=== PATIENT | female | born 1965 ===

== ENCOUNTER 2019-08-05 14:05 | Inpatient (IN) | payer OTHER, SELFPAY ==
[2019-08-05] MEDS ORDERED: SODIUM CHLORIDE 0.9% 500 ML 500 ML IV ONE (14:38)
[2019-08-05 15:07] LABS: Basophils % (Auto) 0.5 % (0.0-1.8); Eosinophils # (Auto) 0.1 K/mm3 (0.0-0.4); Eosinophils % (Auto) 1.7 % (0.0-4.3); Hematocrit 42.3 % (30.3-42.9); Hemoglobin 13.8 gm/dl (10.1-14.3); Lymphocytes # (Auto) 0.9 K/mm3 (1.2-5.4); Mean Corpuscular HGB Conc 33 % (30-34); Mean Corpuscular Volume 90 fl (79-97); Monocytes # (Auto) 0.8 K/mm3 (0.0-0.8); Monocytes % (Auto) 10.8 % (0.0-7.3); Platelet Count 149 K/mm3 (140-440); Red Blood Count 4.71 M/mm3 (3.65-5.03); Red Cell Distribution Width 14.1 % (13.2-15.2)
[2019-08-05 15:18] LABS: Partial Thromboplastin Time 26.3 Sec. (24.2-36.6)
--- NOTE | 2019-08-05 15:22 | XRay Report ---
CHEST 1 VIEW 08/05/2019 2:45 PM INDICATION / CLINICAL INFORMATION: hypoxia. COMPARISON: None available. FINDINGS: SUPPORT DEVICES: None. HEART / MEDIASTINUM: The cardiac silhouette is mildly enlarged. LUNGS / PLEURA: There are diffuse bilateral airspace opacities without a significant pleural effusion or pneumothorax. ADDITIONAL FINDINGS: No significant additional findings. IMPRESSION: 1. Diffuse bilateral airspace opacities could represent pulmonary edema, pneumonia or ARDS. Please co rrelate with the clinical findings. 2. Mild cardiomegaly. Signer Name: Rodney Garces MD Signed: 08/05/2019 3:17 PM Workstation Name: [id number]
[2019-08-05 15:31] LABS: Alanine Aminotransferase 24 units/L (7-56); Albumin 2.9 g/dL (3.9-5); BUN/Creatinine Ratio 10; Blood Urea Nitrogen 6 mg/dL (7-17); Calcium 8.5 mg/dL (8.4-10.2); Hemolysis Index 2
[2019-08-05 15:32] LABS: C-Reactive Protein 32.9 mg/dL (0.00-1.30)
--- NOTE | 2019-08-05 15:41 | Emergency Department Report ---
ED Shortness of Breath HPI - General Chief Complaint: Dyspnea/Respdistress Stated Complaint: COUGH Time Seen by Provider: 08/05/19 14:38 Source: patient, first aid attendant Mode of arrival: Ambulatory Limitations: Language Barrier - History of Present Illness Initial Comments: Patient is a 54-year-old female who is presenting with shortness of breath. Patient states she is been having cough with worsening shortness of breath for approximately 2 weeks. She denies nausea vomiting diarrhea. Patient has had chills and subjective fevers. Patient states she has no known contacts with anyone who is been ill or who has tested positive for COVID-19. - Related Data Allergies Allergy/AdvReac Type Severity Reaction Status Date / Time No Known Allergies Allergy Unverified 08/05/19 14:12 ED Review of Systems ROS: Stated complaint: COUGH Other details as noted in HPI Comment: All other systems reviewed and negative ED Past Medical Hx - Past Medical History Hx Diabetes: Yes - Surgical History Additional Surgical History: HYSTO - Social History Smoking Status: Never Smoker Substance Use Type: Alcohol ED Physical Exam - General Limitations: Language Barrier General appearance: alert, in no apparent distress - Head Head exam: Present: atraumatic, normocephalic - Eye Eye exam: Present: normal appearance - ENT ENT exam: Present: mucous membranes moist - Neck Neck exam: Present: normal inspection - Respiratory Respiratory exam: Present: respiratory distress, rhonchi, other (Tachypnea). Absent: normal lung sounds bilaterally - Cardiovascular Cardiovascular Exam: Present: normal rhythm, tachycardia. Absent: systolic murmur, diastolic murmur, rubs, gallop - GI/Abdominal GI/Abdominal exam: Present: soft, normal bowel sounds - Extremities Exam Extremities exam: Present: normal inspection - Back Exam Back exam: Present: normal inspection - Neurological Exam Neurological exam: Present: alert, oriented X3 - Psychiatric Psychiatric exam: Present: normal affect, normal mood - Skin Skin exam: Present: warm, dry, intact, normal color. Absent: rash ED Course Vital Signs 08/05/19 14:16 Temperature 98.6 F Pulse Rate 113 H Respiratory 32 H Rate Blood Pressure 123/67 [Left] O2 Sat by Pulse 53 L Oximetry ED Medical Decision Making - Lab Data Result diagrams: 08/05/19 14:53 08/05/19 14:53 Lab Results 08/05/19 08/05/19 08/05/19 Range/Units 14:53 14:53 14:53 WBC 7.0 (4.5-11.0) K/mm3 RBC 4.71 (3.65-5.03) M/mm3 Hgb 13.8 (10.1-14.3) gm/dl Hct 42.3 (30.3-42.9) % MCV 90 (79-97) fl MCH 29 (28-32) pg MCHC 33 (30-34) % RDW 14.1 (13.2-15.2) % Plt Count 149 (140-440) K/mm3 Lymph % (Auto) 13.0 L (13.4-35.0) % [place] % (Auto) 10.8 H (0.0-7.3) % Eos % (Auto) 1.7 (0.0-4.3) % Baso % (Auto) 0.5 (0.0-1.8) % Lymph # 0.9 L (1.2-5.4) K/mm3 [place] # 0.8 (0.0-0.8) K/mm3 Eos # 0.1 (0.0-0.4) K/mm3 Baso # 0.0 (0.0-0.1) K/mm3 Seg Neutrophils % 74.0 H (40.0-70.0) % Seg Neutrophils # 5.2 (1.8-7.7) K/mm3 APTT 26.3 (24.2-36.6) Sec. Sodium 138 (137-145) mmol/L Potassium 4.0 (3.6-5.0) mmol/L Chloride 103.3 (98-107) mmol/L Carbon Dioxide 20 L (22-30) mmol/L Anion Gap 19 mmol/L BUN 6 L (7-17) mg/dL Creatinine 0.6 L (0.7-1.2) mg/dL Estimated GFR > 60 ml/min BUN/Creatinine Ratio 10 % Glucose 255 H (65-100) mg/dL Lactic Acid (0.7-2.0) mmol/L Calcium 8.5 (8.4-10.2) mg/dL Ferritin (13.0-400.0) ng/mL Total Bilirubin 0.60 (0.1-1.2) mg/dL AST 33 (5-40) units/L ALT 24 (7-56) units/L Alkaline Phosphatase 173 H (35-129) units/L Lactate Dehydrogenase (91-180) units/L C-Reactive Protein (0.00-1.30) mg/dL NT-Pro-B Natriuret Pep (0-900) pg/mL Total Protein 7.3 (6.3-8.2) g/dL Albumin 2.9 L (3.9-5) g/dL Albumin/Globulin Ratio 0.7 % 08/05/19 08/05/19 08/05/19 Range/Units 14:53 14:53 14:53 WBC (4.5-11.0) K/mm3 RBC (3.65-5.03) M/mm3 Hgb (10.1-14.3) gm/dl Hct (30.3-42.9) % MCV (79-97) fl MCH (28-32) pg MCHC (30-34) % RDW (13.2-15.2) % Plt Count (140-440) K/mm3 Lymph % (Auto) (13.4-35.0) % [place] % (Auto) (0.0-7.3) % Eos % (Auto) (0.0-4.3) % Baso % (Auto) (0.0-1.8) % Lymph # (1.2-5.4) K/mm3 [place] # (0.0-0.8) K/mm3 Eos # (0.0-0.4) K/mm3 Baso # (0.0-0.1) K/mm3 Seg Neutrophils % (40.0-70.0) % Seg Neutrophils # (1.8-7.7) K/mm3 APTT (24.2-36.6) Sec. Sodium (137-145) mmol/L Potassium (3.6-5.0) mmol/L Chloride (98-107) mmol/L Carbon Dioxide (22-30) mmol/L Anion Gap mmol/L BUN (7-17) mg/dL Creatinine (0.7-1.2) mg/dL Estimated GFR ml/min BUN/Creatinine Ratio % Glucose 256 H (65-100) mg/dL Lactic Acid 3.40 H* (0.7-2.0) mmol/L Calcium (8.4-10.2) mg/dL Ferritin 438.9 H (13.0-400.0) ng/mL Total Bilirubin (0.1-1.2) mg/dL AST (5-40) units/L ALT (7-56) units/L Alkaline Phosphatase (35-129) units/L Lactate Dehydrogenase 702 H (91-180) units/L C-Reactive Protein 32.90 H (0.00-1.30) mg/dL NT-Pro-B Natriuret Pep (0-900) pg/mL Total Protein (6.3-8.2) g/dL Albumin (3.9-5) g/dL Albumin/Globulin Ratio % 05/22/20 Range/Units 15:07 WBC (4.5-11.0) K/mm3 RBC (3.65-5.03) M/mm3 Hgb (10.1-14.3) gm/dl Hct (30.3-42.9) % MCV (79-97) fl MCH (28-32) pg MCHC (30-34) % RDW (13.2-15.2) % Plt Count (140-440) K/mm3 Lymph % (Auto) (13.4-35.0) % [place] % (Auto) (0.0-7.3) % Eos % (Auto) (0.0-4.3) % Baso % (Auto) (0.0-1.8) % Lymph # (1.2-5.4) K/mm3 [place] # (0.0-0.8) K/mm3 Eos # (0.0-0.4) K/mm3 Baso # (0.0-0.1) K/mm3 Seg Neutrophils % (40.0-70.0) % Seg Neutrophils # (1.8-7.7) K/mm3 APTT (24.2-36.6) Sec. Sodium (137-145) mmol/L Potassium (3.6-5.0) mmol/L Chloride (98-107) mmol/L Carbon Dioxide (22-30) mmol/L Anion Gap mmol/L BUN (7-17) mg/dL Creatinine (0.7-1.2) mg/dL Estimated GFR ml/min BUN/Creatinine Ratio % Glucose (65-100) mg/dL Lactic Acid (0.7-2.0) mmol/L Calcium (8.4-10.2) mg/dL Ferritin (13.0-400.0) ng/mL Total Bilirubin (0.1-1.2) mg/dL AST (5-40) units/L ALT (7-56) units/L Alkaline Phosphatase (35-129) units/L Lactate Dehydrogenase (91-180) units/L C-Reactive Protein (0.00-1.30) mg/dL NT-Pro-B Natriuret Pep 1818 H (0-900) pg/mL Total Protein (6.3-8.2) g/dL Albumin (3.9-5) g/dL Albumin/Globulin Ratio % - Radiology Data [facility] [address] [place] [address] XRay Report Signed Patient: MATEUS LINCOLN MR#: [id number] : 1965 Acct:[id number] Age/Sex: 54 / F ADM Date: 08/05/19 Loc: ED Attending Dr: Ordering Physician: CARMELO ADAM MD Date of Service: 08/05/19 Procedure(s): XR chest 1V ap Accession Number(s): [id number] cc: CARMELO ADAM MD Fluoro Time In Minutes: CHEST 1 VIEW 08/05/2019 2:45 PM INDICATION / CLINICAL INFORMATION: hypoxia. COMPARISON: None available. FINDINGS: SUPPORT DEVICES: None. HEART / MEDIASTINUM: The cardiac silhouette is mildly enlarged. LUNGS / PLEURA: There are diffuse bilateral airspace opacities without a significant pleural effusion or pneumothorax. ADDITIONAL FINDINGS: No significant additional findings. IMPRESSION: 1. Diffuse bilateral airspace opacities could represent pulmonary edema, pneumonia or ARDS. Please correlate with the clinical findings. 2. Mild cardiomegaly. Signer Name: Rodney Garces MD Signed: 08/05/2019 3:17 PM Workstation Name: [id number] - Medical Decision Making Patient is a 54-year-old female who is presenting with cough and shortness of breath. Patient was very hypoxic on arrival but did respond well to high flow oxygen. Patient laboratory studies and chest x-ray are suggestive of COVID-19 infection. She did meet sepsis protocol and was given antibiotics blood pro cultures were done. Patient just given 500 cc of fluid as again likely the patient is COVID positive. Her blood pressure and map are within normal limits and her lactic was less than 4 making the 30 cc/kg bolus unnecessary. Patient be admitted to the hospitalist service. Critical Care Time: Yes (30) Critical care attestation.: If time is entered above; I have spent that time in minutes in the direct care of this critically ill patient, excluding procedure time. ED Disposition Clinical Impression: ARDS (adult respiratory distress syndrome), Suspected COVID-19 virus infection, Hyperglycemia Disposition: DC-09 OP ADMIT IP TO THIS HOSP Is pt being admited?: Yes Does the pt Need Aspirin: No Condition: Stable Time of Disposition: 15:46
[2019-08-05] MEDS: cefTRIAXone/NS 2 GM/100 ML 2 GM/100 ML BAG IV SCH (16:19)
[2019-08-05] MEDS: AZITHROMYCIN 500 MG in SODIUM CHLORIDE 0.9% 250ML 250 ML IV SCH (17:05)
[2019-08-05 20:24] LABS: Bilirubin,Urine NEG (Negative); Blood,Urine NEG (Negative); Color,Urine Amber (Yellow); Mucus,Urine 1+ /HPF; Urobilinogen,Urine < 2.0 mg/dL (<2.0)
--- NOTE | 2019-08-05 21:28 | History and Physical Report ---
History of Present Illness Date of examination: 08/05/19 Date of admission: 08/05/19 15:47 Chief complaint: Fever cough and SOB for 2 weeks History of present illness: 54-year-old female with pmh of T2DM who is presenting with shortness of breath. Patient states she is been having cough with worsening shortness of breath for approximately 2 weeks. She denies nausea vomiting diarrhea. Patient has had chills and subjective fevers. Patient states she has no known contacts with anyone who is been ill or who has tested positive for COVID-19. - - Past Medical History Diabetes - Surgical History Additional Surgical History: HYSTERECTOMY - Social History Smoking Status: Never Smoker Substance Use Type: Alcohol occasionally Family History T2DM Review of Systems ROS: Stated complaint: COUGH,Fever and chills SOB for 2 weeks Other details as noted in HPI Comment: All other systems reviewed and negative Medications and Allergies Allergies Allergy/AdvReac Type Severity Reaction Status Date / Time No Known Allergies Allergy Unverified 08/05/19 14:12 Active Meds: Active Medications Ceftriaxone Sodium (Rocephin/Ns 2 Gm/100 Ml) 2 gm in 100 mls @ 200 mls/hr IV Q24HR RAISA; Protocol Last Admin: 08/05/19 16:19 Dose: 200 mls/hr Documented by: Azithromycin 500 mg/ Sodium (Chloride) 250 mls @ 250 mls/hr IV Q24HR RAISA; Protocol Last Admin: 08/05/19 17:05 Dose: 250 mls/hr Documented by: Exam - Constitutional Vitals: Temp Pulse Resp BP Pulse Ox 98.6 F 77 34 H 124/87 100 08/05/19 14:16 08/05/19 21:00 08/05/19 21:00 08/05/19 21:00 08/05/19 21:00 General appearance: Present: no acute distress, mild distress, well-nourished - EENT Eyes: Present: PERRL ENT: hearing intact, clear oral mucosa - Neck Neck: Present: supple, normal ROM - Respiratory Respiratory effort: normal Respiratory: bilateral: CTA, rales (Scattered) - Cardiovascular Heart rate: 88 Rhythm: regular Heart Sounds: Present: S1 & S2. Absent: rub, click - Extremities Extremities: no ischemia, pulses intact, pulses symmetrical, No edema Peripheral Pulses: within normal limits - Abdominal General gastrointestinal: Present: soft, non-tender, non-distended, normal bowel sounds Female genitourinary: Present: normal - Rectal Rectal Exam: deferred - Integumentary Integumentary: Present: clear, warm, dry - Musculoskeletal Musculoskeletal: gait normal, strength equal bilaterally - Psychiatric Psychiatric: appropriate mood/affect, intact judgment & insight - Neurologic Neurologic: CNII-XII intact, moves all extremities Results - Labs CBC & Chem 7: 08/05/19 14:53 08/05/19 14:53 Labs: Laboratory Last Values WBC 7.0 K/mm3 (4.5-11.0) 08/05/19 14:53 RBC 4.71 M/mm3 (3.65-5.03) 08/05/19 14:53 Hgb 13.8 gm/dl (10.1-14.3) 08/05/19 14:53 Hct 42.3 % (30.3-42.9) 08/05/19 14:53 MCV 90 fl (79-97) 08/05/19 14:53 MCH 29 pg (28-32) 08/05/19 14:53 MCHC 33 % (30-34) 08/05/19 14:53 RDW 14.1 % (13.2-15.2) 08/05/19 14:53 Plt Count 149 K/mm3 (140-440) 08/05/19 14:53 Lymph % (Auto) 13.0 % (13.4-35.0) L 08/05/19 14:53 [place] % (Auto) 10.8 % (0.0-7.3) H 08/05/19 14:53 Eos % (Auto) 1.7 % (0.0-4.3) 08/05/19 14:53 Baso % (Auto) 0.5 % (0.0-1.8) 08/05/19 14:53 Lymph # 0.9 K/mm3 (1.2-5.4) L 08/05/19 14:53 [place] # 0.8 K/mm3 (0.0-0.8) 08/05/19 14:53 Eos # 0.1 K/mm3 (0.0-0.4) 08/05/19 14:53 Baso # 0.0 K/mm3 (0.0-0.1) 08/05/19 14:53 Seg Neutrophils % 74.0 % (40.0-70.0) H 08/05/19 14:53 Seg Neutrophils # 5.2 K/mm3 (1.8-7.7) 08/05/19 14:53 APTT 26.3 Sec. (24.2-36.6) 08/05/19 14:53 D-Dimer > 28118 ng/mlDDU (0-234) H 08/05/19 14:53 Sodium 138 mmol/L (137-145) 08/05/19 14:53 Potassium 4.0 mmol/L (3.6-5.0) 08/05/19 14:53 Chloride 103.3 mmol/L (98-107) 08/05/19 14:53 Carbon Dioxide 20 mmol/L (22-30) L 08/05/19 14:53 Anion Gap 19 mmol/L 08/05/19 14:53 BUN 6 mg/dL (7-17) L 08/05/19 14:53 Creatinine 0.6 mg/dL (0.7-1.2) L 08/05/19 14:53 Estimated GFR > 60 ml/min 08/05/19 14:53 BUN/Creatinine Ratio 10 % 08/05/19 14:53 Glucose 255 mg/dL (65-100) H 08/05/19 14:53 Glucose 256 mg/dL (65-100) H 08/05/19 14:53 Lactic Acid 2.00 mmol/L (0.7-2.0) 08/05/19 17:41 Calcium 8.5 mg/dL (8.4-10.2) 08/05/19 14:53 Ferritin 438.9 ng/mL (13.0-400.0) H 08/05/19 14:53 Total Bilirubin 0.60 mg/dL (0.1-1.2) 08/05/19 14:53 AST 33 units/L (5-40) 08/05/19 14:53 ALT 24 units/L (7-56) 08/05/19 14:53 Alkaline Phosphatase 173 units/L (35-129) H 08/05/19 14:53 Lactate Dehydrogenase 702 units/L (91-180) H 08/05/19 14:53 C-Reactive Protein 32.90 mg/dL (0.00-1.30) H 08/05/19 14:53 NT-Pro-B Natriuret Pep 1818 pg/mL (0-900) H 08/05/19 15:07 Total Protein 7.3 g/dL (6.3-8.2) 08/05/19 14:53 Albumin 2.9 g/dL (3.9-5) L 08/05/19 14:53 Albumin/Globulin Ratio 0.7 % 08/05/19 14:53 Urine Color [place] (Yellow) 08/05/19 19:54 Urine Turbidity Clear (Clear) 08/05/19 19:54 Urine pH 5.0 (5.0-7.0) 08/05/19 19:54 Ur Specific [place] 1.031 (1.003-1.030) H 08/05/19 19:54 Urine Protein 100 mg/dl mg/dL (Negative) 08/05/19 19:54 Urine Glucose (UA) 50 mg/dL (Negative) 08/05/19 19:54 Urine Ketones Neg mg/dL (Negative) 08/05/19 19:54 Urine Blood Neg (Negative) 08/05/19 19:54 Urine Nitrite Neg (Negative) 08/05/19 19:54 Urine Bilirubin Neg (Negative) 08/05/19 19:54 Urine Urobilinogen < 2.0 mg/dL (<2.0) 08/05/19 19:54 Ur Leukocyte Esterase Neg (Negative) 08/05/19 19:54 Urine WBC (Auto) 8.0 /HPF (0.0-6.0) H 08/05/19 19:54 Urine RBC (Auto) 1.0 /HPF (0.0-6.0) 08/05/19 19:54 U Epithel Cells (Auto) 10.0 /HPF (0-13.0) 08/05/19 19:54 Urine Mucus 1+ /HPF 08/05/19 19:54 Short CBC 08/05/19 Range/Units 14:53 WBC 7.0 (4.5-11.0) K/mm3 Hgb 13.8 (10.1-14.3) gm/dl Hct 42.3 (30.3-42.9) % Plt Count 149 (140-440) K/mm3 BMP 08/05/19 08/05/19 14:53 14:53 Sodium 138 Potassium 4.0 Chloride 103.3 Carbon Dioxide 20 L BUN 6 L Creatinine 0.6 L Glucose 255 H 256 H Calcium 8.5 Liver Function 08/05/19 Range/Units 14:53 Total Bilirubin 0.60 (0.1-1.2) mg/dL AST 33 (5-40) units/L ALT 24 (7-56) units/L Alkaline Phosphatase 173 H (35-129) units/L Albumin 2.9 L (3.9-5) g/dL Urine 08/05/19 Range/Units 19:54 Urine Color [place] (Yellow) Urine pH 5.0 (5.0-7.0) Ur Specific [place] 1.031 H (1.003-1.030) Urine Protein 100 mg/dl (Negative) mg/dL Urine Glucose (UA) 50 (Negative) mg/dL Microbiology: Microbiology 08/05/19 14:58 Peripheral/Venous Blood Culture - Preliminary Culture in Progress 08/05/19 14:53 Peripheral/Venous Blood Culture - Preliminary Culture in Progress - Imaging and Cardiology Chest x-ray: report reviewed Imaging and Cardiology: CXR IMPRESSION: 1. Diffuse bilateral airspace opacities could represent pulmonary edema, pneumonia or ARDS. Please correlate with the clinical findings. 2. Mild cardiomegaly. [place]/IV: IV Catheter Type [Left Peripheral IV Antecubital] Assessment and Plan Assessment and plan: CCT 40 min Advance Directives: Yes (Full code) VTE prophylaxis?: Chemical Plan of care discussed with patient/family: Yes - Patient Problems (1) Respiratory failure with hypoxia Current Visit: Yes Status: Acute Qualifiers: Chronicity: acute Qualified Code(s): J96.01 - Acute respiratory failure with hypoxia Plan to address problem: High flow oxygen for now (2) ARDS (adult respiratory distress syndrome) Current Visit: Yes Status: Acute Plan to address problem: High flow o2 for now Resp eval/Tx (3) Bilateral pneumonia Current Visit: Yes Status: Acute Plan to address problem: High possibility of martinez virus infection Treat as CAP IV Ceftriaxonew and IV Zithromax ID consult for further reccomendations (4) Suspected COVID-19 virus infection Current Visit: Yes Status: Acute Plan to address problem: Covid 19 work up (5) T2DM (type 2 diabetes mellitus) Current Visit: Yes Status: Chronic Qualifiers: 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
[2019-08-05] MEDS ORDERED: ACETAMINOPHEN 325 MG TAB PO PRN (21:32)
[2019-08-05] MEDS ORDERED: ONDANSETRON 4 MG/2 ML INJ IV PRN (21:32)
[2019-08-06] MEDS: INSULIN LISPRO 100 UNIT/ML SUB-Q SCH ×5 (01:05→22:24)
[2019-08-06] MEDS: ENOXAPARIN 100 MG/1 ML INJ SUB-Q SCH ×3 (01:15→21:02)
[2019-08-06] MEDS: BENZONATATE 100 MG CAP PO SCH ×3 (01:16→16:08)
[2019-08-06] MEDS: FAMOTIDINE 20 MG TAB PO SCH ×3 (01:16→21:02)
[2019-08-06] MEDS: cefTRIAXone/NS 2 GM/100 ML 2 GM/100 ML BAG IV SCH (09:01)
[2019-08-06] MEDS: AZITHROMYCIN 500 MG in SODIUM CHLORIDE 0.9% 250ML 250 ML IV SCH (10:27)
--- NOTE | 2019-08-06 20:47 | Progress Note ---
Assessment and Plan CCT 40 min - Patient Problems (1) Respiratory failure with hypoxia Current Visit: Yes Status: Acute Qualifiers: Chronicity: acute Qualified Code(s): J96.01 - Acute respiratory failure with hypoxia Plan to address problem: Continue high flow oxygen (2) ARDS (adult respiratory distress syndrome) Current Visit: Yes Status: Acute Plan to address problem: High flow o2 for now Resp eval/Tx (3) Bilateral pneumonia Current Visit: Yes Status: Acute Plan to address problem: High possibility of martinez virus infection Treat as CAP IV Ceftriaxonew and IV Zithromax ID consult for further reccomendations Patient is positive for coronavirus (4) Suspected COVID-19 virus infection Current Visit: Yes Status: Acute Plan to address problem: Covid 19 work up Patient is positive for coronavirus (5) T2DM (type 2 diabetes mellitus) Current Visit: Yes Status: Chronic Qualifiers: Diabetes mellitus intermediate project manager insulin use: unspecified longterm insulin use status Plan to address problem: Tight control of Diabetes Check A1c High dose sliding scale coverage Add Novalog mix 70/30 BID (6) Elevated d-dimer Current Visit: Yes Status: Acute Plan to address problem: Lovenox 92 mg SQ q12h (7) DVT prophylaxis Current Visit: Yes Status: Acute Plan to address problem: OnLovenox and GI prophylaxis Subjective Date of service: 08/06/19 Principal diagnosis: Bilateral pneumonia, ARDS Interval history: 54-year-old female with pmh of T2DM who is presenting with shortness of breath. Patient states she is been having cough with worsening shortness of breath for approximately 2 weeks. She denies nausea vomiting diarrhea. Patient has had chills and subjective fevers. Patient states she has no known contacts with anyone who is been ill or who has tested positive for COVID-19. Continues to be short of breath. Very tachypneic but able to maintain oxygen saturations above 92. Objective - Constitutional Vitals: Vital Signs - 12hr 08/06/19 08/06/19 08/06/19 09:01 12:00 16:00 Temperature Pulse Rate 103 H 90 Pulse Rate [ 103 H 103 H 90 From Monitor] Respiratory 18 43 H 46 H Rate O2 Sat by Pulse 96 92 98 Oximetry 08/06/19 08/06/19 19:42 20:00 Temperature 102.3 F H Pulse Rate 90 Pulse Rate [ 93 H From Monitor] Respiratory 32 H Rate O2 Sat by Pulse 98 Oximetry General appearance: Present: severe distress, well-nourished - EENT Eyes: PERRL, EOM intact ENT: hearing intact, clear oral mucosa Ears: bilateral: normal - Neck Neck: supple, normal ROM - Respiratory Respiratory effort: normal Respiratory: bilateral: CTA, rhonchi, wheezing - Breasts Breasts: normal - Cardiovascular Heart rate: 93 Rhythm: regular Heart Sounds: Present: S1 & S2. Absent: gallop, rub Extremities: no ischemia, pulses intact, No edema, normal color, Full ROM - Gastrointestinal General gastrointestinal: Present: soft, non-tender, non-distended, normal bowel sounds - Genitourinary Female genitourinary: normal - Integumentary Integumentary: clear, warm, dry - Musculoskeletal Musculoskeletal: 1, strength equal bilaterally - Neurologic Neurologic: moves all extremities - Psychiatric Psychiatric: memory intact, appropriate mood/affect, intact judgment & insight - Labs CBC & Chem 7: 08/05/19 14:53 08/05/19 14:53 Labs: Abnormal lab results 08/06/19 08/06/19 08/06/19 Range/Units 00:21 08:29 09:17 POC Glucose 131 H 165 H (70-105) Hemoglobin A1c (4-6) % Coronavirus (PCR) Positive A (Negative) 08/06/19 08/06/19 08/06/19 Range/Units 11:56 16:16 Unknown POC Glucose 190 H 170 H (70-105) Hemoglobin A1c 7.6 H (4-6) % Coronavirus (PCR) (Negative) - Imaging and cardiology Chest x-ray: report reviewed
[2019-08-06] MEDS: oxyCODONE /ACETAMINOPHEN 5-325MG TAB PO PRN (21:07)
[2019-08-06] MEDS: HYDROmorphone 1 MG/1 ML INJ IV PRN (22:28)
[2019-08-07] MEDS: BENZONATATE 100 MG CAP PO SCH ×3 (04:50→17:09)
[2019-08-07] MEDS: INSULIN LISPRO 100 UNIT/ML SUB-Q SCH ×4 (08:31→21:38)
[2019-08-07] MEDS: FAMOTIDINE 20 MG TAB PO SCH ×2 (09:55→21:38)
[2019-08-07] MEDS: ENOXAPARIN 100 MG/1 ML INJ SUB-Q SCH ×2 (09:55→21:37)
[2019-08-07] MEDS: AZITHROMYCIN 500 MG in SODIUM CHLORIDE 0.9% 250ML 250 ML IV SCH (09:56)
[2019-08-07] MEDS: cefTRIAXone/NS 2 GM/100 ML 2 GM/100 ML BAG IV SCH (09:56)
--- NOTE | 2019-08-07 12:07 | Consultation ---
History of Present Illness Consult date: 08/07/19 Requesting physician: SCARLET MOSQUERA Reason for consult: hypoxemia History of present illness: 54 y/o female, with acute respiratory failure, found to be COVID 19 positive now on HFNC at 40 liters 100%. Past History Past Medical History: No medical history Past Surgical History: No surgical history Social history: no significant social history Family history: no significant family history Medications and Allergies Allergies Allergy/AdvReac Type Severity Reaction Status Date / Time No Known Allergies Allergy Unverified 08/05/19 14:12 Active Meds: Active Medications Acetaminophen (Tylenol) 650 mg PO Q4H PRN PRN Reason: Pain MILD(1-3)/Fever >100.5/BUTLER Last Admin: 08/06/19 20:05 Dose: 650 mg Documented by: Azithromycin (Zithromax) 500 mg PO QDAY [facility] Stop: 08/09/19 10:01 Benzonatate (Tessalon Perles) 100 mg PO Q8H [facility] Last Admin: 08/07/19 09:55 Dose: 100 mg Documented by: Enoxaparin Sodium (Enoxaparin) 90 mg SUB-Q Q12HR [facility] Last Admin: 08/07/19 09:55 Dose: 90 mg Documented by: Famotidine (Pepcid) 20 mg PO BID [facility] Last Admin: 08/07/19 09:55 Dose: 20 mg Documented by: Hydromorphone HCl (Dilaudid) 0.5 mg IV Q3H PRN PRN Reason: Pain , Severe (7-10) Last Admin: 08/06/19 22:28 Dose: 0.5 mg Documented by: Ceftriaxone Sodium (Rocephin/Ns 2 Gm/100 Ml) 2 gm in 100 mls @ 200 mls/hr IV Q24HR [facility]; Protocol Last Admin: 08/07/19 09:56 Dose: 200 mls/hr Documented by: Azithromycin 500 mg/ Sodium (Chloride) 250 mls @ 250 mls/hr IV Q24HR [facility]; Protocol Stop: 08/07/19 14:37 Last Admin: 08/07/19 09:56 Dose: 250 mls/hr Documented by: TOCILIZUMAB 400 mg/ Sodium (Chloride) 120 mls @ 120 mls/hr IV ONCE ONE Stop: 08/07/19 13:29 Insulin Human Lispro (Humalog) 0 unit SUB-Q ACHS [facility]; Protocol Last Admin: 08/07/19 08:31 Dose: Not Given Documented by: Methylprednisolone Sodium Succinate (Solu-Medrol) 40 mg IV Q8HR [facility] Metoclopramide HCl (Reglan) 10 mg IV Q6H PRN PRN Reason: Nausea And Vomiting Ondansetron HCl (Zofran) 4 mg IV Q8H PRN PRN Reason: Nausea And Vomiting Oxycodone/Acetaminophen (Percocet 5/325) 1 tab PO Q6H PRN PRN Reason: Pain, Moderate (4-6) Last Admin: 08/06/19 21:07 Dose: 1 tab Documented by: Sodium Chloride (Sodium Chloride Flush Syringe 10 Ml) 10 ml IV BID [facility] Last Admin: 08/07/19 09:57 Dose: 10 ml Documented by: Sodium Chloride (Sodium Chloride Flush Syringe 10 Ml) 10 ml IV PRN PRN PRN Reason: LINE FLUSH Physical Examination Vital signs: Vital Signs Temp Pulse Resp BP Pulse Ox 98.6 F 113 H 32 H 123/67 53 L 08/05/19 14:16 08/05/19 14:16 08/05/19 14:16 08/05/19 14:16 08/05/19 14:16 Results - Laboratory Findings CBC and BMP: 08/05/19 14:53 08/05/19 14:53 PT/INR, D-dimer D-Dimer > 79837 ng/mlDDU (0-234) H 08/05/19 14:53 Abnormal lab findings: Abnormal Labs 08/05/19 08/05/19 08/05/19 14:53 14:53 14:53 Lymph % (Auto) 13.0 L [place] % (Auto) 10.8 H Lymph # 0.9 L Seg Neutrophils % 74.0 H D-Dimer > 79304 H Carbon Dioxide 20 L BUN 6 L Creatinine 0.6 L Glucose 255 H POC Glucose Hemoglobin A1c Lactic Acid Ferritin Alkaline Phosphatase 173 H Lactate Dehydrogenase C-Reactive Protein NT-Pro-B Natriuret Pep Albumin 2.9 L Ur Specific [place] Urine WBC (Auto) Coronavirus (PCR) 08/05/19 08/05/19 08/05/19 14:53 14:53 14:53 Lymph % (Auto) [place] % (Auto) Lymph # Seg Neutrophils % D-Dimer Carbon Dioxide BUN Creatinine Glucose 256 H POC Glucose Hemoglobin A1c Lactic Acid 3.40 H* Ferritin 438.9 H Alkaline Phosphatase Lactate Dehydrogenase 702 H C-Reactive Protein 32.90 H NT-Pro-B Natriuret Pep Albumin Ur Specific [place] Urine WBC (Auto) Coronavirus (PCR) 08/05/19 08/05/19 08/06/19 15:07 19:54 00:21 Lymph % (Auto) [place] % (Auto) Lymph # Seg Neutrophils % D-Dimer Carbon Dioxide BUN Creatinine Glucose POC Glucose 131 H Hemoglobin A1c Lactic Acid Ferritin Alkaline Phosphatase Lactate Dehydrogenase C-Reactive Protein NT-Pro-B Natriuret Pep 1818 H Albumin Ur Specific [place] 1.031 H Urine WBC (Auto) 8.0 H Coronavirus (PCR) 08/06/19 08/06/19 08/06/19 08:29 09:17 11:56 Lymph % (Auto) [place] % (Auto) Lymph # Seg Neutrophils % D-Dimer Carbon Dioxide BUN Creatinine Glucose POC Glucose 165 H 190 H Hemoglobin A1c Lactic Acid Ferritin Alkaline Phosphatase Lactate Dehydrogenase C-Reactive Protein NT-Pro-B Natriuret Pep Albumin Ur Specific [place] Urine WBC (Auto) Coronavirus (PCR) Positive A 08/06/19 08/06/19 08/06/19 16:16 22:16 Unknown Lymph % (Auto) [place] % (Auto) Lymph # Seg Neutrophils % D-Dimer Carbon Dioxide BUN Creatinine Glucose POC Glucose 170 H 128 H Hemoglobin A1c 7.6 H Lactic Acid Ferritin Alkaline Phosphatase Lactate Dehydrogenase C-Reactive Protein NT-Pro-B Natriuret Pep Albumin Ur Specific [place] Urine WBC (Auto) Coronavirus (PCR) - Diagnostic Findings Chest x-ray: image reviewed (bilateral alveolar infiltrates) Assessment and Plan 54 y/o female with acute respiratory failure secondary to COVID 19 1. Proning during the day and prone sleeping at night 2. Will start steroids 40q8 for 7 days 3. Agree with Actemra 4. Agree with Remdisiver 5. Guarded Prognosis, continue HFNC for now. Hopeful she will not require intubation.
[2019-08-07 12:17] LABS: Hematocrit 40.5 % (30.3-42.9); Hemoglobin 13.4 gm/dl (10.1-14.3); Mean Corpuscular HGB Conc 33 % (30-34); Mean Corpuscular Volume 91 fl (79-97); Platelet Count 149 K/mm3 (140-440); Red Blood Count 4.46 M/mm3 (3.65-5.03); Red Cell Distribution Width 14.5 % (13.2-15.2)
[2019-08-07] MEDS ORDERED: TOCILIZUMAB 400 MG in SODIUM CHLORIDE 0.9% 100 ML IV ONE (12:30)
[2019-08-07 12:33] LABS: Alanine Aminotransferase 17 units/L (7-56); Albumin 2.5 g/dL (3.9-5); BUN/Creatinine Ratio 18; Blood Urea Nitrogen 11 mg/dL (7-17); Hemolysis Index 8
--- NOTE | 2019-08-07 12:47 | Consultation ---
History of Present Illness - Reason for Consult Consult date: 08/07/19 COVID Requesting physician: SCARLET MOSQUERA - History of Present Illness 54 years old female with history of obesity, diabetes, admitted on due to 2-week history of dry cough, generalized malaise and progressive shortness of breath. She denies any nausea, vomiting or diarrhea. She did not come to the hospital before because she was afraid she could have COVID. She denies any contact with call with COVID patients. On arrival, temperature 98.1 went up to 102, HR 113, RR 32, O2 sat 53%, BP 123/67. WBC 7. D-dimer more than 10,000, ferritin 438, LDH 702, CRP 32. Procalcitonin 0.8. Urinalysis negative. COVID test positive. Chest x-ray showed diffuse bilateral airspace disease. Patient currently is on high flow oxygen. Review of Systems: positive in bold print General: + fever, +chills, +malaise Cutaneous: rash, pruritus Head: headaches or injury Eyes: changes in vision, eye pain, double vision Ears: ear pain, ear discharge, ringing or hearing loss Nose: nose bleeding, stuffiness Mouth & throat: bleeding gums, horseness, no dental problems, or swollen glands Neck: no pain, node enlargement/lumps, tyroid enlargement or tenderness Respiratory: +SOB, +cough, +MIX, wheezing, sputum, hemoptysis, pleuritic chest pain Cardiovascular: chest pain, leg edema, cyanosis, MIX, orthopnea Musculoskeletal: edema Gastrointestinal: nausea, vomiting, hematemesis, diarrhea, constipation, melena, bright red blood in stools, fecal incontinence, jaundice Genitourinary/Reproductive: frequent urination, dysuria, hematuria, incontinence Neurogical: seizures, headaches, weakness, paresthesias, loss of speech or vision; memory loss, vertigo, tremors, numbness Psychiatric: stable mood; excessive anxiety, sadness or moodiness Past History Past Medical History: No medical history Past Surgical History: No surgical history Social history: no significant social history Family history: no significant family history Medications and Allergies Allergies Allergy/AdvReac Type Severity Reaction Status Date / Time No Known Allergies Allergy Unverified 08/05/19 14:12 Active Meds: Active Medications Acetaminophen (Tylenol) 650 mg PO Q4H PRN PRN Reason: Pain MILD(1-3)/Fever >100.5/[place]LER Last Admin: 08/06/19 20:05 Dose: 650 mg Documented by: Azithromycin (Zithromax) 500 mg PO QDAY [facility] Stop: 08/09/19 10:01 Benzonatate (Tessalon Perles) 100 mg PO Q8H [facility] Last Admin: 08/07/19 09:55 Dose: 100 mg Documented by: Enoxaparin Sodium (Enoxaparin) 90 mg SUB-Q Q12HR [facility] Last Admin: 08/07/19 09:55 Dose: 90 mg Documented by: Famotidine (Pepcid) 20 mg PO BID [facility] Last Admin: 08/07/19 09:55 Dose: 20 mg Documented by: Hydromorphone HCl (Dilaudid) 0.5 mg IV Q3H PRN PRN Reason: Pain , Severe (7-10) Last Admin: 08/06/19 22:28 Dose: 0.5 mg Documented by: Ceftriaxone Sodium (Rocephin/Ns 2 Gm/100 Ml) 2 gm in 100 mls @ 200 mls/hr IV Q24HR [facility]; Protocol Last Admin: 08/07/19 09:56 Dose: 200 mls/hr Documented by: Azithromycin 500 mg/ Sodium (Chloride) 250 mls @ 250 mls/hr IV Q24HR [facility]; Protocol Stop: 08/07/19 14:37 Last Admin: 08/07/19 09:56 Dose: 250 mls/hr Documented by: TOCILIZUMAB 400 mg/ Sodium (Chloride) 120 mls @ 120 mls/hr IV ONCE ONE Stop: 08/07/19 13:29 Insulin Human Lispro (Humalog) 0 unit SUB-Q ACHS [facility]; Protocol Last Admin: 08/07/19 12:32 Dose: 3 unit Documented by: Methylprednisolone Sodium Succinate (Solu-Medrol) 40 mg IV Q8HR [facility] Metoclopramide HCl (Reglan) 10 mg IV Q6H PRN PRN Reason: Nausea And Vomiting Ondansetron HCl (Zofran) 4 mg IV Q8H PRN PRN Reason: Nausea And Vomiting Oxycodone/Acetaminophen (Percocet 5/325) 1 tab PO Q6H PRN PRN Reason: Pain, Moderate (4-6) Last Admin: 08/06/19 21:07 Dose: 1 tab Documented by: Sodium Chloride (Sodium Chloride Flush Syringe 10 Ml) 10 ml IV BID [facility] Last Admin: 08/07/19 09:57 Dose: 10 ml Documented by: Sodium Chloride (Sodium Chloride Flush Syringe 10 Ml) 10 ml IV PRN PRN PRN Reason: LINE FLUSH Physical Examination - Physical Exam Narrative exam: General appearance: Alert in moderate respiratory distress anxious, on high flow O2 Eyes: Pupils equal reactive to light and accommodation HENT: Atraumatic; oropharynx limited Lungs: davis crackles CV: Tachycardic Abdomen: Soft, nontender, obese Extremities: No edema Skin: No rash. Psych: Anxious Neuro: alert and oriented x 3. Moving all extermities - Constitutional Vitals: Vital Signs Temp Pulse Resp BP Pulse Ox 98.9 F 110 H 13 140/77 97 08/07/19 12:00 08/07/19 12:01 08/07/19 12:01 08/07/19 12:01 08/07/19 12:01 Temperature -Last 24 Hours Temperature 98.9 F Temperature 99.1 F Temperature 98.2 F Temperature 98.7 F Temperature 102.3 F Results - Labs CBC & Chem 7: 08/07/19 11:56 08/07/19 11:56 Labs: Abnormal lab results 08/06/19 08/06/19 08/06/19 Range/Units 09:17 11:56 16:16 Creatinine (0.7-1.2) mg/dL Glucose (65-100) mg/dL POC Glucose 190 H 170 H (70-105) Calcium (8.4-10.2) mg/dL Ferritin (13.0-400.0) ng/mL Alkaline Phosphatase (35-129) units/L Lactate Dehydrogenase (91-180) units/L C-Reactive Protein (0.00-1.30) mg/dL Albumin (3.9-5) g/dL Coronavirus (PCR) Positive A (Negative) 08/06/19 08/07/19 08/07/19 Range/Units 22:16 11:56 11:56 Creatinine 0.6 L (0.7-1.2) mg/dL Glucose 194 H (65-100) mg/dL POC Glucose 128 H (70-105) Calcium 8.0 L (8.4-10.2) mg/dL Ferritin (13.0-400.0) ng/mL Alkaline Phosphatase 181 H (35-129) units/L Lactate Dehydrogenase 745 H (91-180) units/L C-Reactive Protein (0.00-1.30) mg/dL Albumin 2.5 L (3.9-5) g/dL Coronavirus (PCR) (Negative) 08/07/19 08/07/19 Range/Units 11:56 11:56 Creatinine (0.7-1.2) mg/dL Glucose (65-100) mg/dL POC Glucose (70-105) Calcium (8.4-10.2) mg/dL Ferritin 415.7 H (13.0-400.0) ng/mL Alkaline Phosphatase (35-129) units/L Lactate Dehydrogenase (91-180) units/L C-Reactive Protein 34.20 H (0.00-1.30) mg/dL Albumin (3.9-5) g/dL Coronavirus (PCR) (Negative) Assessment and Plan Cultures: Blood culture 08/05/2019 no growth Assessment: 54 years old female with history of obesity, diabetes, admitted on 08/05/2019 due to 2-week history of dry cough, generalized malaise and progressiv e shortness of breath: #Severe sepsis: likely due to severe COVID pneumonia #Severe COVID pneumonia: high suspicion for late SARS-2 virus complications - cytokine storm, microvascular thrombosis. Inflamatory markers are elevated- D- dimer > 10,000, ferritin 438, LDH 702, CRP 32. #Acute hypoxemic respiratory failure: on HFO2 Recommendations: Start Actemra 4 mg/kg once now Start Remdesivir - 200 mg loading dose x1 followed by 100 mg IV daily x 9 days Start solumedrol 40 mg IV q 8 hours for COVID induced cytokine storm Consider full dose anticoagulation for elevated d-dimer Continue ceftriaxone and azithromycin Obtain markers to include LDH, CRP, ferritin, d-dimer q day Monitor LFTs Obtain quantiferon and IL-6 Proning per ICU team - patient educated Start vit C and D Continue COVID isolation precautions per PSYCHIATRIC protocol VERY High risk mortality - discussed with patient Will follow Viktoria Shanks MD Infectious Diseases [facility] M [phone] O [phone]
[2019-08-07] MEDS: methylPREDNISolone Sod Succinate 40 MG/1 ML INJ IV SCH ×2 (13:23→21:37)
[2019-08-07] MEDS ORDERED: SODIUM CHLORIDE 0.9% 50 ML IVPB IV SCH ×2 (16:30→19:00)
[2019-08-07] MEDS ORDERED: SODIUM CHLORIDE 0.9% 50 ML VIAL IV SCH (16:30)
[2019-08-07] MEDS ORDERED: REMDESIVIR 200 MG in SODIUM CHLORIDE 0.9% 250ML 250 ML IV ONE (18:00)
[2019-08-07] MEDS ORDERED: SODIUM CHLORIDE 0.9% 50 ML IVPB IV STA (18:54)
[2019-08-08] MEDS: BENZONATATE 100 MG CAP PO SCH ×3 (01:17→17:32)
--- NOTE | 2019-08-08 04:20 | Progress Note ---
Assessment and Plan - Patient Problems (1) Respiratory failure with hypoxia Current Visit: Yes Status: Acute Qualifiers: Chronicity: acute Qualified Code(s): J96.01 - Acute respiratory failure with hypoxia Plan to address problem: Continue high flow oxygen (2) ARDS (adult respiratory distress syndrome) Current Visit: Yes Status: Acute Plan to address problem: High flow o2 for now Resp eval/Tx (3) Bilateral pneumonia Current Visit: Yes Status: Acute Plan to address problem: High possibility of martinez virus infection Treat as CAP IV Ceftriaxonew and IV Zithromax ID consult for further reccomendations Patient is positive for coronavirus (4) Suspected COVID-19 virus infection Current Visit: Yes Status: Acute Plan to address problem: Covid 19 work up Patient is positive for coronavirus On Remdesivir (5) T2DM (type 2 diabetes mellitus) Current Visit: Yes Status: Chronic Qualifiers: Diabetes mellitus [employer] insulin use: unspecified senior care insulin use status Plan to address problem: Tight control of Diabetes Check A1c High dose sliding scale coverage Add Novalog mix 70/30 BID (6) Elevated d-dimer Current Visit: Yes Status: Acute Plan to address problem: Lovenox 92 mg SQ q12h (7) DVT prophylaxis Current Visit: Yes Status: Acute Plan to address problem: OnLovenox and GI prophylaxis Subjective Date of service: 08/07/19 Principal diagnosis: Bilateral pneumonia, ARDS Interval history: 54-year-old female with pmh of T2DM who is presenting with shortness of breath. Patient states she is been having cough with worsening shortness of breath for approximately 2 weeks. She denies nausea vomiting diarrhea. Patient has had chills and subjective fevers. Patient states she has no known contacts with anyone who is been ill or who has tested positive for COVID-19. Continues to be short of breath. Very tachypneic but able to maintain oxygen saturations above 92. Less tachypneic today Objective - Constitutional Vitals: Vital Signs - 12hr 08/07/19 08/07/19 08/07/19 17:01 18:01 18:19 Temperature Pulse Rate 81 77 80 Pulse Rate [ From Monitor] Respiratory 26 H 39 H 13 Rate Blood Pressure 117/29 118/40 115/52 O2 Sat by Pulse 95 96 95 Oximetry 05/24/20 05/24/20 05/24/20 19:01 20:00 20:51 Temperature 98.7 F Pulse Rate 82 82 Pulse Rate [ 97 H From Monitor] Respiratory 37 H 22 Rate Blood Pressure 72/40 102/70 O2 Sat by Pulse 95 96 95 Oximetry 08/07/19 08/07/19 08/07/19 21:00 22:01 23:00 Temperature Pulse Rate 85 84 79 Pulse Rate [ From Monitor] Respiratory 36 H 35 H 38 H Rate Blood Pressure 112/56 123/67 128/76 O2 Sat by Pulse 88 92 95 Oximetry 08/08/19 08/08/19 08/08/19 00:00 01:00 02:00 Temperature 99.1 F Pulse Rate 82 77 77 Pulse Rate [ 82 From Monitor] Respiratory 36 H 24 31 H Rate Blood Pressure 143/84 128/71 138/82 O2 Sat by Pulse 92 94 94 Oximetry 08/08/19 03:00 Temperature Pulse Rate 75 Pulse Rate [ From Monitor] Respiratory 36 H Rate Blood Pressure 147/76 O2 Sat by Pulse 92 Oximetry General appearance: Present: no acute distress, well-nourished - EENT Eyes: PERRL, EOM intact ENT: hearing intact, clear oral mucosa Ears: bilateral: normal - Neck Neck: supple, normal ROM - Respiratory Respiratory effort: normal Respiratory: bilateral: CTA, rales, rhonchi, wheezing - Breasts Breasts: normal - Cardiovascular Heart rate: 89 Rhythm: regular Heart Sounds: Present: S1 & S2. Absent: gallop, rub Extremities: no ischemia, pulses intact, No edema, normal color, Full ROM - Gastrointestinal General gastrointestinal: Present: soft, non-tender, non-distended, normal bowel sounds - Genitourinary Female genitourinary: normal - Integumentary Integumentary: clear, warm, dry - Musculoskeletal Musculoskeletal: 1, strength equal bilaterally - Neurologic Neurologic: moves all extremities - Psychiatric Psychiatric: memory intact, appropriate mood/affect, intact judgment & insight - Labs CBC & Chem 7: 08/07/19 11:56 08/07/19 11:56 Labs: Abnormal lab results 08/07/19 08/07/19 08/07/19 Range/Units 11:56 11:56 11:56 D-Dimer > 96031 H (0-234) ng/mlDDU Creatinine 0.6 L (0.7-1.2) mg/dL Glucose 194 H (65-100) mg/dL POC Glucose (70-105) Calcium 8.0 L (8.4-10.2) mg/dL Ferritin (13.0-400.0) ng/mL Alkaline Phosphatase 181 H (35-129) units/L Lactate Dehydrogenase 745 H (91-180) units/L C-Reactive Protein (0.00-1.30) mg/dL Albumin 2.5 L (3.9-5) g/dL 08/07/19 08/07/19 08/07/19 Range/Units 11:56 11:56 21:36 D-Dimer (0-234) ng/mlDDU Creatinine (0.7-1.2) mg/dL Glucose (65-100) mg/dL POC Glucose 277 H (70-105) Calcium (8.4-10.2) mg/dL Ferritin 415.7 H (13.0-400.0) ng/mL Alkaline Phosphatase (35-129) units/L Lactate Dehydrogenase (91-180) units/L C-Reactive Protein 34.20 H (0.00-1.30) mg/dL Albumin (3.9-5) g/dL
[2019-08-08] MEDS: methylPREDNISolone Sod Succinate 40 MG/1 ML INJ IV SCH ×3 (06:55→21:45)
[2019-08-08] MEDS: INSULIN LISPRO 100 UNIT/ML SUB-Q SCH ×4 (08:02→21:42)
[2019-08-08 09:32] LABS: Alanine Aminotransferase 20 units/L (7-56); Albumin 2.5 g/dL (3.9-5); BUN/Creatinine Ratio 28; Blood Urea Nitrogen 17 mg/dL (7-17); Calcium 8.3 mg/dL (8.4-10.2); Hemolysis Index 32
[2019-08-08] MEDS: ENOXAPARIN 100 MG/1 ML INJ SUB-Q SCH ×2 (09:48→21:42)
[2019-08-08] MEDS: FAMOTIDINE 20 MG TAB PO SCH ×2 (09:48→21:44)
[2019-08-08] MEDS: cefTRIAXone/NS 2 GM/100 ML 2 GM/100 ML BAG IV SCH (09:48)
[2019-08-08] MEDS: AZITHROMYCIN 250 MG TAB PO SCH (09:48)
[2019-08-08] MEDS: ASCORBIC ACID 500 MG TAB PO SCH ×2 (09:52→21:45)
[2019-08-08] MEDS: CHOLECALCIFEROL (VIT D3) 5,000 UNIT TAB PO SCH (09:52)
[2019-08-08] MEDS: SODIUM CHLORIDE 0.9% 50 ML IV SCH (18:04)
[2019-08-08] MEDS: REMDESIVIR 100 MG in SODIUM CHLORIDE 0.9% 250ML 250 ML IV SCH (18:04)
--- NOTE | 2019-08-08 22:19 | Progress Note ---
Assessment and Plan Imp: 1. Viral pneumonia and ARDS due to Covid-19 2. Acute respiratory failure, hypoxia 3. Lactic acidosis Rec: 1. ABX, Remdesivir, Actemra as per ID 2. Avoid IVFs 3. Full dose anticoagulation 4. Cont. Proning as per prior orders 5. Monitor oxygenation closely 6. Prognosis guarded 7. Complex decision making Subjective Date of service: 08/08/19 Principal diagnosis: Bilateral pneumonia, ARDS Interval history: No events. Remains on HFNC with FiO2 of 100% and flow of 40LPM. Awake, alert. SOB stable. Active Medications Acetaminophen (Tylenol) 650 mg PO Q4H PRN PRN Reason: Pain MILD(1-3)/Fever >100.5/BUTLER Last Admin: 08/06/19 20:05 Dose: 650 mg Documented by: Ascorbic Acid (Vitamin C) 500 mg PO BID [facility] Last Admin: 08/08/19 21:45 Dose: 500 mg Documented by: Azithromycin (Zithromax) 500 mg PO QDAY [facility] Stop: 08/09/19 10:01 Last Admin: 08/08/19 09:48 Dose: 500 mg Documented by: Benzonatate (Tessalon Perles) 100 mg PO Q8H [facility] Last Admin: 08/08/19 17:32 Dose: 100 mg Documented by: Cholecalciferol (Vitamin D3) 5,000 unit PO QDAY [facility] Last Admin: 08/08/19 09:52 Dose: 5,000 unit Documented by: Enoxaparin Sodium (Enoxaparin) 90 mg SUB-Q Q12HR [facility] Last Admin: 08/08/19 21:42 Dose: 90 mg Documented by: Famotidine (Pepcid) 20 mg PO BID [facility] Last Admin: 08/08/19 21:44 Dose: 20 mg Documented by: Hydromorphone HCl (Dilaudid) 0.5 mg IV Q3H PRN PRN Reason: Pain , Severe (7-10) Last Admin: 08/06/19 22:28 Dose: 0.5 mg Documented by: Ceftriaxone Sodium (Rocephin/Ns 2 Gm/100 Ml) 2 gm in 100 mls @ 200 mls/hr IV Q24HR [facility]; Protocol Last Admin: 08/08/19 09:48 Dose: 200 mls/hr Documented by: REMDESIVIR 100 mg/ Sodium (Chloride) 250 mls @ 500 mls/hr IV Q24H [facility] Stop: 08/11/19 18:29 Last Admin: 08/08/19 18:04 Dose: 500 mls/hr Documented by: Sodium Chloride (Nacl 0.9%) 50 mls @ 999 mls/hr IV Q24H [facility] Last Admin: 08/08/19 18:04 Dose: 999 mls/hr Documented by: Insulin Human Lispro (Humalog) 0 unit SUB-Q ACHS [facility]; Protocol Last Admin: 08/08/19 21:42 Dose: 8 unit Documented by: Methylprednisolone Sodium Succinate (Solu-Medrol) 40 mg IV Q8HR [facility] Last Admin: 08/08/19 21:45 Dose: 40 mg Documented by: Metoclopramide HCl (Reglan) 10 mg IV Q6H PRN PRN Reason: Nausea And Vomiting Ondansetron HCl (Zofran) 4 mg IV Q8H PRN PRN Reason: Nausea And Vomiting Oxycodone/Acetaminophen (Percocet 5/325) 1 tab PO Q6H PRN PRN Reason: Pain, Moderate (4-6) Last Admin: 08/06/19 21:07 Dose: 1 tab Documented by: Sodium Chloride (Sodium Chloride Flush Syringe 10 Ml) 10 ml IV BID [facility] Last Admin: 08/08/19 21:44 Dose: 10 ml Documented by: Sodium Chloride (Sodium Chloride Flush Syringe 10 Ml) 10 ml IV PRN PRN PRN Reason: LINE FLUSH Objective Vital Signs - 12hr 08/08/19 08/08/19 08/08/19 11:00 12:00 13:00 Temperature 99.2 F Pulse Rate 82 91 H Pulse Rate [ 92 H From Monitor] Respiratory 30 H 43 H 21 Rate Blood Pressure 136/83 136/83 136/83 O2 Sat by Pulse 94 91 92 Oximetry 08/08/19 08/08/19 08/08/19 13:02 14:00 15:00 Temperature Pulse Rate 80 Pulse Rate [ From Monitor] Respiratory 14 14 Rate Blood Pressure 136/83 147/86 O2 Sat by Pulse 94 94 87 Oximetry 08/08/19 08/08/19 16:00 20:00 Temperature 98.7 F Pulse Rate 78 Pulse Rate [ 78 From Monitor] Respiratory 25 H Rate Blood Pressure 155/81 O2 Sat by Pulse 92 Oximetry Constitutional: alert, other (critically ill on HFNC) Eyes: non-icteric Effort: mildly labored Ascultation: Bilateral: rales Cardiovascular: regular rate and rhythm (no mrg) Gastrointestinal: normoactive bowel sounds, soft, non-tender, non-distended Integumentary: normal Extremities: no cyanosis, no edema, pink and warm Neurologic: normal mental status, non-focal exam, pupils equal and round, CN II- XII normal Psychiatric: mood appropriate, affect normal CBC and BMP: 08/07/19 11:56 08/08/19 08:54 ABG, PT/INR, D-dimer: PT/INR, D-dimer D-Dimer > 64195 ng/mlDDU (0-234) H 08/07/19 11:56 Abnormal lab findings: Abnormal Labs 08/05/19 08/05/19 08/05/19 14:53 14:53 14:53 Lymph % (Auto) 13.0 L [place] % (Auto) 10.8 H Lymph # 0.9 L Seg Neutrophils % 74.0 H D-Dimer > 54562 H Carbon Dioxide 20 L BUN 6 L Creatinine 0.6 L Glucose 255 H POC Glucose Hemoglobin A1c Lactic Acid Calcium Ferritin Alkaline Phosphatase 173 H Lactate Dehydrogenase C-Reactive Protein NT-Pro-B Natriuret Pep Albumin 2.9 L Ur Specific [place] Urine WBC (Auto) Coronavirus (PCR) 08/05/19 08/05/19 08/05/19 14:53 14:53 14:53 Lymph % (Auto) [place] % (Auto) Lymph # Seg Neutrophils % D-Dimer Carbon Dioxide BUN Creatinine Glucose 256 H POC Glucose Hemoglobin A1c Lactic Acid 3.40 H* Calcium Ferritin 438.9 H Alkaline Phosphatase Lactate Dehydrogenase 702 H C-Reactive Protein 32.90 H NT-Pro-B Natriuret Pep Albumin Ur Specific [place] Urine WBC (Auto) Coronavirus (PCR) 08/05/19 08/05/19 08/06/19 15:07 19:54 00:21 Lymph % (Auto) [place] % (Auto) Lymph # Seg Neutrophils % D-Dimer Carbon Dioxide BUN Creatinine Glucose POC Glucose 131 H Hemoglobin A1c Lactic Acid Calcium Ferritin Alkaline Phosphatase Lactate Dehydrogenase C-Reactive Protein NT-Pro-B Natriuret Pep 1818 H Albumin Ur Specific [place] 1.031 H Urine WBC (Auto) 8.0 H Coronavirus (PCR) 08/06/19 08/06/19 08/06/19 08:29 09:17 11:56 Lymph % (Auto) [place] % (Auto) Lymph # Seg Neutrophils % D-Dimer Carbon Dioxide BUN Creatinine Glucose POC Glucose 165 H 190 H Hemoglobin A1c Lactic Acid Calcium Ferritin Alkaline Phosphatase Lactate Dehydrogenase C-Reactive Protein NT-Pro-B Natriuret Pep Albumin Ur Specific [place] Urine WBC (Auto) Coronavirus (PCR) Positive A 08/06/19 08/06/19 08/06/19 16:16 22:16 Unknown Lymph % (Auto) [place] % (Auto) Lymph # Seg Neutrophils % D-Dimer Carbon Dioxide BUN Creatinine Glucose POC Glucose 170 H 128 H Hemoglobin A1c 7.6 H Lactic Acid Calcium Ferritin Alkaline Phosphatase Lactate Dehydrogenase C-Reactive Protein NT-Pro-B Natriuret Pep Albumin Ur Specific [place] Urine WBC (Auto) Coronavirus (PCR) 08/07/19 08/07/19 08/07/19 07:59 11:39 11:56 Lymph % (Auto) [place] % (Auto) Lymph # Seg Neutrophils % D-Dimer Carbon Dioxide BUN Creatinine 0.6 L Glucose 194 H POC Glucose 141 H 195 H Hemoglobin A1c Lactic Acid Calcium 8.0 L Ferritin Alkaline Phosphatase 181 H Lactate Dehydrogenase C-Reactive Protein NT-Pro-B Natriuret Pep Albumin 2.5 L Ur Specific [place] Urine WBC (Auto) Coronavirus (PCR) 08/07/19 08/07/19 08/07/19 11:56 11:56 11:56 Lymph % (Auto) [place] % (Auto) Lymph # Seg Neutrophils % D-Dimer > 29644 H Carbon Dioxide BUN Creatinine Glucose POC Glucose Hemoglobin A1c Lactic Acid Calcium Ferritin 415.7 H Alkaline Phosphatase Lactate Dehydrogenase 745 H C-Reactive Protein NT-Pro-B Natriuret Pep Albumin Ur Specific [place] Urine WBC (Auto) Coronavirus (PCR) 08/07/19 08/07/19 08/07/19 11:56 16:35 21:36 Lymph % (Auto) [place] % (Auto) Lymph # Seg Neutrophils % D-Dimer Carbon Dioxide BUN Creatinine Glucose POC Glucose 176 H 277 H Hemoglobin A1c Lactic Acid Calcium Ferritin Alkaline Phosphatase Lactate Dehydrogenase C-Reactive Protein 34.20 H NT-Pro-B Natriuret Pep Albumin Ur Specific [place] Urine WBC (Auto) Coronavirus (PCR) 08/08/19 08/08/19 08/08/19 07:53 08:54 11:40 Lymph % (Auto) [place] % (Auto) Lymph # Seg Neutrophils % D-Dimer Carbon Dioxide BUN Creatinine 0.6 L Glucose 266 H POC Glucose 214 H 340 H Hemoglobin A1c Lactic Acid Calcium 8.3 L Ferritin Alkaline Phosphatase 222 H Lactate Dehydrogenase C-Reactive Protein NT-Pro-B Natriuret Pep Albumin 2.5 L Ur Specific [place] Urine WBC (Auto) Coronavirus (PCR) 08/08/19 17:04 Lymph % (Auto) [place] % (Auto) Lymph # Seg Neutrophils % D-Dimer Carbon Dioxide BUN Creatinine Glucose POC Glucose 278 H Hemoglobin A1c Lactic Acid Calcium Ferritin Alkaline Phosphatase Lactate Dehydrogenase C-Reactive Protein NT-Pro-B Natriuret Pep Albumin Ur Specific [place] Urine WBC (Auto) Coronavirus (PCR) Chest x-ray: report reviewed, image reviewed (bilateral infiltrates)
[2019-08-09] MEDS: BENZONATATE 100 MG CAP PO SCH ×3 (00:22→17:14)
[2019-08-09 06:46] LABS: Alanine Aminotransferase 22 units/L (7-56); Albumin 2.5 g/dL (3.9-5); BUN/Creatinine Ratio 30; Blood Urea Nitrogen 18 mg/dL (7-17); Calcium 8.2 mg/dL (8.4-10.2); Hemolysis Index 8
--- NOTE | 2019-08-09 07:38 | Progress Note ---
Assessment and Plan CCT 40 min - Patient Problems (1) Respiratory failure with hypoxia Current Visit: Yes Status: Acute Qualifiers: Chronicity: acute Qualified Code(s): J96.01 - Acute respiratory failure with hypoxia Plan to address problem: Continue high flow oxygen (2) ARDS (adult respiratory distress syndrome) Current Visit: Yes Status: Acute Plan to address problem: High flow o2 for now Resp eval/Tx (3) Bilateral pneumonia Current Visit: Yes Status: Acute Plan to address problem: martinez virus infection positive IV Ceftriaxonew and IV Zithromax 1. ABX, Remdesivir, Actemra as per ID 2. Avoid IVFs 3. Full dose anticoagulation 4. Cont. Proning as per prior orders 5. Monitor oxygenation closely 6. Prognosis guarded 7. Complex decision making (4) Suspected COVID-19 virus infection Current Visit: Yes Status: Acute Plan to address problem: Covid 19 work up Patient is positive for coronavirus On Remdesivir (5) T2DM (type 2 diabetes mellitus) Current Visit: Yes Status: Chronic Qualifiers: Diabetes mellitus terminologist insulin use: unspecified halfway insulin use status Plan to address problem: Tight control of Diabetes Check A1c High dose sliding scale coverage Add Novalog mix 70/30 BID (6) Elevated d-dimer Current Visit: Yes Status: Acute Plan to address problem: Lovenox 92 mg SQ q12h (7) DVT prophylaxis Current Visit: Yes Status: Acute Plan to address problem: OnLovenox and GI prophylaxis Subjective Date of service: 08/08/19 Principal diagnosis: Bilateral pneumonia, ARDS Interval history: 54-year-old female with pmh of T2DM who is presenting with shortness of breath. Patient states she is been having cough with worsening shortness of breath for approximately 2 weeks. She denies nausea vomiting diarrhea. Patient has had chills and subjective fevers. Patient states she has no known contacts with anyone who is been ill or who has tested positive for COVID-19. Continues to be short of breath. Very tachypneic but able to maintain oxygen saturations above 92. Less tachypneic today Objective - Constitutional Vitals: Vital Signs - 12hr 08/08/19 08/08/19 08/08/19 20:00 20:20 21:00 Temperature 98.7 F Pulse Rate 85 78 Pulse Rate [ 81 From Monitor] Respiratory 23 35 H Rate Blood Pressure 167/88 165/68 O2 Sat by Pulse 90 96 93 Oximetry 08/08/19 08/08/19 08/08/19 22:00 22:46 23:00 Temperature Pulse Rate 87 86 93 H Pulse Rate [ From Monitor] Respiratory 12 28 H 19 Rate Blood Pressure 157/61 162/92 184/77 O2 Sat by Pulse 91 83 L 86 Oximetry 08/09/19 08/09/19 08/09/19 00:00 01:00 02:00 Temperature 99.3 F Pulse Rate 90 78 79 Pulse Rate [ 92 H From Monitor] Respiratory 44 H 38 H 22 Rate Blood Pressure 182/97 158/87 164/100 O2 Sat by Pulse 82 L 81 L 88 Oximetry 08/09/19 08/09/19 08/09/19 02:15 03:00 04:00 Temperature 98.8 F Pulse Rate 76 70 Pulse Rate [ 70 From Monitor] Respiratory 22 34 H Rate Blood Pressure 150/83 O2 Sat by Pulse 93 92 92 Oximetry General appearance: Present: no acute distress, well-nourished - EENT Eyes: PERRL, EOM intact ENT: hearing intact, clear oral mucosa Ears: bilateral: normal - Neck Neck: supple, normal ROM - Respiratory Respiratory effort: normal Respiratory: bilateral: CTA, rhonchi - Breasts Breasts: normal - Cardiovascular Heart rate: 76 Rhythm: regular Heart Sounds: Present: S1 & S2. Absent: gallop, rub Extremities: no ischemia, pulses intact, No edema, normal color, Full ROM - Gastrointestinal General gastrointestinal: Present: soft, non-tender, non-distended, normal bowel sounds - Genitourinary Female genitourinary: normal - Integumentary Integumentary: clear, warm, dry - Musculoskeletal Musculoskeletal: 1, strength equal bilaterally - Neurologic Neurologic: moves all extremities - Psychiatric Psychiatric: memory intact, appropriate mood/affect, intact judgment & insight - Allied health notes Allied health notes reviewed: nursing, case management - Labs CBC & Chem 7: 08/07/19 11:56 08/09/19 05:44 Labs: Abnormal lab results 08/08/19 08/08/19 08/08/19 Range/Units 07:53 08:54 11:40 BUN (7-17) mg/dL Creatinine 0.6 L (0.7-1.2) mg/dL Glucose 266 H (65-100) mg/dL POC Glucose 214 H 340 H (70-105) Calcium 8.3 L (8.4-10.2) mg/dL Alkaline Phosphatase 222 H (35-129) units/L Albumin 2.5 L (3.9-5) g/dL 08/08/19 08/08/19 08/09/19 Range/Units 17:04 21:49 05:44 BUN 18 H (7-17) mg/dL Creatinine 0.6 L (0.7-1.2) mg/dL Glucose 227 H (65-100) mg/dL POC Glucose 278 H 319 H (70-105) Calcium 8.2 L (8.4-10.2) mg/dL Alkaline Phosphatase 230 H (35-129) units/L Albumin 2.5 L (3.9-5) g/dL
[2019-08-09] MEDS ORDERED: FUROSEMIDE 40 MG/4 ML INJ IV NR (08:30)
[2019-08-09] MEDS: POTASSIUM CHLORIDE 10 MEQ 10 MEQ/100 ML BAG IV SCH ×3 (08:34→11:53)
[2019-08-09] MEDS: INSULIN LISPRO 100 UNIT/ML SUB-Q SCH ×4 (08:34→22:11)
[2019-08-09] MEDS: methylPREDNISolone Sod Succinate 40 MG/1 ML INJ IV SCH ×3 (08:36→22:13)
--- NOTE | 2019-08-09 10:03 | Progress Note ---
Assessment and Plan 54 y/o female with acute respiratory failure secondary to COVID 19 1. Proning during the day and prone sleeping at night 2. Will start steroids 40q8 for 7 days, today is day 2 3. Agree with Actemra, given 4. Agree with Remdisiver, given 5. Guarded Prognosis, continue HFNC for now. Hopeful she will not require intubation. 6. Will give a one time dose of lasix today, 40mg IV and see how she responds to this. Subjective Date of service: 08/09/19 Principal diagnosis: Bilateral pneumonia, ARDS Interval history: Still on HFNC, sats in the mid 90's. Still with labored breathing but stable. BP elevated, could be from steroid use. Objective Vital Signs - 12hr 08/08/19 08/08/19 08/09/19 22:46 23:00 00:00 Temperature 99.3 F Pulse Rate 86 93 H 90 Pulse Rate [ 92 H From Monitor] Respiratory 28 H 19 44 H Rate Blood Pressure 162/92 184/77 182/97 O2 Sat by Pulse 83 L 86 82 L Oximetry 08/09/19 08/09/19 08/09/19 01:00 02:00 02:15 Temperature Pulse Rate 78 79 Pulse Rate [ From Monitor] Respiratory 38 H 22 Rate Blood Pressure 158/87 164/100 O2 Sat by Pulse 81 L 88 93 Oximetry 08/09/19 08/09/19 08/09/19 03:00 04:00 08:00 Temperature 98.8 F 98.4 F Pulse Rate 76 70 Pulse Rate [ 70 From Monitor] Respiratory 22 34 H Rate Blood Pressure 150/83 O2 Sat by Pulse 92 92 94 Oximetry Constitutional: alert, other (critically ill on HFNC) Eyes: non-icteric Effort: mildly labored Ascultation: Bilateral: rales Cardiovascular: regular rate and rhythm (no mrg) Gastrointestinal: normoactive bowel sounds, soft, non-tender, non-distended Integumentary: normal Extremities: no cyanosis, no edema, pink and warm Neurologic: normal mental status, non-focal exam, pupils equal and round, CN II- XII normal Psychiatric: mood appropriate, affect normal CBC and BMP: 08/07/19 11:56 08/09/19 05:44 ABG, PT/INR, D-dimer: PT/INR, D-dimer D-Dimer > 49835 ng/mlDDU (0-234) H 08/07/19 11:56 Abnormal lab findings: Abnormal Labs 08/05/19 08/05/19 08/05/19 14:53 14:53 14:53 Lymph % (Auto) 13.0 L [place] % (Auto) 10.8 H Lymph # 0.9 L Seg Neutrophils % 74.0 H D-Dimer > 34822 H Carbon Dioxide 20 L BUN 6 L Creatinine 0.6 L Glucose 255 H POC Glucose Hemoglobin A1c Lactic Acid Calcium Ferritin Alkaline Phosphatase 173 H Lactate Dehydrogenase C-Reactive Protein NT-Pro-B Natriuret Pep Albumin 2.9 L Ur Specific [place] Urine WBC (Auto) Coronavirus (PCR) 08/05/19 08/05/19 08/05/19 14:53 14:53 14:53 Lymph % (Auto) [place] % (Auto) Lymph # Seg Neutrophils % D-Dimer Carbon Dioxide BUN Creatinine Glucose 256 H POC Glucose Hemoglobin A1c Lactic Acid 3.40 H* Calcium Ferritin 438.9 H Alkaline Phosphatase Lactate Dehydrogenase 702 H C-Reactive Protein 32.90 H NT-Pro-B Natriuret Pep Albumin Ur Specific [place] Urine WBC (Auto) Coronavirus (PCR) 08/05/19 08/05/19 08/06/19 15:07 19:54 00:21 Lymph % (Auto) [place] % (Auto) Lymph # Seg Neutrophils % D-Dimer Carbon Dioxide BUN Creatinine Glucose POC Glucose 131 H Hemoglobin A1c Lactic Acid Calcium Ferritin Alkaline Phosphatase Lactate Dehydrogenase C-Reactive Protein NT-Pro-B Natriuret Pep 1818 H Albumin Ur Specific [place] 1.031 H Urine WBC (Auto) 8.0 H Coronavirus (PCR) 08/06/19 08/06/19 08/06/19 08:29 09:17 11:56 Lymph % (Auto) [place] % (Auto) Lymph # Seg Neutrophils % D-Dimer Carbon Dioxide BUN Creatinine Glucose POC Glucose 165 H 190 H Hemoglobin A1c Lactic Acid Calcium Ferritin Alkaline Phosphatase Lactate Dehydrogenase C-Reactive Protein NT-Pro-B Natriuret Pep Albumin Ur Specific [place] Urine WBC (Auto) Coronavirus (PCR) Positive A 08/06/19 08/06/19 08/06/19 16:16 22:16 Unknown Lymph % (Auto) [place] % (Auto) Lymph # Seg Neutrophils % D-Dimer Carbon Dioxide BUN Creatinine Glucose POC Glucose 170 H 128 H Hemoglobin A1c 7.6 H Lactic Acid Calcium Ferritin Alkaline Phosphatase Lactate Dehydrogenase C-Reactive Protein NT-Pro-B Natriuret Pep Albumin Ur Specific [place] Urine WBC (Auto) Coronavirus (PCR) 08/07/19 08/07/19 08/07/19 07:59 11:39 11:56 Lymph % (Auto) [place] % (Auto) Lymph # Seg Neutrophils % D-Dimer Carbon Dioxide BUN Creatinine 0.6 L Glucose 194 H POC Glucose 141 H 195 H Hemoglobin A1c Lactic Acid Calcium 8.0 L Ferritin Alkaline Phosphatase 181 H Lactate Dehydrogenase C-Reactive Protein NT-Pro-B Natriuret Pep Albumin 2.5 L Ur Specific [place] Urine WBC (Auto) Coronavirus (PCR) 08/07/19 08/07/19 08/07/19 11:56 11:56 11:56 Lymph % (Auto) [place] % (Auto) Lymph # Seg Neutrophils % D-Dimer > 15182 H Carbon Dioxide BUN Creatinine Glucose POC Glucose Hemoglobin A1c Lactic Acid Calcium Ferritin 415.7 H Alkaline Phosphatase Lactate Dehydrogenase 745 H C-Reactive Protein NT-Pro-B Natriuret Pep Albumin Ur Specific [place] Urine WBC (Auto) Coronavirus (PCR) 08/07/19 08/07/19 08/07/19 11:56 16:35 21:36 Lymph % (Auto) [place] % (Auto) Lymph # Seg Neutrophils % D-Dimer Carbon Dioxide BUN Creatinine Glucose POC Glucose 176 H 277 H Hemoglobin A1c Lactic Acid Calcium Ferritin Alkaline Phosphatase Lactate Dehydrogenase C-Reactive Protein 34.20 H NT-Pro-B Natriuret Pep Albumin Ur Specific [place] Urine WBC (Auto) Coronavirus (PCR) 08/08/19 08/08/19 08/08/19 07:53 08:54 11:40 Lymph % (Auto) [place] % (Auto) Lymph # Seg Neutrophils % D-Dimer Carbon Dioxide BUN Creatinine 0.6 L Glucose 266 H POC Glucose 214 H 340 H Hemoglobin A1c Lactic Acid Calcium 8.3 L Ferritin Alkaline Phosphatase 222 H Lactate Dehydrogenase C-Reactive Protein NT-Pro-B Natriuret Pep Albumin 2.5 L Ur Specific [place] Urine WBC (Auto) Coronavirus (PCR) 08/08/19 08/08/19 08/09/19 17:04 21:49 05:44 Lymph % (Auto) [place] % (Auto) Lymph # Seg Neutrophils % D-Dimer Carbon Dioxide BUN 18 H Creatinine 0.6 L Glucose 227 H POC Glucose 278 H 319 H Hemoglobin A1c Lactic Acid Calcium 8.2 L Ferritin Alkaline Phosphatase 230 H Lactate Dehydrogenase C-Reactive Protein NT-Pro-B Natriuret Pep Albumin 2.5 L Ur Specific [place] Urine WBC (Auto) Coronavirus (PCR)
[2019-08-09] MEDS: ASCORBIC ACID 500 MG TAB PO SCH ×2 (10:09→22:15)
[2019-08-09] MEDS: FAMOTIDINE 20 MG TAB PO SCH ×2 (10:09→22:15)
[2019-08-09] MEDS: AZITHROMYCIN 250 MG TAB PO SCH (10:10)
[2019-08-09] MEDS: cefTRIAXone/NS 2 GM/100 ML 2 GM/100 ML BAG IV SCH (10:10)
[2019-08-09] MEDS: ENOXAPARIN 100 MG/1 ML INJ SUB-Q SCH ×2 (10:10→22:09)
[2019-08-09] MEDS: CHOLECALCIFEROL (VIT D3) 5,000 UNIT TAB PO SCH (10:44)
--- NOTE | 2019-08-09 10:53 | Progress Note ---
Assessment and Plan Cultures: Blood culture 08/05/2019 no growth Assessment: 54 years old female with history of obesity, diabetes, admitted on 08/05/2019 due to 2-week history of dry cough, generalized malaise and progressive shortness of breath: #Severe sepsis: likely due to severe COVID pneumonia #Severe COVID pneumonia: high suspicion for late SARS-2 virus complications -cytokine storm, microvascular thrombosis. Inflamatory markers are elevated- D- dimer > 10,000-->10,000, ferritin 438-->415, LDH 702-->745, CRP 32-->34. S/p Actemra 4 mg/kg x 1 on 08/06 #Acute hypoxemic respiratory failure: on HFO2 Recommendations: Check markers today Continue Remdesivir - 100 mg IV daily x 9 days Day 3 Continue solumedrol 40 mg IV q 8 hours Day 3 of 7 Continue anticoagulation for elevated d-dimer Continue ceftriaxone and azithromycin total 5 days Obtain quantiferon and IL-6 - pending Proning - patient educated Continue vit C and D Continue COVID isolation precautions per [facility] protocol VERY High risk mortality - discussed with patient Will follow Viktoria Shanks MD Infectious Diseases Estimator [employer] [facility] ([facility]) M [phone] O [phone] Subjective Date of service: 08/09/19 Principal diagnosis: Bilateral pneumonia, ARDS Interval history: Feelss not better but not worse. No chest pain. Still MIX and SOB. No fever. Proning at night. Objective - Exam Narrative Exam: General appearance: Alert in NAD, on high flow O2 Eyes: AVANI no icteric conjunctiave HENT: Atraumatic; oropharynx limited Lungs: limited CV:RRR Abdomen: Soft, nontender, obese Extremities: No edema Skin: No rash. Psych: no agitated Neuro: alert and oriented x 3. Moving all extermities - Constitutional Vitals: Vital Signs Temp Pulse Resp BP Pulse Ox 98.4 F 70 34 H 150/83 94 08/09/19 08:00 08/09/19 04:00 08/09/19 04:00 08/09/19 03:00 08/09/19 08:00 Temperature -Last 24 Hours Temperature 98.4 F Temperature 98.8 F Temperature 99.3 F Temperature 98.7 F Temperature 99.2 F - Labs CBC & Chem 7: 08/07/19 11:56 08/09/19 05:44 Labs: Abnormal lab results 08/08/19 08/08/19 08/08/19 Range/Units 11:40 17:04 21:49 BUN (7-17) mg/dL Creatinine (0.7-1.2) mg/dL Glucose (65-100) mg/dL POC Glucose 340 H 278 H 319 H (70-105) Calcium (8.4-10.2) mg/dL Alkaline Phosphatase (35-129) units/L Albumin (3.9-5) g/dL 08/09/19 Range/Units 05:44 BUN 18 H (7-17) mg/dL Creatinine 0.6 L (0.7-1.2) mg/dL Glucose 227 H (65-100) mg/dL POC Glucose (70-105) Calcium 8.2 L (8.4-10.2) mg/dL Alkaline Phosphatase 230 H (35-129) units/L Albumin 2.5 L (3.9-5) g/dL
[2019-08-09 11:43] LABS: C-Reactive Protein 14.7 mg/dL (0.00-1.30)
[2019-08-09] MEDS: REMDESIVIR 100 MG in SODIUM CHLORIDE 0.9% 250ML 250 ML IV SCH (17:29)
[2019-08-09] MEDS: SODIUM CHLORIDE 0.9% 50 ML IV SCH (18:01)
[2019-08-10] MEDS: BENZONATATE 100 MG CAP PO SCH ×3 (00:44→17:59)
[2019-08-10] MEDS: methylPREDNISolone Sod Succinate 40 MG/1 ML INJ IV SCH ×3 (05:27→22:35)
[2019-08-10 05:54] LABS: Alanine Aminotransferase 27 units/L (7-56); Albumin 2.7 g/dL (3.9-5); BUN/Creatinine Ratio 27; Blood Urea Nitrogen 19 mg/dL (7-17); Calcium 7.9 mg/dL (8.4-10.2); Hemolysis Index 54
--- NOTE | 2019-08-10 08:12 | Progress Note ---
Assessment and Plan CCT 30 minutes Day # 5 Stil short of breath but slightly better - Patient Problems (1) Respiratory failure with hypoxia Current Visit: Yes Status: Acute Qualifiers: Chronicity: acute Qualified Code(s): J96.01 - Acute respiratory failure with hypoxia Plan to address problem: Continue high flow oxygen Cont proning Avoid intubation if possible (2) ARDS (adult respiratory distress syndrome) Current Visit: Yes Status: Acute (3) Bilateral pneumonia Current Visit: Yes Status: Acute Plan to address problem: martinez virus infection positive IV Ceftriaxonew and IV Zithromax 1. ABX, Remdesivir, Actemra as per ID 2. Avoid IVFs 3. Full dose anticoagulation 4. Cont. Proning as per prior orders 5. Monitor oxygenation closely 6. Prognosis guarded 7. Complex decision making (4) Suspected COVID-19 virus infection Current Visit: Yes Status: Acute Plan to address problem: Covid 19 work up Patient is positive for coronavirus On Remdesivirand Actemra (5) T2DM (type 2 diabetes mellitus) Current Visit: Yes Status: Chronic Qualifiers: Diabetes mellitus halfway insulin use: unspecified halfway insulin use status Plan to address problem: Tight control of Diabetes Check A1c High dose sliding scale coverage Add Novalog mix 70/30 BID (6) Elevated d-dimer Current Visit: Yes Status: Acute Plan to address problem: Lovenox 92 mg SQ q12h (7) DVT prophylaxis Current Visit: Yes Status: Acute Plan to address problem: OnLovenox and GI prophylaxis Subjective Date of service: 08/09/19 Principal diagnosis: Bilateral pneumonia, ARDS Interval history: 54-year-old female with pmh of T2DM who is presenting with shortness of breath. Patient states she is been having cough with worsening shortness of breath for approximately 2 weeks. She denies nausea vomiting diarrhea. Patient has had chills and subjective fevers. Patient states she has no known contacts with anyone who is been ill or who has tested positive for COVID-19. Continues to be short of breath. Very tachypneic but able to maintain oxygen saturations above 92. Less tachypneic today Objective - Constitutional Vitals: Vital Signs - 12hr 08/09/19 08/09/19 08/09/19 21:01 22:01 22:50 Temperature Pulse Rate 83 86 Pulse Rate [ From Monitor] Respiratory 38 H 38 H Rate Blood Pressure 183/105 175/94 O2 Sat by Pulse 87 89 94 Oximetry 08/09/19 08/10/19 08/10/19 23:01 00:00 00:01 Temperature 98.4 F Pulse Rate 79 99 H 86 Pulse Rate [ 87 From Monitor] Respiratory 22 28 H 35 H Rate Blood Pressure 152/84 178/114 O2 Sat by Pulse 95 86 81 L Oximetry 08/10/19 08/10/19 08/10/19 01:00 01:35 02:01 Temperature Pulse Rate 75 74 Pulse Rate [ From Monitor] Respiratory 29 H 25 H Rate Blood Pressure 147/84 133/72 O2 Sat by Pulse 96 98 98 Oximetry 08/10/19 08/10/19 08/10/19 03:00 04:00 05:01 Temperature 99.4 F Pulse Rate 80 77 86 Pulse Rate [ 76 From Monitor] Respiratory 36 H 32 H 16 Rate Blood Pressure 146/93 151/85 141/69 O2 Sat by Pulse 94 96 90 Oximetry 08/10/19 08/10/19 08/10/19 06:00 06:01 07:00 Temperature 99.4 F Pulse Rate 78 Pulse Rate [ From Monitor] Respiratory 30 H Rate Blood Pressure 142/76 144/79 O2 Sat by Pulse 97 90 Oximetry 08/10/19 07:50 Temperature Pulse Rate Pulse Rate [ From Monitor] Respiratory Rate Blood Pressure O2 Sat by Pulse 98 Oximetry General appearance: Present: severe distress, well-nourished - EENT Eyes: PERRL, EOM intact ENT: hearing intact, clear oral mucosa Ears: bilateral: normal - Neck Neck: supple, normal ROM - Respiratory Respiratory effort: other (Tachypneic) Respiratory: bilateral: CTA, rhonchi - Breasts Breasts: normal - Cardiovascular Heart rate: 78 Rhythm: regular Heart Sounds: Present: S1 & S2. Absent: gallop, rub Extremities: pulses intact, No edema, normal color, Full ROM - Gastrointestinal General gastrointestinal: Present: soft, non-tender, non-distended, normal bowel sounds - Genitourinary Female genitourinary: normal - Integumentary Integumentary: clear, warm, dry - Musculoskeletal Musculoskeletal: 1, strength equal bilaterally - Neurologic Neurologic: moves all extremities - Psychiatric Psychiatric: memory intact, appropriate mood/affect, intact judgment & insight - Labs CBC & Chem 7: 08/07/19 11:56 08/10/19 05:07 Labs: Abnormal lab results 08/09/19 08/09/19 08/09/19 Range/Units 05:22 08:12 11:52 D-Dimer (0-234) ng/mlDDU BUN (7-17) mg/dL Glucose (65-100) mg/dL POC Glucose 232 H 273 H (70-105) Calcium (8.4-10.2) mg/dL Ferritin (13.0-400.0) ng/mL Alkaline Phosphatase (35-129) units/L Lactate Dehydrogenase 866 H (91-180) units/L C-Reactive Protein 14.70 H (0.00-1.30) mg/dL Albumin (3.9-5) g/dL 08/09/19 08/09/19 08/09/19 Range/Units 12:29 12:29 17:11 D-Dimer 3795.56 H (0-234) ng/mlDDU BUN (7-17) mg/dL Glucose (65-100) mg/dL POC Glucose 200 H (70-105) Calcium (8.4-10.2) mg/dL Ferritin 594.1 H (13.0-400.0) ng/mL Alkaline Phosphatase (35-129) units/L Lactate Dehydrogenase (91-180) units/L C-Reactive Protein (0.00-1.30) mg/dL Albumin (3.9-5) g/dL 08/09/19 08/10/19 08/10/19 Range/Units 21:58 05:07 06:14 D-Dimer (0-234) ng/mlDDU BUN 19 H (7-17) mg/dL Glucose 277 H (65-100) mg/dL POC Glucose 226 H 288 H (70-105) Calcium 7.9 L (8.4-10.2) mg/dL Ferritin (13.0-400.0) ng/mL Alkaline Phosphatase 231 H (35-129) units/L Lactate Dehydrogenase (91-180) units/L C-Reactive Protein (0.00-1.30) mg/dL Albumin 2.7 L (3.9-5) g/dL
[2019-08-10] MEDS: INSULIN LISPRO 100 UNIT/ML SUB-Q SCH ×4 (08:25→22:36)
[2019-08-10] MEDS: ENOXAPARIN 100 MG/1 ML INJ SUB-Q SCH ×2 (09:32→22:34)
[2019-08-10] MEDS: ASCORBIC ACID 500 MG TAB PO SCH ×2 (09:32→22:34)
[2019-08-10] MEDS: CHOLECALCIFEROL (VIT D3) 5,000 UNIT TAB PO SCH (09:32)
[2019-08-10] MEDS: FAMOTIDINE 20 MG TAB PO SCH ×2 (09:32→22:34)
[2019-08-10] MEDS ORDERED: FUROSEMIDE 40 MG/4 ML INJ IV ONE (13:00)
--- NOTE | 2019-08-10 13:22 | Progress Note ---
Assessment and Plan 54 y/o female with acute respiratory failure secondary to COVID 19 1. Proning during the day and prone sleeping at night. Begged her to continue to do this. 2. Will start steroids 40q8 for 7 days, today is day 3 3. Agree with Actemra, given 4. Agree with Remdisiver, given 5. Guarded Prognosis, continue HFNC for now. Hopeful she will not require intubation. 6. Will give a one time dose of lasix today, 40mg IV and see how she responds to this. Subjective Date of service: 08/10/19 Principal diagnosis: Bilateral pneumonia, ARDS Interval history: Oxygenation is worse today. Per daytime RT placed on NRB with HFNC overnight but no documenation of this. Not sure if astronaut mission specialist physician for hospital or our group was notified. Patient awake and alert in bed, lying on side. Per charting negative only 100cc's on yesterday. Objective Vital Signs - 12hr 08/10/19 08/10/19 08/10/19 01:35 02:01 03:00 Temperature Pulse Rate 74 80 Pulse Rate [ From Monitor] Respiratory 25 H 36 H Rate Blood Pressure 133/72 146/93 O2 Sat by Pulse 98 98 94 Oximetry 08/10/19 08/10/19 08/10/19 04:00 05:01 06:00 Temperature 99.4 F 99.4 F Pulse Rate 77 86 Pulse Rate [ 76 From Monitor] Respiratory 32 H 16 Rate Blood Pressure 151/85 141/69 O2 Sat by Pulse 96 90 Oximetry 08/10/19 08/10/19 08/10/19 06:01 07:00 07:50 Temperature Pulse Rate 78 Pulse Rate [ From Monitor] Respiratory 30 H Rate Blood Pressure 142/76 144/79 O2 Sat by Pulse 97 90 98 Oximetry 08/10/19 08/10/19 08/10/19 08:00 08:25 09:00 Temperature 98.8 F Pulse Rate 84 84 Pulse Rate [ 84 From Monitor] Respiratory 13 13 Rate Blood Pressure 136/80 158/94 O2 Sat by Pulse 95 87 87 Oximetry 08/10/19 08/10/19 08/10/19 10:00 11:01 12:00 Temperature 98.0 F Pulse Rate 100 H Pulse Rate [ From Monitor] Respiratory 35 H Rate Blood Pressure 142/81 130/88 O2 Sat by Pulse 84 97 Oximetry Constitutional: alert, other (critically ill on HFNC) Eyes: non-icteric Effort: mildly labored Ascultation: Bilateral: rales Cardiovascular: regular rate and rhythm (no mrg) Gastrointestinal: normoactive bowel sounds, soft, non-tender, non-distended Integumentary: normal Extremities: no cyanosis, no edema, pink and warm Neurologic: normal mental status, non-focal exam, pupils equal and round, CN II- XII normal Psychiatric: mood appropriate, affect normal CBC and BMP: 08/07/19 11:56 08/10/19 05:07 ABG, PT/INR, D-dimer: PT/INR, D-dimer D-Dimer 3795.56 ng/mlDDU (0-234) H 08/09/19 12:29 Abnormal lab findings: Abnormal Labs 08/05/19 08/05/19 08/05/19 14:53 14:53 14:53 Lymph % (Auto) 13.0 L [place] % (Auto) 10.8 H Lymph # 0.9 L Seg Neutrophils % 74.0 H D-Dimer > 68031 H Carbon Dioxide 20 L BUN 6 L Creatinine 0.6 L Glucose 255 H POC Glucose Hemoglobin A1c Lactic Acid Calcium Ferritin Alkaline Phosphatase 173 H Lactate Dehydrogenase C-Reactive Protein NT-Pro-B Natriuret Pep Albumin 2.9 L Ur Specific [place] Urine WBC (Auto) Coronavirus (PCR) 08/05/19 08/05/19 08/05/19 14:53 14:53 14:53 Lymph % (Auto) [place] % (Auto) Lymph # Seg Neutrophils % D-Dimer Carbon Dioxide BUN Creatinine Glucose 256 H POC Glucose Hemoglobin A1c Lactic Acid 3.40 H* Calcium Ferritin 438.9 H Alkaline Phosphatase Lactate Dehydrogenase 702 H C-Reactive Protein 32.90 H NT-Pro-B Natriuret Pep Albumin Ur Specific [place] Urine WBC (Auto) Coronavirus (PCR) 08/05/19 08/05/19 08/06/19 15:07 19:54 00:21 Lymph % (Auto) [place] % (Auto) Lymph # Seg Neutrophils % D-Dimer Carbon Dioxide BUN Creatinine Glucose POC Glucose 131 H Hemoglobin A1c Lactic Acid Calcium Ferritin Alkaline Phosphatase Lactate Dehydrogenase C-Reactive Protein NT-Pro-B Natriuret Pep 1818 H Albumin Ur Specific [place] 1.031 H Urine WBC (Auto) 8.0 H Coronavirus (PCR) 08/06/19 08/06/19 08/06/19 08:29 09:17 11:56 Lymph % (Auto) [place] % (Auto) Lymph # Seg Neutrophils % D-Dimer Carbon Dioxide BUN Creatinine Glucose POC Glucose 165 H 190 H Hemoglobin A1c Lactic Acid Calcium Ferritin Alkaline Phosphatase Lactate Dehydrogenase C-Reactive Protein NT-Pro-B Natriuret Pep Albumin Ur Specific [place] Urine WBC (Auto) Coronavirus (PCR) Positive A 08/06/19 08/06/19 08/06/19 16:16 22:16 Unknown Lymph % (Auto) [place] % (Auto) Lymph # Seg Neutrophils % D-Dimer Carbon Dioxide BUN Creatinine Glucose POC Glucose 170 H 128 H Hemoglobin A1c 7.6 H Lactic Acid Calcium Ferritin Alkaline Phosphatase Lactate Dehydrogenase C-Reactive Protein NT-Pro-B Natriuret Pep Albumin Ur Specific [place] Urine WBC (Auto) Coronavirus (PCR) 08/07/19 08/07/19 08/07/19 07:59 11:39 11:56 Lymph % (Auto) [place] % (Auto) Lymph # Seg Neutrophils % D-Dimer Carbon Dioxide BUN Creatinine 0.6 L Glucose 194 H POC Glucose 141 H 195 H Hemoglobin A1c Lactic Acid Calcium 8.0 L Ferritin Alkaline Phosphatase 181 H Lactate Dehydrogenase C-Reactive Protein NT-Pro-B Natriuret Pep Albumin 2.5 L Ur Specific [place] Urine WBC (Auto) Coronavirus (PCR) 08/07/19 08/07/19 08/07/19 11:56 11:56 11:56 Lymph % (Auto) [place] % (Auto) Lymph # Seg Neutrophils % D-Dimer > 77379 H Carbon Dioxide BUN Creatinine Glucose POC Glucose Hemoglobin A1c Lactic Acid Calcium Ferritin 415.7 H Alkaline Phosphatase Lactate Dehydrogenase 745 H C-Reactive Protein NT-Pro-B Natriuret Pep Albumin Ur Specific [place] Urine WBC (Auto) Coronavirus (PCR) 08/07/19 08/07/19 08/07/19 11:56 16:35 21:36 Lymph % (Auto) [place] % (Auto) Lymph # Seg Neutrophils % D-Dimer Carbon Dioxide BUN Creatinine Glucose POC Glucose 176 H 277 H Hemoglobin A1c Lactic Acid Calcium Ferritin Alkaline Phosphatase Lactate Dehydrogenase C-Reactive Protein 34.20 H NT-Pro-B Natriuret Pep Albumin Ur Specific [place] Urine WBC (Auto) Coronavirus (PCR) 08/08/19 08/08/19 08/08/19 07:53 08:54 11:40 Lymph % (Auto) [place] % (Auto) Lymph # Seg Neutrophils % D-Dimer Carbon Dioxide BUN Creatinine 0.6 L Glucose 266 H POC Glucose 214 H 340 H Hemoglobin A1c Lactic Acid Calcium 8.3 L Ferritin Alkaline Phosphatase 222 H Lactate Dehydrogenase C-Reactive Protein NT-Pro-B Natriuret Pep Albumin 2.5 L Ur Specific [place] Urine WBC (Auto) Coronavirus (PCR) 08/08/19 08/08/19 08/09/19 17:04 21:49 05:22 Lymph % (Auto) [place] % (Auto) Lymph # Seg Neutrophils % D-Dimer Carbon Dioxide BUN Creatinine Glucose POC Glucose 278 H 319 H Hemoglobin A1c Lactic Acid Calcium Ferritin Alkaline Phosphatase Lactate Dehydrogenase 866 H C-Reactive Protein 14.70 H NT-Pro-B Natriuret Pep Albumin Ur Specific [place] Urine WBC (Auto) Coronavirus (PCR) 08/09/19 08/09/19 08/09/19 05:44 08:12 11:52 Lymph % (Auto) [place] % (Auto) Lymph # Seg Neutrophils % D-Dimer Carbon Dioxide BUN 18 H Creatinine 0.6 L Glucose 227 H POC Glucose 232 H 273 H Hemoglobin A1c Lactic Acid Calcium 8.2 L Ferritin Alkaline Phosphatase 230 H Lactate Dehydrogenase C-Reactive Protein NT-Pro-B Natriuret Pep Albumin 2.5 L Ur Specific [place] Urine WBC (Auto) Coronavirus (PCR) 08/09/19 08/09/19 08/09/19 12:29 12:29 17:11 Lymph % (Auto) [place] % (Auto) Lymph # Seg Neutrophils % D-Dimer 3795.56 H Carbon Dioxide BUN Creatinine Glucose POC Glucose 200 H Hemoglobin A1c Lactic Acid Calcium Ferritin 594.1 H Alkaline Phosphatase Lactate Dehydrogenase C-Reactive Protein NT-Pro-B Natriuret Pep Albumin Ur Specific [place] Urine WBC (Auto) Coronavirus (PCR) 08/09/19 08/10/19 08/10/19 21:58 05:07 06:14 Lymph % (Auto) [place] % (Auto) Lymph # Seg Neutrophils % D-Dimer Carbon Dioxide BUN 19 H Creatinine Glucose 277 H POC Glucose 226 H 288 H Hemoglobin A1c Lactic Acid Calcium 7.9 L Ferritin Alkaline Phosphatase 231 H Lactate Dehydrogenase C-Reactive Protein NT-Pro-B Natriuret Pep Albumin 2.7 L Ur Specific [place] Urine WBC (Auto) Coronavirus (PCR) 08/10/19 08/10/19 08:31 12:25 Lymph % (Auto) [place] % (Auto) Lymph # Seg Neutrophils % D-Dimer Carbon Dioxide BUN Creatinine Glucose POC Glucose 284 H 387 H Hemoglobin A1c Lactic Acid Calcium Ferritin Alkaline Phosphatase Lactate Dehydrogenase C-Reactive Protein NT-Pro-B Natriuret Pep Albumin Ur Specific [place] Urine WBC (Auto) Coronavirus (PCR)
--- NOTE | 2019-08-10 14:52 | Progress Note ---
Assessment and Plan Cultures: Blood culture 08/05/2019 no growth Assessment: 54 years old female with history of obesity, diabetes, admitted on 08/05/2019 due to 2-week history of dry cough, generalized malaise and progressive shortness of breath: #Severe sepsis: likely due to severe COVID pneumonia #Severe COVID pneumonia: high suspicion for late SARS-2 virus complications -cytokine storm, microvascular thrombosis. Inflamatory markers are elevated- D- dimer > 10,000-->10,000--.3795, ferritin 438-->415-->594, LDH 702-->745, CRP 32-->34-. S/p Actemra 4 mg/kg x 1 on 08/06 #Acute hypoxemic respiratory failure: was HFO2, now on NR on top of HFO2 #DM: uncontrolled on IV steroids Recommendations: educated about proning Check markers today Continue Remdesivir - 100 mg IV daily x 9 days Day 4 Continue solumedrol 40 mg IV q 8 hours Day 4 of 7 Continue anticoagulation for elevated d-dimer Continue ceftriaxone and azithromycin total 5 days Obtain quantiferon and IL-6 - pending Proning - patient educated Continue vit C and D Continue COVID isolation precautions per [facility] protocol VERY High risk mortality - discussed with patient Will follow. Discussed with Dr Santos Shanks MD Infectious Diseases [employer] [facility] [phone] O [phone] Subjective Date of service: 08/10/19 Principal diagnosis: Bilateral pneumonia, ARDS Interval history: Feels better but oxygenation worsening. No chest pain. Still MIX and SOB. No fever. Proning at night. Objective - Exam Narrative Exam: General appearance: Alert in NAD, on high flow O2 Eyes: AVANI no icteric conjunctiave HENT: Atraumatic; oropharynx limited Lungs: limited CV:RRR Abdomen: Soft, nontender, obese Extremities: No edema Skin: No rash. Psych: no agitated Neuro: alert and oriented x 3. Moving all extermities - Constitutional Vitals: Vital Signs Temp Pulse Resp BP Pulse Ox 98.0 F 75 33 H 132/75 85 08/10/19 12:00 08/10/19 14:00 08/10/19 14:00 08/10/19 14:00 08/10/19 14:00 Temperature -Last 24 Hours Temperature 98.0 F Temperature 98.8 F Temperature 99.4 F Temperature 99.4 F Temperature 98.4 F Temperature 97.7 F Temperature 98.8 F - Labs CBC & Chem 7: 08/07/19 11:56 08/10/19 05:07 Labs: Abnormal lab results 08/09/19 08/09/19 08/10/19 Range/Units 17:11 21:58 05:07 BUN 19 H (7-17) mg/dL Glucose 277 H (65-100) mg/dL POC Glucose 200 H 226 H (70-105) Calcium 7.9 L (8.4-10.2) mg/dL Alkaline Phosphatase 231 H (35-129) units/L Albumin 2.7 L (3.9-5) g/dL 08/10/19 08/10/19 08/10/19 Range/Units 06:14 08:31 12:25 BUN (7-17) mg/dL Glucose (65-100) mg/dL POC Glucose 288 H 284 H 387 H (70-105) Calcium (8.4-10.2) mg/dL Alkaline Phosphatase (35-129) units/L Albumin (3.9-5) g/dL
[2019-08-10] MEDS ORDERED: FUROSEMIDE 40 MG/4 ML INJ ONE (16:20)
--- NOTE | 2019-08-10 17:04 | Progress Note ---
Assessment and Plan CCT 30 minutes Day # 5 Stil short of breath but slightly better - Patient Problems (1) Respiratory failure with hypoxia Current Visit: Yes Status: Acute Qualifiers: Chronicity: acute Qualified Code(s): J96.01 - Acute respiratory failure with hypoxia Plan to address problem: Continue high flow oxygen Cont proning Avoid intubation if possible (2) ARDS (adult respiratory distress syndrome) Current Visit: Yes Status: Acute Plan to address problem: High flow o2 for now Resp eval/Tx (3) Bilateral pneumonia Current Visit: Yes Status: Acute Plan to address problem: martinez virus infection positive IV Ceftriaxonew and IV Zithromax 1. ABX, Remdesivir, Actemra as per ID 2. Avoid IVFs 3. Full dose anticoagulation 4. Cont. Proning as per prior orders 5. Monitor oxygenation closely 6. Prognosis guarded 7. Complex decision making (4) Suspected COVID-19 virus infection Current Visit: Yes Status: Acute Plan to address problem: Covid 19 work up Patient is positive for coronavirus On Remdesivirand Actemra (5) T2DM (type 2 diabetes mellitus) Current Visit: Yes Status: Chronic Qualifiers: Diabetes mellitus custodial insulin use: unspecified custodial insulin use status Plan to address problem: Tight control of Diabetes Check A1c High dose sliding scale coverage Add Novalog mix 70/30 BID (6) Elevated d-dimer Current Visit: Yes Status: Acute Plan to address problem: Lovenox 92 mg SQ q12h (7) DVT prophylaxis Current Visit: Yes Status: Acute Plan to address problem: OnLovenox and GI prophylaxis Subjective Date of service: 08/10/19 Principal diagnosis: Bilateral pneumonia, ARDS Interval history: 54-year-old female with pmh of T2DM who is presenting with shortness of breath. Patient states she is been having cough with worsening shortness of breath for approximately 2 weeks. She denies nausea vomiting diarrhea. Patient has had chills and subjective fevers. Patient states she has no known contacts with anyone who is been ill or who has tested positive for COVID-19. Continues to be short of breath. Very tachypneic but able to maintain oxygen saturations above 92. Less tachypneic today Objective - Constitutional Vitals: Vital Signs - 12hr 08/10/19 08/10/19 08/10/19 06:00 06:01 07:00 Temperature 99.4 F Pulse Rate 78 Pulse Rate [ From Monitor] Respiratory 30 H Rate Blood Pressure 142/76 144/79 O2 Sat by Pulse 97 90 Oximetry 08/10/19 08/10/19 08/10/19 07:50 08:00 08:25 Temperature 98.8 F Pulse Rate 84 Pulse Rate [ 84 From Monitor] Respiratory 13 Rate Blood Pressure 136/80 O2 Sat by Pulse 98 95 87 Oximetry 08/10/19 08/10/19 08/10/19 09:00 10:00 11:01 Temperature Pulse Rate 84 100 H Pulse Rate [ From Monitor] Respiratory 13 35 H Rate Blood Pressure 158/94 142/81 130/88 O2 Sat by Pulse 87 84 97 Oximetry 08/10/19 08/10/19 08/10/19 12:00 13:01 14:00 Temperature 98.0 F Pulse Rate 90 75 Pulse Rate [ 81 From Monitor] Respiratory 31 H 16 33 H Rate Blood Pressure 140/82 136/101 132/75 O2 Sat by Pulse 92 81 L 85 Oximetry 08/10/19 08/10/19 08/10/19 15:00 16:00 16:01 Temperature 98.8 F Pulse Rate 85 78 Pulse Rate [ 78 From Monitor] Respiratory 31 H 31 H Rate Blood Pressure 122/104 121/80 O2 Sat by Pulse 86 Oximetry General appearance: Present: no acute distress, well-nourished - EENT Eyes: PERRL, EOM intact ENT: hearing intact, clear oral mucosa Ears: bilateral: normal - Neck Neck: supple, normal ROM - Respiratory Respiratory effort: normal Respiratory: bilateral: CTA - Breasts Breasts: normal - Cardiovascular Rhythm: regular Heart Sounds: Present: S1 & S2. Absent: gallop, rub Extremities: pulses intact, No edema, normal color, Full ROM - Gastrointestinal General gastrointestinal: Present: soft, non-tender, non-distended, normal bowel sounds - Genitourinary Female genitourinary: normal - Integumentary Integumentary: clear, warm, dry - Musculoskeletal Musculoskeletal: 1, strength equal bilaterally - Neurologic Neurologic: moves all extremities - Psychiatric Psychiatric: memory intact, appropriate mood/affect, intact judgment & insight - Labs CBC & Chem 7: 08/07/19 11:56 08/10/19 05:07 Labs: Abnormal lab results 08/09/19 08/09/19 08/10/19 Range/Units 17:11 21:58 05:07 BUN 19 H (7-17) mg/dL Glucose 277 H (65-100) mg/dL POC Glucose 200 H 226 H (70-105) Calcium 7.9 L (8.4-10.2) mg/dL Alkaline Phosphatase 231 H (35-129) units/L Albumin 2.7 L (3.9-5) g/dL 08/10/19 08/10/19 08/10/19 Range/Units 06:14 08:31 12:25 BUN (7-17) mg/dL Glucose (65-100) mg/dL POC Glucose 288 H 284 H 387 H (70-105) Calcium (8.4-10.2) mg/dL Alkaline Phosphatase (35-129) units/L Albumin (3.9-5) g/dL
[2019-08-10] MEDS: REMDESIVIR 100 MG in SODIUM CHLORIDE 0.9% 250ML 250 ML IV SCH (17:58)
[2019-08-10] MEDS: SODIUM CHLORIDE 0.9% 50 ML IV SCH (18:37)
[2019-08-11] MEDS: BENZONATATE 100 MG CAP PO SCH ×3 (01:10→18:37)
[2019-08-11] MEDS: methylPREDNISolone Sod Succinate 40 MG/1 ML INJ IV SCH ×3 (05:53→22:35)
[2019-08-11 06:33] LABS: Alanine Aminotransferase 28 units/L (7-56); BUN/Creatinine Ratio 30; Blood Urea Nitrogen 21 mg/dL (7-17); Calcium 8.4 mg/dL (8.4-10.2); Hemolysis Index 12
--- NOTE | 2019-08-11 10:38 | Progress Note ---
Assessment and Plan Assessment and plan: Severe sepsis. Etiology secondary to COVID-19 pneumonia. COVID pneumonia. Patient with likely cytokine storm, microthrombi and elevated inflammatory markers. Patient is s/p Actemra on 08/06. Acute hypoxemic respiratory failure. Continue O2 and BiPAP as clinically indicated. Diabetes mellitus type 2. Add Lantus at bedtime. The high probability of a clinically significant, sudden or life threatening deterioration of the [respiratory] system(s) required my full and direct attention, intervention and personal management. The aggregate critical care time was [32] minutes. This time is in addition to time spent performing reported procedures but includes the following: [x] Data Review and interpretation [x] Patient assessment and monitoring of vital signs [x] Documentation [x] Medication orders and management History Interval history: No new issues overnight. Hospitalist Physical - Constitutional Vitals: Temp Pulse Resp BP Pulse Ox 98.6 F 69 17 119/83 95 08/11/19 08:00 08/11/19 07:01 08/11/19 07:01 08/11/19 07:01 08/11/19 07:01 General appearance: Present: no acute distress, well-nourished - EENT Eyes: Present: PERRL, EOM intact ENT: hearing intact, clear oral mucosa, dentition normal - Neck Neck: Present: supple, normal ROM - Respiratory Respiratory effort: normal Respiratory: bilateral: CTA - Cardiovascular Rhythm: regular Heart Sounds: Present: S1 & S2. Absent: gallop, rub - Extremities Extremities: no ischemia, No edema, Full ROM - Abdominal General gastrointestinal: soft, non-tender, non-distended, normal bowel sounds - Integumentary Integumentary: Present: clear, warm, dry - Neurologic Neurologic: CNII-XII intact, moves all extremities Results - Labs CBC & Chem 7: 08/07/19 11:56 08/11/19 05:14 Labs: Laboratory Last Values WBC 6.4 K/mm3 (4.5-11.0) 08/07/19 11:56 RBC 4.46 M/mm3 (3.65-5.03) 08/07/19 11:56 Hgb 13.4 gm/dl (10.1-14.3) 08/07/19 11:56 Hct 40.5 % (30.3-42.9) 08/07/19 11:56 MCV 91 fl (79-97) 08/07/19 11:56 MCH 30 pg (28-32) 08/07/19 11:56 MCHC 33 % (30-34) 08/07/19 11:56 RDW 14.5 % (13.2-15.2) 08/07/19 11:56 Plt Count 149 K/mm3 (140-440) 08/07/19 11:56 Lymph % (Auto) 13.0 % (13.4-35.0) L 08/05/19 14:53 [place] % (Auto) 10.8 % (0.0-7.3) H 08/05/19 14:53 Eos % (Auto) 1.7 % (0.0-4.3) 08/05/19 14:53 Baso % (Auto) 0.5 % (0.0-1.8) 08/05/19 14:53 Lymph # 0.9 K/mm3 (1.2-5.4) L 08/05/19 14:53 [place] # 0.8 K/mm3 (0.0-0.8) 08/05/19 14:53 Eos # 0.1 K/mm3 (0.0-0.4) 08/05/19 14:53 Baso # 0.0 K/mm3 (0.0-0.1) 08/05/19 14:53 Seg Neutrophils % 74.0 % (40.0-70.0) H 08/05/19 14:53 Seg Neutrophils # 5.2 K/mm3 (1.8-7.7) 08/05/19 14:53 APTT 26.3 Sec. (24.2-36.6) 08/05/19 14:53 D-Dimer 3795.56 ng/mlDDU (0-234) H 08/09/19 12:29 Sodium 138 mmol/L (137-145) 08/11/19 05:14 Potassium 4.1 mmol/L (3.6-5.0) 08/11/19 05:14 Chloride 99.0 mmol/L (98-107) 08/11/19 05:14 Carbon Dioxide 28 mmol/L (22-30) 08/11/19 05:14 Anion Gap 15 mmol/L 08/11/19 05:14 BUN 21 mg/dL (7-17) H 08/11/19 05:14 Creatinine 0.7 mg/dL (0.7-1.2) 08/11/19 05:14 Estimated GFR > 60 ml/min 08/11/19 05:14 BUN/Creatinine Ratio 30 % 08/11/19 05:14 Glucose 368 mg/dL (65-100) H 08/11/19 05:14 POC Glucose 259 (70-105) H 08/10/19 21:10 Hemoglobin A1c 7.6 % (4-6) H 08/06/19 Unknown Lactic Acid 1.90 mmol/L (0.7-2.0) 08/05/19 22:51 Calcium 8.4 mg/dL (8.4-10.2) 08/11/19 05:14 Ferritin 594.1 ng/mL (13.0-400.0) H 08/09/19 12:29 Total Bilirubin 0.50 mg/dL (0.1-1.2) 08/11/19 05:14 AST 27 units/L (5-40) 08/11/19 05:14 ALT 28 units/L (7-56) 08/11/19 05:14 Alkaline Phosphatase 223 units/L (35-129) H 08/11/19 05:14 Lactate Dehydrogenase 866 units/L (91-180) H 08/09/19 05:22 C-Reactive Protein 14.70 mg/dL (0.00-1.30) H 08/09/19 05:22 NT-Pro-B Natriuret Pep 1818 pg/mL (0-900) H 08/05/19 15:07 Total Protein 6.5 g/dL (6.3-8.2) 08/11/19 05:14 Albumin 3.0 g/dL (3.9-5) L 08/11/19 05:14 Albumin/Globulin Ratio 0.9 % 08/11/19 05:14 Procalcitonin 1.06 ng/mL (<0.15) 08/09/19 12:29 Urine Color Lyn[place]ay (Yellow) 08/05/19 19:54 Urine Turbidity Clear (Clear) 08/05/19 19:54 Urine pH 5.0 (5.0-7.0) 08/05/19 19:54 Ur Specific [place] 1.031 (1.003-1.030) H 08/05/19 19:54 Urine Protein 100 mg/dl mg/dL (Negative) 08/05/19 19:54 Urine Glucose (UA) 50 mg/dL (Negative) 08/05/19 19:54 Urine Ketones Neg mg/dL (Negative) 08/05/19 19:54 Urine Blood Neg (Negative) 08/05/19 19:54 Urine Nitrite Neg (Negative) 08/05/19 19:54 Urine Bilirubin Neg (Negative) 08/05/19 19:54 Urine Urobilinogen < 2.0 mg/dL (<2.0) 08/05/19 19:54 Ur Leukocyte Esterase Neg (Negative) 08/05/19 19:54 Urine WBC (Auto) 8.0 /HPF (0.0-6.0) H 08/05/19 19:54 Urine RBC (Auto) 1.0 /HPF (0.0-6.0) 08/05/19 19:54 U Epithel Cells (Auto) 10.0 /HPF (0-13.0) 08/05/19 19:54 Urine Mucus 1+ /HPF 08/05/19 19:54 Coronavirus (PCR) Positive (Negative) A 08/06/19 09:17 Microbiology: Microbiology 08/05/19 14:58 Peripheral/Venous Blood Culture - Final NO GROWTH AFTER 5 DAYS 08/05/19 14:53 Peripheral/Venous Blood Culture - Final NO GROWTH AFTER 5 DAYS [place]/IV: Voiding Method Bedpan IV Catheter Type [Left Forearm INT / Saline Lock ] IV Catheter Type [Right Wrist] Peripheral IV IV Catheter Type [Right INT / Saline Lock Forearm] IV Catheter Type [Left Hand] Peripheral IV IV Catheter Type [Left Peripheral IV Antecubital] Active Medications - Current Medications Current Medications: Generic Name Dose Route Start Last Admin Trade Name Freq PRN Reason Stop Dose Admin Acetaminophen 650 mg 08/05/19 21:32 08/06/19 20:05 Tylenol PO 650 mg Q4H PRN Administration Pain MILD(1-3)/Fever >100.5/BUTLER Ascorbic Acid 500 mg 08/08/19 10:00 08/10/19 22:34 Vitamin C PO 500 mg BID RAISA Administration Benzonatate 100 mg 08/06/19 01:00 08/11/19 01:10 Tessalon Perles PO 100 mg Q8H RAISA Administration Cholecalciferol 5,000 unit 08/08/19 10:00 08/10/19 09:32 Vitamin D3 PO 5,000 unit QDAY RAISA Administration Enoxaparin Sodium 90 mg 08/05/19 22:00 08/10/19 22:34 Enoxaparin SUB-Q 90 mg Q12HR RAISA Administration Famotidine 20 mg 08/05/19 22:00 08/10/19 22:34 Pepcid PO 20 mg BID RAISA Administration Hydromorphone HCl 0.5 mg 08/05/19 21:32 08/06/19 22:28 Dilaudid IV 0.5 mg Q3H PRN Administration Pain , Severe (7-10) REMDESIVIR 100 mg/ Sodium 250 mls @ 500 mls/hr 08/08/19 18:00 08/10/19 17:58 Chloride IV 08/11/19 18:29 500 mls/hr Q24H RAISA Administration Sodium Chloride 50 mls @ 999 mls/hr 08/08/19 19:00 08/10/19 18:37 Nacl 0.9% IV 999 mls/hr Q24H RAISA Administration REMDESIVIR 100 mg/ Sodium 250 mls @ 500 mls/hr 08/12/19 18:00 Chloride IV 08/16/19 17:59 Q24H [facility] Insulin Human Lispro 0 unit 08/05/19 22:00 08/10/19 22:36 Humalog SUB-Q 6 unit ACHS RAISA Administration Protocol Methylprednisolone Sodium Succinate 40 mg 08/07/19 14:00 08/11/19 05:53 Solu-Medrol IV 40 mg Q8HR RAISA Administration Metoclopramide HCl 10 mg 08/05/19 21:32 Reglan IV Q6H PRN Nausea And Vomiting Ondansetron HCl 4 mg 08/05/19 21:32 Zofran IV Q8H PRN Nausea And Vomiting Oxycodone/Acetaminophen 1 tab 08/05/19 21:32 08/06/19 21:07 Percocet 5/325 PO 1 tab Q6H PRN Administration Pain, Moderate (4-6) Sodium Chloride 10 ml 08/05/19 22:00 08/10/19 22:35 Sodium Chloride Flush Syringe 10 Ml IV 10 ml BID RAISA Administration Sodium Chloride 10 ml 08/05/19 21:32 Sodium Chloride Flush Syringe 10 Ml IV PRN PRN LINE FLUSH Nutrition/Malnutrition Assess - Dietary Evaluation Nutrition/Malnutrition Findings: Nutrition Notes Start: 08/06/19 08:35 Freq: Status: Active Protocol: Document 08/09/19 15:11 LM (Rec: 08/09/19 15:15 LM [email or web address]) Nutrition Notes Initial or Follow up Reassessment Current Diagnosis Diabetes Other Pertinent Diagnosis ARDS, Suspected COVID-19 Current Diet Cardiac/consistent CHO Labs/Tests BG 227 Pertinent Medications Humalog Lasix KCl at 100ml/hr Height 5 ft 5 in Weight 92.35 kg [place] Body Weight (kg) 56.81 BMI 33.8 Weight Status Obese Subjective/Other Information Pt speaks Italian. Per RN pt is only eating a little bit due to being on oxygen. Will order ONS for pt. Burn Absent Trauma Absent Minimum of two criteria No physical signs of malnutrition #2 Nutrition Diagnosis Inadequate oral intake Etiology difficulty breathing As Evidenced by Signs and Symptoms pt eating less than 50% Is patient on ventilator? No Is Patient Ambulatory and/or Out of Bed Yes REE-([facility]-ambulatory/OOB) [ 1975.194 [id number]] Kcal/Kg value to use for calculation 17 Approximate Energy Requirements Using 1570 kcal/Kg Calculation Used for Recommendations Kcal/kg Additional Notes Protein needs are 74-92g (0.8- 1g/kg) Fluid needs are 1ml/kcal Nutrition Intervention Change Diet Order: Continue Add Supplement/Snack (indicate name/kcal Glucerna BID /protein ) Provides kCal: 440 Provides Protein (gm) 20 Goal #1 Meet at least 80% of kcal and protein needs Anticipated Discharge Needs: Cardiac/consistent CHO diet Follow-Up By: 08/11/19 Additional Comments F/U for PO/ONS intakes
[2019-08-11] MEDS: ENOXAPARIN 100 MG/1 ML INJ SUB-Q SCH ×2 (10:49→22:35)
[2019-08-11] MEDS: ASCORBIC ACID 500 MG TAB PO SCH ×2 (10:49→22:35)
[2019-08-11] MEDS: FAMOTIDINE 20 MG TAB PO SCH ×2 (10:50→22:35)
[2019-08-11] MEDS: INSULIN LISPRO 100 UNIT/ML SUB-Q SCH ×4 (10:51→22:35)
[2019-08-11] MEDS: CHOLECALCIFEROL (VIT D3) 5,000 UNIT TAB PO SCH (12:24)
--- NOTE | 2019-08-11 12:32 | Progress Note ---
Assessment and Plan 54 y/o female with acute respiratory failure secondary to COVID 19 1. Proning during the day and prone sleeping at night. Begged her to continue to do this. 2. Will start steroids 40q8 for 7 days, today is day 4 3. Agree with Actemra, given 4. Agree with Remdisiver, given 5. Guarded Prognosis, continue HFNC for now. Hopeful she will not require intubation. 6. No lasix today. Spoke with ID, will give convalescent plasma Subjective Date of service: 08/11/19 Principal diagnosis: Bilateral pneumonia, ARDS Interval history: No acute events. Proning herself now. Still on HFNC with sats in the high 80's and low 90's. Objective Vital Signs - 12hr 08/11/19 08/11/19 08/11/19 01:00 02:00 03:00 Temperature Pulse Rate 76 77 72 Pulse Rate [ From Monitor] Respiratory 17 Rate Blood Pressure 131/74 131/69 143/59 O2 Sat by Pulse 95 98 97 Oximetry 08/11/19 08/11/19 08/11/19 04:00 05:00 06:01 Temperature 98.5 F Pulse Rate 84 Pulse Rate [ 80 From Monitor] Respiratory 26 H Rate Blood Pressure 128/78 125/75 125/73 O2 Sat by Pulse 98 96 93 Oximetry 08/11/19 08/11/19 07:01 08:00 Temperature 98.6 F Pulse Rate 69 Pulse Rate [ From Monitor] Respiratory 17 Rate Blood Pressure 119/83 O2 Sat by Pulse 95 94 Oximetry Constitutional: alert, other (critically ill on HFNC) Eyes: non-icteric Effort: mildly labored Ascultation: Bilateral: rales Cardiovascular: regular rate and rhythm (no mrg) Gastrointestinal: normoactive bowel sounds, soft, non-tender, non-distended Integumentary: normal Extremities: no cyanosis, no edema, pink and warm Neurologic: normal mental status, non-focal exam, pupils equal and round, CN II- XII normal Psychiatric: mood appropriate, affect normal CBC and BMP: 08/07/19 11:56 08/11/19 05:14 ABG, PT/INR, D-dimer: PT/INR, D-dimer D-Dimer 3795.56 ng/mlDDU (0-234) H 08/09/19 12:29 Abnormal lab findings: Abnormal Labs 08/05/19 08/05/19 08/05/19 14:53 14:53 14:53 Lymph % (Auto) 13.0 L [place] % (Auto) 10.8 H Lymph # 0.9 L Seg Neutrophils % 74.0 H D-Dimer > 36425 H Carbon Dioxide 20 L BUN 6 L Creatinine 0.6 L Glucose 255 H POC Glucose Hemoglobin A1c Lactic Acid Calcium Ferritin Alkaline Phosphatase 173 H Lactate Dehydrogenase C-Reactive Protein NT-Pro-B Natriuret Pep Albumin 2.9 L Ur Specific [place] Urine WBC (Auto) Coronavirus (PCR) 08/05/19 08/05/19 08/05/19 14:53 14:53 14:53 Lymph % (Auto) [place] % (Auto) Lymph # Seg Neutrophils % D-Dimer Carbon Dioxide BUN Creatinine Glucose 256 H POC Glucose Hemoglobin A1c Lactic Acid 3.40 H* Calcium Ferritin 438.9 H Alkaline Phosphatase Lactate Dehydrogenase 702 H C-Reactive Protein 32.90 H NT-Pro-B Natriuret Pep Albumin Ur Specific [place] Urine WBC (Auto) Coronavirus (PCR) 08/05/19 08/05/19 08/06/19 15:07 19:54 00:21 Lymph % (Auto) [place] % (Auto) Lymph # Seg Neutrophils % D-Dimer Carbon Dioxide BUN Creatinine Glucose POC Glucose 131 H Hemoglobin A1c Lactic Acid Calcium Ferritin Alkaline Phosphatase Lactate Dehydrogenase C-Reactive Protein NT-Pro-B Natriuret Pep 1818 H Albumin Ur Specific [place] 1.031 H Urine WBC (Auto) 8.0 H Coronavirus (PCR) 08/06/19 08/06/19 08/06/19 08:29 09:17 11:56 Lymph % (Auto) [place] % (Auto) Lymph # Seg Neutrophils % D-Dimer Carbon Dioxide BUN Creatinine Glucose POC Glucose 165 H 190 H Hemoglobin A1c Lactic Acid Calcium Ferritin Alkaline Phosphatase Lactate Dehydrogenase C-Reactive Protein NT-Pro-B Natriuret Pep Albumin Ur Specific [place] Urine WBC (Auto) Coronavirus (PCR) Positive A 08/06/19 08/06/19 08/06/19 16:16 22:16 Unknown Lymph % (Auto) [place] % (Auto) Lymph # Seg Neutrophils % D-Dimer Carbon Dioxide BUN Creatinine Glucose POC Glucose 170 H 128 H Hemoglobin A1c 7.6 H Lactic Acid Calcium Ferritin Alkaline Phosphatase Lactate Dehydrogenase C-Reactive Protein NT-Pro-B Natriuret Pep Albumin Ur Specific [place] Urine WBC (Auto) Coronavirus (PCR) 08/07/19 08/07/19 08/07/19 07:59 11:39 11:56 Lymph % (Auto) [place] % (Auto) Lymph # Seg Neutrophils % D-Dimer Carbon Dioxide BUN Creatinine 0.6 L Glucose 194 H POC Glucose 141 H 195 H Hemoglobin A1c Lactic Acid Calcium 8.0 L Ferritin Alkaline Phosphatase 181 H Lactate Dehydrogenase C-Reactive Protein NT-Pro-B Natriuret Pep Albumin 2.5 L Ur Specific [place] Urine WBC (Auto) Coronavirus (PCR) 08/07/19 08/07/19 08/07/19 11:56 11:56 11:56 Lymph % (Auto) [place] % (Auto) Lymph # Seg Neutrophils % D-Dimer > 21962 H Carbon Dioxide BUN Creatinine Glucose POC Glucose Hemoglobin A1c Lactic Acid Calcium Ferritin 415.7 H Alkaline Phosphatase Lactate Dehydrogenase 745 H C-Reactive Protein NT-Pro-B Natriuret Pep Albumin Ur Specific [place] Urine WBC (Auto) Coronavirus (PCR) 08/07/19 08/07/19 08/07/19 11:56 16:35 21:36 Lymph % (Auto) [place] % (Auto) Lymph # Seg Neutrophils % D-Dimer Carbon Dioxide BUN Creatinine Glucose POC Glucose 176 H 277 H Hemoglobin A1c Lactic Acid Calcium Ferritin Alkaline Phosphatase Lactate Dehydrogenase C-Reactive Protein 34.20 H NT-Pro-B Natriuret Pep Albumin Ur Specific [place] Urine WBC (Auto) Coronavirus (PCR) 08/08/19 08/08/19 08/08/19 07:53 08:54 11:40 Lymph % (Auto) [place] % (Auto) Lymph # Seg Neutrophils % D-Dimer Carbon Dioxide BUN Creatinine 0.6 L Glucose 266 H POC Glucose 214 H 340 H Hemoglobin A1c Lactic Acid Calcium 8.3 L Ferritin Alkaline Phosphatase 222 H Lactate Dehydrogenase C-Reactive Protein NT-Pro-B Natriuret Pep Albumin 2.5 L Ur Specific [place] Urine WBC (Auto) Coronavirus (PCR) 08/08/19 08/08/19 08/09/19 17:04 21:49 05:22 Lymph % (Auto) [place] % (Auto) Lymph # Seg Neutrophils % D-Dimer Carbon Dioxide BUN Creatinine Glucose POC Glucose 278 H 319 H Hemoglobin A1c Lactic Acid Calcium Ferritin Alkaline Phosphatase Lactate Dehydrogenase 866 H C-Reactive Protein 14.70 H NT-Pro-B Natriuret Pep Albumin Ur Specific [place] Urine WBC (Auto) Coronavirus (PCR) 08/09/19 08/09/19 08/09/19 05:44 08:12 11:52 Lymph % (Auto) [place] % (Auto) Lymph # Seg Neutrophils % D-Dimer Carbon Dioxide BUN 18 H Creatinine 0.6 L Glucose 227 H POC Glucose 232 H 273 H Hemoglobin A1c Lactic Acid Calcium 8.2 L Ferritin Alkaline Phosphatase 230 H Lactate Dehydrogenase C-Reactive Protein NT-Pro-B Natriuret Pep Albumin 2.5 L Ur Specific [place] Urine WBC (Auto) Coronavirus (PCR) 08/09/19 08/09/19 08/09/19 12:29 12:29 17:11 Lymph % (Auto) [place] % (Auto) Lymph # Seg Neutrophils % D-Dimer 3795.56 H Carbon Dioxide BUN Creatinine Glucose POC Glucose 200 H Hemoglobin A1c Lactic Acid Calcium Ferritin 594.1 H Alkaline Phosphatase Lactate Dehydrogenase C-Reactive Protein NT-Pro-B Natriuret Pep Albumin Ur Specific [place] Urine WBC (Auto) Coronavirus (PCR) 08/09/19 08/10/19 08/10/19 21:58 05:07 06:14 Lymph % (Auto) [place] % (Auto) Lymph # Seg Neutrophils % D-Dimer Carbon Dioxide BUN 19 H Creatinine Glucose 277 H POC Glucose 226 H 288 H Hemoglobin A1c Lactic Acid Calcium 7.9 L Ferritin Alkaline Phosphatase 231 H Lactate Dehydrogenase C-Reactive Protein NT-Pro-B Natriuret Pep Albumin 2.7 L Ur Specific [place] Urine WBC (Auto) Coronavirus (PCR) 08/10/19 08/10/19 08/10/19 08:31 12:25 18:03 Lymph % (Auto) [place] % (Auto) Lymph # Seg Neutrophils % D-Dimer Carbon Dioxide BUN Creatinine Glucose POC Glucose 284 H 387 H 297 H Hemoglobin A1c Lactic Acid Calcium Ferritin Alkaline Phosphatase Lactate Dehydrogenase C-Reactive Protein NT-Pro-B Natriuret Pep Albumin Ur Specific [place] Urine WBC (Auto) Coronavirus (PCR) 08/10/19 08/11/19 21:10 05:14 Lymph % (Auto) [place] % (Auto) Lymph # Seg Neutrophils % D-Dimer Carbon Dioxide BUN 21 H Creatinine Glucose 368 H POC Glucose 259 H Hemoglobin A1c Lactic Acid Calcium Ferritin Alkaline Phosphatase 223 H Lactate Dehydrogenase C-Reactive Protein NT-Pro-B Natriuret Pep Albumin 3.0 L Ur Specific [place] Urine WBC (Auto) Coronavirus (PCR)
--- NOTE | 2019-08-11 13:29 | Progress Note ---
Assessment and Plan Cultures: Blood culture 08/05/2019 no growth Assessment: 54 years old female with history of obesity, diabetes, admitted on 08/05/2019 due to 2-week history of dry cough, generalized malaise and progressive shortness of breath: #Severe sepsis: likely due to severe COVID pneumonia #Severe COVID pneumonia: high suspicion for late SARS-2 virus complications -cytokine storm, microvascular thrombosis. Inflamatory markers are elevated- D- dimer > 10,000-->10,000--.3795, ferritin 438-->415-->594, LDH 702-->745, CRP 32-->34-. S/p Actemra 4 mg/kg x 1 on 08/06. S/p ceftriaxone/azithro 5 days. #Acute hypoxemic respiratory failure: now of HFO2 40L, 100% #DM: uncontrolled on IV steroids Recommendations: educated about proning STAT type and screen for CCP Informed consent obtained from patient for Convalescent COVID Plasma (CCP). Patient is to be enrolled in the Expanded Access Program for Convalescent Plasma. Continue Remdesivir - 100 mg IV daily x 9 days Day 5 of 10 Continue solumedrol 40 mg IV q 8 hours Day 5 of 7 Continue anticoagulation for elevated d-dimer F/u quantiferon and IL-6 - pending Continue vit C and D Continue COVID isolation precautions per [facility] protocol VERY High risk mortality - discussed with patient Will follow. Discussed with Dr Santos Shanks MD Infectious Diseases Fire Control Officer [facility] ([facility]) M [phone] O [phone] Subjective Date of service: 08/11/19 Principal diagnosis: Bilateral pneumonia, ARDS Interval history: Feels better but remains on HFO2. No chest pain. Still MIX and SOB. No fever. Proning. Objective - Exam Narrative Exam: General appearance: Alert in NAD, on high flow O2 Eyes: AVANI no icteric conjunctiave HENT: Atraumatic; oropharynx limited Lungs: limited CV:RRR Abdomen: Soft, nontender, obese Extremities: No edema Skin: No rash. Psych: no agitated Neuro: alert and oriented x 3. Moving all extermities - Constitutional Vitals: Vital Signs Temp Pulse Resp BP Pulse Ox 98.5 F 69 17 119/83 94 08/11/19 12:00 08/11/19 07:01 08/11/19 07:01 08/11/19 07:01 08/11/19 08:00 Temperature -Last 24 Hours Temperature 98.5 F Temperature 98.6 F Temperature 98.5 F Temperature 98 F Temperature 98.5 F Temperature 98.8 F - Labs CBC & Chem 7: 08/07/19 11:56 08/11/19 05:14 Labs: Abnormal lab results 08/10/19 08/10/19 08/11/19 Range/Units 18:03 21:10 05:14 BUN 21 H (7-17) mg/dL Glucose 368 H (65-100) mg/dL POC Glucose 297 H 259 H (70-105) Alkaline Phosphatase 223 H (35-129) units/L Albumin 3.0 L (3.9-5) g/dL
[2019-08-11] MEDS: REMDESIVIR 100 MG in SODIUM CHLORIDE 0.9% 250ML 250 ML IV SCH (18:09)
[2019-08-11] MEDS: SODIUM CHLORIDE 0.9% 50 ML IV SCH (18:37)
[2019-08-11] MEDS ORDERED: INSULIN GLARGINE 100 UNITS/ML SUB-Q SCH (22:00)
[2019-08-12] MEDS: BENZONATATE 100 MG CAP PO SCH ×3 (02:42→17:59)
[2019-08-12 06:00] LABS: Alanine Aminotransferase 31 units/L (7-56); Albumin 2.9 g/dL (3.9-5); BUN/Creatinine Ratio 42; Blood Urea Nitrogen 21 mg/dL (7-17); Calcium 8.4 mg/dL (8.4-10.2); Hemolysis Index 22
[2019-08-12] MEDS: methylPREDNISolone Sod Succinate 40 MG/1 ML INJ IV SCH ×3 (06:22→23:09)
[2019-08-12] MEDS: INSULIN LISPRO 100 UNIT/ML SUB-Q SCH ×4 (08:29→23:05)
[2019-08-12] MEDS: ENOXAPARIN 100 MG/1 ML INJ SUB-Q SCH ×2 (09:25→23:06)
[2019-08-12] MEDS: FAMOTIDINE 20 MG TAB PO SCH ×2 (09:26→23:08)
[2019-08-12] MEDS: ASCORBIC ACID 500 MG TAB PO SCH ×2 (09:28→23:10)
[2019-08-12] MEDS: CHOLECALCIFEROL (VIT D3) 5,000 UNIT TAB PO SCH (09:32)
--- NOTE | 2019-08-12 11:56 | Progress Note ---
Assessment and Plan Assessment and plan: Severe sepsis. Etiology secondary to COVID-19 pneumonia. COVID pneumonia. Patient with likely cytokine storm, microthrombi and elevated inflammatory markers. Patient is s/p Actemra on 08/06. ARDS. Etiology secondary to above. Acute hypoxemic respiratory failure. Continue O2 and BiPAP as clinically indicated. Etiology secondary to above. Diabetes mellitus type 2. Continue Lantus at bedtime. Patient with Solu- Medrol. 08/12/2019. Pulmonary following and recommending pronating during the day and at night. Continue Solu-Medrol 40 mg every 8 hours for a total of 7 days. Patient s/p Actemra and Remdisiver. Patient currently on HFNC requiring 40 L O2. Increase Lantus to 15 units at bedtime. The high probability of a clinically significant, sudden or life threatening deterioration of the [respiratory] system(s) required my full and direct attention, intervention and personal management. The aggregate critical care time was [32] minutes. This time is in addition to time spent performing reported procedures but includes the following: [x] Data Review and interpretation [x] Patient assessment and monitoring of vital signs [x] Documentation [x] Medication orders and management History Interval history: No new issues overnight. Patient still requiring HFNC with 40 L of oxygen. Hospitalist Physical - Constitutional Vitals: Temp Pulse Resp BP Pulse Ox 98 F 71 22 148/78 94 08/12/19 08:00 08/12/19 08:00 08/12/19 08:00 08/12/19 08:00 08/12/19 09:05 General appearance: Present: no acute distress, well-nourished - EENT Eyes: Present: PERRL, EOM intact ENT: hearing intact, clear oral mucosa, dentition normal - Neck Neck: Present: supple, normal ROM - Respiratory Respiratory effort: normal Respiratory: bilateral: diminished, rhonchi - Cardiovascular Rhythm: regular Heart Sounds: Present: S1 & S2. Absent: gallop, rub - Extremities Extremities: no ischemia, No edema, Full ROM - Abdominal General gastrointestinal: soft, non-tender, non-distended, normal bowel sounds - Integumentary Integumentary: Present: clear, warm, dry - Neurologic Neurologic: CNII-XII intact, moves all extremities Results - Labs CBC & Chem 7: 08/07/19 11:56 08/12/19 05:04 Labs: Laboratory Last Values WBC 6.4 K/mm3 (4.5-11.0) 08/07/19 11:56 RBC 4.46 M/mm3 (3.65-5.03) 08/07/19 11:56 Hgb 13.4 gm/dl (10.1-14.3) 08/07/19 11:56 Hct 40.5 % (30.3-42.9) 08/07/19 11:56 MCV 91 fl (79-97) 08/07/19 11:56 MCH 30 pg (28-32) 08/07/19 11:56 MCHC 33 % (30-34) 08/07/19 11:56 RDW 14.5 % (13.2-15.2) 08/07/19 11:56 Plt Count 149 K/mm3 (140-440) 08/07/19 11:56 Lymph % (Auto) 13.0 % (13.4-35.0) L 08/05/19 14:53 [place] % (Auto) 10.8 % (0.0-7.3) H 08/05/19 14:53 Eos % (Auto) 1.7 % (0.0-4.3) 08/05/19 14:53 Baso % (Auto) 0.5 % (0.0-1.8) 08/05/19 14:53 Lymph # 0.9 K/mm3 (1.2-5.4) L 08/05/19 14:53 [place] # 0.8 K/mm3 (0.0-0.8) 08/05/19 14:53 Eos # 0.1 K/mm3 (0.0-0.4) 08/05/19 14:53 Baso # 0.0 K/mm3 (0.0-0.1) 08/05/19 14:53 Seg Neutrophils % 74.0 % (40.0-70.0) H 08/05/19 14:53 Seg Neutrophils # 5.2 K/mm3 (1.8-7.7) 08/05/19 14:53 APTT 26.3 Sec. (24.2-36.6) 08/05/19 14:53 D-Dimer 3795.56 ng/mlDDU (0-234) H 08/09/19 12:29 Sodium 141 mmol/L (137-145) 08/12/19 05:04 Potassium 4.0 mmol/L (3.6-5.0) 08/12/19 05:04 Chloride 100.5 mmol/L (98-107) 08/12/19 05:04 Carbon Dioxide 27 mmol/L (22-30) 08/12/19 05:04 Anion Gap 18 mmol/L 08/12/19 05:04 BUN 21 mg/dL (7-17) H 08/12/19 05:04 Creatinine 0.5 mg/dL (0.7-1.2) L 08/12/19 05:04 Estimated GFR > 60 ml/min 08/12/19 05:04 BUN/Creatinine Ratio 42 % 08/12/19 05:04 Glucose 276 mg/dL (65-100) H 08/12/19 05:04 POC Glucose 274 (70-105) H 08/12/19 07:47 Hemoglobin A1c 7.6 % (4-6) H 08/06/19 Unknown Lactic Acid 1.90 mmol/L (0.7-2.0) 08/05/19 22:51 Calcium 8.4 mg/dL (8.4-10.2) 08/12/19 05:04 Ferritin 594.1 ng/mL (13.0-400.0) H 08/09/19 12:29 Total Bilirubin 0.50 mg/dL (0.1-1.2) 08/12/19 05:04 AST 24 units/L (5-40) 08/12/19 05:04 ALT 31 units/L (7-56) 08/12/19 05:04 Alkaline Phosphatase 188 units/L (35-129) H 08/12/19 05:04 Lactate Dehydrogenase 866 units/L (91-180) H 08/09/19 05:22 C-Reactive Protein 14.70 mg/dL (0.00-1.30) H 08/09/19 05:22 NT-Pro-B Natriuret Pep 1818 pg/mL (0-900) H 08/05/19 15:07 Total Protein 6.1 g/dL (6.3-8.2) L 08/12/19 05:04 Albumin 2.9 g/dL (3.9-5) L 08/12/19 05:04 Albumin/Globulin Ratio 0.9 % 08/12/19 05:04 Procalcitonin 1.06 ng/mL (<0.15) 08/09/19 12:29 Urine Color [place] (Yellow) 08/05/19 19:54 Urine Turbidity Clear (Clear) 08/05/19 19:54 Urine pH 5.0 (5.0-7.0) 08/05/19 19:54 Ur Specific [place] 1.031 (1.003-1.030) H 08/05/19 19:54 Urine Protein 100 mg/dl mg/dL (Negative) 08/05/19 19:54 Urine Glucose (UA) 50 mg/dL (Negative) 08/05/19 19:54 Urine Ketones Neg mg/dL (Negative) 08/05/19 19:54 Urine Blood Neg (Negative) 08/05/19 19:54 Urine Nitrite Neg (Negative) 08/05/19 19:54 Urine Bilirubin Neg (Negative) 08/05/19 19:54 Urine Urobilinogen < 2.0 mg/dL (<2.0) 08/05/19 19:54 Ur Leukocyte Esterase Neg (Negative) 08/05/19 19:54 Urine WBC (Auto) 8.0 /HPF (0.0-6.0) H 08/05/19 19:54 Urine RBC (Auto) 1.0 /HPF (0.0-6.0) 08/05/19 19:54 U Epithel Cells (Auto) 10.0 /HPF (0-13.0) 08/05/19 19:54 Urine Mucus 1+ /HPF 08/05/19 19:54 Coronavirus (PCR) Positive (Negative) A 08/06/19 09:17 Blood Type A POSITIVE 08/11/19 15:00 Antibody Screen Negative 08/11/19 15:00 [place]/IV: Voiding Method Bedpan IV Catheter Type [Left Forearm INT / Saline Lock ] IV Catheter Type [Right Wrist] Peripheral IV IV Catheter Type [Right INT / Saline Lock Forearm] IV Catheter Type [Left Hand] Peripheral IV IV Catheter Type [Left Peripheral IV Antecubital] Active Medications - Current Medications Current Medications: Generic Name Dose Route Start Last Admin Trade Name Freq PRN Reason Stop Dose Admin Acetaminophen 650 mg 08/05/19 21:32 08/06/19 20:05 Tylenol PO 650 mg Q4H PRN Administration Pain MILD(1-3)/Fever >100.5/BUTLER Ascorbic Acid 500 mg 08/08/19 10:00 08/12/19 09:28 Vitamin C PO 500 mg BID RAISA Administration Benzonatate 100 mg 08/06/19 01:00 08/12/19 09:25 Tessalon Perles PO 100 mg Q8H RAISA Administration Cholecalciferol 5,000 unit 08/08/19 10:00 08/12/19 09:32 Vitamin D3 PO 5,000 unit QDAY RAISA Administration Enoxaparin Sodium 90 mg 08/05/19 22:00 08/12/19 09:25 Enoxaparin SUB-Q 90 mg Q12HR RAISA Administration Famotidine 20 mg 08/05/19 22:00 08/12/19 09:26 Pepcid PO 20 mg BID RAISA Administration Hydromorphone HCl 0.5 mg 08/05/19 21:32 08/06/19 22:28 Dilaudid IV 0.5 mg Q3H PRN Administration Pain , Severe (7-10) Sodium Chloride 50 mls @ 999 mls/hr 08/08/19 19:00 08/11/19 18:37 Nacl 0.9% IV 999 mls/hr Q24H RAISA Administration REMDESIVIR 100 mg/ Sodium 250 mls @ 500 mls/hr 08/12/19 18:00 Chloride IV 08/16/19 17:59 Q24H [facility] Insulin Glargine 10 units 08/11/19 22:00 08/11/19 22:35 Lantus SUB-Q 10 units QHS RAISA Administration Insulin Human Lispro 0 unit 08/05/19 22:00 08/12/19 08:29 Humalog SUB-Q 6 unit ACHS [facility] Administration Protocol Methylprednisolone Sodium Succinate 40 mg 08/07/19 14:00 08/12/19 06:22 Solu-Medrol IV 40 mg Q8HR RAISA Administration Metoclopramide HCl 10 mg 08/05/19 21:32 Reglan IV Q6H PRN Nausea And Vomiting Ondansetron HCl 4 mg 08/05/19 21:32 Zofran IV Q8H PRN Nausea And Vomiting Oxycodone/Acetaminophen 1 tab 08/05/19 21:32 08/06/19 21:07 Percocet 5/325 PO 1 tab Q6H PRN Administration Pain, Moderate (4-6) Sodium Chloride 10 ml 08/05/19 22:00 08/12/19 09:28 Sodium Chloride Flush Syringe 10 Ml IV 10 ml BID RAISA Administration Sodium Chloride 10 ml 08/05/19 21:32 Sodium Chloride Flush Syringe 10 Ml IV PRN PRN LINE FLUSH Nutrition/Malnutrition Assess - Dietary Evaluation Nutrition/Malnutrition Findings: Nutrition Notes Start: 08/06/19 08:35 Freq: Status: Active Protocol: Document 08/11/19 09:16 LP (Rec: 08/11/19 10:57 LP [id number]) Nutrition Notes Initial or Follow up Reassessment Current Diagnosis Diabetes Other Pertinent Diagnosis ARDS, Suspected COVID-19 Current Diet Cardiac/consistent CHO Labs/Tests BG 368 Pertinent Medications Reviewed Height 5 ft 5 in Weight 92.35 kg [place] Body Weight (kg) 56.81 BMI 33.8 Weight Status Obese Subjective/Other Information Pt eating well. Consuming most of meals. Percent of energy/protein needs met: 100%/91% Burn Absent Trauma Absent Current % PO Good (75-100%) Minimum of two criteria No physical signs of malnutrition #2 Nutrition Diagnosis Inadequate oral intake As Evidenced by Signs and Symptoms Pt is meeting 100% of kcal and 91% of protein needs Diagnosis Progress(for reassessment Improved documentation) #1 Nutrition Diagnosis Predicted suboptimal energy intake Diagnosis Progress(for reassessment Resolved documentation) Is patient on ventilator? No Is Patient Ambulatory and/or Out of Bed Yes REE-([place] or-ambulatory/OOB) [ 1975.194 [id number]] Kcal/Kg value to use for calculation 17 Approximate Energy Requirements Using 1570 kcal/Kg Calculation Used for Recommendations Kcal/kg Additional Notes Protein needs are 74-92g (0.8- 1g/kg) Fluid needs are 1ml/kcal Nutrition Intervention Change Diet Order: Continue Add Supplement/Snack (indicate name/kcal D/C /protein ) Goal #1 Continue to meet at least 80% of kcal and protein needs Anticipated Discharge Needs: Cardiac/consistent CHO diet Follow-Up By: 08/18/19 Additional Comments Follow for stable intakes
--- NOTE | 2019-08-12 14:36 | Progress Note ---
Assessment and Plan 54 y/o female with acute respiratory failure secondary to COVID 19 1. Proning during the day and prone sleeping at night. Begged her to continue to do this. 2. Will start steroids 40q8 for 7 days, today is day 5 3. Agree with Actemra, given 4. Agree with Remdisiver, given 5. Guarded Prognosis, continue HFNC for now. Hopeful she will not require intubation. 6. No lasix today. Spoke with ID, will give convalescent plasma, likely will happen tomorrow. Suggest giving lasix post plasma Subjective Date of service: 08/12/19 Principal diagnosis: Bilateral pneumonia, ARDS Interval history: No acute events. Still on 40 and 100 with sats in the mid 90's. Objective Vital Signs - 12hr 08/12/19 08/12/19 08/12/19 03:01 03:39 04:00 Temperature 98.8 F Pulse Rate 68 68 Respiratory 22 Rate Blood Pressure 138/68 O2 Sat by Pulse 94 97 Oximetry 08/12/19 08/12/19 08/12/19 04:01 05:00 06:00 Temperature Pulse Rate 69 70 71 Respiratory 25 H 28 H 28 H Rate Blood Pressure 136/67 123/65 133/73 O2 Sat by Pulse 92 93 96 Oximetry 08/12/19 08/12/19 08/12/19 07:00 08:00 09:05 Temperature 98 F Pulse Rate 69 71 Respiratory 26 H 22 Rate Blood Pressure 136/74 148/78 O2 Sat by Pulse 93 91 94 Oximetry 08/12/19 14:27 Temperature Pulse Rate Respiratory Rate Blood Pressure O2 Sat by Pulse 94 Oximetry Constitutional: alert, other (critically ill on HFNC) Eyes: non-icteric Effort: mildly labored Ascultation: Bilateral: rales Cardiovascular: regular rate and rhythm (no mrg) Gastrointestinal: normoactive bowel sounds, soft, non-tender, non-distended Integumentary: normal Extremities: no cyanosis, no edema, pink and warm Neurologic: normal mental status, non-focal exam, pupils equal and round, CN II- XII normal Psychiatric: mood appropriate, affect normal CBC and BMP: 08/07/19 11:56 08/12/19 05:04 ABG, PT/INR, D-dimer: PT/INR, D-dimer D-Dimer 3795.56 ng/mlDDU (0-234) H 08/09/19 12:29 Abnormal lab findings: Abnormal Labs 08/05/19 08/05/19 08/05/19 14:53 14:53 14:53 Lymph % (Auto) 13.0 L [place] % (Auto) 10.8 H Lymph # 0.9 L Seg Neutrophils % 74.0 H D-Dimer > 43357 H Carbon Dioxide 20 L BUN 6 L Creatinine 0.6 L Glucose 255 H POC Glucose Hemoglobin A1c Lactic Acid Calcium Ferritin Alkaline Phosphatase 173 H Lactate Dehydrogenase C-Reactive Protein NT-Pro-B Natriuret Pep Total Protein Albumin 2.9 L Ur Specific [place] Urine WBC (Auto) Coronavirus (PCR) 08/05/19 08/05/19 08/05/19 14:53 14:53 14:53 Lymph % (Auto) [place] % (Auto) Lymph # Seg Neutrophils % D-Dimer Carbon Dioxide BUN Creatinine Glucose 256 H POC Glucose Hemoglobin A1c Lactic Acid 3.40 H* Calcium Ferritin 438.9 H Alkaline Phosphatase Lactate Dehydrogenase 702 H C-Reactive Protein 32.90 H NT-Pro-B Natriuret Pep Total Protein Albumin Ur Specific [place] Urine WBC (Auto) Coronavirus (PCR) 08/05/19 08/05/19 08/06/19 15:07 19:54 00:21 Lymph % (Auto) [place] % (Auto) Lymph # Seg Neutrophils % D-Dimer Carbon Dioxide BUN Creatinine Glucose POC Glucose 131 H Hemoglobin A1c Lactic Acid Calcium Ferritin Alkaline Phosphatase Lactate Dehydrogenase C-Reactive Protein NT-Pro-B Natriuret Pep 1818 H Total Protein Albumin Ur Specific [place] 1.031 H Urine WBC (Auto) 8.0 H Coronavirus (PCR) 08/06/19 08/06/19 08/06/19 08:29 09:17 11:56 Lymph % (Auto) [place] % (Auto) Lymph # Seg Neutrophils % D-Dimer Carbon Dioxide BUN Creatinine Glucose POC Glucose 165 H 190 H Hemoglobin A1c Lactic Acid Calcium Ferritin Alkaline Phosphatase Lactate Dehydrogenase C-Reactive Protein NT-Pro-B Natriuret Pep Total Protein Albumin Ur Specific [place] Urine WBC (Auto) Coronavirus (PCR) Positive A 08/06/19 08/06/19 08/06/19 16:16 22:16 Unknown Lymph % (Auto) [place] % (Auto) Lymph # Seg Neutrophils % D-Dimer Carbon Dioxide BUN Creatinine Glucose POC Glucose 170 H 128 H Hemoglobin A1c 7.6 H Lactic Acid Calcium Ferritin Alkaline Phosphatase Lactate Dehydrogenase C-Reactive Protein NT-Pro-B Natriuret Pep Total Protein Albumin Ur Specific [place] Urine WBC (Auto) Coronavirus (PCR) 08/07/19 08/07/19 08/07/19 07:59 11:39 11:56 Lymph % (Auto) [place] % (Auto) Lymph # Seg Neutrophils % D-Dimer Carbon Dioxide BUN Creatinine 0.6 L Glucose 194 H POC Glucose 141 H 195 H Hemoglobin A1c Lactic Acid Calcium 8.0 L Ferritin Alkaline Phosphatase 181 H Lactate Dehydrogenase C-Reactive Protein NT-Pro-B Natriuret Pep Total Protein Albumin 2.5 L Ur Specific [place] Urine WBC (Auto) Coronavirus (PCR) 08/07/19 08/07/19 08/07/19 11:56 11:56 11:56 Lymph % (Auto) [place] % (Auto) Lymph # Seg Neutrophils % D-Dimer > 09326 H Carbon Dioxide BUN Creatinine Glucose POC Glucose Hemoglobin A1c Lactic Acid Calcium Ferritin 415.7 H Alkaline Phosphatase Lactate Dehydrogenase 745 H C-Reactive Protein NT-Pro-B Natriuret Pep Total Protein Albumin Ur Specific [place] Urine WBC (Auto) Coronavirus (PCR) 08/07/19 08/07/19 08/07/19 11:56 16:35 21:36 Lymph % (Auto) [place] % (Auto) Lymph # Seg Neutrophils % D-Dimer Carbon Dioxide BUN Creatinine Glucose POC Glucose 176 H 277 H Hemoglobin A1c Lactic Acid Calcium Ferritin Alkaline Phosphatase Lactate Dehydrogenase C-Reactive Protein 34.20 H NT-Pro-B Natriuret Pep Total Protein Albumin Ur Specific [place] Urine WBC (Auto) Coronavirus (PCR) 08/08/19 08/08/19 08/08/19 07:53 08:54 11:40 Lymph % (Auto) [place] % (Auto) Lymph # Seg Neutrophils % D-Dimer Carbon Dioxide BUN Creatinine 0.6 L Glucose 266 H POC Glucose 214 H 340 H Hemoglobin A1c Lactic Acid Calcium 8.3 L Ferritin Alkaline Phosphatase 222 H Lactate Dehydrogenase C-Reactive Protein NT-Pro-B Natriuret Pep Total Protein Albumin 2.5 L Ur Specific [place] Urine WBC (Auto) Coronavirus (PCR) 08/08/19 08/08/19 08/09/19 17:04 21:49 05:22 Lymph % (Auto) [place] % (Auto) Lymph # Seg Neutrophils % D-Dimer Carbon Dioxide BUN Creatinine Glucose POC Glucose 278 H 319 H Hemoglobin A1c Lactic Acid Calcium Ferritin Alkaline Phosphatase Lactate Dehydrogenase 866 H C-Reactive Protein 14.70 H NT-Pro-B Natriuret Pep Total Protein Albumin Ur Specific [place] Urine WBC (Auto) Coronavirus (PCR) 08/09/19 08/09/19 08/09/19 05:44 08:12 11:52 Lymph % (Auto) [place] % (Auto) Lymph # Seg Neutrophils % D-Dimer Carbon Dioxide BUN 18 H Creatinine 0.6 L Glucose 227 H POC Glucose 232 H 273 H Hemoglobin A1c Lactic Acid Calcium 8.2 L Ferritin Alkaline Phosphatase 230 H Lactate Dehydrogenase C-Reactive Protein NT-Pro-B Natriuret Pep Total Protein Albumin 2.5 L Ur Specific [place] Urine WBC (Auto) Coronavirus (PCR) 08/09/19 08/09/19 08/09/19 12:29 12:29 17:11 Lymph % (Auto) [place] % (Auto) Lymph # Seg Neutrophils % D-Dimer 3795.56 H Carbon Dioxide BUN Creatinine Glucose POC Glucose 200 H Hemoglobin A1c Lactic Acid Calcium Ferritin 594.1 H Alkaline Phosphatase Lactate Dehydrogenase C-Reactive Protein NT-Pro-B Natriuret Pep Total Protein Albumin Ur Specific [place] Urine WBC (Auto) Coronavirus (PCR) 08/09/19 08/10/19 08/10/19 21:58 05:07 06:14 Lymph % (Auto) [place] % (Auto) Lymph # Seg Neutrophils % D-Dimer Carbon Dioxide BUN 19 H Creatinine Glucose 277 H POC Glucose 226 H 288 H Hemoglobin A1c Lactic Acid Calcium 7.9 L Ferritin Alkaline Phosphatase 231 H Lactate Dehydrogenase C-Reactive Protein NT-Pro-B Natriuret Pep Total Protein Albumin 2.7 L Ur Specific [place] Urine WBC (Auto) Coronavirus (PCR) 08/10/19 08/10/19 08/10/19 08:31 12:25 18:03 Lymph % (Auto) [place] % (Auto) Lymph # Seg Neutrophils % D-Dimer Carbon Dioxide BUN Creatinine Glucose POC Glucose 284 H 387 H 297 H Hemoglobin A1c Lactic Acid Calcium Ferritin Alkaline Phosphatase Lactate Dehydrogenase C-Reactive Protein NT-Pro-B Natriuret Pep Total Protein Albumin Ur Specific [place] Urine WBC (Auto) Coronavirus (PCR) 08/10/19 08/11/19 08/11/19 21:10 05:14 08:02 Lymph % (Auto) [place] % (Auto) Lymph # Seg Neutrophils % D-Dimer Carbon Dioxide BUN 21 H Creatinine Glucose 368 H POC Glucose 259 H 300 H Hemoglobin A1c Lactic Acid Calcium Ferritin Alkaline Phosphatase 223 H Lactate Dehydrogenase C-Reactive Protein NT-Pro-B Natriuret Pep Total Protein Albumin 3.0 L Ur Specific [place] Urine WBC (Auto) Coronavirus (PCR) 08/11/19 08/11/19 08/11/19 12:08 16:21 21:42 Lymph % (Auto) [place] % (Auto) Lymph # Seg Neutrophils % D-Dimer Carbon Dioxide BUN Creatinine Glucose POC Glucose 447 H 295 H 447 H Hemoglobin A1c Lactic Acid Calcium Ferritin Alkaline Phosphatase Lactate Dehydrogenase C-Reactive Protein NT-Pro-B Natriuret Pep Total Protein Albumin Ur Specific [place] Urine WBC (Auto) Coronavirus (PCR) 08/12/19 08/12/19 08/12/19 05:04 07:47 11:57 Lymph % (Auto) [place] % (Auto) Lymph # Seg Neutrophils % D-Dimer Carbon Dioxide BUN 21 H Creatinine 0.5 L Glucose 276 H POC Glucose 274 H 367 H Hemoglobin A1c Lactic Acid Calcium Ferritin Alkaline Phosphatase 188 H Lactate Dehydrogenase C-Reactive Protein NT-Pro-B Natriuret Pep Total Protein 6.1 L Albumin 2.9 L Ur Specific [place] Urine WBC (Auto) Coronavirus (PCR)
--- NOTE | 2019-08-12 15:28 | Progress Note ---
Assessment and Plan Cultures: Blood culture 08/05/2019 no growth Assessment: 54 years old female with history of obesity, diabetes, admitted on 08/05/2019 due to 2-week history of dry cough, generalized malaise and progressive shortness of breath: #Severe sepsis: likely due to severe COVID pneumonia #Severe COVID pneumonia: high suspicion for late SARS-2 virus complications -cytokine storm, microvascular thrombosis. Inflamatory markers are elevated- D- dimer > 10,000-->10,000--.3795, ferritin 438-->415-->594, LDH 702-->745, CRP 32-->34-. S/p Actemra 4 mg/kg x 1 on 08/06. S/p ceftriaxone/azithro 5 days. #Acute hypoxemic respiratory failure: NOT better, remains on HFO2 40L, 100% #DM: uncontrolled on IV steroids Recommendations: educated about proning Patient was enrolled in the Expanded Access Program for Convalescent Plasma p atient [id number]. CCP likely will be her tomorrow, premedicate Continue Remdesivir - 100 mg IV daily x 9 days Day 6 of 10 Continue solumedrol 40 mg IV q 8 hours Day 6 of 7 Continue anticoagulation for elevated d-dimer F/u quantiferon and IL-6 - pending Continue vit C and D Continue COVID isolation precautions per [facility] protocol VERY High risk mortality - discussed with patient Will follow. Discussed with Dr Santos Shanks MD Infectious Diseases Personal [employer] [facility] ([facility]) M [phone] O [phone] Subjective Date of service: 08/12/19 Principal diagnosis: Bilateral pneumonia, ARDS Interval history: Feels better proning, but remains on HFO2. No chest pain. Still MIX and SOB. No fever. Objective - Exam Narrative Exam: General appearance: Alert in NAD, on high flow O2 Eyes: [place]ANI no icteric conjunctiave HENT: Atraumatic; oropharynx limited Lungs: limited CV:RRR Abdomen: Soft, nontender, obese Extremities: No edema Skin: No rash. Psych: no agitated Neuro: alert and oriented x 3. Moving all extermities - Constitutional Vitals: Vital Signs Temp Pulse Resp BP Pulse Ox 98 F 71 22 148/78 94 08/12/19 08:00 08/12/19 08:00 08/12/19 08:00 08/12/19 08:00 08/12/19 14:27 Temperature -Last 24 Hours Temperature 98 F Temperature 98.8 F Temperature 98.8 F Temperature 98.8 F - Labs CBC & Chem 7: 08/07/19 11:56 08/12/19 05:04 Labs: Abnormal lab results 08/11/19 08/11/19 08/12/19 Range/Units 16:21 21:42 05:04 BUN 21 H (7-17) mg/dL Creatinine 0.5 L (0.7-1.2) mg/dL Glucose 276 H (65-100) mg/dL POC Glucose 295 H 447 H (70-105) Alkaline Phosphatase 188 H (35-129) units/L Total Protein 6.1 L (6.3-8.2) g/dL Albumin 2.9 L (3.9-5) g/dL 08/12/19 08/12/19 Range/Units 07:47 11:57 BUN (7-17) mg/dL Creatinine (0.7-1.2) mg/dL Glucose (65-100) mg/dL POC Glucose 274 H 367 H (70-105) Alkaline Phosphatase (35-129) units/L Total Protein (6.3-8.2) g/dL Albumin (3.9-5) g/dL
[2019-08-12] MEDS: REMDESIVIR 100 MG in SODIUM CHLORIDE 0.9% 250ML 250 ML IV SCH (17:59)
[2019-08-12] MEDS: SODIUM CHLORIDE 0.9% 50 ML IV SCH (17:59)
[2019-08-12] MEDS: INSULIN GLARGINE 100 UNITS/ML SUB-Q SCH (23:07)
[2019-08-13] MEDS: BENZONATATE 100 MG CAP PO SCH ×3 (00:15→17:35)
[2019-08-13] MEDS: methylPREDNISolone Sod Succinate 40 MG/1 ML INJ IV SCH ×3 (06:14→22:05)
[2019-08-13 06:26] LABS: Hematocrit 44.3 % (30.3-42.9); Hemoglobin 14.3 gm/dl (10.1-14.3); Mean Corpuscular HGB Conc 32 % (30-34); Mean Corpuscular Volume 92 fl (79-97); Platelet Count 210 K/mm3 (140-440); Red Blood Count 4.83 M/mm3 (3.65-5.03); Red Cell Distribution Width 15.4 % (13.2-15.2)
[2019-08-13 06:47] LABS: Alanine Aminotransferase 40 units/L (7-56); BUN/Creatinine Ratio 38; Blood Urea Nitrogen 19 mg/dL (7-17); Hemolysis Index 17
[2019-08-13 06:48] LABS: BUN/Creatinine Ratio 40; Blood Urea Nitrogen 20 mg/dL (7-17); Calcium 8.1 mg/dL (8.4-10.2); Hemolysis Index 16
[2019-08-13 07:22] LABS: Basophils % (Auto) 0.2 % (0.0-1.8); Lymphocytes # (Auto) 0.7 K/mm3 (1.2-5.4); Lymphocytes % (Auto) 7.6 % (13.4-35.0); Monocytes # (Auto) 0.6 K/mm3 (0.0-0.8); Monocytes % (Auto) 6.9 % (0.0-7.3)
[2019-08-13] MEDS: INSULIN LISPRO 100 UNIT/ML SUB-Q SCH ×4 (09:17→22:06)
[2019-08-13] MEDS: FAMOTIDINE 20 MG TAB PO SCH ×2 (09:18→22:05)
[2019-08-13] MEDS: ENOXAPARIN 100 MG/1 ML INJ SUB-Q SCH ×2 (09:18→22:06)
[2019-08-13] MEDS: CHOLECALCIFEROL (VIT D3) 5,000 UNIT TAB PO SCH (09:19)
[2019-08-13] MEDS: ASCORBIC ACID 500 MG TAB PO SCH ×2 (09:19→22:08)
--- NOTE | 2019-08-13 12:10 | Progress Note ---
Assessment and Plan Assessment and plan: Severe sepsis. Etiology secondary to COVID-19 pneumonia. COVID pneumonia. Patient with likely cytokine storm, microthrombi and elevated inflammatory markers. Patient is s/p Actemra on 08/06. ARDS. Etiology secondary to above. Acute hypoxemic respiratory failure. Continue O2 and BiPAP as clinically indicated. Etiology secondary to above. Diabetes mellitus type 2. Continue Lantus at bedtime. Patient with Solu- Medrol. 08/12/2019. Pulmonary following and recommending pronating during the day and at night. Continue Solu-Medrol 40 mg every 8 hours for a total of 7 days. Patient s/p Actemra and Remdisiver. Patient currently on HFNC requiring 40 L O2. Increase Lantus to 15 units at bedtime. 08/13/2019. Continue pronating. ID reports patient enrolled in Expanded Access Program for Convalescent Plasma patient [id number]. Continue Remdesivir - 100 mg IV daily x 9 days. Continue solumedrol 40 mg IV q 8 hours. Continue anticoagulation for elevated d-dimer. Follow-up quant to Kaylene and MATY. Continue vitamin C and E. Continue COVID isolation precautions. Patient with high risk mortality The high probability of a clinically significant, sudden or life threatening deterioration of the [respiratory] system(s) required my full and direct attention, intervention and personal management. The aggregate critical care time was [31] minutes. This time is in addition to time spent performing reported procedures but includes the following: [x] Data Review and interpretation [x] Patient assessment and monitoring of vital signs [x] Documentation [x] Medication orders and management History Interval history: No new issues overnight. Patient still requiring HFNC with 40 L of oxygen. Hospitalist Physical - Constitutional Vitals: Temp Pulse Resp BP Pulse Ox 98.8 F 61 18 141/77 90 08/13/19 08:00 08/13/19 08:00 08/13/19 08:00 08/13/19 08:00 08/13/19 08:00 General appearance: Present: no acute distress, well-nourished - EENT Eyes: Present: PERRL, EOM intact ENT: hearing intact, clear oral mucosa, dentition normal - Neck Neck: Present: supple, normal ROM - Respiratory Respiratory effort: normal Respiratory: bilateral: CTA - Cardiovascular Rhythm: regular Heart Sounds: Present: S1 & S2. Absent: gallop, rub - Extremities Extremities: no ischemia, No edema, Full ROM - Abdominal General gastrointestinal: soft, non-tender, non-distended, normal bowel sounds - Integumentary Integumentary: Present: clear, warm, dry - Neurologic Neurologic: CNII-XII intact, moves all extremities Results - Labs CBC & Chem 7: 08/13/19 04:10 08/13/19 04:10 Labs: Laboratory Last Values WBC 8.5 K/mm3 (4.5-11.0) 08/13/19 04:10 RBC 4.83 M/mm3 (3.65-5.03) 08/13/19 04:10 Hgb 14.3 gm/dl (10.1-14.3) 08/13/19 04:10 Hct 44.3 % (30.3-42.9) H 08/13/19 04:10 MCV 92 fl (79-97) 08/13/19 04:10 MCH 30 pg (28-32) 08/13/19 04:10 MCHC 32 % (30-34) 08/13/19 04:10 RDW 15.4 % (13.2-15.2) H 08/13/19 04:10 Plt Count 210 K/mm3 (140-440) 08/13/19 04:10 Lymph % (Auto) 7.6 % (13.4-35.0) L 08/13/19 04:10 [place] % (Auto) 6.9 % (0.0-7.3) 08/13/19 04:10 Eos % (Auto) 0.0 % (0.0-4.3) 08/13/19 04:10 Baso % (Auto) 0.2 % (0.0-1.8) 08/13/19 04:10 Lymph # 0.7 K/mm3 (1.2-5.4) L 08/13/19 04:10 [place] # 0.6 K/mm3 (0.0-0.8) 08/13/19 04:10 Eos # 0.0 K/mm3 (0.0-0.4) 08/13/19 04:10 Baso # 0.0 K/mm3 (0.0-0.1) 08/13/19 04:10 Add Manual Diff Complete 08/13/19 04:10 Seg Neutrophils % 85.3 % (40.0-70.0) H 08/13/19 04:10 Nucleated RBC % Not Reportable 08/13/19 04:10 Seg Neutrophils # 7.5 K/mm3 (1.8-7.7) 08/13/19 04:10 WBC Morphology Not Reportable 08/13/19 04:10 Hypersegmented Neuts Not Reportable 08/13/19 04:10 Hyposegmented Neuts Not Reportable 08/13/19 04:10 Hypogranular Neuts Not Reportable 08/13/19 04:10 Smudge Cells Not Reportable 08/13/19 04:10 Toxic Granulation Not Reportable 08/13/19 04:10 Toxic Vacuolation Not Reportable 08/13/19 04:10 Dohle Bodies Not Reportable 08/13/19 04:10 Pelger-Huet Anomaly Not Reportable 08/13/19 04:10 Kaylynn Rods Not Reportable 08/13/19 04:10 Platelet Estimate Not Reportable 08/13/19 04:10 Clumped Platelets Not Reportable 08/13/19 04:10 Plt Clumps, EDTA Not Reportable 08/13/19 04:10 Large Platelets Not Reportable 08/13/19 04:10 Giant Platelets Not Reportable 08/13/19 04:10 Platelet Satelliting Not Reportable 08/13/19 04:10 Plt Morphology Comment Not Reportable 08/13/19 04:10 RBC Morphology Not Reportable 08/13/19 04:10 Dimorphic RBCs Not Reportable 08/13/19 04:10 Polychromasia Not Reportable 08/13/19 04:10 Hypochromasia Not Reportable 08/13/19 04:10 Poikilocytosis Not Reportable 08/13/19 04:10 Anisocytosis Not Reportable 08/13/19 04:10 Microcytosis Not Reportable 08/13/19 04:10 Macrocytosis Not Reportable 08/13/19 04:10 Spherocytes Not Reportable 08/13/19 04:10 Pappenheimer Bodies Not Reportable 08/13/19 04:10 Sickle Cells Not Reportable 08/13/19 04:10 Target Cells Not Reportable 08/13/19 04:10 Tear Drop Cells Not Reportable 08/13/19 04:10 Ovalocytes Not Reportable 08/13/19 04:10 Helmet Cells Not Reportable 08/13/19 04:10 Rader-Kinney Bodies Not Reportable 08/13/19 04:10 [place] Rings Not Reportable 08/13/19 04:10 Rajiv Cells Not Reportable 08/13/19 04:10 Bite Cells Not Reportable 08/13/19 04:10 Crenated Cell Not Reportable 08/13/19 04:10 Elliptocytes Not Reportable 08/13/19 04:10 Acanthocytes (Spur) Not Reportable 08/13/19 04:10 Rouleaux Not Reportable 08/13/19 04:10 Hemoglobin C Crystals Not Reportable 08/13/19 04:10 Schistocytes Not Reportable 08/13/19 04:10 Malaria parasites Not Reportable 08/13/19 04:10 Humberto Bodies Not Reportable 08/13/19 04:10 Hem Pathologist Commnt Not Reportable 08/13/19 04:10 APTT 26.3 Sec. (24.2-36.6) 08/05/19 14:53 D-Dimer 3795.56 ng/mlDDU (0-234) H 08/09/19 12:29 Sodium 141 mmol/L (137-145) 08/13/19 04:10 Sodium 141 mmol/L (137-145) 08/13/19 04:10 Potassium 3.9 mmol/L (3.6-5.0) 08/13/19 04:10 Potassium 4.2 mmol/L (3.6-5.0) 08/13/19 04:10 Chloride 100.5 mmol/L (98-107) 08/13/19 04:10 Chloride 100.7 mmol/L (98-107) 08/13/19 04:10 Carbon Dioxide 26 mmol/L (22-30) 08/13/19 04:10 Carbon Dioxide 27 mmol/L (22-30) 08/13/19 04:10 Anion Gap 18 mmol/L 08/13/19 04:10 Anion Gap 18 mmol/L 08/13/19 04:10 BUN 19 mg/dL (7-17) H 08/13/19 04:10 BUN 20 mg/dL (7-17) H 08/13/19 04:10 Creatinine 0.5 mg/dL (0.7-1.2) L 08/13/19 04:10 Creatinine 0.5 mg/dL (0.7-1.2) L 08/13/19 04:10 Estimated GFR > 60 ml/min 08/13/19 04:10 Estimated GFR > 60 ml/min 08/13/19 04:10 BUN/Creatinine Ratio 38 % 08/13/19 04:10 BUN/Creatinine Ratio 40 % 08/13/19 04:10 Glucose 199 mg/dL (65-100) H 08/13/19 04:10 Glucose 201 mg/dL (65-100) H 08/13/19 04:10 POC Glucose 247 (70-105) H 08/13/19 08:35 Hemoglobin A1c 7.6 % (4-6) H 08/06/19 Unknown Lactic Acid 1.90 mmol/L (0.7-2.0) 08/05/19 22:51 Calcium 8.0 mg/dL (8.4-10.2) L 08/13/19 04:10 Calcium 8.1 mg/dL (8.4-10.2) L 08/13/19 04:10 Ferritin 594.1 ng/mL (13.0-400.0) H 08/09/19 12:29 Total Bilirubin 0.70 mg/dL (0.1-1.2) 08/13/19 04:10 AST 33 units/L (5-40) 08/13/19 04:10 ALT 40 units/L (7-56) 08/13/19 04:10 Alkaline Phosphatase 167 units/L (35-129) H 08/13/19 04:10 Lactate Dehydrogenase 866 units/L (91-180) H 08/09/19 05:22 C-Reactive Protein 14.70 mg/dL (0.00-1.30) H 08/09/19 05:22 NT-Pro-B Natriuret Pep 1818 pg/mL (0-900) H 08/05/19 15:07 Total Protein 5.7 g/dL (6.3-8.2) L 08/13/19 04:10 Albumin 3.0 g/dL (3.9-5) L 08/13/19 04:10 Albumin/Globulin Ratio 1.1 % 08/13/19 04:10 Procalcitonin 1.06 ng/mL (<0.15) 08/09/19 12:29 Urine Color Lyndsay (Yellow) 08/05/19 19:54 Urine Turbidity Clear (Clear) 08/05/19 19:54 Urine pH 5.0 (5.0-7.0) 08/05/19 19:54 Ur Specific [place] 1.031 (1.003-1.030) H 08/05/19 19:54 Urine Protein 100 mg/dl mg/dL (Negative) 08/05/19 19:54 Urine Glucose (UA) 50 mg/dL (Negative) 08/05/19 19:54 Urine Ketones Neg mg/dL (Negative) 08/05/19 19:54 Urine Blood Neg (Negative) 08/05/19 19:54 Urine Nitrite Neg (Negative) 08/05/19 19:54 Urine Bilirubin Neg (Negative) 08/05/19 19:54 Urine Urobilinogen < 2.0 mg/dL (<2.0) 08/05/19 19:54 Ur Leukocyte Esterase Neg (Negative) 08/05/19 19:54 Urine WBC (Auto) 8.0 /HPF (0.0-6.0) H 08/05/19 19:54 Urine RBC (Auto) 1.0 /HPF (0.0-6.0) 08/05/19 19:54 U Epithel Cells (Auto) 10.0 /HPF (0-13.0) 08/05/19 19:54 Urine Mucus 1+ /HPF 08/05/19 19:54 Coronavirus (PCR) Positive (Negative) A 08/06/19 09:17 Blood Type A POSITIVE 08/11/19 15:00 Antibody Screen Negative 08/11/19 15:00 [place]/IV: Voiding Method Bedpan IV Catheter Type [Left Forearm INT / Saline Lock ] IV Catheter Type [Right Wrist] Peripheral IV IV Catheter Type [Right INT / Saline Lock Forearm] IV Catheter Type [Left Hand] Peripheral IV IV Catheter Type [Left Peripheral IV Antecubital] Active Medications - Current Medications Current Medications: Generic Name Dose Route Start Last Admin Trade Name Freq PRN Reason Stop Dose Admin Acetaminophen 650 mg 08/05/19 21:32 08/06/19 20:05 Tylenol PO 650 mg Q4H PRN Administration Pain MILD(1-3)/Fever >100.5/BUTLER Ascorbic Acid 500 mg 08/08/19 10:00 08/13/19 09:19 Vitamin C PO 500 mg BID RAISA Administration Benzonatate 100 mg 08/06/19 01:00 08/13/19 09:18 Tessalon Perles PO 100 mg Q8H RAISA Administration Cholecalciferol 5,000 unit 08/08/19 10:00 08/13/19 09:19 Vitamin D3 PO 5,000 unit QDAY RAISA Administration Enoxaparin Sodium 90 mg 08/05/19 22:00 08/13/19 09:18 Enoxaparin SUB-Q 90 mg Q12HR RAISA Administration Famotidine 20 mg 08/05/19 22:00 08/13/19 09:18 Pepcid PO 20 mg BID RAISA Administration Hydromorphone HCl 0.5 mg 08/05/19 21:32 08/06/19 22:28 Dilaudid IV 0.5 mg Q3H PRN Administration Pain , Severe (7-10) Sodium Chloride 50 mls @ 999 mls/hr 08/08/19 19:00 08/12/19 17:59 Nacl 0.9% IV 08/16/19 18:59 999 mls/hr Q24H RAISA Administration REMDESIVIR 100 mg/ Sodium 250 mls @ 500 mls/hr 08/12/19 18:00 08/12/19 17:59 Chloride IV 08/16/19 17:59 500 mls/hr Q24H RAISA Administration Insulin Glargine 15 units 08/12/19 22:00 08/12/19 23:07 Lantus SUB-Q 15 units QHS RAISA Administration Insulin Human Lispro 0 unit 08/05/19 22:00 08/13/19 09:17 Humalog SUB-Q 4 unit ACHS RAISA Administration Protocol Methylprednisolone Sodium Succinate 40 mg 08/07/19 14:00 08/13/19 06:14 Solu-Medrol IV 40 mg Q8HR RAISA Administration Metoclopramide HCl 10 mg 08/05/19 21:32 Reglan IV Q6H PRN Nausea And Vomiting Ondansetron HCl 4 mg 08/05/19 21:32 Zofran IV Q8H PRN Nausea And Vomiting Oxycodone/Acetaminophen 1 tab 08/05/19 21:32 08/06/19 21:07 Percocet 5/325 PO 1 tab Q6H PRN Administration Pain, Moderate (4-6) Sodium Chloride 10 ml 08/05/19 22:00 08/13/19 09:18 Sodium Chloride Flush Syringe 10 Ml IV 10 ml BID RAISA Administration Sodium Chloride 10 ml 08/05/19 21:32 Sodium Chloride Flush Syringe 10 Ml IV PRN PRN LINE FLUSH Nutrition/Malnutrition Assess - Dietary Evaluation Nutrition/Malnutrition Findings: Nutrition Notes Start: 08/06/19 08:35 Freq: Status: Active Protocol: Document 08/11/19 09:16 LP (Rec: 08/11/19 10:57 LP [id number]) Nutrition Notes Initial or Follow up Reassessment Current Diagnosis Diabetes Other Pertinent Diagnosis ARDS, Suspected COVID-19 Current Diet Cardiac/consistent CHO Labs/Tests BG 368 Pertinent Medications Reviewed Height 5 ft 5 in Weight 92.35 kg [place] Body Weight (kg) 56.81 BMI 33.8 Weight Status Obese Subjective/Other Information Pt eating well. Consuming most of meals. Percent of energy/protein needs met: 100%/91% Burn Absent Trauma Absent Current % PO Good (75-100%) Minimum of two criteria No physical signs of malnutrition #2 Nutrition Diagnosis Inadequate oral intake As Evidenced by Signs and Symptoms Pt is meeting 100% of kcal and 91% of protein needs Diagnosis Progress(for reassessment Improved documentation) #1 Nutrition Diagnosis Predicted suboptimal energy intake Diagnosis Progress(for reassessment Resolved documentation) Is patient on ventilator? No Is Patient Ambulatory and/or Out of Bed Yes REE-([facility]-ambulatory/OOB) [ 1975.194 [id number]] Kcal/Kg value to use for calculation 17 Approximate Energy Requirements Using 1570 kcal/Kg Calculation Used for Recommendations Kcal/kg Additional Notes Protein needs are 74-92g (0.8- 1g/kg) Fluid needs are 1ml/kcal Nutrition Intervention Change Diet Order: Continue Add Supplement/Snack (indicate name/kcal D/C /protein ) Goal #1 Continue to meet at least 80% of kcal and protein needs Anticipated Discharge Needs: Cardiac/consistent CHO diet Follow-Up By: 08/18/19 Additional Comments Follow for stable intakes
[2019-08-13] MEDS: REMDESIVIR 100 MG in SODIUM CHLORIDE 0.9% 250ML 250 ML IV SCH (18:21)
[2019-08-13] MEDS: SODIUM CHLORIDE 0.9% 50 ML IV SCH (18:21)
[2019-08-13] MEDS ORDERED: LIP THERAPY VASELINE TP PRN (18:22)
--- NOTE | 2019-08-13 20:28 | Progress Note ---
Assessment and Plan Imp: 1. Viral pneumonia and ARDS due to Covid-19 2. Acute respiratory failure, hypoxia 3. Lactic acidosis Rec: 1. Finished ABX; Remdesivir, Actemra, convalescent plasma as per ID 2. Avoid IVFs; keep as dry as possible 3. Full dose anticoagulation 4. Cont. Proning as per prior orders 5. Monitor oxygenation closely 6. Prognosis guarded Subjective Date of service: 08/13/19 Principal diagnosis: Bilateral pneumonia, ARDS Interval history: No events. Remains on HFNC with FiO2 of 100% and flow of 40LPM. Awake, alert. SOB stable. Currently proning when I came by. Limited exam done due to Covid-19. Active Medications Acetaminophen (Tylenol) 650 mg PO Q4H PRN PRN Reason: Pain MILD(1-3)/Fever >100.5/BUTLER Last Admin: 08/06/19 20:05 Dose: 650 mg Documented by: Ascorbic Acid (Vitamin C) 500 mg PO BID [facility] Last Admin: 08/13/19 09:19 Dose: 500 mg Documented by: Benzonatate (Tessalon Perles) 100 mg PO Q8H [facility] Last Admin: 08/13/19 17:35 Dose: 100 mg Documented by: Cholecalciferol (Vitamin D3) 5,000 unit PO QDAY [facility] Last Admin: 08/13/19 09:19 Dose: 5,000 unit Documented by: Enoxaparin Sodium (Enoxaparin) 90 mg SUB-Q Q12HR [facility] Last Admin: 08/13/19 09:18 Dose: 90 mg Documented by: Famotidine (Pepcid) 20 mg PO BID [facility] Last Admin: 08/13/19 09:18 Dose: 20 mg Documented by: Hydromorphone HCl (Dilaudid) 0.5 mg IV Q3H PRN PRN Reason: Pain , Severe (7-10) Last Admin: 08/06/19 22:28 Dose: 0.5 mg Documented by: Hydrophilic Ointment (Vaseline Lip Therapy) 1 applic TP DIRECT PRN PRN Reason: Dry Lips Last Admin: 08/13/19 18:29 Dose: 1 applic Documented by: Sodium Chloride (Nacl 0.9%) 50 mls @ 999 mls/hr IV Q24H [facility] Stop: 08/16/19 18:59 Last Admin: 08/13/19 18:21 Dose: 999 mls/hr Documented by: REMDESIVIR 100 mg/ Sodium (Chloride) 250 mls @ 500 mls/hr IV Q24H [facility] Stop: 08/16/19 17:59 Last Admin: 08/13/19 18:21 Dose: 500 mls/hr Documented by: Insulin Glargine (Lantus) 15 units SUB-Q QHS [facility] Last Admin: 08/12/19 23:07 Dose: 15 units Documented by: Insulin Human Lispro (Humalog) 0 unit SUB-Q ACHS [facility]; Protocol Last Admin: 08/13/19 17:33 Dose: 6 unit Documented by: Methylprednisolone Sodium Succinate (Solu-Medrol) 40 mg IV Q8HR [facility] Last Admin: 08/13/19 14:16 Dose: 40 mg Documented by: Metoclopramide HCl (Reglan) 10 mg IV Q6H PRN PRN Reason: Nausea And Vomiting Ondansetron HCl (Zofran) 4 mg IV Q8H PRN PRN Reason: Nausea And Vomiting Oxycodone/Acetaminophen (Percocet 5/325) 1 tab PO Q6H PRN PRN Reason: Pain, Moderate (4-6) Last Admin: 08/06/19 21:07 Dose: 1 tab Documented by: Sodium Chloride (Sodium Chloride Flush Syringe 10 Ml) 10 ml IV BID [facility] Last Admin: 08/13/19 09:18 Dose: 10 ml Documented by: Sodium Chloride (Sodium Chloride Flush Syringe 10 Ml) 10 ml IV PRN PRN PRN Reason: LINE FLUSH Objective Vital Signs - 12hr 08/13/19 08/13/19 08/13/19 09:00 10:00 11:00 Temperature Pulse Rate 61 64 77 Respiratory 19 20 22 Rate Blood Pressure 159/91 153/82 171/97 O2 Sat by Pulse 89 97 94 Oximetry 08/13/19 08/13/19 08/13/19 12:00 13:00 14:00 Temperature 98.6 F Pulse Rate 81 72 74 Respiratory 18 20 24 Rate Blood Pressure 136/72 136/74 126/71 O2 Sat by Pulse 95 100 100 Oximetry 08/13/19 08/13/19 08/13/19 15:00 16:00 17:00 Temperature 98.2 F Pulse Rate 76 82 71 Respiratory 23 22 21 Rate Blood Pressure 133/71 155/93 125/76 O2 Sat by Pulse 96 97 99 Oximetry 08/13/19 08/13/19 18:00 19:00 Temperature Pulse Rate 75 80 Respiratory 18 23 Rate Blood Pressure 125/76 132/79 O2 Sat by Pulse 99 95 Oximetry Constitutional: alert, other (critically ill on HFNC) Eyes: non-icteric Effort: mildly labored Ascultation: Bilateral: rales Cardiovascular: regular rate and rhythm (no mrg) Gastrointestinal: normoactive bowel sounds, soft, non-tender, non-distended Integumentary: normal Extremities: no cyanosis, no edema, pink and warm Neurologic: normal mental status, non-focal exam, pupils equal and round, CN II- XII normal Psychiatric: mood appropriate, affect normal CBC and BMP: 08/13/19 04:10 08/13/19 04:10 ABG, PT/INR, D-dimer: PT/INR, D-dimer D-Dimer 3795.56 ng/mlDDU (0-234) H 08/09/19 12:29 Abnormal lab findings: Abnormal Labs 08/05/19 08/05/19 08/05/19 14:53 14:53 14:53 Hct RDW Lymph % (Auto) 13.0 L [place] % (Auto) 10.8 H Lymph # 0.9 L Seg Neutrophils % 74.0 H D-Dimer > 75267 H Carbon Dioxide 20 L BUN 6 L Creatinine 0.6 L Glucose 255 H POC Glucose Hemoglobin A1c Lactic Acid Calcium Ferritin Alkaline Phosphatase 173 H Lactate Dehydrogenase C-Reactive Protein NT-Pro-B Natriuret Pep Total Protein Albumin 2.9 L Ur Specific [place] Urine WBC (Auto) Coronavirus (PCR) 08/05/19 08/05/19 08/05/19 14:53 14:53 14:53 Hct RDW Lymph % (Auto) [place] % (Auto) Lymph # Seg Neutrophils % D-Dimer Carbon Dioxide BUN Creatinine Glucose 256 H POC Glucose Hemoglobin A1c Lactic Acid 3.40 H* Calcium Ferritin 438.9 H Alkaline Phosphatase Lactate Dehydrogenase 702 H C-Reactive Protein 32.90 H NT-Pro-B Natriuret Pep Total Protein Albumin Ur Specific [place] Urine WBC (Auto) Coronavirus (PCR) 08/05/19 08/05/19 08/06/19 15:07 19:54 00:21 Hct RDW Lymph % (Auto) [place] % (Auto) Lymph # Seg Neutrophils % D-Dimer Carbon Dioxide BUN Creatinine Glucose POC Glucose 131 H Hemoglobin A1c Lactic Acid Calcium Ferritin Alkaline Phosphatase Lactate Dehydrogenase C-Reactive Protein NT-Pro-B Natriuret Pep 1818 H Total Protein Albumin Ur Specific [place] 1.031 H Urine WBC (Auto) 8.0 H Coronavirus (PCR) 08/06/19 08/06/19 08/06/19 08:29 09:17 11:56 Hct RDW Lymph % (Auto) [place] % (Auto) Lymph # Seg Neutrophils % D-Dimer Carbon Dioxide BUN Creatinine Glucose POC Glucose 165 H 190 H Hemoglobin A1c Lactic Acid Calcium Ferritin Alkaline Phosphatase Lactate Dehydrogenase C-Reactive Protein NT-Pro-B Natriuret Pep Total Protein Albumin Ur Specific [place] Urine WBC (Auto) Coronavirus (PCR) Positive A 08/06/19 08/06/19 08/06/19 16:16 22:16 Unknown Hct RDW Lymph % (Auto) [place] % (Auto) Lymph # Seg Neutrophils % D-Dimer Carbon Dioxide BUN Creatinine Glucose POC Glucose 170 H 128 H Hemoglobin A1c 7.6 H Lactic Acid Calcium Ferritin Alkaline Phosphatase Lactate Dehydrogenase C-Reactive Protein NT-Pro-B Natriuret Pep Total Protein Albumin Ur Specific [place] Urine WBC (Auto) Coronavirus (PCR) 08/07/19 08/07/19 08/07/19 07:59 11:39 11:56 Hct RDW Lymph % (Auto) [place] % (Auto) Lymph # Seg Neutrophils % D-Dimer Carbon Dioxide BUN Creatinine 0.6 L Glucose 194 H POC Glucose 141 H 195 H Hemoglobin A1c Lactic Acid Calcium 8.0 L Ferritin Alkaline Phosphatase 181 H Lactate Dehydrogenase C-Reactive Protein NT-Pro-B Natriuret Pep Total Protein Albumin 2.5 L Ur Specific [place] Urine WBC (Auto) Coronavirus (PCR) 08/07/19 08/07/19 08/07/19 11:56 11:56 11:56 Hct RDW Lymph % (Auto) [place] % (Auto) Lymph # Seg Neutrophils % D-Dimer > 64938 H Carbon Dioxide BUN Creatinine Glucose POC Glucose Hemoglobin A1c Lactic Acid Calcium Ferritin 415.7 H Alkaline Phosphatase Lactate Dehydrogenase 745 H C-Reactive Protein NT-Pro-B Natriuret Pep Total Protein Albumin Ur Specific [place] Urine WBC (Auto) Coronavirus (PCR) 08/07/19 08/07/19 08/07/19 11:56 16:35 21:36 Hct RDW Lymph % (Auto) [place] % (Auto) Lymph # Seg Neutrophils % D-Dimer Carbon Dioxide BUN Creatinine Glucose POC Glucose 176 H 277 H Hemoglobin A1c Lactic Acid Calcium Ferritin Alkaline Phosphatase Lactate Dehydrogenase C-Reactive Protein 34.20 H NT-Pro-B Natriuret Pep Total Protein Albumin Ur Specific [place] Urine WBC (Auto) Coronavirus (PCR) 08/08/19 08/08/19 08/08/19 07:53 08:54 11:40 Hct RDW Lymph % (Auto) [place] % (Auto) Lymph # Seg Neutrophils % D-Dimer Carbon Dioxide BUN Creatinine 0.6 L Glucose 266 H POC Glucose 214 H 340 H Hemoglobin A1c Lactic Acid Calcium 8.3 L Ferritin Alkaline Phosphatase 222 H Lactate Dehydrogenase C-Reactive Protein NT-Pro-B Natriuret Pep Total Protein Albumin 2.5 L Ur Specific [place] Urine WBC (Auto) Coronavirus (PCR) 08/08/19 08/08/19 08/09/19 17:04 21:49 05:22 Hct RDW Lymph % (Auto) [place] % (Auto) Lymph # Seg Neutrophils % D-Dimer Carbon Dioxide BUN Creatinine Glucose POC Glucose 278 H 319 H Hemoglobin A1c Lactic Acid Calcium Ferritin Alkaline Phosphatase Lactate Dehydrogenase 866 H C-Reactive Protein 14.70 H NT-Pro-B Natriuret Pep Total Protein Albumin Ur Specific [place] Urine WBC (Auto) Coronavirus (PCR) 08/09/19 08/09/19 08/09/19 05:44 08:12 11:52 Hct RDW Lymph % (Auto) [place] % (Auto) Lymph # Seg Neutrophils % D-Dimer Carbon Dioxide BUN 18 H Creatinine 0.6 L Glucose 227 H POC Glucose 232 H 273 H Hemoglobin A1c Lactic Acid Calcium 8.2 L Ferritin Alkaline Phosphatase 230 H Lactate Dehydrogenase C-Reactive Protein NT-Pro-B Natriuret Pep Total Protein Albumin 2.5 L Ur Specific [place] Urine WBC (Auto) Coronavirus (PCR) 08/09/19 08/09/19 08/09/19 12:29 12:29 17:11 Hct RDW Lymph % (Auto) [place] % (Auto) Lymph # Seg Neutrophils % D-Dimer 3795.56 H Carbon Dioxide BUN Creatinine Glucose POC Glucose 200 H Hemoglobin A1c Lactic Acid Calcium Ferritin 594.1 H Alkaline Phosphatase Lactate Dehydrogenase C-Reactive Protein NT-Pro-B Natriuret Pep Total Protein Albumin Ur Specific [place] Urine WBC (Auto) Coronavirus (PCR) 08/09/19 08/10/19 08/10/19 21:58 05:07 06:14 Hct RDW Lymph % (Auto) [place] % (Auto) Lymph # Seg Neutrophils % D-Dimer Carbon Dioxide BUN 19 H Creatinine Glucose 277 H POC Glucose 226 H 288 H Hemoglobin A1c Lactic Acid Calcium 7.9 L Ferritin Alkaline Phosphatase 231 H Lactate Dehydrogenase C-Reactive Protein NT-Pro-B Natriuret Pep Total Protein Albumin 2.7 L Ur Specific [place] Urine WBC (Auto) Coronavirus (PCR) 08/10/19 08/10/19 08/10/19 08:31 12:25 18:03 Hct RDW Lymph % (Auto) [place] % (Auto) Lymph # Seg Neutrophils % D-Dimer Carbon Dioxide BUN Creatinine Glucose POC Glucose 284 H 387 H 297 H Hemoglobin A1c Lactic Acid Calcium Ferritin Alkaline Phosphatase Lactate Dehydrogenase C-Reactive Protein NT-Pro-B Natriuret Pep Total Protein Albumin Ur Specific [place] Urine WBC (Auto) Coronavirus (PCR) 08/10/19 08/11/19 08/11/19 21:10 05:14 08:02 Hct RDW Lymph % (Auto) [place] % (Auto) Lymph # Seg Neutrophils % D-Dimer Carbon Dioxide BUN 21 H Creatinine Glucose 368 H POC Glucose 259 H 300 H Hemoglobin A1c Lactic Acid Calcium Ferritin Alkaline Phosphatase 223 H Lactate Dehydrogenase C-Reactive Protein NT-Pro-B Natriuret Pep Total Protein Albumin 3.0 L Ur Specific [place] Urine WBC (Auto) Coronavirus (PCR) 08/11/19 08/11/19 08/11/19 12:08 16:21 21:42 Hct RDW Lymph % (Auto) [place] % (Auto) Lymph # Seg Neutrophils % D-Dimer Carbon Dioxide BUN Creatinine Glucose POC Glucose 447 H 295 H 447 H Hemoglobin A1c Lactic Acid Calcium Ferritin Alkaline Phosphatase Lactate Dehydrogenase C-Reactive Protein NT-Pro-B Natriuret Pep Total Protein Albumin Ur Specific [place] Urine WBC (Auto) Coronavirus (PCR) 08/12/19 08/12/19 08/12/19 05:04 07:47 11:57 Hct RDW Lymph % (Auto) [place] % (Auto) Lymph # Seg Neutrophils % D-Dimer Carbon Dioxide BUN 21 H Creatinine 0.5 L Glucose 276 H POC Glucose 274 H 367 H Hemoglobin A1c Lactic Acid Calcium Ferritin Alkaline Phosphatase 188 H Lactate Dehydrogenase C-Reactive Protein NT-Pro-B Natriuret Pep Total Protein 6.1 L Albumin 2.9 L Ur Specific [place] Urine WBC (Auto) Coronavirus (PCR) 08/12/19 08/12/19 08/13/19 18:10 22:00 04:10 Hct RDW Lymph % (Auto) [place] % (Auto) Lymph # Seg Neutrophils % D-Dimer Carbon Dioxide BUN 19 H Creatinine 0.5 L Glucose 201 H POC Glucose 285 H 239 H Hemoglobin A1c Lactic Acid Calcium 8.0 L Ferritin Alkaline Phosphatase 167 H Lactate Dehydrogenase C-Reactive Protein NT-Pro-B Natriuret Pep Total Protein 5.7 L Albumin 3.0 L Ur Specific [place] Urine WBC (Auto) Coronavirus (PCR) 08/13/19 08/13/19 08/13/19 04:10 04:10 08:35 Hct 44.3 H RDW 15.4 H Lymph % (Auto) 7.6 L [place] % (Auto) Lymph # 0.7 L Seg Neutrophils % 85.3 H D-Dimer Carbon Dioxide BUN 20 H Creatinine 0.5 L Glucose 199 H POC Glucose 247 H Hemoglobin A1c Lactic Acid Calcium 8.1 L Ferritin Alkaline Phosphatase Lactate Dehydrogenase C-Reactive Protein NT-Pro-B Natriuret Pep Total Protein Albumin Ur Specific [place] Urine WBC (Auto) Coronavirus (PCR) 08/13/19 08/13/19 12:11 16:09 Hct RDW Lymph % (Auto) [place] % (Auto) Lymph # Seg Neutrophils % D-Dimer Carbon Dioxide BUN Creatinine Glucose POC Glucose 351 H 253 H Hemoglobin A1c Lactic Acid Calcium Ferritin Alkaline Phosphatase Lactate Dehydrogenase C-Reactive Protein NT-Pro-B Natriuret Pep Total Protein Albumin Ur Specific [place] Urine WBC (Auto) Coronavirus (PCR) Chest x-ray: report reviewed, image reviewed
[2019-08-13] MEDS: INSULIN GLARGINE 100 UNITS/ML SUB-Q SCH (22:05)
[2019-08-14] MEDS: BENZONATATE 100 MG CAP PO SCH ×3 (05:50→17:15)
[2019-08-14] MEDS: methylPREDNISolone Sod Succinate 40 MG/1 ML INJ IV SCH ×3 (05:51→21:12)
[2019-08-14 05:56] LABS: Basophils % (Auto) 0.5 % (0.0-1.8); Eosinophils % (Auto) 0.2 % (0.0-4.3); Hematocrit 44.2 % (30.3-42.9); Hemoglobin 14.5 gm/dl (10.1-14.3); Lymphocytes # (Auto) 0.6 K/mm3 (1.2-5.4); Mean Corpuscular HGB Conc 33 % (30-34); Mean Corpuscular Volume 92 fl (79-97); Monocytes # (Auto) 0.6 K/mm3 (0.0-0.8); Platelet Count 232 K/mm3 (140-440); Red Blood Count 4.81 M/mm3 (3.65-5.03); Red Cell Distribution Width 15.3 % (13.2-15.2)
[2019-08-14 06:57] LABS: BUN/Creatinine Ratio TNR; Blood Urea Nitrogen TNR mg/dL (7-17)
[2019-08-14 06:58] LABS: Albumin TNR g/dL (3.9-5); Calcium TNR mg/dL (8.4-10.2); Hemolysis Index TNR
[2019-08-14 06:59] LABS: Alanine Aminotransferase TNR units/L (7-56)
[2019-08-14] MEDS: INSULIN LISPRO 100 UNIT/ML SUB-Q SCH ×4 (08:00→21:12)
[2019-08-14 08:26] LABS: Alanine Aminotransferase 43 units/L (7-56); Albumin 3.1 g/dL (3.9-5); BUN/Creatinine Ratio 30; Blood Urea Nitrogen 15 mg/dL (7-17); Calcium 7.9 mg/dL (8.4-10.2); Hemolysis Index 23
--- NOTE | 2019-08-14 09:41 | Progress Note ---
Assessment and Plan Assessment and plan: Severe sepsis. Etiology secondary to COVID-19 pneumonia. COVID pneumonia. Patient with likely cytokine storm, microthrombi and elevated inflammatory markers. Patient is s/p Actemra on 08/06. ARDS. Etiology secondary to above. Acute hypoxemic respiratory failure. Continue O2 and BiPAP as clinically indicated. Etiology secondary to above. Diabetes mellitus type 2. Continue Lantus at bedtime. Patient with Solu- Medrol. 08/12/2019. Pulmonary following and recommending pronating during the day and at night. Continue Solu-Medrol 40 mg every 8 hours for a total of 7 days. Patient s/p Actemra and Remdisiver. Patient currently on HFNC requiring 40 L O2. Increase Lantus to 15 units at bedtime. 08/13/2019. Continue pronating. ID reports patient enrolled in Expanded Access Program for Convalescent Plasma patient [id number]. Continue Remdesivir - 100 mg IV daily x 9 days. Continue solumedrol 40 mg IV q 8 hours. Continue anticoagulation for elevated d-dimer. Follow-up quantiferon and IL6. Continue vitamin C and E. Continue COVID isolation precautions. Patient with high risk mortality 08/14/2019. Patient currently with high flow nasal cannula 40 L/min FiO2 90%. Convalescent plasma per ID. Continue Remdesivir, s/p Actemra, IV Solu-Medrol 40 mg every 8 hour and Lovenox 90 mg subcu every 12 hours. Continue proning patient. Prognosis remains guarded. The high probability of a clinically significant, sudden or life threatening deterioration of the [respiratory] system(s) required my full and direct attention, intervention and personal management. The aggregate critical care time was [32] minutes. This time is in addition to time spent performing reported procedures but includes the following: [x] Data Review and interpretation [x] Patient assessment and monitoring of vital signs [x] Documentation [x] Medication orders and management History Interval history: No new issues overnight. Patient still requiring HFNC with 40 L of oxygen. Hospitalist Physical - Constitutional Vitals: Temp Pulse Resp BP Pulse Ox 98.0 F 62 15 136/84 93 08/14/19 09:00 08/14/19 08:00 08/14/19 08:00 08/14/19 08:00 08/14/19 08:00 General appearance: Present: no acute distress, well-nourished - EENT Eyes: Present: PERRL, EOM intact ENT: hearing intact, clear oral mucosa, dentition normal - Neck Neck: Present: supple, normal ROM - Respiratory Respiratory effort: normal Respiratory: bilateral: diminished, rales, rhonchi - Cardiovascular Rhythm: regular Heart Sounds: Present: S1 & S2. Absent: gallop, rub - Extremities Extremities: no ischemia, No edema, Full ROM - Abdominal General gastrointestinal: soft, non-tender, non-distended, normal bowel sounds - Integumentary Integumentary: Present: clear, warm, dry - Neurologic Neurologic: CNII-XII intact, moves all extremities Results - Labs CBC & Chem 7: 08/14/19 04:56 08/14/19 07:28 Labs: Laboratory Last Values WBC 8.6 K/mm3 (4.5-11.0) 08/14/19 04:56 RBC 4.81 M/mm3 (3.65-5.03) 08/14/19 04:56 Hgb 14.5 gm/dl (10.1-14.3) H 08/14/19 04:56 Hct 44.2 % (30.3-42.9) H 08/14/19 04:56 MCV 92 fl (79-97) 08/14/19 04:56 MCH 30 pg (28-32) 08/14/19 04:56 MCHC 33 % (30-34) 08/14/19 04:56 RDW 15.3 % (13.2-15.2) H 08/14/19 04:56 Plt Count 232 K/mm3 (140-440) 08/14/19 04:56 Lymph % (Auto) 7.0 % (13.4-35.0) L 08/14/19 04:56 Love % (Auto) 7.0 % (0.0-7.3) 08/14/19 04:56 Eos % (Auto) 0.2 % (0.0-4.3) 08/14/19 04:56 Baso % (Auto) 0.5 % (0.0-1.8) 08/14/19 04:56 Lymph # 0.6 K/mm3 (1.2-5.4) L 08/14/19 04:56 Love # 0.6 K/mm3 (0.0-0.8) 08/14/19 04:56 Eos # 0.0 K/mm3 (0.0-0.4) 08/14/19 04:56 Baso # 0.0 K/mm3 (0.0-0.1) 08/14/19 04:56 Add Manual Diff Complete 08/13/19 04:10 Seg Neutrophils % 85.3 % (40.0-70.0) H 08/14/19 04:56 Nucleated RBC % Not Reportable 08/13/19 04:10 Seg Neutrophils # 7.3 K/mm3 (1.8-7.7) 08/14/19 04:56 WBC Morphology Not Reportable 08/13/19 04:10 Hypersegmented Neuts Not Reportable 08/13/19 04:10 Hyposegmented Neuts Not Reportable 08/13/19 04:10 Hypogranular Neuts Not Reportable 08/13/19 04:10 Smudge Cells Not Reportable 08/13/19 04:10 Toxic Granulation Not Reportable 08/13/19 04:10 Toxic Vacuolation Not Reportable 08/13/19 04:10 Dohle Bodies Not Reportable 08/13/19 04:10 Pelger-Huet Anomaly Not Reportable 08/13/19 04:10 Kaylynn Rods Not Reportable 08/13/19 04:10 Platelet Estimate Not Reportable 08/13/19 04:10 Clumped Platelets Not Reportable 08/13/19 04:10 Plt Clumps, EDTA Not Reportable 08/13/19 04:10 Large Platelets Not Reportable 08/13/19 04:10 Giant Platelets Not Reportable 08/13/19 04:10 Platelet Satelliting Not Reportable 08/13/19 04:10 Plt Morphology Comment Not Reportable 08/13/19 04:10 RBC Morphology Not Reportable 08/13/19 04:10 Dimorphic RBCs Not Reportable 08/13/19 04:10 Polychromasia Not Reportable 08/13/19 04:10 Hypochromasia Not Reportable 08/13/19 04:10 Poikilocytosis Not Reportable 08/13/19 04:10 Anisocytosis Not Reportable 08/13/19 04:10 Microcytosis Not Reportable 08/13/19 04:10 Macrocytosis Not Reportable 08/13/19 04:10 Spherocytes Not Reportable 08/13/19 04:10 Pappenheimer Bodies Not Reportable 08/13/19 04:10 Sickle Cells Not Reportable 08/13/19 04:10 Target Cells Not Reportable 08/13/19 04:10 Tear Drop Cells Not Reportable 08/13/19 04:10 Ovalocytes Not Reportable 08/13/19 04:10 Helmet Cells Not Reportable 08/13/19 04:10 [place] Bodies Not Reportable 08/13/19 04:10 [place] Rings Not Reportable 08/13/19 04:10 [place] Cells Not Reportable 08/13/19 04:10 Bite Cells Not Reportable 08/13/19 04:10 Crenated Cell Not Reportable 08/13/19 04:10 Elliptocytes Not Reportable 08/13/19 04:10 Acanthocytes (Spur) Not Reportable 08/13/19 04:10 Rouleaux Not Reportable 08/13/19 04:10 Hemoglobin C Crystals Not Reportable 08/13/19 04:10 Schistocytes Not Reportable 08/13/19 04:10 Malaria parasites Not Reportable 08/13/19 04:10 Humberto Bodies Not Reportable 08/13/19 04:10 Hem Pathologist Commnt Not Reportable 08/13/19 04:10 APTT 26.3 Sec. (24.2-36.6) 08/05/19 14:53 D-Dimer 3795.56 ng/mlDDU (0-234) H 08/09/19 12:29 Sodium 138 mmol/L (137-145) 08/14/19 07:28 Potassium 4.3 mmol/L (3.6-5.0) 08/14/19 07:28 Chloride 99.6 mmol/L (98-107) 08/14/19 07:28 Carbon Dioxide 27 mmol/L (22-30) 08/14/19 07:28 Anion Gap 16 mmol/L 08/14/19 07:28 BUN 15 mg/dL (7-17) 08/14/19 07:28 Creatinine 0.5 mg/dL (0.7-1.2) L 08/14/19 07:28 Estimated GFR > 60 ml/min 08/14/19 07:28 BUN/Creatinine Ratio 30 % 08/14/19 07:28 Glucose 228 mg/dL (65-100) H 08/14/19 07:28 POC Glucose 210 (70-105) H 08/14/19 08:10 Hemoglobin A1c 7.6 % (4-6) H 08/06/19 Unknown Lactic Acid 1.90 mmol/L (0.7-2.0) 08/05/19 22:51 Calcium 7.9 mg/dL (8.4-10.2) L 08/14/19 07:28 Ferritin 594.1 ng/mL (13.0-400.0) H 08/09/19 12:29 Total Bilirubin 1.00 mg/dL (0.1-1.2) 08/14/19 07:28 AST 27 units/L (5-40) 08/14/19 07:28 ALT 43 units/L (7-56) 08/14/19 07:28 Alkaline Phosphatase 150 units/L (35-129) H 08/14/19 07:28 Lactate Dehydrogenase 866 units/L (91-180) H 08/09/19 05:22 C-Reactive Protein 14.70 mg/dL (0.00-1.30) H 08/09/19 05:22 NT-Pro-B Natriuret Pep 1818 pg/mL (0-900) H 08/05/19 15:07 Total Protein 5.6 g/dL (6.3-8.2) L 08/14/19 07:28 Albumin 3.1 g/dL (3.9-5) L 08/14/19 07:28 Albumin/Globulin Ratio 1.2 % 08/14/19 07:28 Procalcitonin 1.06 ng/mL (<0.15) 08/09/19 12:29 Urine Color [place] (Yellow) 08/05/19 19:54 Urine Turbidity Clear (Clear) 08/05/19 19:54 Urine pH 5.0 (5.0-7.0) 08/05/19 19:54 Ur Specific [place] 1.031 (1.003-1.030) H 08/05/19 19:54 Urine Protein 100 mg/dl mg/dL (Negative) 08/05/19 19:54 Urine Glucose (UA) 50 mg/dL (Negative) 08/05/19 19:54 Urine Ketones Neg mg/dL (Negative) 08/05/19 19:54 Urine Blood Neg (Negative) 08/05/19 19:54 Urine Nitrite Neg (Negative) 08/05/19 19:54 Urine Bilirubin Neg (Negative) 08/05/19 19:54 Urine Urobilinogen < 2.0 mg/dL (<2.0) 08/05/19 19:54 Ur Leukocyte Esterase Neg (Negative) 08/05/19 19:54 Urine WBC (Auto) 8.0 /HPF (0.0-6.0) H 08/05/19 19:54 Urine RBC (Auto) 1.0 /HPF (0.0-6.0) 08/05/19 19:54 U Epithel Cells (Auto) 10.0 /HPF (0-13.0) 08/05/19 19:54 Urine Mucus 1+ /HPF 08/05/19 19:54 Coronavirus (PCR) Positive (Negative) A 08/06/19 09:17 Miscellaneous Test Flexitest 1 H 08/10/19 08:16 Blood Type A POSITIVE 08/11/19 15:00 Antibody Screen Negative 08/11/19 15:00 [place]/IV: Voiding Method Bedpan IV Catheter Type [Left Forearm INT / Saline Lock ] IV Catheter Type [Right Wrist] Peripheral IV IV Catheter Type [Right INT / Saline Lock Forearm] IV Catheter Type [Left Hand] Peripheral IV IV Catheter Type [Left Peripheral IV Antecubital] Active Medications - Current Medications Current Medications: Generic Name Dose Route Start Last Admin Trade Name Freq PRN Reason Stop Dose Admin Acetaminophen 650 mg 08/05/19 21:32 08/06/19 20:05 Tylenol PO 650 mg Q4H PRN Administration Pain MILD(1-3)/Fever >100.5/BUTLER Ascorbic Acid 500 mg 08/08/19 10:00 08/13/19 22:08 Vitamin C PO 500 mg BID [facility] Administration Benzonatate 100 mg 08/06/19 01:00 08/14/19 05:50 Tessalon Perles PO Not Given Q8H [facility] Cholecalciferol 5,000 unit 08/08/19 10:00 08/13/19 09:19 Vitamin D3 PO 5,000 unit QDAY RAISA Administration Enoxaparin Sodium 90 mg 08/05/19 22:00 08/13/19 22:06 Enoxaparin SUB-Q 90 mg Q12HR RAISA Administration Famotidine 20 mg 08/05/19 22:00 08/13/19 22:05 Pepcid PO 20 mg BID RAISA Administration Hydromorphone HCl 0.5 mg 08/05/19 21:32 08/06/19 22:28 Dilaudid IV 0.5 mg Q3H PRN Administration Pain , Severe (7-10) Hydrophilic Ointment 1 applic 08/13/19 18:22 08/13/19 18:29 Vaseline Lip Therapy TP 1 applic DIRECT PRN Administration Dry Lips Sodium Chloride 50 mls @ 999 mls/hr 08/08/19 19:00 08/13/19 18:21 Nacl 0.9% IV 08/16/19 18:59 999 mls/hr Q24H RAISA Administration REMDESIVIR 100 mg/ Sodium 250 mls @ 500 mls/hr 08/12/19 18:00 08/13/19 18:21 Chloride IV 08/16/19 17:59 500 mls/hr Q24H RAISA Administration Insulin Glargine 15 units 08/12/19 22:00 08/13/19 22:05 Lantus SUB-Q 15 units QHS RAISA Administration Insulin Human Lispro 0 unit 08/05/19 22:00 08/14/19 08:00 Humalog SUB-Q 4 unit ACHS RAISA Administration Protocol Methylprednisolone Sodium Succinate 40 mg 08/07/19 14:00 08/14/19 05:51 Solu-Medrol IV 40 mg Q8HR RAISA Administration Metoclopramide HCl 10 mg 08/05/19 21:32 Reglan IV Q6H PRN Nausea And Vomiting Ondansetron HCl 4 mg 08/05/19 21:32 Zofran IV Q8H PRN Nausea And Vomiting Oxycodone/Acetaminophen 1 tab 08/05/19 21:32 08/06/19 21:07 Percocet 5/325 PO 1 tab Q6H PRN Administration Pain, Moderate (4-6) Sodium Chloride 10 ml 08/05/19 22:00 08/13/19 22:06 Sodium Chloride Flush Syringe 10 Ml IV 10 ml BID RAISA Administration Sodium Chloride 10 ml 08/05/19 21:32 Sodium Chloride Flush Syringe 10 Ml IV PRN PRN LINE FLUSH Nutrition/Malnutrition Assess - Dietary Evaluation Nutrition/Malnutrition Findings: Nutrition Notes Start: 08/06/19 08:35 Freq: Status: Active Protocol: Document 08/11/19 09:16 LP (Rec: 08/11/19 10:57 LP [id number]) Nutrition Notes Initial or Follow up Reassessment Current Diagnosis Diabetes Other Pertinent Diagnosis ARDS, Suspected COVID-19 Current Diet Cardiac/consistent CHO Labs/Tests BG 368 Pertinent Medications Reviewed Height 5 ft 5 in Weight 92.35 kg [place] Body Weight (kg) 56.81 BMI 33.8 Weight Status Obese Subjective/Other Information Pt eating well. Consuming most of meals. Percent of energy/protein needs met: 100%/91% Burn Absent Trauma Absent Current % PO Good (75-100%) Minimum of two criteria No physical signs of malnutrition #2 Nutrition Diagnosis Inadequate oral intake As Evidenced by Signs and Symptoms Pt is meeting 100% of kcal and 91% of protein needs Diagnosis Progress(for reassessment Improved documentation) #1 Nutrition Diagnosis Predicted suboptimal energy intake Diagnosis Progress(for reassessment Resolved documentation) Is patient on ventilator? No Is Patient Ambulatory and/or Out of Bed Yes REE-([place]-St. Jeor-ambulatory/OOB) [ 1975.194 [id number]] Kcal/Kg value to use for calculation 17 Approximate Energy Requirements Using 1570 kcal/Kg Calculation Used for Recommendations Kcal/kg Additional Notes Protein needs are 74-92g (0.8- 1g/kg) Fluid needs are 1ml/kcal Nutrition Intervention Change Diet Order: Continue Add Supplement/Snack (indicate name/kcal D/C /protein ) Goal #1 Continue to meet at least 80% of kcal and protein needs Anticipated Discharge Needs: Cardiac/consistent CHO diet Follow-Up By: 08/18/19 Additional Comments Follow for stable intakes
[2019-08-14] MEDS: ENOXAPARIN 100 MG/1 ML INJ SUB-Q SCH ×2 (10:10→21:12)
[2019-08-14] MEDS: ASCORBIC ACID 500 MG TAB PO SCH ×2 (10:10→21:12)
[2019-08-14] MEDS: FAMOTIDINE 20 MG TAB PO SCH ×2 (10:10→21:12)
--- NOTE | 2019-08-14 11:27 | Progress Note ---
Assessment and Plan Cultures: Blood culture 08/05/2019 no growth Assessment: 54 years old female with history of obesity, diabetes, admitted on 08/05/2019 due to 2-week history of dry cough, generalized malaise and progressive shortness of breath: #Severe sepsis: likely due to severe COVID pneumonia #Severe COVID pneumonia: high suspicion for late SARS-2 virus complications - cytokine storm, microvascular thrombosis. Inflamatory markers are elevated- D- dimer > 10,000-->10,000--.3795, ferritin 438-->415-->594, LDH 702-->745, CRP 32-->34-. S/p Actemra 4 mg/kg x 1 on 08/06. S/p ceftriaxone/azithro 5 days. #Acute hypoxemic respiratory failure: NOT better, remains on HFO2 40L, 100% #DM: uncontrolled on IV steroids Recommendations: Patient has been enrolled in the Expanded Access Program for Convalescent Plasma patient [id number]. But plasma is still awaited Continue Remdesivir - 100 mg IV daily x 9 days Day 8 of 10 Continue IV solumedrol 40 mg IV q 8 hours Day 8 today, can start to wean Continue anticoagulation for elevated d-dimer F/u quantiferon and IL-6 - pending Anna Rivera MD, FACP [facility] ([facility] C: [phone] O: [phone] F: [phone] Subjective Date of service: 08/14/19 Principal diagnosis: Bilateral pneumonia, ARDS Interval history: Afebrile, remains on high flow oxygen. Still awaiting CCP per discussion with RN. Objective - Exam Narrative Exam: Physical Exam (reviewed in chart due to PPE conservation) Constitutional: limited due to PPE conservation strategy Head, Ears, Nose: limited due to PPE conservation strategy Eyes: limited due to PPE conservation strategy Neck: limited due to PPE conservation strategy Oral: limited due to PPE conservation strategy Cardiovascular: limited due to PPE conservation strategy Respiratory: limited due to PPE conservation strategy GI: limited due to PPE conservation strategy Musculoskeletal: limited due to PPE conservation strategy Skin: limited due to PPE conservation strategy Hem/Lymphatic: limited due to PPE conservation strategy Psych: limited due to PPE conservation strategy Neurological: limited due to PPE conservation strategy - Constitutional Vitals: Vital Signs Temp Pulse Resp BP Pulse Ox 98.0 F 80 20 153/100 96 08/14/19 09:00 08/14/19 10:00 08/14/19 10:00 08/14/19 10:00 08/14/19 10:00 Temperature -Last 24 Hours Temperature 98.0 F Temperature 98 F Temperature 98.5 F Temperature 98 F Temperature 97.6 F Temperature 98.2 F Temperature 98.6 F - Labs CBC & Chem 7: 08/14/19 04:56 08/14/19 07:28 Labs: Abnormal lab results 08/10/19 08/13/19 08/13/19 Range/Units 08:16 12:11 16:09 Hgb (10.1-14.3) gm/dl Hct (30.3-42.9) % RDW (13.2-15.2) % Lymph % (Auto) (13.4-35.0) % Lymph # (1.2-5.4) K/mm3 Seg Neutrophils % (40.0-70.0) % Creatinine (0.7-1.2) mg/dL Glucose (65-100) mg/dL POC Glucose 351 H 253 H (70-105) Calcium (8.4-10.2) mg/dL Alkaline Phosphatase (35-129) units/L Total Protein (6.3-8.2) g/dL Albumin (3.9-5) g/dL Miscellaneous Test Flexitest 1 H 08/13/19 08/14/19 08/14/19 Range/Units 21:45 04:56 07:28 Hgb 14.5 H (10.1-14.3) gm/dl Hct 44.2 H (30.3-42.9) % RDW 15.3 H (13.2-15.2) % Lymph % (Auto) 7.0 L (13.4-35.0) % Lymph # 0.6 L (1.2-5.4) K/mm3 Seg Neutrophils % 85.3 H (40.0-70.0) % Creatinine 0.5 L (0.7-1.2) mg/dL Glucose 228 H (65-100) mg/dL POC Glucose 242 H (70-105) Calcium 7.9 L (8.4-10.2) mg/dL Alkaline Phosphatase 150 H (35-129) units/L Total Protein 5.6 L (6.3-8.2) g/dL Albumin 3.1 L (3.9-5) g/dL Miscellaneous Test 08/14/19 Range/Units 08:10 Hgb (10.1-14.3) gm/dl Hct (30.3-42.9) % RDW (13.2-15.2) % Lymph % (Auto) (13.4-35.0) % Lymph # (1.2-5.4) K/mm3 Seg Neutrophils % (40.0-70.0) % Creatinine (0.7-1.2) mg/dL Glucose (65-100) mg/dL POC Glucose 210 H (70-105) Calcium (8.4-10.2) mg/dL Alkaline Phosphatase (35-129) units/L Total Protein (6.3-8.2) g/dL Albumin (3.9-5) g/dL Miscellaneous Test
[2019-08-14] MEDS: CHOLECALCIFEROL (VIT D3) 5,000 UNIT TAB PO SCH (11:41)
[2019-08-14] MEDS: REMDESIVIR 100 MG in SODIUM CHLORIDE 0.9% 250ML 250 ML IV SCH (18:20)
[2019-08-14] MEDS ORDERED: SODIUM CHLORIDE 0.9% 500 ML 500 ML IV SCH (18:46)
[2019-08-14] MEDS: SODIUM CHLORIDE 0.9% 50 ML IV SCH (19:01)
--- NOTE | 2019-08-14 20:07 | Progress Note ---
Assessment and Plan Imp: 1. Viral pneumonia and ARDS due to Covid-19 2. Acute respiratory failure, hypoxia 3. Lactic acidosis Rec: 1. Finished ABX; Remdesivir, Actemra, convalescent plasma as per ID 2. Avoid IVFs; keep as dry as possible 3. Full dose anticoagulation 4. Cont. Proning as per prior orders 5. Monitor oxygenation closely 6. Prognosis guarded Subjective Date of service: 08/14/19 Principal diagnosis: Bilateral pneumonia, ARDS Interval history: No events. Remains on HFNC with FiO2 of 90% and flow of 40LPM. Awake, alert. SOB stable. Currently proning when I came by. Limited exam done due to Covid-19. Active Medications Acetaminophen (Tylenol) 650 mg PO Q4H PRN PRN Reason: Pain MILD(1-3)/Fever >100.5/BUTLER Last Admin: 08/06/19 20:05 Dose: 650 mg Documented by: Ascorbic Acid (Vitamin C) 500 mg PO BID [facility] Last Admin: 08/14/19 10:10 Dose: 500 mg Documented by: Benzonatate (Tessalon Perles) 100 mg PO Q8H [facility] Last Admin: 08/14/19 17:15 Dose: 100 mg Documented by: Cholecalciferol (Vitamin D3) 5,000 unit PO QDAY [facility] Last Admin: 08/14/19 11:41 Dose: 5,000 unit Documented by: Enoxaparin Sodium (Enoxaparin) 90 mg SUB-Q Q12HR [facility] Last Admin: 08/14/19 10:10 Dose: 90 mg Documented by: Famotidine (Pepcid) 20 mg PO BID [facility] Last Admin: 08/14/19 10:10 Dose: 20 mg Documented by: Hydromorphone HCl (Dilaudid) 0.5 mg IV Q3H PRN PRN Reason: Pain , Severe (7-10) Last Admin: 08/06/19 22:28 Dose: 0.5 mg Documented by: Hydrophilic Ointment (Vaseline Lip Therapy) 1 applic TP DIRECT PRN PRN Reason: Dry Lips Last Admin: 08/13/19 18:29 Dose: 1 applic Documented by: Sodium Chloride (Nacl 0.9%) 50 mls @ 999 mls/hr IV Q24H [facility] Stop: 08/16/19 18:59 Last Admin: 08/14/19 19:01 Dose: 999 mls/hr Documented by: REMDESIVIR 100 mg/ Sodium (Chloride) 250 mls @ 500 mls/hr IV Q24H [facility] Stop: 08/16/19 17:59 Last Admin: 08/14/19 18:20 Dose: 500 mls/hr Documented by: Sodium Chloride (Nacl 0.9% 500 Ml) 500 mls @ 1,225 mls/hr IV ONCE [facility] Stop: 08/15/19 18:45 Last Admin: 08/14/19 19:32 Dose: 1,225 mls/hr Documented by: Insulin Glargine (Lantus) 15 units SUB-Q QHS [facility] Last Admin: 08/13/19 22:05 Dose: 15 units Documented by: Insulin Human Lispro (Humalog) 0 unit SUB-Q ACHS [facility]; Protocol Last Admin: 08/14/19 17:12 Dose: 4 unit Documented by: Methylprednisolone Sodium Succinate (Solu-Medrol) 40 mg IV Q8HR [facility] Last Admin: 08/14/19 14:10 Dose: 40 mg Documented by: Metoclopramide HCl (Reglan) 10 mg IV Q6H PRN PRN Reason: Nausea And Vomiting Ondansetron HCl (Zofran) 4 mg IV Q8H PRN PRN Reason: Nausea And Vomiting Oxycodone/Acetaminophen (Percocet 5/325) 1 tab PO Q6H PRN PRN Reason: Pain, Moderate (4-6) Last Admin: 08/06/19 21:07 Dose: 1 tab Documented by: Sodium Chloride (Sodium Chloride Flush Syringe 10 Ml) 10 ml IV BID [facility] Last Admin: 08/14/19 10:13 Dose: 10 ml Documented by: Sodium Chloride (Sodium Chloride Flush Syringe 10 Ml) 10 ml IV PRN PRN PRN Reason: LINE FLUSH Objective Vital Signs - 12hr 08/14/19 08/14/19 08/14/19 09:00 10:00 11:00 Temperature 98.0 F Pulse Rate 78 80 107 H Pulse Rate [ From Monitor] Respiratory 14 19 30 H Rate Respiratory 20 Rate [Chest] Blood Pressure 153/100 153/100 167/86 O2 Sat by Pulse 96 96 96 Oximetry 08/14/19 08/14/19 08/14/19 12:00 13:00 14:00 Temperature 96.8 F L Pulse Rate 76 69 80 Pulse Rate [ 72 From Monitor] Respiratory 22 19 23 Rate Respiratory Rate [Chest] Blood Pressure 162/101 142/83 150/96 O2 Sat by Pulse 89 93 93 Oximetry 08/14/19 08/14/19 08/14/19 15:01 16:00 16:01 Temperature 98.0 F Pulse Rate 77 72 68 Pulse Rate [ 77 From Monitor] Respiratory 26 H 18 18 Rate Respiratory Rate [Chest] Blood Pressure 161/90 177/100 O2 Sat by Pulse 92 99 96 Oximetry 08/14/19 08/14/19 08/14/19 17:01 18:01 19:01 Temperature Pulse Rate 72 82 73 Pulse Rate [ From Monitor] Respiratory 24 14 20 Rate Respiratory Rate [Chest] Blood Pressure 115/58 114/86 163/93 O2 Sat by Pulse 97 96 98 Oximetry 08/14/19 19:33 Temperature Pulse Rate Pulse Rate [ 83 From Monitor] Respiratory 30 H Rate Respiratory Rate [Chest] Blood Pressure O2 Sat by Pulse 98 Oximetry Constitutional: alert, other (critically ill on HFNC) Eyes: non-icteric Effort: mildly labored Ascultation: Bilateral: rales Cardiovascular: regular rate and rhythm (no mrg) Gastrointestinal: normoactive bowel sounds, soft, non-tender, non-distended Integumentary: normal Extremities: no cyanosis, no edema, pink and warm Neurologic: normal mental status, non-focal exam, pupils equal and round, CN II- XII normal Psychiatric: mood appropriate, affect normal CBC and BMP: 08/14/19 04:56 08/14/19 07:28 ABG, PT/INR, D-dimer: PT/INR, D-dimer D-Dimer 3795.56 ng/mlDDU (0-234) H 08/09/19 12:29 Abnormal lab findings: Abnormal Labs 08/05/19 08/05/19 08/05/19 14:53 14:53 14:53 Hgb Hct RDW Lymph % (Auto) 13.0 L [place] % (Auto) 10.8 H Lymph # 0.9 L Seg Neutrophils % 74.0 H D-Dimer > 05688 H Carbon Dioxide 20 L BUN 6 L Creatinine 0.6 L Glucose 255 H POC Glucose Hemoglobin A1c Lactic Acid Calcium Ferritin Alkaline Phosphatase 173 H Lactate Dehydrogenase C-Reactive Protein NT-Pro-B Natriuret Pep Total Protein Albumin 2.9 L Ur Specific [place] Urine WBC (Auto) Coronavirus (PCR) Miscellaneous Test 08/05/19 08/05/19 08/05/19 14:53 14:53 14:53 Hgb Hct RDW Lymph % (Auto) [place] % (Auto) Lymph # Seg Neutrophils % D-Dimer Carbon Dioxide BUN Creatinine Glucose 256 H POC Glucose Hemoglobin A1c Lactic Acid 3.40 H* Calcium Ferritin 438.9 H Alkaline Phosphatase Lactate Dehydrogenase 702 H C-Reactive Protein 32.90 H NT-Pro-B Natriuret Pep Total Protein Albumin Ur Specific [place] Urine WBC (Auto) Coronavirus (PCR) Miscellaneous Test 08/05/19 08/05/19 08/06/19 15:07 19:54 00:21 Hgb Hct RDW Lymph % (Auto) [place] % (Auto) Lymph # Seg Neutrophils % D-Dimer Carbon Dioxide BUN Creatinine Glucose POC Glucose 131 H Hemoglobin A1c Lactic Acid Calcium Ferritin Alkaline Phosphatase Lactate Dehydrogenase C-Reactive Protein NT-Pro-B Natriuret Pep 1818 H Total Protein Albumin Ur Specific [place] 1.031 H Urine WBC (Auto) 8.0 H Coronavirus (PCR) Miscellaneous Test 08/06/19 08/06/19 08/06/19 08:29 09:17 11:56 Hgb Hct RDW Lymph % (Auto) [place] % (Auto) Lymph # Seg Neutrophils % D-Dimer Carbon Dioxide BUN Creatinine Glucose POC Glucose 165 H 190 H Hemoglobin A1c Lactic Acid Calcium Ferritin Alkaline Phosphatase Lactate Dehydrogenase C-Reactive Protein NT-Pro-B Natriuret Pep Total Protein Albumin Ur Specific [place] Urine WBC (Auto) Coronavirus (PCR) Positive A Miscellaneous Test 08/06/19 08/06/19 08/06/19 16:16 22:16 Unknown Hgb Hct RDW Lymph % (Auto) [place] % (Auto) Lymph # Seg Neutrophils % D-Dimer Carbon Dioxide BUN Creatinine Glucose POC Glucose 170 H 128 H Hemoglobin A1c 7.6 H Lactic Acid Calcium Ferritin Alkaline Phosphatase Lactate Dehydrogenase C-Reactive Protein NT-Pro-B Natriuret Pep Total Protein Albumin Ur Specific [place] Urine WBC (Auto) Coronavirus (PCR) Miscellaneous Test 08/07/19 08/07/19 08/07/19 07:59 11:39 11:56 Hgb Hct RDW Lymph % (Auto) [place] % (Auto) Lymph # Seg Neutrophils % D-Dimer Carbon Dioxide BUN Creatinine 0.6 L Glucose 194 H POC Glucose 141 H 195 H Hemoglobin A1c Lactic Acid Calcium 8.0 L Ferritin Alkaline Phosphatase 181 H Lactate Dehydrogenase C-Reactive Protein NT-Pro-B Natriuret Pep Total Protein Albumin 2.5 L Ur Specific [place] Urine WBC (Auto) Coronavirus (PCR) Miscellaneous Test 08/07/19 08/07/19 08/07/19 11:56 11:56 11:56 Hgb Hct RDW Lymph % (Auto) [place] % (Auto) Lymph # Seg Neutrophils % D-Dimer > 88614 H Carbon Dioxide BUN Creatinine Glucose POC Glucose Hemoglobin A1c Lactic Acid Calcium Ferritin 415.7 H Alkaline Phosphatase Lactate Dehydrogenase 745 H C-Reactive Protein NT-Pro-B Natriuret Pep Total Protein Albumin Ur Specific [place] Urine WBC (Auto) Coronavirus (PCR) Miscellaneous Test 08/07/19 08/07/19 08/07/19 11:56 16:35 21:36 Hgb Hct RDW Lymph % (Auto) [place] % (Auto) Lymph # Seg Neutrophils % D-Dimer Carbon Dioxide BUN Creatinine Glucose POC Glucose 176 H 277 H Hemoglobin A1c Lactic Acid Calcium Ferritin Alkaline Phosphatase Lactate Dehydrogenase C-Reactive Protein 34.20 H NT-Pro-B Natriuret Pep Total Protein Albumin Ur Specific [place] Urine WBC (Auto) Coronavirus (PCR) Miscellaneous Test 08/08/19 08/08/19 08/08/19 07:53 08:54 11:40 Hgb Hct RDW Lymph % (Auto) [place] % (Auto) Lymph # Seg Neutrophils % D-Dimer Carbon Dioxide BUN Creatinine 0.6 L Glucose 266 H POC Glucose 214 H 340 H Hemoglobin A1c Lactic Acid Calcium 8.3 L Ferritin Alkaline Phosphatase 222 H Lactate Dehydrogenase C-Reactive Protein NT-Pro-B Natriuret Pep Total Protein Albumin 2.5 L Ur Specific [place] Urine WBC (Auto) Coronavirus (PCR) Miscellaneous Test 08/08/19 08/08/19 08/09/19 17:04 21:49 05:22 Hgb Hct RDW Lymph % (Auto) [place] % (Auto) Lymph # Seg Neutrophils % D-Dimer Carbon Dioxide BUN Creatinine Glucose POC Glucose 278 H 319 H Hemoglobin A1c Lactic Acid Calcium Ferritin Alkaline Phosphatase Lactate Dehydrogenase 866 H C-Reactive Protein 14.70 H NT-Pro-B Natriuret Pep Total Protein Albumin Ur Specific [place] Urine WBC (Auto) Coronavirus (PCR) Miscellaneous Test 08/09/19 08/09/19 08/09/19 05:44 08:12 11:52 Hgb Hct RDW Lymph % (Auto) [place] % (Auto) Lymph # Seg Neutrophils % D-Dimer Carbon Dioxide BUN 18 H Creatinine 0.6 L Glucose 227 H POC Glucose 232 H 273 H Hemoglobin A1c Lactic Acid Calcium 8.2 L Ferritin Alkaline Phosphatase 230 H Lactate Dehydrogenase C-Reactive Protein NT-Pro-B Natriuret Pep Total Protein Albumin 2.5 L Ur Specific [place] Urine WBC (Auto) Coronavirus (PCR) Miscellaneous Test 08/09/19 08/09/19 08/09/19 12:29 12:29 17:11 Hgb Hct RDW Lymph % (Auto) [place] % (Auto) Lymph # Seg Neutrophils % D-Dimer 3795.56 H Carbon Dioxide BUN Creatinine Glucose POC Glucose 200 H Hemoglobin A1c Lactic Acid Calcium Ferritin 594.1 H Alkaline Phosphatase Lactate Dehydrogenase C-Reactive Protein NT-Pro-B Natriuret Pep Total Protein Albumin Ur Specific [place] Urine WBC (Auto) Coronavirus (PCR) Miscellaneous Test 08/09/19 08/10/19 08/10/19 21:58 05:07 06:14 Hgb Hct RDW Lymph % (Auto) [place] % (Auto) Lymph # Seg Neutrophils % D-Dimer Carbon Dioxide BUN 19 H Creatinine Glucose 277 H POC Glucose 226 H 288 H Hemoglobin A1c Lactic Acid Calcium 7.9 L Ferritin Alkaline Phosphatase 231 H Lactate Dehydrogenase C-Reactive Protein NT-Pro-B Natriuret Pep Total Protein Albumin 2.7 L Ur Specific [place] Urine WBC (Auto) Coronavirus (PCR) Miscellaneous Test 08/10/19 08/10/19 08/10/19 08:16 08:31 12:25 Hgb Hct RDW Lymph % (Auto) [place] % (Auto) Lymph # Seg Neutrophils % D-Dimer Carbon Dioxide BUN Creatinine Glucose POC Glucose 284 H 387 H Hemoglobin A1c Lactic Acid Calcium Ferritin Alkaline Phosphatase Lactate Dehydrogenase C-Reactive Protein NT-Pro-B Natriuret Pep Total Protein Albumin Ur Specific [place] Urine WBC (Auto) Coronavirus (PCR) Miscellaneous Test Flexitest 1 H 08/10/19 08/10/19 08/11/19 18:03 21:10 05:14 Hgb Hct RDW Lymph % (Auto) [place] % (Auto) Lymph # Seg Neutrophils % D-Dimer Carbon Dioxide BUN 21 H Creatinine Glucose 368 H POC Glucose 297 H 259 H Hemoglobin A1c Lactic Acid Calcium Ferritin Alkaline Phosphatase 223 H Lactate Dehydrogenase C-Reactive Protein NT-Pro-B Natriuret Pep Total Protein Albumin 3.0 L Ur Specific [place] Urine WBC (Auto) Coronavirus (PCR) Miscellaneous Test 08/11/19 08/11/19 08/11/19 08:02 12:08 16:21 Hgb Hct RDW Lymph % (Auto) [place] % (Auto) Lymph # Seg Neutrophils % D-Dimer Carbon Dioxide BUN Creatinine Glucose POC Glucose 300 H 447 H 295 H Hemoglobin A1c Lactic Acid Calcium Ferritin Alkaline Phosphatase Lactate Dehydrogenase C-Reactive Protein NT-Pro-B Natriuret Pep Total Protein Albumin Ur Specific [place] Urine WBC (Auto) Coronavirus (PCR) Miscellaneous Test 08/11/19 08/12/19 08/12/19 21:42 05:04 07:47 Hgb Hct RDW Lymph % (Auto) [place] % (Auto) Lymph # Seg Neutrophils % D-Dimer Carbon Dioxide BUN 21 H Creatinine 0.5 L Glucose 276 H POC Glucose 447 H 274 H Hemoglobin A1c Lactic Acid Calcium Ferritin Alkaline Phosphatase 188 H Lactate Dehydrogenase C-Reactive Protein NT-Pro-B Natriuret Pep Total Protein 6.1 L Albumin 2.9 L Ur Specific [place] Urine WBC (Auto) Coronavirus (PCR) Miscellaneous Test 08/12/19 08/12/19 08/12/19 11:57 18:10 22:00 Hgb Hct RDW Lymph % (Auto) [place] % (Auto) Lymph # Seg Neutrophils % D-Dimer Carbon Dioxide BUN Creatinine Glucose POC Glucose 367 H 285 H 239 H Hemoglobin A1c Lactic Acid Calcium Ferritin Alkaline Phosphatase Lactate Dehydrogenase C-Reactive Protein NT-Pro-B Natriuret Pep Total Protein Albumin Ur Specific [place] Urine WBC (Auto) Coronavirus (PCR) Miscellaneous Test 08/13/19 08/13/19 08/13/19 04:10 04:10 04:10 Hgb Hct 44.3 H RDW 15.4 H Lymph % (Auto) 7.6 L [place] % (Auto) Lymph # 0.7 L Seg Neutrophils % 85.3 H D-Dimer Carbon Dioxide BUN 19 H 20 H Creatinine 0.5 L 0.5 L Glucose 201 H 199 H POC Glucose Hemoglobin A1c Lactic Acid Calcium 8.0 L 8.1 L Ferritin Alkaline Phosphatase 167 H Lactate Dehydrogenase C-Reactive Protein NT-Pro-B Natriuret Pep Total Protein 5.7 L Albumin 3.0 L Ur Specific [place] Urine WBC (Auto) Coronavirus (PCR) Miscellaneous Test 08/13/19 08/13/19 08/13/19 08:35 12:11 16:09 Hgb Hct RDW Lymph % (Auto) [place] % (Auto) Lymph # Seg Neutrophils % D-Dimer Carbon Dioxide BUN Creatinine Glucose POC Glucose 247 H 351 H 253 H Hemoglobin A1c Lactic Acid Calcium Ferritin Alkaline Phosphatase Lactate Dehydrogenase C-Reactive Protein NT-Pro-B Natriuret Pep Total Protein Albumin Ur Specific [place] Urine WBC (Auto) Coronavirus (PCR) Miscellaneous Test 08/13/19 08/14/19 08/14/19 21:45 04:56 07:28 Hgb 14.5 H Hct 44.2 H RDW 15.3 H Lymph % (Auto) 7.0 L [place] % (Auto) Lymph # 0.6 L Seg Neutrophils % 85.3 H D-Dimer Carbon Dioxide BUN Creatinine 0.5 L Glucose 228 H POC Glucose 242 H Hemoglobin A1c Lactic Acid Calcium 7.9 L Ferritin Alkaline Phosphatase 150 H Lactate Dehydrogenase C-Reactive Protein NT-Pro-B Natriuret Pep Total Protein 5.6 L Albumin 3.1 L Ur Specific [place] Urine WBC (Auto) Coronavirus (PCR) Miscellaneous Test 08/14/19 08/14/19 08/14/19 08:10 11:53 17:20 Hgb Hct RDW Lymph % (Auto) [place] % (Auto) Lymph # Seg Neutrophils % D-Dimer Carbon Dioxide BUN Creatinine Glucose POC Glucose 210 H 335 H 211 H Hemoglobin A1c Lactic Acid Calcium Ferritin Alkaline Phosphatase Lactate Dehydrogenase C-Reactive Protein NT-Pro-B Natriuret Pep Total Protein Albumin Ur Specific [place] Urine WBC (Auto) Coronavirus (PCR) Miscellaneous Test 08/14/19 18:08 Hgb Hct RDW Lymph % (Auto) [place] % (Auto) Lymph # Seg Neutrophils % D-Dimer Carbon Dioxide BUN Creatinine Glucose POC Glucose 255 H Hemoglobin A1c Lactic Acid Calcium Ferritin Alkaline Phosphatase Lactate Dehydrogenase C-Reactive Protein NT-Pro-B Natriuret Pep Total Protein Albumin Ur Specific [place] Urine WBC (Auto) Coronavirus (PCR) Miscellaneous Test Chest x-ray: report reviewed, image reviewed
[2019-08-14] MEDS: oxyCODONE /ACETAMINOPHEN 5-325MG TAB PO PRN (21:11)
[2019-08-14] MEDS: INSULIN GLARGINE 100 UNITS/ML SUB-Q SCH (21:13)
[2019-08-15] MEDS: BENZONATATE 100 MG CAP PO SCH ×3 (03:52→17:12)
[2019-08-15] MEDS: methylPREDNISolone Sod Succinate 40 MG/1 ML INJ IV SCH ×3 (06:21→22:03)
[2019-08-15 06:25] LABS: Basophils % (Auto) 0.3 % (0.0-1.8); Eosinophils % (Auto) 0.1 % (0.0-4.3); Hematocrit 42.3 % (30.3-42.9); Hemoglobin 13.9 gm/dl (10.1-14.3); Lymphocytes # (Auto) 0.7 K/mm3 (1.2-5.4); Lymphocytes % (Auto) 8.1 % (13.4-35.0); Mean Corpuscular HGB Conc 33 % (30-34); Mean Corpuscular Volume 92 fl (79-97); Monocytes # (Auto) 0.7 K/mm3 (0.0-0.8); Monocytes % (Auto) 7.6 % (0.0-7.3); Platelet Count 161 K/mm3 (140-440); Red Blood Count 4.58 M/mm3 (3.65-5.03); Red Cell Distribution Width 15.2 % (13.2-15.2)
[2019-08-15 06:45] LABS: Alanine Aminotransferase 45 units/L (7-56); BUN/Creatinine Ratio 35; Blood Urea Nitrogen 14 mg/dL (7-17)
[2019-08-15] MEDS: INSULIN LISPRO 100 UNIT/ML SUB-Q SCH ×4 (08:24→22:00)
--- NOTE | 2019-08-15 09:05 | Progress Note ---
Assessment and Plan 54 y/o female with acute respiratory failure secondary to COVID 19 1. Proning during the day and prone sleeping at night. Begged her to continue to do this. 2. Will start steroids 40q8 for 7 days, today is day 7, however given improvem ent, would like to keep at this dose and wean later. Will discuss with ID. 3. Agree with Actemra, given 4. Agree with Remdisiver, given 5. Guarded Prognosis, continue HFNC for now. Hopeful she will not require intubation. 6. Hopeful plasma can happen soon, and hopefully she will continue to improve. Hold on lasix today, may consider a dose tomorrow. Subjective Date of service: 08/15/19 Principal diagnosis: Bilateral pneumonia, ARDS Interval history: No acute events. Down to 80% now on the HFNC. Still has not had plasma yet. Objective Vital Signs - 12hr 08/14/19 08/14/19 08/14/19 22:01 23:01 23:43 Temperature Pulse Rate 68 62 58 L Pulse Rate [ From Monitor] Respiratory 23 19 17 Rate Blood Pressure 167/88 149/77 149/77 O2 Sat by Pulse 98 99 100 Oximetry 08/15/19 08/15/19 08/15/19 00:00 00:01 01:01 Temperature 98.8 F Pulse Rate 61 61 61 Pulse Rate [ 61 From Monitor] Respiratory 17 16 16 Rate Blood Pressure 139/73 139/73 O2 Sat by Pulse 100 96 100 Oximetry 08/15/19 08/15/19 08/15/19 01:34 02:01 02:46 Temperature Pulse Rate 58 L Pulse Rate [ From Monitor] Respiratory 20 Rate Blood Pressure 139/73 O2 Sat by Pulse 98 97 Oximetry 08/15/19 08/15/19 08/15/19 03:00 03:48 04:00 Temperature 98.9 F Pulse Rate 63 59 L Pulse Rate [ 60 From Monitor] Respiratory 22 17 19 Rate Blood Pressure 139/73 151/86 O2 Sat by Pulse 98 99 99 Oximetry 08/15/19 08/15/19 08/15/19 05:01 06:01 07:01 Temperature Pulse Rate 56 L 61 68 Pulse Rate [ From Monitor] Respiratory 16 22 26 H Rate Blood Pressure 151/86 151/86 151/86 O2 Sat by Pulse 99 98 98 Oximetry 08/15/19 08/15/1908/14/20 07:28 08:00 08:01 Temperature 98.2 F Pulse Rate 75 57 L Pulse Rate [ From Monitor] Respiratory 18 Rate Blood Pressure 124/61 O2 Sat by Pulse 96 95 Oximetry 08/15/19 08:24 Temperature Pulse Rate Pulse Rate [ 75 From Monitor] Respiratory 23 Rate Blood Pressure O2 Sat by Pulse 92 Oximetry Constitutional: alert, other (critically ill on HFNC) Eyes: non-icteric Effort: mildly labored Ascultation: Bilateral: rales Cardiovascular: regular rate and rhythm (no mrg) Gastrointestinal: normoactive bowel sounds, soft, non-tender, non-distended Integumentary: normal Extremities: no cyanosis, no edema, pink and warm Neurologic: normal mental status, non-focal exam, pupils equal and round, CN II- XII normal Psychiatric: mood appropriate, affect normal CBC and BMP: 08/15/19 05:09 08/15/19 05:09 ABG, PT/INR, D-dimer: PT/INR, D-dimer D-Dimer 3795.56 ng/mlDDU (0-234) H 08/09/19 12:29 Abnormal lab findings: Abnormal Labs 08/05/19 08/05/19 08/05/19 14:53 14:53 14:53 Hgb Hct RDW Lymph % (Auto) 13.0 L [place] % (Auto) 10.8 H Lymph # 0.9 L Seg Neutrophils % 74.0 H D-Dimer > 46179 H Carbon Dioxide 20 L BUN 6 L Creatinine 0.6 L Glucose 255 H POC Glucose Hemoglobin A1c Lactic Acid Calcium Ferritin Alkaline Phosphatase 173 H Lactate Dehydrogenase C-Reactive Protein NT-Pro-B Natriuret Pep Total Protein Albumin 2.9 L Ur Specific [place] Urine WBC (Auto) Coronavirus (PCR) Miscellaneous Test 08/05/19 08/05/19 08/05/19 14:53 14:53 14:53 Hgb Hct RDW Lymph % (Auto) [place] % (Auto) Lymph # Seg Neutrophils % D-Dimer Carbon Dioxide BUN Creatinine Glucose 256 H POC Glucose Hemoglobin A1c Lactic Acid 3.40 H* Calcium Ferritin 438.9 H Alkaline Phosphatase Lactate Dehydrogenase 702 H C-Reactive Protein 32.90 H NT-Pro-B Natriuret Pep Total Protein Albumin Ur Specific [place] Urine WBC (Auto) Coronavirus (PCR) Miscellaneous Test 08/05/19 08/05/19 08/06/19 15:07 19:54 00:21 Hgb Hct RDW Lymph % (Auto) [place] % (Auto) Lymph # Seg Neutrophils % D-Dimer Carbon Dioxide BUN Creatinine Glucose POC Glucose 131 H Hemoglobin A1c Lactic Acid Calcium Ferritin Alkaline Phosphatase Lactate Dehydrogenase C-Reactive Protein NT-Pro-B Natriuret Pep 1818 H Total Protein Albumin Ur Specific [place] 1.031 H Urine WBC (Auto) 8.0 H Coronavirus (PCR) Miscellaneous Test 08/06/19 08/06/19 08/06/19 08:29 09:17 11:56 Hgb Hct RDW Lymph % (Auto) [place] % (Auto) Lymph # Seg Neutrophils % D-Dimer Carbon Dioxide BUN Creatinine Glucose POC Glucose 165 H 190 H Hemoglobin A1c Lactic Acid Calcium Ferritin Alkaline Phosphatase Lactate Dehydrogenase C-Reactive Protein NT-Pro-B Natriuret Pep Total Protein Albumin Ur Specific [place] Urine WBC (Auto) Coronavirus (PCR) Positive A Miscellaneous Test 08/06/19 08/06/19 08/06/19 16:16 22:16 Unknown Hgb Hct RDW Lymph % (Auto) [place] % (Auto) Lymph # Seg Neutrophils % D-Dimer Carbon Dioxide BUN Creatinine Glucose POC Glucose 170 H 128 H Hemoglobin A1c 7.6 H Lactic Acid Calcium Ferritin Alkaline Phosphatase Lactate Dehydrogenase C-Reactive Protein NT-Pro-B Natriuret Pep Total Protein Albumin Ur Specific [place] Urine WBC (Auto) Coronavirus (PCR) Miscellaneous Test 08/07/19 08/07/19 08/07/19 07:59 11:39 11:56 Hgb Hct RDW Lymph % (Auto) [place] % (Auto) Lymph # Seg Neutrophils % D-Dimer Carbon Dioxide BUN Creatinine 0.6 L Glucose 194 H POC Glucose 141 H 195 H Hemoglobin A1c Lactic Acid Calcium 8.0 L Ferritin Alkaline Phosphatase 181 H Lactate Dehydrogenase C-Reactive Protein NT-Pro-B Natriuret Pep Total Protein Albumin 2.5 L Ur Specific [place] Urine WBC (Auto) Coronavirus (PCR) Miscellaneous Test 08/07/19 08/07/19 08/07/19 11:56 11:56 11:56 Hgb Hct RDW Lymph % (Auto) [place] % (Auto) Lymph # Seg Neutrophils % D-Dimer > 20153 H Carbon Dioxide BUN Creatinine Glucose POC Glucose Hemoglobin A1c Lactic Acid Calcium Ferritin 415.7 H Alkaline Phosphatase Lactate Dehydrogenase 745 H C-Reactive Protein NT-Pro-B Natriuret Pep Total Protein Albumin Ur Specific [place] Urine WBC (Auto) Coronavirus (PCR) Miscellaneous Test 08/07/19 08/07/19 08/07/19 11:56 16:35 21:36 Hgb Hct RDW Lymph % (Auto) [place] % (Auto) Lymph # Seg Neutrophils % D-Dimer Carbon Dioxide BUN Creatinine Glucose POC Glucose 176 H 277 H Hemoglobin A1c Lactic Acid Calcium Ferritin Alkaline Phosphatase Lactate Dehydrogenase C-Reactive Protein 34.20 H NT-Pro-B Natriuret Pep Total Protein Albumin Ur Specific [place] Urine WBC (Auto) Coronavirus (PCR) Miscellaneous Test 08/08/19 08/08/19 08/08/19 07:53 08:54 11:40 Hgb Hct RDW Lymph % (Auto) [place] % (Auto) Lymph # Seg Neutrophils % D-Dimer Carbon Dioxide BUN Creatinine 0.6 L Glucose 266 H POC Glucose 214 H 340 H Hemoglobin A1c Lactic Acid Calcium 8.3 L Ferritin Alkaline Phosphatase 222 H Lactate Dehydrogenase C-Reactive Protein NT-Pro-B Natriuret Pep Total Protein Albumin 2.5 L Ur Specific [place] Urine WBC (Auto) Coronavirus (PCR) Miscellaneous Test 08/08/19 08/08/19 08/09/19 17:04 21:49 05:22 Hgb Hct RDW Lymph % (Auto) [place] % (Auto) Lymph # Seg Neutrophils % D-Dimer Carbon Dioxide BUN Creatinine Glucose POC Glucose 278 H 319 H Hemoglobin A1c Lactic Acid Calcium Ferritin Alkaline Phosphatase Lactate Dehydrogenase 866 H C-Reactive Protein 14.70 H NT-Pro-B Natriuret Pep Total Protein Albumin Ur Specific [place] Urine WBC (Auto) Coronavirus (PCR) Miscellaneous Test 08/09/19 08/09/19 08/09/19 05:44 08:12 11:52 Hgb Hct RDW Lymph % (Auto) [place] % (Auto) Lymph # Seg Neutrophils % D-Dimer Carbon Dioxide BUN 18 H Creatinine 0.6 L Glucose 227 H POC Glucose 232 H 273 H Hemoglobin A1c Lactic Acid Calcium 8.2 L Ferritin Alkaline Phosphatase 230 H Lactate Dehydrogenase C-Reactive Protein NT-Pro-B Natriuret Pep Total Protein Albumin 2.5 L Ur Specific [place] Urine WBC (Auto) Coronavirus (PCR) Miscellaneous Test 08/09/19 08/09/1908/08/20 12:29 12:29 17:11 Hgb Hct RDW Lymph % (Auto) [place] % (Auto) Lymph # Seg Neutrophils % D-Dimer 3795.56 H Carbon Dioxide BUN Creatinine Glucose POC Glucose 200 H Hemoglobin A1c Lactic Acid Calcium Ferritin 594.1 H Alkaline Phosphatase Lactate Dehydrogenase C-Reactive Protein NT-Pro-B Natriuret Pep Total Protein Albumin Ur Specific [place] Urine WBC (Auto) Coronavirus (PCR) Miscellaneous Test 08/09/19 08/10/19 08/10/19 21:58 05:07 06:14 Hgb Hct RDW Lymph % (Auto) [place] % (Auto) Lymph # Seg Neutrophils % D-Dimer Carbon Dioxide BUN 19 H Creatinine Glucose 277 H POC Glucose 226 H 288 H Hemoglobin A1c Lactic Acid Calcium 7.9 L Ferritin Alkaline Phosphatase 231 H Lactate Dehydrogenase C-Reactive Protein NT-Pro-B Natriuret Pep Total Protein Albumin 2.7 L Ur Specific [place] Urine WBC (Auto) Coronavirus (PCR) Miscellaneous Test 08/10/19 08/10/19 08/10/19 08:16 08:31 12:25 Hgb Hct RDW Lymph % (Auto) [place] % (Auto) Lymph # Seg Neutrophils % D-Dimer Carbon Dioxide BUN Creatinine Glucose POC Glucose 284 H 387 H Hemoglobin A1c Lactic Acid Calcium Ferritin Alkaline Phosphatase Lactate Dehydrogenase C-Reactive Protein NT-Pro-B Natriuret Pep Total Protein Albumin Ur Specific [place] Urine WBC (Auto) Coronavirus (PCR) Miscellaneous Test Flexitest 1 H 08/10/19 08/10/19 08/11/19 18:03 21:10 05:14 Hgb Hct RDW Lymph % (Auto) [place] % (Auto) Lymph # Seg Neutrophils % D-Dimer Carbon Dioxide BUN 21 H Creatinine Glucose 368 H POC Glucose 297 H 259 H Hemoglobin A1c Lactic Acid Calcium Ferritin Alkaline Phosphatase 223 H Lactate Dehydrogenase C-Reactive Protein NT-Pro-B Natriuret Pep Total Protein Albumin 3.0 L Ur Specific [place] Urine WBC (Auto) Coronavirus (PCR) Miscellaneous Test 08/11/19 08/11/19 08/11/19 08:02 12:08 16:21 Hgb Hct RDW Lymph % (Auto) [place] % (Auto) Lymph # Seg Neutrophils % D-Dimer Carbon Dioxide BUN Creatinine Glucose POC Glucose 300 H 447 H 295 H Hemoglobin A1c Lactic Acid Calcium Ferritin Alkaline Phosphatase Lactate Dehydrogenase C-Reactive Protein NT-Pro-B Natriuret Pep Total Protein Albumin Ur Specific [place] Urine WBC (Auto) Coronavirus (PCR) Miscellaneous Test 08/11/19 08/12/19 08/12/19 21:42 05:04 07:47 Hgb Hct RDW Lymph % (Auto) [place] % (Auto) Lymph # Seg Neutrophils % D-Dimer Carbon Dioxide BUN 21 H Creatinine 0.5 L Glucose 276 H POC Glucose 447 H 274 H Hemoglobin A1c Lactic Acid Calcium Ferritin Alkaline Phosphatase 188 H Lactate Dehydrogenase C-Reactive Protein NT-Pro-B Natriuret Pep Total Protein 6.1 L Albumin 2.9 L Ur Specific [place] Urine WBC (Auto) Coronavirus (PCR) Miscellaneous Test 08/12/19 08/12/19 08/12/19 11:57 18:10 22:00 Hgb Hct RDW Lymph % (Auto) [place] % (Auto) Lymph # Seg Neutrophils % D-Dimer Carbon Dioxide BUN Creatinine Glucose POC Glucose 367 H 285 H 239 H Hemoglobin A1c Lactic Acid Calcium Ferritin Alkaline Phosphatase Lactate Dehydrogenase C-Reactive Protein NT-Pro-B Natriuret Pep Total Protein Albumin Ur Specific [place] Urine WBC (Auto) Coronavirus (PCR) Miscellaneous Test 08/13/19 08/13/19 08/13/19 04:10 04:10 04:10 Hgb Hct 44.3 H RDW 15.4 H Lymph % (Auto) 7.6 L [place] % (Auto) Lymph # 0.7 L Seg Neutrophils % 85.3 H D-Dimer Carbon Dioxide BUN 19 H 20 H Creatinine 0.5 L 0.5 L Glucose 201 H 199 H POC Glucose Hemoglobin A1c Lactic Acid Calcium 8.0 L 8.1 L Ferritin Alkaline Phosphatase 167 H Lactate Dehydrogenase C-Reactive Protein NT-Pro-B Natriuret Pep Total Protein 5.7 L Albumin 3.0 L Ur Specific [place] Urine WBC (Auto) Coronavirus (PCR) Miscellaneous Test 08/13/19 08/13/19 08/13/19 08:35 12:11 16:09 Hgb Hct RDW Lymph % (Auto) [place] % (Auto) Lymph # Seg Neutrophils % D-Dimer Carbon Dioxide BUN Creatinine Glucose POC Glucose 247 H 351 H 253 H Hemoglobin A1c Lactic Acid Calcium Ferritin Alkaline Phosphatase Lactate Dehydrogenase C-Reactive Protein NT-Pro-B Natriuret Pep Total Protein Albumin Ur Specific [place] Urine WBC (Auto) Coronavirus (PCR) Miscellaneous Test 08/13/19 08/14/19 08/14/19 21:45 04:56 07:28 Hgb 14.5 H Hct 44.2 H RDW 15.3 H Lymph % (Auto) 7.0 L [place] % (Auto) Lymph # 0.6 L Seg Neutrophils % 85.3 H D-Dimer Carbon Dioxide BUN Creatinine 0.5 L Glucose 228 H POC Glucose 242 H Hemoglobin A1c Lactic Acid Calcium 7.9 L Ferritin Alkaline Phosphatase 150 H Lactate Dehydrogenase C-Reactive Protein NT-Pro-B Natriuret Pep Total Protein 5.6 L Albumin 3.1 L Ur Specific [place] Urine WBC (Auto) Coronavirus (PCR) Miscellaneous Test 08/14/19 08/14/19 08/14/19 08:10 11:53 17:20 Hgb Hct RDW Lymph % (Auto) [place] % (Auto) Lymph # Seg Neutrophils % D-Dimer Carbon Dioxide BUN Creatinine Glucose POC Glucose 210 H 335 H 211 H Hemoglobin A1c Lactic Acid Calcium Ferritin Alkaline Phosphatase Lactate Dehydrogenase C-Reactive Protein NT-Pro-B Natriuret Pep Total Protein Albumin Ur Specific [place] Urine WBC (Auto) Coronavirus (PCR) Miscellaneous Test 08/14/19 08/14/19 08/15/19 18:08 23:25 05:09 Hgb Hct RDW Lymph % (Auto) [place] % (Auto) Lymph # Seg Neutrophils % D-Dimer Carbon Dioxide BUN Creatinine 0.4 L Glucose 222 H POC Glucose 255 H 272 H Hemoglobin A1c Lactic Acid Calcium 8.0 L Ferritin Alkaline Phosphatase 139 H Lactate Dehydrogenase C-Reactive Protein NT-Pro-B Natriuret Pep Total Protein 6.0 L Albumin 3.0 L Ur Specific [place] Urine WBC (Auto) Coronavirus (PCR) Miscellaneous Test 08/15/19 05:09 Hgb Hct RDW Lymph % (Auto) 8.1 L [place] % (Auto) 7.6 H Lymph # 0.7 L Seg Neutrophils % 83.9 H D-Dimer Carbon Dioxide BUN Creatinine Glucose POC Glucose Hemoglobin A1c Lactic Acid Calcium Ferritin Alkaline Phosphatase Lactate Dehydrogenase C-Reactive Protein NT-Pro-B Natriuret Pep Total Protein Albumin Ur Specific [place] Urine WBC (Auto) Coronavirus (PCR) Miscellaneous Test
--- NOTE | 2019-08-15 10:19 | Progress Note ---
Assessment and Plan Assessment and plan: Severe sepsis. Etiology secondary to COVID-19 pneumonia. COVID pneumonia. Patient with likely cytokine storm, microthrombi and elevated inflammatory markers. Patient is s/p Actemra on 08/06. ARDS. Etiology secondary to above. Acute hypoxemic respiratory failure. Continue O2 and BiPAP as clinically indicated. Etiology secondary to above. Diabetes mellitus type 2. Continue Lantus at bedtime. Patient with Solu- Medrol. 08/12/2019. Pulmonary following and recommending pronating during the day and at night. Continue Solu-Medrol 40 mg every 8 hours for a total of 7 days. Patient s/p Actemra and Remdisiver. Patient currently on HFNC requiring 40 L O2. Increase Lantus to 15 units at bedtime. 08/13/2019. Continue pronating. ID reports patient enrolled in Expanded Access Program for Convalescent Plasma patient gama=[id number]. Continue Remdesivir - 100 mg IV daily x 9 days. Continue solumedrol 40 mg IV q 8 hours. Continue anticoagulation for elevated d-dimer. Follow-up quantiferon and IL6. Continue vitamin C and E. Continue COVID isolation precautions. Patient with high risk mortality 08/14/2019. Patient currently with high flow nasal cannula 40 L/min FiO2 90%. Convalescent plasma per ID. Continue Remdesivir, s/p Actemra, IV Solu-Medrol 40 mg every 8 hour and Lovenox 90 mg subcu every 12 hours. Continue proning paulette ent. Prognosis remains guarded. 08/15/2019. Patient currently with high flow nasal cannula 40 L/min FiO2 80%. Convalescent plasma per ID. Continue Remdesivir, s/p Actemra, IV Solu-Medrol 40 mg every 8 hour and Lovenox 90 mg subcu every 12 hours. Continue proning patient. Prognosis remains guarded. The high probability of a clinically significant, sudden or life threatening deterioration of the [respiratory] system(s) required my full and direct attention, intervention and personal management. The aggregate critical care time was [31] minutes. This time is in addition to time spent performing reported procedures but includes the following: [x] Data Review and interpretation [x] Patient assessment and monitoring of vital signs [x] Documentation [x] Medication orders and management History Interval history: No new issues overnight. Patient still requiring HFNC with 40 L of oxygen. Hospitalist Physical - Constitutional Vitals: Temp Pulse Resp BP Pulse Ox 98.2 F 75 23 124/61 92 08/15/19 08:00 08/15/19 08:24 08/15/19 08:24 08/15/19 08:01 08/15/19 08:24 General appearance: Present: no acute distress, well-nourished - EENT Eyes: Present: PERRL, EOM intact ENT: hearing intact, clear oral mucosa, dentition normal - Neck Neck: Present: supple, normal ROM - Respiratory Respiratory effort: normal Respiratory: bilateral: CTA - Cardiovascular Rhythm: regular Heart Sounds: Present: S1 & S2. Absent: gallop, rub - Extremities Extremities: no ischemia, No edema, Full ROM - Abdominal General gastrointestinal: soft, non-tender, non-distended, normal bowel sounds - Integumentary Integumentary: Present: clear, warm, dry - Neurologic Neurologic: CNII-XII intact, moves all extremities Results - Labs CBC & Chem 7: 08/15/19 05:09 08/15/19 05:09 Labs: Laboratory Last Values WBC 9.2 K/mm3 (4.5-11.0) 08/15/19 05:09 RBC 4.58 M/mm3 (3.65-5.03) 08/15/19 05:09 Hgb 13.9 gm/dl (10.1-14.3) 08/15/19 05:09 Hct 42.3 % (30.3-42.9) 08/15/19 05:09 MCV 92 fl (79-97) 08/15/19 05:09 MCH 30 pg (28-32) 08/15/19 05:09 MCHC 33 % (30-34) 08/15/19 05:09 RDW 15.2 % (13.2-15.2) 08/15/19 05:09 Plt Count 161 K/mm3 (140-440) 08/15/19 05:09 Lymph % (Auto) 8.1 % (13.4-35.0) L 08/15/19 05:09 [place] % (Auto) 7.6 % (0.0-7.3) H 08/15/19 05:09 Eos % (Auto) 0.1 % (0.0-4.3) 08/15/19 05:09 Baso % (Auto) 0.3 % (0.0-1.8) 08/15/19 05:09 Lymph # 0.7 K/mm3 (1.2-5.4) L 08/15/19 05:09 [place] # 0.7 K/mm3 (0.0-0.8) 08/15/19 05:09 Eos # 0.0 K/mm3 (0.0-0.4) 08/15/19 05:09 Baso # 0.0 K/mm3 (0.0-0.1) 08/15/19 05:09 Add Manual Diff Complete 08/13/19 04:10 Seg Neutrophils % 83.9 % (40.0-70.0) H 08/15/19 05:09 Nucleated RBC % Not Reportable 08/13/19 04:10 Seg Neutrophils # 7.7 K/mm3 (1.8-7.7) 08/15/19 05:09 WBC Morphology Not Reportable 08/13/19 04:10 Hypersegmented Neuts Not Reportable 08/13/19 04:10 Hyposegmented Neuts Not Reportable 08/13/19 04:10 Hypogranular Neuts Not Reportable 08/13/19 04:10 Smudge Cells Not Reportable 08/13/19 04:10 Toxic Granulation Not Reportable 08/13/19 04:10 Toxic Vacuolation Not Reportable 08/13/19 04:10 Dohle Bodies Not Reportable 08/13/19 04:10 Pelger-Huet Anomaly Not Reportable 08/13/19 04:10 Kaylynn Rods Not Reportable 08/13/19 04:10 Platelet Estimate Not Reportable 08/13/19 04:10 Clumped Platelets Not Reportable 08/13/19 04:10 Plt Clumps, EDTA Not Reportable 08/13/19 04:10 Large Platelets Not Reportable 08/13/19 04:10 Giant Platelets Not Reportable 08/13/19 04:10 Platelet Satelliting Not Reportable 08/13/19 04:10 Plt Morphology Comment Not Reportable 08/13/19 04:10 RBC Morphology Not Reportable 08/13/19 04:10 Dimorphic RBCs Not Reportable 08/13/19 04:10 Polychromasia Not Reportable 08/13/19 04:10 Hypochromasia Not Reportable 08/13/19 04:10 Poikilocytosis Not Reportable 08/13/19 04:10 Anisocytosis Not Reportable 08/13/19 04:10 Microcytosis Not Reportable 08/13/19 04:10 Macrocytosis Not Reportable 08/13/19 04:10 Spherocytes Not Reportable 08/13/19 04:10 Pappenheimer Bodies Not Reportable 08/13/19 04:10 Sickle Cells Not Reportable 08/13/19 04:10 Target Cells Not Reportable 08/13/19 04:10 Tear Drop Cells Not Reportable 08/13/19 04:10 Ovalocytes Not Reportable 08/13/19 04:10 Helmet Cells Not Reportable 08/13/19 04:10 Rader-Jessie Bodies Not Reportable 08/13/19 04:10 [place] Rings Not Reportable 08/13/19 04:10 [place] Cells Not Reportable 08/13/19 04:10 Bite Cells Not Reportable 08/13/19 04:10 Crenated Cell Not Reportable 08/13/19 04:10 Elliptocytes Not Reportable 08/13/19 04:10 Acanthocytes (Spur) Not Reportable 08/13/19 04:10 Rouleaux Not Reportable 08/13/19 04:10 Hemoglobin C Crystals Not Reportable 08/13/19 04:10 Schistocytes Not Reportable 08/13/19 04:10 Malaria parasites Not Reportable 08/13/19 04:10 Humberto Bodies Not Reportable 08/13/19 04:10 Hem Pathologist Commnt Not Reportable 08/13/19 04:10 APTT 26.3 Sec. (24.2-36.6) 08/05/19 14:53 D-Dimer 3795.56 ng/mlDDU (0-234) H 08/09/19 12:29 Sodium 139 mmol/L (137-145) 08/15/19 05:09 Potassium 4.2 mmol/L (3.6-5.0) 08/15/19 05:09 Chloride 99.0 mmol/L (98-107) 08/15/19 05:09 Carbon Dioxide 27 mmol/L (22-30) 08/15/19 05:09 Anion Gap 17 mmol/L 08/15/19 05:09 BUN 14 mg/dL (7-17) 08/15/19 05:09 Creatinine 0.4 mg/dL (0.7-1.2) L 08/15/19 05:09 Estimated GFR > 60 ml/min 08/15/19 05:09 BUN/Creatinine Ratio 35 % 08/15/19 05:09 Glucose 222 mg/dL (65-100) H 08/15/19 05:09 POC Glucose 272 (70-105) H 08/14/19 23:25 Hemoglobin A1c 7.6 % (4-6) H 08/06/19 Unknown Lactic Acid 1.90 mmol/L (0.7-2.0) 08/05/19 22:51 Calcium 8.0 mg/dL (8.4-10.2) L 08/15/19 05:09 Ferritin 594.1 ng/mL (13.0-400.0) H 08/09/19 12:29 Total Bilirubin 1.00 mg/dL (0.1-1.2) 08/15/19 05:09 AST 23 units/L (5-40) 08/15/19 05:09 ALT 45 units/L (7-56) 08/15/19 05:09 Alkaline Phosphatase 139 units/L (35-129) H 08/15/19 05:09 Lactate Dehydrogenase 866 units/L (91-180) H 08/09/19 05:22 C-Reactive Protein 14.70 mg/dL (0.00-1.30) H 08/09/19 05:22 NT-Pro-B Natriuret Pep 1818 pg/mL (0-900) H 08/05/19 15:07 Total Protein 6.0 g/dL (6.3-8.2) L 08/15/19 05:09 Albumin 3.0 g/dL (3.9-5) L 08/15/19 05:09 Albumin/Globulin Ratio 1.0 % 08/15/19 05:09 Procalcitonin 1.06 ng/mL (<0.15) 08/09/19 12:29 Urine Color [place] (Yellow) 08/05/19 19:54 Urine Turbidity Clear (Clear) 08/05/19 19:54 Urine pH 5.0 (5.0-7.0) 08/05/19 19:54 Ur Specific [place] 1.031 (1.003-1.030) H 08/05/19 19:54 Urine Protein 100 mg/dl mg/dL (Negative) 08/05/19 19:54 Urine Glucose (UA) 50 mg/dL (Negative) 08/05/19 19:54 Urine Ketones Neg mg/dL (Negative) 08/05/19 19:54 Urine Blood Neg (Negative) 08/05/19 19:54 Urine Nitrite Neg (Negative) 08/05/19 19:54 Urine Bilirubin Neg (Negative) 08/05/19 19:54 Urine Urobilinogen < 2.0 mg/dL (<2.0) 08/05/19 19:54 Ur Leukocyte Esterase Neg (Negative) 08/05/19 19:54 Urine WBC (Auto) 8.0 /HPF (0.0-6.0) H 08/05/19 19:54 Urine RBC (Auto) 1.0 /HPF (0.0-6.0) 08/05/19 19:54 U Epithel Cells (Auto) 10.0 /HPF (0-13.0) 08/05/19 19:54 Urine Mucus 1+ /HPF 08/05/19 19:54 Coronavirus (PCR) Positive (Negative) A 08/06/19 09:17 Miscellaneous Test Flexitest 1 H 08/10/19 08:16 Blood Type A POSITIVE 08/11/19 15:00 Antibody Screen Negative 08/11/19 15:00 [place]/IV: Voiding Method Bedside Commode IV Catheter Type [Left Forearm INT / Saline Lock ] IV Catheter Type [Right Wrist] Peripheral IV IV Catheter Type [Right INT / Saline Lock Forearm] IV Catheter Type [Left Hand] Peripheral IV IV Catheter Type [Left Peripheral IV Antecubital] Active Medications - Current Medications Current Medications: Generic Name Dose Route Start Last Admin Trade Name Freq PRN Reason Stop Dose Admin Acetaminophen 650 mg 08/05/19 21:32 08/06/19 20:05 Tylenol PO 650 mg Q4H PRN Administration Pain MILD(1-3)/Fever >100.5/BUTLER Ascorbic Acid 500 mg 08/08/19 10:00 08/14/19 21:12 Vitamin C PO 500 mg BID RAISA Administration Benzonatate 100 mg 08/06/19 01:00 08/15/19 08:24 Tessalon Perles PO 100 mg Q8H RAISA Administration Cholecalciferol 5,000 unit 08/08/19 10:00 08/14/19 11:41 Vitamin D3 PO 5,000 unit QDAY RAISA Administration Enoxaparin Sodium 90 mg 08/05/19 22:00 08/14/19 21:12 Enoxaparin SUB-Q 90 mg Q12HR RAISA Administration Famotidine 20 mg 08/05/19 22:00 08/14/19 21:12 Pepcid PO 20 mg BID RAISA Administration Hydromorphone HCl 0.5 mg 08/05/19 21:32 08/06/19 22:28 Dilaudid IV 0.5 mg Q3H PRN Administration Pain , Severe (7-10) Hydrophilic Ointment 1 applic 08/13/19 18:22 08/13/19 18:29 Vaseline Lip Therapy TP 1 applic DIRECT PRN Administration Dry Lips Sodium Chloride 50 mls @ 999 mls/hr 08/08/19 19:00 08/14/19 19:01 Nacl 0.9% IV 08/16/19 18:59 999 mls/hr Q24H RAISA Administration REMDESIVIR 100 mg/ Sodium 250 mls @ 500 mls/hr 08/12/19 18:00 08/14/19 18:20 Chloride IV 08/16/19 17:59 500 mls/hr Q24H RAISA Administration Sodium Chloride 500 mls @ 1,225 mls/hr 08/14/19 18:46 08/14/19 19:32 Nacl 0.9% 500 Ml IV 08/15/19 18:45 1,225 mls/hr ONCE RAISA Administration Insulin Glargine 15 units 08/12/19 22:00 08/14/19 21:13 Lantus SUB-Q 15 units QHS RAISA Administration Insulin Human Lispro 0 unit 08/05/19 22:00 08/15/19 08:24 Humalog SUB-Q 4 unit ACHS RAISA Administration Protocol Methylprednisolone Sodium Succinate 40 mg 08/07/19 14:00 08/15/19 06:21 Solu-Medrol IV 40 mg Q8HR RAISA Administration Metoclopramide HCl 10 mg 08/05/19 21:32 Reglan IV Q6H PRN Nausea And Vomiting Ondansetron HCl 4 mg 08/05/19 21:32 Zofran IV Q8H PRN Nausea And Vomiting Oxycodone/Acetaminophen 1 tab 08/05/19 21:32 08/14/19 21:11 Percocet 5/325 PO 1 tab Q6H PRN Administration Pain, Moderate (4-6) Sodium Chloride 10 ml 08/05/19 22:00 08/14/19 21:13 Sodium Chloride Flush Syringe 10 Ml IV 10 ml BID RAISA Administration Sodium Chloride 10 ml 08/05/19 21:32 Sodium Chloride Flush Syringe 10 Ml IV PRN PRN LINE FLUSH Nutrition/Malnutrition Assess - Dietary Evaluation Nutrition/Malnutrition Findings: Nutrition Notes Start: 08/06/19 0 8:35 Freq: Status: Active Protocol: Document 08/11/19 09:16 LP (Rec: 08/11/19 10:57 LP [id number]) Nutrition Notes Initial or Follow up Reassessment Current Diagnosis Diabetes Other Pertinent Diagnosis ARDS, Suspected COVID-19 Current Diet Cardiac/consistent CHO Labs/Tests BG 368 Pertinent Medications Reviewed Height 5 ft 5 in Weight 92.35 kg [place] Body Weight (kg) 56.81 BMI 33.8 Weight Status Obese Subjective/Other Information Pt eating well. Consuming most of meals. Percent of energy/protein needs met: 100%/91% Burn Absent Trauma Absent Current % PO Good (75-100%) Minimum of two criteria No physical signs of malnutrition #2 Nutrition Diagnosis Inadequate oral intake As Evidenced by Signs and Symptoms Pt is meeting 100% of kcal and 91% of protein needs Diagnosis Progress(for reassessment Improved documentation) #1 Nutrition Diagnosis Predicted suboptimal energy intake Diagnosis Progress(for reassessment Resolved documentation) Is patient on ventilator? No Is Patient Ambulatory and/or Out of Bed Yes REE-([place], [place]-ambulatory/OOB) [ 1975.194 [id number]] Kcal/Kg value to use for calculation 17 Approximate Energy Requirements Using 1570 kcal/Kg Calculation Used for Recommendations Kcal/kg Additional Notes Protein needs are 74-92g (0.8- 1g/kg) Fluid needs are 1ml/kcal Nutrition Intervention Change Diet Order: Continue Add Supplement/Snack (indicate name/kcal D/C /protein ) Goal #1 Continue to meet at least 80% of kcal and protein needs Anticipated Discharge Needs: Cardiac/consistent CHO diet Follow-Up By: 08/18/19 Additional Comments Follow for stable intakes
[2019-08-15] MEDS: CHOLECALCIFEROL (VIT D3) 5,000 UNIT TAB PO SCH (10:28)
[2019-08-15] MEDS: FAMOTIDINE 20 MG TAB PO SCH ×2 (10:28→22:02)
[2019-08-15] MEDS: ASCORBIC ACID 500 MG TAB PO SCH ×2 (10:28→22:04)
[2019-08-15] MEDS: ENOXAPARIN 100 MG/1 ML INJ SUB-Q SCH ×2 (10:29→21:59)
--- NOTE | 2019-08-15 12:20 | Progress Note ---
Assessment and Plan Cultures: Blood culture 08/05/2019 no growth Assessment: 54 years old female with history of obesity, diabetes, admitted on 08/05/2019 due to 2-week history of dry cough, generalized malaise and progressive shortness of breath: #Severe sepsis: likely due to severe COVID pneumonia. #Severe COVID pneumonia: Inflamatory markers are elevated- D-dimer > 10,000-->10,000--.3795, ferritin 438-->415-->594, LDH 702-->745, CRP 32-->34-. S/p Actemra 4 mg/kg x 1 on 08/06. S/p ceftriaxone/azithro 5 days. S/P Plasma infusion on 08/14/2019 #Acute hypoxemic respiratory failure: remains on high flow oxygen. #DM: uncontrolled. Monitor sugars alma on steroids. Recommendations: S/P Plasma infusion on 08/14/2019 Continue Remdesivir - 100 mg IV daily x 9 days Day 9 of 10 OK to wean steroids, per pulmonary Continue anticoagulation for elevated d-dimer F/u quantiferon Anna Rivera MD, FACP [facility] C: [phone] O: [phone] F: [phone] Subjective Date of service: 08/15/19 Principal diagnosis: Bilateral pneumonia, ARDS Interval history: Finally received the plasma infusion last night, 229 ml, discussed with RN. Remains afebrile and on high flow oxygen. Objective - Exam Narrative Exam: Physical Exam (reviewed in chart due to PPE conservation) Constitutional: limited due to PPE conservation strategy Head, Ears, Nose: limited due to PPE conservation strategy Eyes: limited due to PPE conservation strategy Neck: limited due to PPE conservation strategy Oral: limited due to PPE conservation strategy Cardiovascular: limited due to PPE conservation strategy Respiratory: limited due to PPE conservation strategy GI: limited due to PPE conservation strategy Musculoskeletal: limited due to PPE conservation strategy Skin: limited due to PPE conservation strategy Hem/Lymphatic: limited due to PPE conservation strategy Psych: limited due to PPE conservation strategy Neurological: limited due to PPE conservation strategy - Constitutional Vitals: Vital Signs Temp Pulse Resp BP Pulse Ox 98.2 F 80 29 H 124/61 99 08/15/19 08:00 08/15/19 11:08/15/19 11:01 08/15/19 11:01 08/15/19 11:01 Temperature -Last 24 Hours Temperature 98.2 F Temperature 98.9 F Temperature 98.8 F Temperature 98.6 F Temperature 98.0 F - Labs CBC & Chem 7: 08/15/19 05:09 08/15/19 05:09 Labs: Abnormal lab results 08/14/19 08/14/19 08/14/19 Range/Units 17:20 18:08 23:25 Lymph % (Auto) (13.4-35.0) % [place] % (Auto) (0.0-7.3) % Lymph # (1.2-5.4) K/mm3 Seg Neutrophils % (40.0-70.0) % Creatinine (0.7-1.2) mg/dL Glucose (65-100) mg/dL POC Glucose 211 H 255 H 272 H (70-105) Calcium (8.4-10.2) mg/dL Alkaline Phosphatase (35-129) units/L Total Protein (6.3-8.2) g/dL Albumin (3.9-5) g/dL 08/15/19 08/15/19 Range/Units 05:09 05:09 Lymph % (Auto) 8.1 L (13.4-35.0) % [place] % (Auto) 7.6 H (0.0-7.3) % Lymph # 0.7 L (1.2-5.4) K/mm3 Seg Neutrophils % 83.9 H (40.0-70.0) % Creatinine 0.4 L (0.7-1.2) mg/dL Glucose 222 H (65-100) mg/dL POC Glucose (70-105) Calcium 8.0 L (8.4-10.2) mg/dL Alkaline Phosphatase 139 H (35-129) units/L Total Protein 6.0 L (6.3-8.2) g/dL Albumin 3.0 L (3.9-5) g/dL
[2019-08-15] MEDS: REMDESIVIR 100 MG in SODIUM CHLORIDE 0.9% 250ML 250 ML IV SCH (17:13)
[2019-08-15] MEDS: SODIUM CHLORIDE 0.9% 50 ML IV SCH (18:24)
[2019-08-15] MEDS: INSULIN GLARGINE 100 UNITS/ML SUB-Q SCH (22:01)
[2019-08-16] MEDS: BENZONATATE 100 MG CAP PO SCH ×3 (00:01→17:11)
[2019-08-16 05:45] LABS: Basophils % (Auto) 0.4 % (0.0-1.8); Hematocrit 43.7 % (30.3-42.9); Hemoglobin 14.3 gm/dl (10.1-14.3); Lymphocytes # (Auto) 0.6 K/mm3 (1.2-5.4); Lymphocytes % (Auto) 5.4 % (13.4-35.0); Mean Corpuscular HGB Conc 33 % (30-34); Mean Corpuscular Volume 91 fl (79-97); Monocytes # (Auto) 0.6 K/mm3 (0.0-0.8); Monocytes % (Auto) 5.2 % (0.0-7.3); Platelet Count 163 K/mm3 (140-440); Red Blood Count 4.83 M/mm3 (3.65-5.03); Red Cell Distribution Width 15.7 % (13.2-15.2)
[2019-08-16 05:54] LABS: BUN/Creatinine Ratio 40; Blood Urea Nitrogen 16 mg/dL (7-17); Calcium 8.1 mg/dL (8.4-10.2); Hemolysis Index 92
[2019-08-16] MEDS: methylPREDNISolone Sod Succinate 40 MG/1 ML INJ IV SCH ×3 (06:31→21:37)
--- NOTE | 2019-08-16 08:51 | Progress Note ---
Assessment and Plan 54 y/o female with acute respiratory failure secondary to COVID 19 1. Proning during the day and prone sleeping at night. Begged her to continue to do this. 2. Will start steroids 40q8 for 7 days, today is day 8. She is improving so w ill drop down to 20q8 starting today. 3. Agree with Actemra, given 4. Agree with Remdisiver, given 5. Convaslescent plasma given on 08/14/2019 6. Continue to wean HFNC as tolerated. Hold on lasix therapy for today again. Subjective Date of service: 08/16/19 Principal diagnosis: Bilateral pneumonia, ARDS Interval history: No acute events. Down to 55% now on HFNC and 30liters flow. Proning at night. Remainder is negative. Patient did get Convaslescent plasma on 08/13. Hard copies are in the chart but no documentation in [facility]. Objective Vital Signs - 12hr 08/15/19 08/15/19 08/15/19 21:01 22:01 23:00 Temperature Pulse Rate 77 75 71 Pulse Rate [ From Monitor] Respiratory 16 16 20 Rate Blood Pressure 137/38 135/73 153/89 O2 Sat by Pulse 96 90 92 Oximetry 08/16/19 08/16/19 08/16/19 00:00 01:00 02:00 Temperature 98.3 F Pulse Rate 64 65 60 Pulse Rate [ 64 From Monitor] Respiratory 20 19 12 Rate Blood Pressure 143/71 107/50 100/46 O2 Sat by Pulse 94 96 94 Oximetry 08/16/19 08/16/19 08/16/19 02:12 02:17 02:20 Temperature Pulse Rate 64 72 Pulse Rate [ From Monitor] Respiratory Rate Blood Pressure O2 Sat by Pulse 98 Oximetry 08/16/19 08/16/19 08/16/19 03:01 04:00 05:00 Temperature 98.4 F Pulse Rate 63 67 59 L Pulse Rate [ 65 From Monitor] Respiratory 29 H 16 18 Rate Blood Pressure 123/69 116/73 136/72 O2 Sat by Pulse 90 92 Oximetry 08/16/19 08/16/19 08/16/19 06:00 07:00 07:54 Temperature 98.4 F Pulse Rate 62 63 Pulse Rate [ From Monitor] Respiratory 19 22 Rate Blood Pressure 140/79 134/71 O2 Sat by Pulse 96 91 Oximetry Constitutional: alert, other (critically ill on HFNC) Eyes: non-icteric Effort: mildly labored Ascultation: Bilateral: rales Cardiovascular: regular rate and rhythm (no mrg) Gastrointestinal: normoactive bowel sounds, soft, non-tender, non-distended Integumentary: normal Extremities: no cyanosis, no edema, pink and warm Neurologic: normal mental status, non-focal exam, pupils equal and round, CN II- XII normal Psychiatric: mood appropriate, affect normal CBC and BMP: 08/16/19 04:12 08/16/19 04:12 ABG, PT/INR, D-dimer: PT/INR, D-dimer D-Dimer 3795.56 ng/mlDDU (0-234) H 08/09/19 12:29 Abnormal lab findings: Abnormal Labs 08/05/19 08/05/19 08/05/19 14:53 14:53 14:53 Hgb Hct RDW Lymph % (Auto) 13.0 L [place] % (Auto) 10.8 H Lymph # 0.9 L Seg Neutrophils % 74.0 H Seg Neutrophils # D-Dimer > 37142 H Carbon Dioxide 20 L BUN 6 L Creatinine 0.6 L Glucose 255 H POC Glucose Hemoglobin A1c Lactic Acid Calcium Ferritin Alkaline Phosphatase 173 H Lactate Dehydrogenase C-Reactive Protein NT-Pro-B Natriuret Pep Total Protein Albumin 2.9 L Ur Specific [place] Urine WBC (Auto) Coronavirus (PCR) Miscellaneous Test 08/05/19 08/05/19 08/05/19 14:53 14:53 14:53 Hgb Hct RDW Lymph % (Auto) [place] % (Auto) Lymph # Seg Neutrophils % Seg Neutrophils # D-Dimer Carbon Dioxide BUN Creatinine Glucose 256 H POC Glucose Hemoglobin A1c Lactic Acid 3.40 H* Calcium Ferritin 438.9 H Alkaline Phosphatase Lactate Dehydrogenase 702 H C-Reactive Protein 32.90 H NT-Pro-B Natriuret Pep Total Protein Albumin Ur Specific [place] Urine WBC (Auto) Coronavirus (PCR) Miscellaneous Test 08/05/19 08/05/19 08/06/19 15:07 19:54 00:21 Hgb Hct RDW Lymph % (Auto) [place] % (Auto) Lymph # Seg Neutrophils % Seg Neutrophils # D-Dimer Carbon Dioxide BUN Creatinine Glucose POC Glucose 131 H Hemoglobin A1c Lactic Acid Calcium Ferritin Alkaline Phosphatase Lactate Dehydrogenase C-Reactive Protein NT-Pro-B Natriuret Pep 1818 H Total Protein Albumin Ur Specific [place] 1.031 H Urine WBC (Auto) 8.0 H Coronavirus (PCR) Miscellaneous Test 08/06/19 08/06/19 08/06/19 08:29 09:17 11:56 Hgb Hct RDW Lymph % (Auto) [place] % (Auto) Lymph # Seg Neutrophils % Seg Neutrophils # D-Dimer Carbon Dioxide BUN Creatinine Glucose POC Glucose 165 H 190 H Hemoglobin A1c Lactic Acid Calcium Ferritin Alkaline Phosphatase Lactate Dehydrogenase C-Reactive Protein NT-Pro-B Natriuret Pep Total Protein Albumin Ur Specific [place] Urine WBC (Auto) Coronavirus (PCR) Positive A Miscellaneous Test 08/06/19 08/06/19 08/06/19 16:16 22:16 Unknown Hgb Hct RDW Lymph % (Auto) [place] % (Auto) Lymph # Seg Neutrophils % Seg Neutrophils # D-Dimer Carbon Dioxide BUN Creatinine Glucose POC Glucose 170 H 128 H Hemoglobin A1c 7.6 H Lactic Acid Calcium Ferritin Alkaline Phosphatase Lactate Dehydrogenase C-Reactive Protein NT-Pro-B Natriuret Pep Total Protein Albumin Ur Specific [place] Urine WBC (Auto) Coronavirus (PCR) Miscellaneous Test 08/07/19 08/07/19 08/07/19 07:59 11:39 11:56 Hgb Hct RDW Lymph % (Auto) [place] % (Auto) Lymph # Seg Neutrophils % Seg Neutrophils # D-Dimer Carbon Dioxide BUN Creatinine 0.6 L Glucose 194 H POC Glucose 141 H 195 H Hemoglobin A1c Lactic Acid Calcium 8.0 L Ferritin Alkaline Phosphatase 181 H Lactate Dehydrogenase C-Reactive Protein NT-Pro-B Natriuret Pep Total Protein Albumin 2.5 L Ur Specific [place] Urine WBC (Auto) Coronavirus (PCR) Miscellaneous Test 08/07/19 08/07/19 08/07/19 11:56 11:56 11:56 Hgb Hct RDW Lymph % (Auto) [place] % (Auto) Lymph # Seg Neutrophils % Seg Neutrophils # D-Dimer > 03738 H Carbon Dioxide BUN Creatinine Glucose POC Glucose Hemoglobin A1c Lactic Acid Calcium Ferritin 415.7 H Alkaline Phosphatase Lactate Dehydrogenase 745 H C-Reactive Protein NT-Pro-B Natriuret Pep Total Protein Albumin Ur Specific [place] Urine WBC (Auto) Coronavirus (PCR) Miscellaneous Test 08/07/19 08/07/19 08/07/19 11:56 16:35 21:36 Hgb Hct RDW Lymph % (Auto) [place] % (Auto) Lymph # Seg Neutrophils % Seg Neutrophils # D-Dimer Carbon Dioxide BUN Creatinine Glucose POC Glucose 176 H 277 H Hemoglobin A1c Lactic Acid Calcium Ferritin Alkaline Phosphatase Lactate Dehydrogenase C-Reactive Protein 34.20 H NT-Pro-B Natriuret Pep Total Protein Albumin Ur Specific [place] Urine WBC (Auto) Coronavirus (PCR) Miscellaneous Test 08/08/19 08/08/19 08/08/19 07:53 08:54 11:40 Hgb Hct RDW Lymph % (Auto) [place] % (Auto) Lymph # Seg Neutrophils % Seg Neutrophils # D-Dimer Carbon Dioxide BUN Creatinine 0.6 L Glucose 266 H POC Glucose 214 H 340 H Hemoglobin A1c Lactic Acid Calcium 8.3 L Ferritin Alkaline Phosphatase 222 H Lactate Dehydrogenase C-Reactive Protein NT-Pro-B Natriuret Pep Total Protein Albumin 2.5 L Ur Specific [place] Urine WBC (Auto) Coronavirus (PCR) Miscellaneous Test 08/08/19 08/08/19 08/09/19 17:04 21:49 05:22 Hgb Hct RDW Lymph % (Auto) [place] % (Auto) Lymph # Seg Neutrophils % Seg Neutrophils # D-Dimer Carbon Dioxide BUN Creatinine Glucose POC Glucose 278 H 319 H Hemoglobin A1c Lactic Acid Calcium Ferritin Alkaline Phosphatase Lactate Dehydrogenase 866 H C-Reactive Protein 14.70 H NT-Pro-B Natriuret Pep Total Protein Albumin Ur Specific [place] Urine WBC (Auto) Coronavirus (PCR) Miscellaneous Test 08/09/19 08/09/19 08/09/19 05:44 08:12 11:52 Hgb Hct RDW Lymph % (Auto) [place] % (Auto) Lymph # Seg Neutrophils % Seg Neutrophils # D-Dimer Carbon Dioxide BUN 18 H Creatinine 0.6 L Glucose 227 H POC Glucose 232 H 273 H Hemoglobin A1c Lactic Acid Calcium 8.2 L Ferritin Alkaline Phosphatase 230 H Lactate Dehydrogenase C-Reactive Protein NT-Pro-B Natriuret Pep Total Protein Albumin 2.5 L Ur Specific [place] Urine WBC (Auto) Coronavirus (PCR) Miscellaneous Test 08/09/19 08/09/19 08/09/19 12:29 12:29 17:11 Hgb Hct RDW Lymph % (Auto) [place] % (Auto) Lymph # Seg Neutrophils % Seg Neutrophils # D-Dimer 3795.56 H Carbon Dioxide BUN Creatinine Glucose POC Glucose 200 H Hemoglobin A1c Lactic Acid Calcium Ferritin 594.1 H Alkaline Phosphatase Lactate Dehydrogenase C-Reactive Protein NT-Pro-B Natriuret Pep Total Protein Albumin Ur Specific [place] Urine WBC (Auto) Coronavirus (PCR) Miscellaneous Test 08/09/19 08/10/19 08/10/19 21:58 05:07 06:14 Hgb Hct RDW Lymph % (Auto) [place] % (Auto) Lymph # Seg Neutrophils % Seg Neutrophils # D-Dimer Carbon Dioxide BUN 19 H Creatinine Glucose 277 H POC Glucose 226 H 288 H Hemoglobin A1c Lactic Acid Calcium 7.9 L Ferritin Alkaline Phosphatase 231 H Lactate Dehydrogenase C-Reactive Protein NT-Pro-B Natriuret Pep Total Protein Albumin 2.7 L Ur Specific [place] Urine WBC (Auto) Coronavirus (PCR) Miscellaneous Test 08/10/19 08/10/19 08/10/19 08:16 08:31 12:25 Hgb Hct RDW Lymph % (Auto) [place] % (Auto) Lymph # Seg Neutrophils % Seg Neutrophils # D-Dimer Carbon Dioxide BUN Creatinine Glucose POC Glucose 284 H 387 H Hemoglobin A1c Lactic Acid Calcium Ferritin Alkaline Phosphatase Lactate Dehydrogenase C-Reactive Protein NT-Pro-B Natriuret Pep Total Protein Albumin Ur Specific [place] Urine WBC (Auto) Coronavirus (PCR) Miscellaneous Test Flexitest 1 H 08/10/19 08/10/19 08/11/19 18:03 21:10 05:14 Hgb Hct RDW Lymph % (Auto) [place] % (Auto) Lymph # Seg Neutrophils % Seg Neutrophils # D-Dimer Carbon Dioxide BUN 21 H Creatinine Glucose 368 H POC Glucose 297 H 259 H Hemoglobin A1c Lactic Acid Calcium Ferritin Alkaline Phosphatase 223 H Lactate Dehydrogenase C-Reactive Protein NT-Pro-B Natriuret Pep Total Protein Albumin 3.0 L Ur Specific [place] Urine WBC (Auto) Coronavirus (PCR) Miscellaneous Test 08/11/19 08/11/19 08/11/19 08:02 12:08 16:21 Hgb Hct RDW Lymph % (Auto) [place] % (Auto) Lymph # Seg Neutrophils % Seg Neutrophils # D-Dimer Carbon Dioxide BUN Creatinine Glucose POC Glucose 300 H 447 H 295 H Hemoglobin A1c Lactic Acid Calcium Ferritin Alkaline Phosphatase Lactate Dehydrogenase C-Reactive Protein NT-Pro-B Natriuret Pep Total Protein Albumin Ur Specific [place] Urine WBC (Auto) Coronavirus (PCR) Miscellaneous Test 08/11/19 08/12/19 08/12/19 21:42 05:04 07:47 Hgb Hct RDW Lymph % (Auto) [place] % (Auto) Lymph # Seg Neutrophils % Seg Neutrophils # D-Dimer Carbon Dioxide BUN 21 H Creatinine 0.5 L Glucose 276 H POC Glucose 447 H 274 H Hemoglobin A1c Lactic Acid Calcium Ferritin Alkaline Phosphatase 188 H Lactate Dehydrogenase C-Reactive Protein NT-Pro-B Natriuret Pep Total Protein 6.1 L Albumin 2.9 L Ur Specific [place] Urine WBC (Auto) Coronavirus (PCR) Miscellaneous Test 08/12/19 08/12/19 08/12/19 11:57 18:10 22:00 Hgb Hct RDW Lymph % (Auto) [place] % (Auto) Lymph # Seg Neutrophils % Seg Neutrophils # D-Dimer Carbon Dioxide BUN Creatinine Glucose POC Glucose 367 H 285 H 239 H Hemoglobin A1c Lactic Acid Calcium Ferritin Alkaline Phosphatase Lactate Dehydrogenase C-Reactive Protein NT-Pro-B Natriuret Pep Total Protein Albumin Ur Specific [place] Urine WBC (Auto) Coronavirus (PCR) Miscellaneous Test 08/13/19 08/13/19 08/13/19 04:10 04:10 04:10 Hgb Hct 44.3 H RDW 15.4 H Lymph % (Auto) 7.6 L [place] % (Auto) Lymph # 0.7 L Seg Neutrophils % 85.3 H Seg Neutrophils # D-Dimer Carbon Dioxide BUN 19 H 20 H Creatinine 0.5 L 0.5 L Glucose 201 H 199 H POC Glucose Hemoglobin A1c Lactic Acid Calcium 8.0 L 8.1 L Ferritin Alkaline Phosphatase 167 H Lactate Dehydrogenase C-Reactive Protein NT-Pro-B Natriuret Pep Total Protein 5.7 L Albumin 3.0 L Ur Specific [place] Urine WBC (Auto) Coronavirus (PCR) Miscellaneous Test 08/13/19 08/13/19 08/13/19 08:35 12:11 16:09 Hgb Hct RDW Lymph % (Auto) [place] % (Auto) Lymph # Seg Neutrophils % Seg Neutrophils # D-Dimer Carbon Dioxide BUN Creatinine Glucose POC Glucose 247 H 351 H 253 H Hemoglobin A1c Lactic Acid Calcium Ferritin Alkaline Phosphatase Lactate Dehydrogenase C-Reactive Protein NT-Pro-B Natriuret Pep Total Protein Albumin Ur Specific [place] Urine WBC (Auto) Coronavirus (PCR) Miscellaneous Test 08/13/19 08/14/19 08/14/19 21:45 04:56 07:28 Hgb 14.5 H Hct 44.2 H RDW 15.3 H Lymph % (Auto) 7.0 L [place] % (Auto) Lymph # 0.6 L Seg Neutrophils % 85.3 H Seg Neutrophils # D-Dimer Carbon Dioxide BUN Creatinine 0.5 L Glucose 228 H POC Glucose 242 H Hemoglobin A1c Lactic Acid Calcium 7.9 L Ferritin Alkaline Phosphatase 150 H Lactate Dehydrogenase C-Reactive Protein NT-Pro-B Natriuret Pep Total Protein 5.6 L Albumin 3.1 L Ur Specific [place] Urine WBC (Auto) Coronavirus (PCR) Miscellaneous Test 08/14/19 08/14/19 08/14/19 08:10 11:53 17:20 Hgb Hct RDW Lymph % (Auto) [place] % (Auto) Lymph # Seg Neutrophils % Seg Neutrophils # D-Dimer Carbon Dioxide BUN Creatinine Glucose POC Glucose 210 H 335 H 211 H Hemoglobin A1c Lactic Acid Calcium Ferritin Alkaline Phosphatase Lactate Dehydrogenase C-Reactive Protein NT-Pro-B Natriuret Pep Total Protein Albumin Ur Specific [place] Urine WBC (Auto) Coronavirus (PCR) Miscellaneous Test 08/14/19 08/14/19 08/15/19 18:08 23:25 05:09 Hgb Hct RDW Lymph % (Auto) [place] % (Auto) Lymph # Seg Neutrophils % Seg Neutrophils # D-Dimer Carbon Dioxide BUN Creatinine 0.4 L Glucose 222 H POC Glucose 255 H 272 H Hemoglobin A1c Lactic Acid Calcium 8.0 L Ferritin Alkaline Phosphatase 139 H Lactate Dehydrogenase C-Reactive Protein NT-Pro-B Natriuret Pep Total Protein 6.0 L Albumin 3.0 L Ur Specific [place] Urine WBC (Auto) Coronavirus (PCR) Miscellaneous Test 08/15/19 08/15/19 08/15/19 05:09 08:11 12:03 Hgb Hct RDW Lymph % (Auto) 8.1 L [place] % (Auto) 7.6 H Lymph # 0.7 L Seg Neutrophils % 83.9 H Seg Neutrophils # D-Dimer Carbon Dioxide BUN Creatinine Glucose POC Glucose 223 H 358 H Hemoglobin A1c Lactic Acid Calcium Ferritin Alkaline Phosphatase Lactate Dehydrogenase C-Reactive Protein NT-Pro-B Natriuret Pep Total Protein Albumin Ur Specific [place] Urine WBC (Auto) Coronavirus (PCR) Miscellaneous Test 08/15/19 08/15/19 08/16/19 16:43 21:47 04:12 Hgb Hct RDW Lymph % (Auto) [place] % (Auto) Lymph # Seg Neutrophils % Seg Neutrophils # D-Dimer Carbon Dioxide BUN Creatinine 0.4 L Glucose 205 H POC Glucose 285 H 274 H Hemoglobin A1c Lactic Acid Calcium 8.1 L Ferritin Alkaline Phosphatase Lactate Dehydrogenase C-Reactive Protein NT-Pro-B Natriuret Pep Total Protein Albumin Ur Specific [place] Urine WBC (Auto) Coronavirus (PCR) Miscellaneous Test 08/16/19 04:12 Hgb Hct 43.7 H RDW 15.7 H Lymph % (Auto) 5.4 L [place] % (Auto) Lymph # 0.6 L Seg Neutrophils % 89.0 H Seg Neutrophils # 9.5 H D-Dimer Carbon Dioxide BUN Creatinine Glucose POC Glucose Hemoglobin A1c Lactic Acid Calcium Ferritin Alkaline Phosphatase Lactate Dehydrogenase C-Reactive Protein NT-Pro-B Natriuret Pep Total Protein Albumin Ur Specific [place] Urine WBC (Auto) Coronavirus (PCR) Miscellaneous Test
[2019-08-16] MEDS: INSULIN LISPRO 100 UNIT/ML SUB-Q SCH ×4 (08:56→21:36)
[2019-08-16] MEDS: FAMOTIDINE 20 MG TAB PO SCH ×2 (09:02→21:41)
[2019-08-16] MEDS: ASCORBIC ACID 500 MG TAB PO SCH ×2 (09:02→21:38)
[2019-08-16] MEDS: ENOXAPARIN 100 MG/1 ML INJ SUB-Q SCH ×2 (09:02→21:35)
--- NOTE | 2019-08-16 09:31 | Progress Note ---
Assessment and Plan Assessment and plan: Severe sepsis. Etiology secondary to COVID-19 pneumonia. COVID pneumonia. Patient with likely cytokine storm, microthrombi and elevated inflammatory markers. Patient is s/p Actemra on 08/06. ARDS. Etiology secondary to above. Acute hypoxemic respiratory failure. Continue O2 and BiPAP as clinically indicated. Etiology secondary to above. Diabetes mellitus type 2. Continue Lantus at bedtime. Patient with Solu- Medrol. 08/12/2019. Pulmonary following and recommending pronating during the day and at night. Continue Solu-Medrol 40 mg every 8 hours for a total of 7 days. Patient s/p Actemra and Remdisiver. Patient currently on HFNC requiring 40 L O2. Increase Lantus to 15 units at bedtime. 08/13/2019. Continue pronating. ID reports patient enrolled in Expanded Access Program for Convalescent Plasma patient [id number]. Continue Remdesivir - 100 mg IV daily x 9 days. Continue solumedrol 40 mg IV q 8 hours. Continue anticoagulation for elevated d-dimer. Follow-up quantiferon and IL6. Continue vitamin C and E. Continue COVID isolation precautions. Patient with high risk mortality 08/14/2019. Patient currently with high flow nasal cannula 40 L/min FiO2 90%. Convalescent plasma per ID. Continue Remdesivir, s/p Actemra, IV Solu-Medrol 40 mg every 8 hour and Lovenox 90 mg subcu every 12 hours. Continue proning paulette ent. Prognosis remains guarded. 08/15/2019. Patient currently with high flow nasal cannula 40 L/min FiO2 80%. Convalescent plasma per ID. Continue Remdesivir, s/p Actemra, IV Solu-Medrol 40 mg every 8 hour and Lovenox 90 mg subcu every 12 hours. Continue proning patient. Prognosis remains guarded. 08/16/2019 patient with Covid-19 pneumonia wit acute resp failure. Less SOB. now on 30 l/min HFNC. Also s/p Remdesivir, s/p Actemra. History Interval history: Less shortness of breath Hospitalist Physical - Physical exam Narrative exam: GEN: Not in acute distress, lying in bed HEENT: Normocephalic, atraumatic, Neck: supple, No JVD Lungs: Clear to auscultation bilaterally, heart;S1 and S2 reg, no murmurs, rubs or gallop Abd:soft, non tender, non distended, normal bowel sounds, Ext: No edema, no clubbing, no cyanosis, Neuro: Awake,alert,oriented X3 , no focal signs, - Constitutional Vitals: Temp Pulse Resp BP Pulse Ox 98.4 F 63 22 134/71 91 08/16/19 07:54 08/16/19 07:00 08/16/19 07:00 08/16/19 07:00 08/16/19 07:00 General appearance: Present: no acute distress, obese Results - Labs CBC & Chem 7: 08/16/19 04:12 08/16/19 04:12 Labs: Laboratory Last Values WBC 10.6 K/mm3 (4.5-11.0) 08/16/19 04:12 RBC 4.83 M/mm3 (3.65-5.03) 08/16/19 04:12 Hgb 14.3 gm/dl (10.1-14.3) 08/16/19 04:12 Hct 43.7 % (30.3-42.9) H 08/16/19 04:12 MCV 91 fl (79-97) 08/16/19 04:12 MCH 30 pg (28-32) 08/16/19 04:12 MCHC 33 % (30-34) 08/16/19 04:12 RDW 15.7 % (13.2-15.2) H 08/16/19 04:12 Plt Count 163 K/mm3 (140-440) 08/16/19 04:12 Lymph % (Auto) 5.4 % (13.4-35.0) L 08/16/19 04:12 [place] % (Auto) 5.2 % (0.0-7.3) 08/16/19 04:12 Eos % (Auto) 0.0 % (0.0-4.3) 08/16/19 04:12 Baso % (Auto) 0.4 % (0.0-1.8) 08/16/19 04:12 Lymph # 0.6 K/mm3 (1.2-5.4) L 08/16/19 04:12 [place] # 0.6 K/mm3 (0.0-0.8) 08/16/19 04:12 Eos # 0.0 K/mm3 (0.0-0.4) 08/16/19 04:12 Baso # 0.0 K/mm3 (0.0-0.1) 08/16/19 04:12 Add Manual Diff Complete 08/13/19 04:10 Seg Neutrophils % 89.0 % (40.0-70.0) H 08/16/19 04:12 Nucleated RBC % Not Reportable 08/13/19 04:10 Seg Neutrophils # 9.5 K/mm3 (1.8-7.7) H 08/16/19 04:12 WBC Morphology Not Reportable 08/13/19 04:10 Hypersegmented Neuts Not Reportable 08/13/19 04:10 Hyposegmented Neuts Not Reportable 08/13/19 04:10 Hypogranular Neuts Not Reportable 08/13/19 04:10 Smudge Cells Not Reportable 08/13/19 04:10 Toxic Granulation Not Reportable 08/13/19 04:10 Toxic Vacuolation Not Reportable 08/13/19 04:10 Dohle Bodies Not Reportable 08/13/19 04:10 Pelger-Huet Anomaly Not Reportable 08/13/19 04:10 Kaylynn Rods Not Reportable 08/13/19 04:10 Platelet Estimate Not Reportable 08/13/19 04:10 Clumped Platelets Not Reportable 08/13/19 04:10 Plt Clumps, EDTA Not Reportable 08/13/19 04:10 Large Platelets Not Reportable 08/13/19 04:10 Giant Platelets Not Reportable 08/13/19 04:10 Platelet Satelliting Not Reportable 08/13/19 04:10 Plt Morphology Comment Not Reportable 08/13/19 04:10 RBC Morphology Not Reportable 08/13/19 04:10 Dimorphic RBCs Not Reportable 08/13/19 04:10 Polychromasia Not Reportable 08/13/19 04:10 Hypochromasia Not Reportable 08/13/19 04:10 Poikilocytosis Not Reportable 08/13/19 04:10 Anisocytosis Not Reportable 08/13/19 04:10 Microcytosis Not Reportable 08/13/19 04:10 Macrocytosis Not Reportable 08/13/19 04:10 Spherocytes Not Reportable 08/13/19 04:10 Pappenheimer Bodies Not Reportable 08/13/19 04:10 Sickle Cells Not Reportable 08/13/19 04:10 Target Cells Not Reportable 08/13/19 04:10 Tear Drop Cells Not Reportable 08/13/19 04:10 Ovalocytes Not Reportable 08/13/19 04:10 Helmet Cells Not Reportable 08/13/19 04:10 [place] Bodies Not Reportable 08/13/19 04:10 [place] Rings Not Reportable 08/13/19 04:10 [place] Cells Not Reportable 08/13/19 04:10 Bite Cells Not Reportable 08/13/19 04:10 Crenated Cell Not Reportable 08/13/19 04:10 Elliptocytes Not Reportable 08/13/19 04:10 Acanthocytes (Spur) Not Reportable 08/13/19 04:10 Rouleaux Not Reportable 08/13/19 04:10 Hemoglobin C Crystals Not Reportable 08/13/19 04:10 Schistocytes Not Reportable 08/13/19 04:10 Malaria parasites Not Reportable 08/13/19 04:10 Humberto Bodies Not Reportable 08/13/19 04:10 Hem Pathologist Commnt Not Reportable 08/13/19 04:10 APTT 26.3 Sec. (24.2-36.6) 08/05/19 14:53 D-Dimer 3795.56 ng/mlDDU (0-234) H 08/09/19 12:29 Sodium 140 mmol/L (137-145) 08/16/19 04:12 Potassium 4.5 mmol/L (3.6-5.0) 08/16/19 04:12 Chloride 101.0 mmol/L (98-107) 08/16/19 04:12 Carbon Dioxide 25 mmol/L (22-30) 08/16/19 04:12 Anion Gap 19 mmol/L 08/16/19 04:12 BUN 16 mg/dL (7-17) 08/16/19 04:12 Creatinine 0.4 mg/dL (0.7-1.2) L 08/16/19 04:12 Estimated GFR > 60 ml/min 08/16/19 04:12 BUN/Creatinine Ratio 40 % 08/16/19 04:12 Glucose 205 mg/dL (65-100) H 08/16/19 04:12 POC Glucose 216 (70-105) H 08/16/19 08:42 Hemoglobin A1c 7.6 % (4-6) H 08/06/19 Unknown Lactic Acid 1.90 mmol/L (0.7-2.0) 08/05/19 22:51 Calcium 8.1 mg/dL (8.4-10.2) L 08/16/19 04:12 Ferritin 594.1 ng/mL (13.0-400.0) H 08/09/19 12:29 Total Bilirubin 1.00 mg/dL (0.1-1.2) 08/15/19 05:09 AST 23 units/L (5-40) 08/15/19 05:09 ALT 45 units/L (7-56) 08/15/19 05:09 Alkaline Phosphatase 139 units/L (35-129) H 08/15/19 05:09 Lactate Dehydrogenase 866 units/L (91-180) H 08/09/19 05:22 C-Reactive Protein 14.70 mg/dL (0.00-1.30) H 08/09/19 05:22 NT-Pro-B Natriuret Pep 1818 pg/mL (0-900) H 08/05/19 15:07 Total Protein 6.0 g/dL (6.3-8.2) L 08/15/19 05:09 Albumin 3.0 g/dL (3.9-5) L 08/15/19 05:09 Albumin/Globulin Ratio 1.0 % 08/15/19 05:09 Procalcitonin 1.06 ng/mL (<0.15) 08/09/19 12:29 Urine Color [place] (Yellow) 08/05/19 19:54 Urine Turbidity Clear (Clear) 08/05/19 19:54 Urine pH 5.0 (5.0-7.0) 08/05/19 19:54 Ur Specific [place] 1.031 (1.003-1.030) H 08/05/19 19:54 Urine Protein 100 mg/dl mg/dL (Negative) 08/05/19 19:54 Urine Glucose (UA) 50 mg/dL (Negative) 08/05/19 19:54 Urine Ketones Neg mg/dL (Negative) 08/05/19 19:54 Urine Blood Neg (Negative) 08/05/19 19:54 Urine Nitrite Neg (Negative) 08/05/19 19:54 Urine Bilirubin Neg (Negative) 08/05/19 19:54 Urine Urobilinogen < 2.0 mg/dL (<2.0) 08/05/19 19:54 Ur Leukocyte Esterase Neg (Negative) 08/05/19 19:54 Urine WBC (Auto) 8.0 /HPF (0.0-6.0) H 08/05/19 19:54 Urine RBC (Auto) 1.0 /HPF (0.0-6.0) 08/05/19 19:54 U Epithel Cells (Auto) 10.0 /HPF (0-13.0) 08/05/19 19:54 Urine Mucus 1+ /HPF 08/05/19 19:54 Coronavirus (PCR) Positive (Negative) A 08/06/19 09:17 Miscellaneous Test Flexitest 1 H 08/10/19 08:16 Blood Type A POSITIVE 08/11/19 15:00 Antibody Screen Negative 08/11/19 15:00 [place]/IV: Voiding Method Bedside Commode IV Catheter Type [Left Forearm INT / Saline Lock ] IV Catheter Type [Right Wrist] Peripheral IV IV Catheter Type [Right INT / Saline Lock Forearm] IV Catheter Type [Left Hand] Peripheral IV IV Catheter Type [Left Peripheral IV Antecubital] Active Medications - Current Medications Current Medications: Generic Name Dose Route Start Last Admin Trade Name Freq PRN Reason Stop Dose Admin Acetaminophen 650 mg 08/05/19 21:32 08/06/19 20:05 Tylenol PO 650 mg Q4H PRN Administration Pain MILD(1-3)/Fever >100.5/BUTLER Ascorbic Acid 500 mg 08/08/19 10:00 08/16/19 09:02 Vitamin C PO 500 mg BID RAISA Administration Benzonatate 100 mg 08/06/19 01:00 08/16/19 08:56 Tessalon Perles PO 100 mg Q8H RAISA Administration Cholecalciferol 5,000 unit 08/08/19 10:00 08/15/19 10:28 Vitamin D3 PO 5,000 unit QDAY RAISA Administration Enoxaparin Sodium 90 mg 08/05/19 22:00 08/16/19 09:02 Enoxaparin SUB-Q 90 mg Q12HR RAISA Administration Famotidine 20 mg 08/05/19 22:00 08/16/19 09:02 Pepcid PO 20 mg BID RAISA Administration Hydromorphone HCl 0.5 mg 08/05/19 21:32 08/06/19 22:28 Dilaudid IV 0.5 mg Q3H PRN Administration Pain , Severe (7-10) Hydrophilic Ointment 1 applic 08/13/19 18:22 08/13/19 18:29 Vaseline Lip Therapy TP 1 applic DIRECT PRN Administration Dry Lips Sodium Chloride 50 mls @ 999 mls/hr 08/08/19 19:00 08/15/19 18:24 Nacl 0.9% IV 08/16/19 18:59 999 mls/hr Q24H RAISA Administration REMDESIVIR 100 mg/ Sodium 250 mls @ 500 mls/hr 08/12/19 18:00 08/15/19 17:13 Chloride IV 08/16/19 17:59 500 mls/hr Q24H RAISA Administration Insulin Glargine 15 units 08/12/19 22:00 08/15/19 22:01 Lantus SUB-Q 15 units QHS RAISA Administration Insulin Human Lispro 0 unit 08/05/19 22:00 08/16/19 08:56 Humalog SUB-Q 4 unit ACHS RAISA Administration Protocol Methylprednisolone Sodium Succinate 20 mg 08/16/19 14:00 Solu-Medrol IV Q8HR [facility] Metoclopramide HCl 10 mg 08/05/19 21:32 Reglan IV Q6H PRN Nausea And Vomiting Ondansetron HCl 4 mg 08/05/19 21:32 Zofran IV Q8H PRN Nausea And Vomiting Oxycodone/Acetaminophen 1 tab 08/05/19 21:32 08/14/19 21:11 Percocet 5/325 PO 1 tab Q6H PRN Administration Pain, Moderate (4-6) Sodium Chloride 10 ml 08/05/19 22:00 08/16/19 09:04 Sodium Chloride Flush Syringe 10 Ml IV 10 ml BID RAISA Administration Sodium Chloride 10 ml 08/05/19 21:32 Sodium Chloride Flush Syringe 10 Ml IV PRN PRN LINE FLUSH Nutrition/Malnutrition Assess - Dietary Evaluation Nutrition/Malnutrition Findings: Nutrition Notes Start: 08/06/19 08:35 Freq: Status: Active Protocol: Document 08/11/19 09:16 LP (Rec: 08/11/19 10:57 LP [id number]) Nutrition Notes Initial or Follow up Reassessment Current Diagnosis Diabetes Other Pertinent Diagnosis ARDS, Suspected COVID-19 Current Diet Cardiac/consistent CHO Labs/Tests BG 368 Pertinent Medications Reviewed Height 5 ft 5 in Weight 92.35 kg Candor Body Weight (kg) 56.81 BMI 33.8 Weight Status Obese Subjective/Other Information Pt eating well. Consuming most of meals. Percent of energy/protein needs met: 100%/91% Burn Absent Trauma Absent Current % PO Good (75-100%) Minimum of two criteria No physical signs of malnutrition #2 Nutrition Diagnosis Inadequate oral intake As Evidenced by Signs and Symptoms Pt is meeting 100% of kcal and 91% of protein needs Diagnosis Progress(for reassessment Improved documentation) #1 Nutrition Diagnosis Predicted suboptimal energy intake Diagnosis Progress(for reassessment Resolved documentation) Is patient on ventilator? No Is Patient Ambulatory and/or Out of Bed Yes REE-([facility]-ambulatory/OOB) [ 1975.194 [id number]] Kcal/Kg value to use for calculation 17 Approximate Energy Requirements Using 1570 kcal/Kg Calculation Used for Recommendations Kcal/kg Additional Notes Protein needs are 74-92g (0.8- 1g/kg) Fluid needs are 1ml/kcal Nutrition Intervention Change Diet Order: Continue Add Supplement/Snack (indicate name/kcal D/C /protein ) Goal #1 Continue to meet at least 80% of kcal and protein needs Anticipated Discharge Needs: Cardiac/consistent CHO diet Follow-Up By: 08/18/19 Additional Comments Follow for stable intakes
[2019-08-16] MEDS: CHOLECALCIFEROL (VIT D3) 5,000 UNIT TAB PO SCH (09:59)
--- NOTE | 2019-08-16 12:54 | Progress Note ---
Assessment and Plan Cultures: Blood culture 08/05/2019 no growth Assessment: 54 years old female with history of obesity, diabetes, admitted on 08/05/2019 due to 2-week history of dry cough, generalized malaise and progressive shortness of breath: #Severe sepsis: likely due to severe COVID pneumonia. #Severe COVID pneumonia: Inflamatory markers are elevated- D-dimer > 10,000-->10,000--.3795, ferritin 438-->415-->594, LDH 702-->745, CRP 32-->34-. S/p Actemra 4 mg/kg x 1 on 08/06. S/p ceftriaxone/azithro 5 days. S/P Plasma infusion on 08/14/2019. IL-6 level was also high. #Acute hypoxemic respiratory failure: remains on high flow oxygen. #DM: uncontrolled. Monitor sugars alma on steroids. Recommendations: S/P Plasma infusion on 08/14/2019 Completes 10 days of Remdesivir today Continue steroid weaning per pulmonary CRP and d-dimer recheck in AM Continue anticoagulation for elevated d-dimer F/u Quantiferon (to eval future risk of TB reactivation due to Actemra, if positive) Anna Rivera MD, FACP [facility] ([facility] C: [phone] O: [phone] F: [phone] Subjective Date of service: 08/16/19 Principal diagnosis: Bilateral pneumonia, ARDS Interval history: Doing better, remains afebrile and on high flow oxygen but FiO2 requirements are down to 55% per RN. Objective - Exam Narrative Exam: Physical Exam (reviewed in chart due to PPE conservation) Constitutional: limited due to PPE conservation strategy Head, Ears, Nose: limited due to PPE conservation strategy Eyes: limited due to PPE conservation strategy Neck: limited due to PPE conservation strategy Oral: limited due to PPE conservation strategy Cardiovascular: limited due to PPE conservation strategy Respiratory: limited due to PPE conservation strategy GI: limited due to PPE conservation strategy Musculoskeletal: limited due to PPE conservation strategy Skin: limited due to PPE conservation strategy Hem/Lymphatic: limited due to PPE conservation strategy Psych: limited due to PPE conservation strategy Neurological: limited due to PPE conservation strategy - Constitutional Vitals: Vital Signs Temp Pulse Resp BP Pulse Ox 98.5 F 65 21 138/86 95 06/02/20 12:00 08/16/19 12:00 08/16/19 12:00 08/16/19 12:00 08/16/19 12:00 Temperature -Last 24 Hours Temperature 98.5 F Temperature 98.4 F Temperature 98.4 F Temperature 98.3 F Temperature 97.6 F Temperature 97.9 F - Labs CBC & Chem 7: 08/16/19 04:12 08/16/19 04:12 Labs: Abnormal lab results 08/15/19 08/15/19 08/15/19 Range/Units 08:11 12:03 16:43 Hct (30.3-42.9) % RDW (13.2-15.2) % Lymph % (Auto) (13.4-35.0) % Lymph # (1.2-5.4) K/mm3 Seg Neutrophils % (40.0-70.0) % Seg Neutrophils # (1.8-7.7) K/mm3 Creatinine (0.7-1.2) mg/dL Glucose (65-100) mg/dL POC Glucose 223 H 358 H 285 H (70-105) Calcium (8.4-10.2) mg/dL 08/15/19 08/16/19 08/16/19 Range/Units 21:47 04:12 04:12 Hct 43.7 H (30.3-42.9) % RDW 15.7 H (13.2-15.2) % Lymph % (Auto) 5.4 L (13.4-35.0) % Lymph # 0.6 L (1.2-5.4) K/mm3 Seg Neutrophils % 89.0 H (40.0-70.0) % Seg Neutrophils # 9.5 H (1.8-7.7) K/mm3 Creatinine 0.4 L (0.7-1.2) mg/dL Glucose 205 H (65-100) mg/dL POC Glucose 274 H (70-105) Calcium 8.1 L (8.4-10.2) mg/dL 08/16/19 08/16/19 Range/Units 08:42 11:56 Hct (30.3-42.9) % RDW (13.2-15.2) % Lymph % (Auto) (13.4-35.0) % Lymph # (1.2-5.4) K/mm3 Seg Neutrophils % (40.0-70.0) % Seg Neutrophils # (1.8-7.7) K/mm3 Creatinine (0.7-1.2) mg/dL Glucose (65-100) mg/dL POC Glucose 216 H 251 H (70-105) Calcium (8.4-10.2) mg/dL
[2019-08-16] MEDS ORDERED: SODIUM CHLORIDE 0.9% 50 ML IV SCH (18:00)
[2019-08-16] MEDS ORDERED: REMDESIVIR 100 MG in SODIUM CHLORIDE 0.9% 250ML 250 ML IV SCH (18:00)
[2019-08-16] MEDS: INSULIN GLARGINE 100 UNITS/ML SUB-Q SCH (21:40)
[2019-08-17] MEDS: BENZONATATE 100 MG CAP PO SCH ×3 (01:04→18:26)
[2019-08-17] MEDS: methylPREDNISolone Sod Succinate 40 MG/1 ML INJ IV SCH ×3 (05:22→22:36)
[2019-08-17 06:08] LABS: C-Reactive Protein 0.3 mg/dL (0.00-1.30)
[2019-08-17] MEDS: FAMOTIDINE 20 MG TAB PO SCH ×2 (09:35→22:36)
[2019-08-17] MEDS: ASCORBIC ACID 500 MG TAB PO SCH ×2 (09:35→22:36)
[2019-08-17] MEDS: ENOXAPARIN 100 MG/1 ML INJ SUB-Q SCH ×2 (09:36→22:35)
[2019-08-17] MEDS: INSULIN LISPRO 100 UNIT/ML SUB-Q SCH ×4 (09:39→22:37)
[2019-08-17] MEDS: oxyCODONE /ACETAMINOPHEN 5-325MG TAB PO PRN ×2 (09:44→18:26)
--- NOTE | 2019-08-17 10:41 | Progress Note ---
Assessment and Plan Cultures: Blood culture 08/05/2019 no growth Assessment: 54 years old female with history of obesity, diabetes, admitted on 08/05/2019 due to 2-week history of dry cough, generalized malaise and progressive shortness of breath: #Severe sepsis: likely due to severe COVID pneumonia. #Severe COVID pneumonia: Inflamatory markers are elevated- D-dimer > 10,000-->10,000--.3795, ferritin 438-->415-->594, LDH 702-->745, CRP 32-->34-. S/p Actemra 4 mg/kg x 1 on 08/06. S/p ceftriaxone/azithro 5 days. S/P Plasma infusion on 08/14/2019. IL-6 level was also high. S/P 10 days of Remdesivir ending 08/16/2019. #Acute hypoxemic respiratory failure: remains on high flow oxygen. #DM: uncontrolled. Monitor sugars alma on steroids. Recommendations: Continue steroid weaning per pulmonary CRP and d-dimer also trending down Continue anticoagulation for elevated d-dimer F/u Quantiferon (to eval future risk of TB reactivation due to Actemra, if positive) Anna Rivera MD, FACP [facility] ([facility] C: [phone] O: [phone] F: [phone] Subjective Date of service: 08/17/19 Principal diagnosis: Bilateral pneumonia, ARDS Interval history: Doing better, afebrile. Remains on high flow oxygen but FiO2 requirements contin ue to downtrend. Objective - Exam Narrative Exam: Physical Exam (reviewed in chart due to PPE conservation) Constitutional: limited due to PPE conservation strategy Head, Ears, Nose: limited due to PPE conservation strategy Eyes: limited due to PPE conservation strategy Neck: limited due to PPE conservation strategy Oral: limited due to PPE conservation strategy Cardiovascular: limited due to PPE conservation strategy Respiratory: limited due to PPE conservation strategy GI: limited due to PPE conservation strategy Musculoskeletal: limited due to PPE conservation strategy Skin: limited due to PPE conservation strategy Hem/Lymphatic: limited due to PPE conservation strategy Psych: limited due to PPE conservation strategy Neurological: limited due to PPE conservation strategy - Constitutional Vitals: Vital Signs Temp Pulse Resp BP Pulse Ox 97.8 F 64 23 130/82 95 08/17/19 04:00 08/17/19 06:00 08/17/19 09:44 08/17/19 06:00 08/17/19 08:00 Temperature -Last 24 Hours Temperature 97.8 F Temperature 98.6 F Temperature 98.4 F Temperature 98.6 F Temperature 98.5 F - Labs CBC & Chem 7: 08/16/19 04:12 08/16/19 04:12 Labs: Abnormal lab results 08/16/19 08/16/19 08/16/19 Range/Units 11:56 16:29 21:28 D-Dimer (0-234) ng/mlDDU POC Glucose 251 H 245 H 293 H (70-105) Ferritin (13.0-400.0) ng/mL Lactate Dehydrogenase (91-180) units/L 08/17/19 08/17/19 08/17/19 Range/Units 04:46 04:46 04:46 D-Dimer 831.46 H (0-234) ng/mlDDU POC Glucose (70-105) Ferritin 775.8 H (13.0-400.0) ng/mL Lactate Dehydrogenase 409 H (91-180) units/L 08/17/19 Range/Units 08:13 D-Dimer (0-234) ng/mlDDU POC Glucose 201 H (70-105) Ferritin (13.0-400.0) ng/mL Lactate Dehydrogenase (91-180) units/L
--- NOTE | 2019-08-17 11:56 | Progress Note ---
Assessment and Plan Assessment and plan: Severe sepsis. Etiology secondary to COVID-19 pneumonia. COVID pneumonia. Patient with likely cytokine storm, microthrombi and elevated inflammatory markers. Patient is s/p Actemra on 08/06. ARDS. Etiology secondary to above. Acute hypoxemic respiratory failure. Continue O2 and BiPAP as clinically indicated. Etiology secondary to above. Diabetes mellitus type 2. Continue Lantus at bedtime. Patient with Solu- Medrol. 08/12/2019. Pulmonary following and recommending pronating during the day and at night. Continue Solu-Medrol 40 mg every 8 hours for a total of 7 days. Patient s/p Actemra and Remdisiver. Patient currently on HFNC requiring 40 L O2. Increase Lantus to 15 units at bedtime. 08/13/2019. Continue pronating. ID reports patient enrolled in Expanded Access Program for Convalescent Plasma patient [id number]. Continue Remdesivir - 100 mg IV daily x 9 days. Continue solumedrol 40 mg IV q 8 hours. Continue anticoagulation for elevated d-dimer. Follow-up quantiferon and IL6. Continue vitamin C and E. Continue COVID isolation precautions. Patient with high risk mortality 08/14/2019. Patient currently with high flow nasal cannula 40 L/min FiO2 90%. Convalescent plasma per ID. Continue Remdesivir, s/p Actemra, IV Solu-Medrol 40 mg every 8 hour and Lovenox 90 mg subcu every 12 hours. Continue proning paulette ent. Prognosis remains guarded. 08/15/2019. Patient currently with high flow nasal cannula 40 L/min FiO2 80%. Convalescent plasma per ID. Continue Remdesivir, s/p Actemra, IV Solu-Medrol 40 mg every 8 hour and Lovenox 90 mg subcu every 12 hours. Continue proning patient. Prognosis remains guarded. 08/16/2019 patient with Covid-19 pneumonia wit acute resp failure. Less SOB. now on 30 l/min HFNC. Also s/p Remdesivir, s/p Actemra. 08/17/2019 Patient with Covid-19 pneumonia wth acute respiratory failure. Patient lass shortness of breath. still on high flow Oxygen at 30 l/min History Interval history: Less shortness of breath Hospitalist Physical - Physical exam Narrative exam: GEN: Not in acute distress, lying in bed HEENT: Normocephalic, atraumatic, Neck: supple, No JVD Lungs: Clear to auscultation bilaterally, heart;S1 and S2 reg, no murmurs, rubs or gallop Abd:soft, non tender, non distended, normal bowel sounds, Ext: No edema, no clubbing, no cyanosis, Neuro: Awake,alert,oriented X3 , no focal signs, - Constitutional Vitals: Temp Pulse Resp BP Pulse Ox 98.1 F 86 24 125/79 92 08/17/19 08:00 08/17/19 11:00 08/17/19 11:00 08/17/19 11:00 08/17/19 11:00 General appearance: Present: no acute distress, obese Results - Labs CBC & Chem 7: 08/16/19 04:12 08/16/19 04:12 Labs: Laboratory Last Values WBC 10.6 K/mm3 (4.5-11.0) 08/16/19 04:12 RBC 4.83 M/mm3 (3.65-5.03) 08/16/19 04:12 Hgb 14.3 gm/dl (10.1-14.3) 08/16/19 04:12 Hct 43.7 % (30.3-42.9) H 08/16/19 04:12 MCV 91 fl (79-97) 08/16/19 04:12 MCH 30 pg (28-32) 08/16/19 04:12 MCHC 33 % (30-34) 08/16/19 04:12 RDW 15.7 % (13.2-15.2) H 08/16/19 04:12 Plt Count 163 K/mm3 (140-440) 08/16/19 04:12 Lymph % (Auto) 5.4 % (13.4-35.0) L 08/16/19 04:12 [place] % (Auto) 5.2 % (0.0-7.3) 08/16/19 04:12 Eos % (Auto) 0.0 % (0.0-4.3) 08/16/19 04:12 Baso % (Auto) 0.4 % (0.0-1.8) 08/16/19 04:12 Lymph # 0.6 K/mm3 (1.2-5.4) L 08/16/19 04:12 [place] # 0.6 K/mm3 (0.0-0.8) 08/16/19 04:12 Eos # 0.0 K/mm3 (0.0-0.4) 08/16/19 04:12 Baso # 0.0 K/mm3 (0.0-0.1) 08/16/19 04:12 Add Manual Diff Complete 08/13/19 04:10 Seg Neutrophils % 89.0 % (40.0-70.0) H 08/16/19 04:12 Nucleated RBC % Not Reportable 08/13/19 04:10 Seg Neutrophils # 9.5 K/mm3 (1.8-7.7) H 08/16/19 04:12 WBC Morphology Not Reportable 08/13/19 04:10 Hypersegmented Neuts Not Reportable 08/13/19 04:10 Hyposegmented Neuts Not Reportable 08/13/19 04:10 Hypogranular Neuts Not Reportable 08/13/19 04:10 Smudge Cells Not Reportable 08/13/19 04:10 Toxic Granulation Not Reportable 08/13/19 04:10 Toxic Vacuolation Not Reportable 08/13/19 04:10 Dohle Bodies Not Reportable 08/13/19 04:10 Pelger-Huet Anomaly Not Reportable 08/13/19 04:10 Kaylynn Rods Not Reportable 08/13/19 04:10 Platelet Estimate Not Reportable 08/13/19 04:10 Clumped Platelets Not Reportable 08/13/19 04:10 Plt Clumps, EDTA Not Reportable 08/13/19 04:10 Large Platelets Not Reportable 08/13/19 04:10 Giant Platelets Not Reportable 08/13/19 04:10 Platelet Satelliting Not Reportable 08/13/19 04:10 Plt Morphology Comment Not Reportable 08/13/19 04:10 RBC Morphology Not Reportable 08/13/19 04:10 Dimorphic RBCs Not Reportable 08/13/19 04:10 Polychromasia Not Reportable 08/13/19 04:10 Hypochromasia Not Reportable 08/13/19 04:10 Poikilocytosis Not Reportable 08/13/19 04:10 Anisocytosis Not Reportable 08/13/19 04:10 Microcytosis Not Reportable 08/13/19 04:10 Macrocytosis Not Reportable 08/13/19 04:10 Spherocytes Not Reportable 08/13/19 04:10 Pappenheimer Bodies Not Reportable 08/13/19 04:10 Sickle Cells Not Reportable 08/13/19 04:10 Target Cells Not Reportable 08/13/19 04:10 Tear Drop Cells Not Reportable 08/13/19 04:10 Ovalocytes Not Reportable 08/13/19 04:10 Helmet Cells Not Reportable 08/13/19 04:10 [place] Bodies Not Reportable 08/13/19 04:10 [place] Rings Not Reportable 08/13/19 04:10 Rajiv Cells Not Reportable 08/13/19 04:10 Bite Cells Not Reportable 08/13/19 04:10 Crenated Cell Not Reportable 08/13/19 04:10 Elliptocytes Not Reportable 08/13/19 04:10 Acanthocytes (Spur) Not Reportable 08/13/19 04:10 Rouleaux Not Reportable 08/13/19 04:10 Hemoglobin C Crystals Not Reportable 08/13/19 04:10 Schistocytes Not Reportable 08/13/19 04:10 Malaria parasites Not Reportable 08/13/19 04:10 Humberto Bodies Not Reportable 08/13/19 04:10 Hem Pathologist Commnt Not Reportable 08/13/19 04:10 APTT 26.3 Sec. (24.2-36.6) 08/05/19 14:53 D-Dimer 831.46 ng/mlDDU (0-234) H 08/17/19 04:46 Sodium 140 mmol/L (137-145) 08/16/19 04:12 Potassium 4.5 mmol/L (3.6-5.0) 08/16/19 04:12 Chloride 101.0 mmol/L (98-107) 08/16/19 04:12 Carbon Dioxide 25 mmol/L (22-30) 08/16/19 04:12 Anion Gap 19 mmol/L 08/16/19 04:12 BUN 16 mg/dL (7-17) 08/16/19 04:12 Creatinine 0.4 mg/dL (0.7-1.2) L 08/16/19 04:12 Estimated GFR > 60 ml/min 08/16/19 04:12 BUN/Creatinine Ratio 40 % 08/16/19 04:12 Glucose 205 mg/dL (65-100) H 08/16/19 04:12 POC Glucose 201 (70-105) H 08/17/19 08:13 Hemoglobin A1c 7.6 % (4-6) H 08/06/19 Unknown Lactic Acid 1.90 mmol/L (0.7-2.0) 08/05/19 22:51 Calcium 8.1 mg/dL (8.4-10.2) L 08/16/19 04:12 Ferritin 775.8 ng/mL (13.0-400.0) H 08/17/19 04:46 Total Bilirubin 1.00 mg/dL (0.1-1.2) 08/15/19 05:09 AST 23 units/L (5-40) 08/15/19 05:09 ALT 45 units/L (7-56) 08/15/19 05:09 Alkaline Phosphatase 139 units/L (35-129) H 08/15/19 05:09 Lactate Dehydrogenase 409 units/L (91-180) H 08/17/19 04:46 C-Reactive Protein 0.30 mg/dL (0.00-1.30) 08/17/19 04:46 NT-Pro-B Natriuret Pep 1818 pg/mL (0-900) H 08/05/19 15:07 Total Protein 6.0 g/dL (6.3-8.2) L 08/15/19 05:09 Albumin 3.0 g/dL (3.9-5) L 08/15/19 05:09 Albumin/Globulin Ratio 1.0 % 08/15/19 05:09 Procalcitonin 1.06 ng/mL (<0.15) 08/09/19 12:29 Urine Color [place] (Yellow) 08/05/19 19:54 Urine Turbidity Clear (Clear) 08/05/19 19:54 Urine pH 5.0 (5.0-7.0) 08/05/19 19:54 Ur Specific [place] 1.031 (1.003-1.030) H 08/05/19 19:54 Urine Protein 100 mg/dl mg/dL (Negative) 08/05/19 19:54 Urine Glucose (UA) 50 mg/dL (Negative) 08/05/19 19:54 Urine Ketones Neg mg/dL (Negative) 08/05/19 19:54 Urine Blood Neg (Negative) 08/05/19 19:54 Urine Nitrite Neg (Negative) 08/05/19 19:54 Urine Bilirubin Neg (Negative) 08/05/19 19:54 Urine Urobilinogen < 2.0 mg/dL (<2.0) 08/05/19 19:54 Ur Leukocyte Esterase Neg (Negative) 08/05/19 19:54 Urine WBC (Auto) 8.0 /HPF (0.0-6.0) H 08/05/19 19:54 Urine RBC (Auto) 1.0 /HPF (0.0-6.0) 08/05/19 19:54 U Epithel Cells (Auto) 10.0 /HPF (0-13.0) 08/05/19 19:54 Urine Mucus 1+ /HPF 08/05/19 19:54 Coronavirus (PCR) Positive (Negative) A 08/06/19 09:17 Miscellaneous Test Flexitest 1 H 08/10/19 08:16 Blood Type A POSITIVE 08/11/19 15:00 Antibody Screen Negative 08/11/19 15:00 [place]/IV: Voiding Method Bedside Commode IV Catheter Type [Left Forearm INT / Saline Lock ] IV Catheter Type [Right Wrist] Peripheral IV IV Catheter Type [Right INT / Saline Lock Forearm] IV Catheter Type [Left Hand] Peripheral IV IV Catheter Type [Left Peripheral IV Antecubital] Active Medications - Current Medications Current Medications: Generic Name Dose Route Start Last Admin Trade Name Freq PRN Reason Stop Dose Admin Acetaminophen 650 mg 08/05/19 21:32 08/06/19 20:05 Tylenol PO 650 mg Q4H PRN Administration Pain MILD(1-3)/Fever >100.5/BUTLER Ascorbic Acid 500 mg 08/08/19 10:00 08/17/19 09:35 Vitamin C PO 500 mg BID RAISA Administration Benzonatate 100 mg 08/06/19 01:00 08/17/19 01:04 Tessalon Perles PO 100 mg Q8H RAISA Administration Cholecalciferol 5,000 unit 08/08/19 10:00 08/16/19 09:59 Vitamin D3 PO 5,000 unit QDAY RAISA Administration Enoxaparin Sodium 90 mg 08/05/19 22:00 08/17/19 09:36 Enoxaparin SUB-Q 90 mg Q12HR RAISA Administration Famotidine 20 mg 08/05/19 22:00 08/17/19 09:35 Pepcid PO 20 mg BID RAISA Administration Hydromorphone HCl 0.5 mg 08/05/19 21:32 08/06/19 22:28 Dilaudid IV 0.5 mg Q3H PRN Administration Pain , Severe (7-10) Hydrophilic Ointment 1 applic 08/13/19 18:22 08/13/19 18:29 Vaseline Lip Therapy TP 1 applic DIRECT PRN Administration Dry Lips Insulin Glargine 25 units 08/16/19 22:00 08/16/19 21:40 Lantus SUB-Q 25 units QHS RAISA Administration Insulin Human Lispro 0 unit 08/05/19 22:00 08/17/19 09:39 Humalog SUB-Q 4 unit ACHS RAISA Administration Protocol Methylprednisolone Sodium Succinate 20 mg 08/16/19 14:00 08/17/19 05:22 Solu-Medrol IV 20 mg Q8HR RAISA Administration Metoclopramide HCl 10 mg 08/05/19 21:32 Reglan IV Q6H PRN Nausea And Vomiting Ondansetron HCl 4 mg 08/05/19 21:32 Zofran IV Q8H PRN Nausea And Vomiting Oxycodone/Acetaminophen 1 tab 08/05/19 21:32 08/17/19 09:44 Percocet 5/325 PO 1 tab Q6H PRN Administration Pain, Moderate (4-6) Sodium Chloride 10 ml 08/05/19 22:00 08/17/19 09:40 Sodium Chloride Flush Syringe 10 Ml IV 10 ml BID RAISA Administration Sodium Chloride 10 ml 08/05/19 21:32 Sodium Chloride Flush Syringe 10 Ml IV PRN PRN LINE FLUSH Nutrition/Malnutrition Assess - Dietary Evaluation Nutrition/Malnutrition Findings: Nutrition Notes Start: 08/06/19 08:35 Freq: Status: Active Protocol: Document 08/11/19 09:16 LP (Rec: 08/11/19 10:57 LP [id number]) Nutrition Notes Initial or Follow up Reassessment Current Diagnosis Diabetes Other Pertinent Diagnosis ARDS, Suspected COVID-19 Current Diet Cardiac/consistent CHO Labs/Tests BG 368 Pertinent Medications Reviewed Height 5 ft 5 in Weight 92.35 kg [place] Body Weight (kg) 56.81 BMI 33.8 Weight Status Obese Subjective/Other Information Pt eating well. Consuming most of meals. Percent of energy/protein needs met: 100%/91% Burn Absent Trauma Absent Current % PO Good (75-100%) Minimum of two criteria No physical signs of malnutrition #2 Nutrition Diagnosis Inadequate oral intake As Evidenced by Signs and Symptoms Pt is meeting 100% of kcal and 91% of protein needs Diagnosis Progress(for reassessment Improved documentation) #1 Nutrition Diagnosis Predicted suboptimal energy intake Diagnosis Progress(for reassessment Resolved documentation) Is patient on ventilator? No Is Patient Ambulatory and/or Out of Bed Yes REE-([place]-ambulatory/OOB) [ 1975.194 [id number]] Kcal/Kg value to use for calculation 17 Approximate Energy Requirements Using 1570 kcal/Kg Calculation Used for Recommendations Kcal/kg Additional Notes Protein needs are 74-92g (0.8- 1g/kg) Fluid needs are 1ml/kcal Nutrition Intervention Change Diet Order: Continue Add Supplement/Snack (indicate name/kcal D/C /protein ) Goal #1 Continue to meet at least 80% of kcal and protein needs Anticipated Discharge Needs: Cardiac/consistent CHO diet Follow-Up By: 08/18/19 Additional Comments Follow for stable intakes
--- NOTE | 2019-08-17 12:02 | Progress Note ---
Assessment and Plan 54 y/o female with acute respiratory failure secondary to COVID 19 1. Proning during the day and prone sleeping at night. Begged her to continue to do this. 2. Steroid at 20q8 for a total of 7 days. Today is day 2. 3. Agree with Actemra, given 4. Agree with Remdisiver, given 5. Convaslescent plasma given on 08/14/2019 6. Continue to wean HFNC as tolerated. Hold on lasix therapy for today again. Subjective Date of service: 08/17/19 Principal diagnosis: Bilateral pneumonia, ARDS Interval history: Down to 45% FiO2. Stable and improving. Objective Vital Signs - 12hr 08/17/19 08/17/19 08/17/19 01:00 02:00 02:25 Temperature Pulse Rate 65 66 Pulse Rate [ From Monitor] Respiratory 19 25 H Rate Blood Pressure 133/73 134/74 O2 Sat by Pulse 92 88 96 Oximetry 08/17/19 08/17/19 08/17/19 03:00 04:00 05:00 Temperature 97.8 F Pulse Rate 58 L 59 L 57 L Pulse Rate [ 60 From Monitor] Respiratory 18 22 12 Rate Blood Pressure 125/73 120/56 129/76 O2 Sat by Pulse 93 92 91 Oximetry 08/17/19 08/17/19 08/17/19 06:00 07:00 08:00 Temperature 98.1 F Pulse Rate 64 55 L 69 Pulse Rate [ 60 From Monitor] Respiratory 11 L 19 12 Rate Blood Pressure 130/82 142/71 126/86 O2 Sat by Pulse 92 94 86 Oximetry 08/17/19 08/17/19 08/17/19 09:00 09:44 10:00 Temperature Pulse Rate 70 79 Pulse Rate [ From Monitor] Respiratory 22 23 18 Rate Blood Pressure 148/92 133/76 O2 Sat by Pulse 85 97 Oximetry 08/17/19 11:00 Temperature Pulse Rate 86 Pulse Rate [ From Monitor] Respiratory 24 Rate Blood Pressure 125/79 O2 Sat by Pulse 92 Oximetry Constitutional: alert, other (critically ill on HFNC) Eyes: non-icteric Effort: mildly labored Ascultation: Bilateral: rales Cardiovascular: regular rate and rhythm (no mrg) Gastrointestinal: normoactive bowel sounds, soft, non-tender, non-distended Integumentary: normal Extremities: no cyanosis, no edema, pink and warm Neurologic: normal mental status, non-focal exam, pupils equal and round, CN II- XII normal Psychiatric: mood appropriate, affect normal CBC and BMP: 08/16/19 04:12 08/16/19 04:12 ABG, PT/INR, D-dimer: PT/INR, D-dimer D-Dimer 831.46 ng/mlDDU (0-234) H 08/17/19 04:46 Abnormal lab findings: Abnormal Labs 08/05/19 08/05/19 08/05/19 14:53 14:53 14:53 Hgb Hct RDW Lymph % (Auto) 13.0 L [place] % (Auto) 10.8 H Lymph # 0.9 L Seg Neutrophils % 74.0 H Seg Neutrophils # D-Dimer > 66848 H Carbon Dioxide 20 L BUN 6 L Creatinine 0.6 L Glucose 255 H POC Glucose Hemoglobin A1c Lactic Acid Calcium Ferritin Alkaline Phosphatase 173 H Lactate Dehydrogenase C-Reactive Protein NT-Pro-B Natriuret Pep Total Protein Albumin 2.9 L Ur Specific [place] Urine WBC (Auto) Coronavirus (PCR) Miscellaneous Test 08/05/19 08/05/19 08/05/19 14:53 14:53 14:53 Hgb Hct RDW Lymph % (Auto) [place] % (Auto) Lymph # Seg Neutrophils % Seg Neutrophils # D-Dimer Carbon Dioxide BUN Creatinine Glucose 256 H POC Glucose Hemoglobin A1c Lactic Acid 3.40 H* Calcium Ferritin 438.9 H Alkaline Phosphatase Lactate Dehydrogenase 702 H C-Reactive Protein 32.90 H NT-Pro-B Natriuret Pep Total Protein Albumin Ur Specific [place] Urine WBC (Auto) Coronavirus (PCR) Miscellaneous Test 08/05/19 08/05/19 08/06/19 15:07 19:54 00:21 Hgb Hct RDW Lymph % (Auto) [place] % (Auto) Lymph # Seg Neutrophils % Seg Neutrophils # D-Dimer Carbon Dioxide BUN Creatinine Glucose POC Glucose 131 H Hemoglobin A1c Lactic Acid Calcium Ferritin Alkaline Phosphatase Lactate Dehydrogenase C-Reactive Protein NT-Pro-B Natriuret Pep 1818 H Total Protein Albumin Ur Specific [place] 1.031 H Urine WBC (Auto) 8.0 H Coronavirus (PCR) Miscellaneous Test 08/06/19 08/06/19 08/06/19 08:29 09:17 11:56 Hgb Hct RDW Lymph % (Auto) [place] % (Auto) Lymph # Seg Neutrophils % Seg Neutrophils # D-Dimer Carbon Dioxide BUN Creatinine Glucose POC Glucose 165 H 190 H Hemoglobin A1c Lactic Acid Calcium Ferritin Alkaline Phosphatase Lactate Dehydrogenase C-Reactive Protein NT-Pro-B Natriuret Pep Total Protein Albumin Ur Specific [place] Urine WBC (Auto) Coronavirus (PCR) Positive A Miscellaneous Test 08/06/19 08/06/19 08/06/19 16:16 22:16 Unknown Hgb Hct RDW Lymph % (Auto) [place] % (Auto) Lymph # Seg Neutrophils % Seg Neutrophils # D-Dimer Carbon Dioxide BUN Creatinine Glucose POC Glucose 170 H 128 H Hemoglobin A1c 7.6 H Lactic Acid Calcium Ferritin Alkaline Phosphatase Lactate Dehydrogenase C-Reactive Protein NT-Pro-B Natriuret Pep Total Protein Albumin Ur Specific [place] Urine WBC (Auto) Coronavirus (PCR) Miscellaneous Test 08/07/19 08/07/19 08/07/19 07:59 11:39 11:56 Hgb Hct RDW Lymph % (Auto) [place] % (Auto) Lymph # Seg Neutrophils % Seg Neutrophils # D-Dimer Carbon Dioxide BUN Creatinine 0.6 L Glucose 194 H POC Glucose 141 H 195 H Hemoglobin A1c Lactic Acid Calcium 8.0 L Ferritin Alkaline Phosphatase 181 H Lactate Dehydrogenase C-Reactive Protein NT-Pro-B Natriuret Pep Total Protein Albumin 2.5 L Ur Specific [place] Urine WBC (Auto) Coronavirus (PCR) Miscellaneous Test 08/07/19 08/07/19 08/07/19 11:56 11:56 11:56 Hgb Hct RDW Lymph % (Auto) [place] % (Auto) Lymph # Seg Neutrophils % Seg Neutrophils # D-Dimer > 14089 H Carbon Dioxide BUN Creatinine Glucose POC Glucose Hemoglobin A1c Lactic Acid Calcium Ferritin 415.7 H Alkaline Phosphatase Lactate Dehydrogenase 745 H C-Reactive Protein NT-Pro-B Natriuret Pep Total Protein Albumin Ur Specific [place] Urine WBC (Auto) Coronavirus (PCR) Miscellaneous Test 08/07/19 08/07/19 08/07/19 11:56 16:35 21:36 Hgb Hct RDW Lymph % (Auto) [place] % (Auto) Lymph # Seg Neutrophils % Seg Neutrophils # D-Dimer Carbon Dioxide BUN Creatinine Glucose POC Glucose 176 H 277 H Hemoglobin A1c Lactic Acid Calcium Ferritin Alkaline Phosphatase Lactate Dehydrogenase C-Reactive Protein 34.20 H NT-Pro-B Natriuret Pep Total Protein Albumin Ur Specific [place] Urine WBC (Auto) Coronavirus (PCR) Miscellaneous Test 08/08/19 08/08/19 08/08/19 07:53 08:54 11:40 Hgb Hct RDW Lymph % (Auto) [place] % (Auto) Lymph # Seg Neutrophils % Seg Neutrophils # D-Dimer Carbon Dioxide BUN Creatinine 0.6 L Glucose 266 H POC Glucose 214 H 340 H Hemoglobin A1c Lactic Acid Calcium 8.3 L Ferritin Alkaline Phosphatase 222 H Lactate Dehydrogenase C-Reactive Protein NT-Pro-B Natriuret Pep Total Protein Albumin 2.5 L Ur Specific [place] Urine WBC (Auto) Coronavirus (PCR) Miscellaneous Test 08/08/19 08/08/19 08/09/19 17:04 21:49 05:22 Hgb Hct RDW Lymph % (Auto) [place] % (Auto) Lymph # Seg Neutrophils % Seg Neutrophils # D-Dimer Carbon Dioxide BUN Creatinine Glucose POC Glucose 278 H 319 H Hemoglobin A1c Lactic Acid Calcium Ferritin Alkaline Phosphatase Lactate Dehydrogenase 866 H C-Reactive Protein 14.70 H NT-Pro-B Natriuret Pep Total Protein Albumin Ur Specific [place] Urine WBC (Auto) Coronavirus (PCR) Miscellaneous Test 08/09/19 08/09/19 08/09/19 05:44 08:12 11:52 Hgb Hct RDW Lymph % (Auto) [place] % (Auto) Lymph # Seg Neutrophils % Seg Neutrophils # D-Dimer Carbon Dioxide BUN 18 H Creatinine 0.6 L Glucose 227 H POC Glucose 232 H 273 H Hemoglobin A1c Lactic Acid Calcium 8.2 L Ferritin Alkaline Phosphatase 230 H Lactate Dehydrogenase C-Reactive Protein NT-Pro-B Natriuret Pep Total Protein Albumin 2.5 L Ur Specific [place] Urine WBC (Auto) Coronavirus (PCR) Miscellaneous Test 08/09/19 08/09/19 08/09/19 12:29 12:29 17:11 Hgb Hct RDW Lymph % (Auto) [place] % (Auto) Lymph # Seg Neutrophils % Seg Neutrophils # D-Dimer 3795.56 H Carbon Dioxide BUN Creatinine Glucose POC Glucose 200 H Hemoglobin A1c Lactic Acid Calcium Ferritin 594.1 H Alkaline Phosphatase Lactate Dehydrogenase C-Reactive Protein NT-Pro-B Natriuret Pep Total Protein Albumin Ur Specific [place] Urine WBC (Auto) Coronavirus (PCR) Miscellaneous Test 05/26/20 05/27/20 05/27/20 21:58 05:07 06:14 Hgb Hct RDW Lymph % (Auto) [place] % (Auto) Lymph # Seg Neutrophils % Seg Neutrophils # D-Dimer Carbon Dioxide BUN 19 H Creatinine Glucose 277 H POC Glucose 226 H 288 H Hemoglobin A1c Lactic Acid Calcium 7.9 L Ferritin Alkaline Phosphatase 231 H Lactate Dehydrogenase C-Reactive Protein NT-Pro-B Natriuret Pep Total Protein Albumin 2.7 L Ur Specific [place] Urine WBC (Auto) Coronavirus (PCR) Miscellaneous Test 08/10/19 08/10/19 08/10/19 08:16 08:31 12:25 Hgb Hct RDW Lymph % (Auto) [place] % (Auto) Lymph # Seg Neutrophils % Seg Neutrophils # D-Dimer Carbon Dioxide BUN Creatinine Glucose POC Glucose 284 H 387 H Hemoglobin A1c Lactic Acid Calcium Ferritin Alkaline Phosphatase Lactate Dehydrogenase C-Reactive Protein NT-Pro-B Natriuret Pep Total Protein Albumin Ur Specific [place] Urine WBC (Auto) Coronavirus (PCR) Miscellaneous Test Flexitest 1 H 08/10/19 08/10/19 08/11/19 18:03 21:10 05:14 Hgb Hct RDW Lymph % (Auto) [place] % (Auto) Lymph # Seg Neutrophils % Seg Neutrophils # D-Dimer Carbon Dioxide BUN 21 H Creatinine Glucose 368 H POC Glucose 297 H 259 H Hemoglobin A1c Lactic Acid Calcium Ferritin Alkaline Phosphatase 223 H Lactate Dehydrogenase C-Reactive Protein NT-Pro-B Natriuret Pep Total Protein Albumin 3.0 L Ur Specific [place] Urine WBC (Auto) Coronavirus (PCR) Miscellaneous Test 08/11/19 08/11/19 08/11/19 08:02 12:08 16:21 Hgb Hct RDW Lymph % (Auto) [place] % (Auto) Lymph # Seg Neutrophils % Seg Neutrophils # D-Dimer Carbon Dioxide BUN Creatinine Glucose POC Glucose 300 H 447 H 295 H Hemoglobin A1c Lactic Acid Calcium Ferritin Alkaline Phosphatase Lactate Dehydrogenase C-Reactive Protein NT-Pro-B Natriuret Pep Total Protein Albumin Ur Specific [place] Urine WBC (Auto) Coronavirus (PCR) Miscellaneous Test 08/11/19 08/12/19 08/12/19 21:42 05:04 07:47 Hgb Hct RDW Lymph % (Auto) [place] % (Auto) Lymph # Seg Neutrophils % Seg Neutrophils # D-Dimer Carbon Dioxide BUN 21 H Creatinine 0.5 L Glucose 276 H POC Glucose 447 H 274 H Hemoglobin A1c Lactic Acid Calcium Ferritin Alkaline Phosphatase 188 H Lactate Dehydrogenase C-Reactive Protein NT-Pro-B Natriuret Pep Total Protein 6.1 L Albumin 2.9 L Ur Specific [place] Urine WBC (Auto) Coronavirus (PCR) Miscellaneous Test 08/12/19 08/12/19 08/12/19 11:57 18:10 22:00 Hgb Hct RDW Lymph % (Auto) [place] % (Auto) Lymph # Seg Neutrophils % Seg Neutrophils # D-Dimer Carbon Dioxide BUN Creatinine Glucose POC Glucose 367 H 285 H 239 H Hemoglobin A1c Lactic Acid Calcium Ferritin Alkaline Phosphatase Lactate Dehydrogenase C-Reactive Protein NT-Pro-B Natriuret Pep Total Protein Albumin Ur Specific [place] Urine WBC (Auto) Coronavirus (PCR) Miscellaneous Test 08/13/19 08/13/19 08/13/19 04:10 04:10 04:10 Hgb Hct 44.3 H RDW 15.4 H Lymph % (Auto) 7.6 L [place] % (Auto) Lymph # 0.7 L Seg Neutrophils % 85.3 H Seg Neutrophils # D-Dimer Carbon Dioxide BUN 19 H 20 H Creatinine 0.5 L 0.5 L Glucose 201 H 199 H POC Glucose Hemoglobin A1c Lactic Acid Calcium 8.0 L 8.1 L Ferritin Alkaline Phosphatase 167 H Lactate Dehydrogenase C-Reactive Protein NT-Pro-B Natriuret Pep Total Protein 5.7 L Albumin 3.0 L Ur Specific [place] Urine WBC (Auto) Coronavirus (PCR) Miscellaneous Test 08/13/19 08/13/19 08/13/19 08:35 12:11 16:09 Hgb Hct RDW Lymph % (Auto) [place] % (Auto) Lymph # Seg Neutrophils % Seg Neutrophils # D-Dimer Carbon Dioxide BUN Creatinine Glucose POC Glucose 247 H 351 H 253 H Hemoglobin A1c Lactic Acid Calcium Ferritin Alkaline Phosphatase Lactate Dehydrogenase C-Reactive Protein NT-Pro-B Natriuret Pep Total Protein Albumin Ur Specific [place] Urine WBC (Auto) Coronavirus (PCR) Miscellaneous Test 08/13/19 08/14/19 08/14/19 21:45 04:56 07:28 Hgb 14.5 H Hct 44.2 H RDW 15.3 H Lymph % (Auto) 7.0 L [place] % (Auto) Lymph # 0.6 L Seg Neutrophils % 85.3 H Seg Neutrophils # D-Dimer Carbon Dioxide BUN Creatinine 0.5 L Glucose 228 H POC Glucose 242 H Hemoglobin A1c Lactic Acid Calcium 7.9 L Ferritin Alkaline Phosphatase 150 H Lactate Dehydrogenase C-Reactive Protein NT-Pro-B Natriuret Pep Total Protein 5.6 L Albumin 3.1 L Ur Specific [place] Urine WBC (Auto) Coronavirus (PCR) Miscellaneous Test 08/14/19 08/14/19 08/14/19 08:10 11:53 17:20 Hgb Hct RDW Lymph % (Auto) [place] % (Auto) Lymph # Seg Neutrophils % Seg Neutrophils # D-Dimer Carbon Dioxide BUN Creatinine Glucose POC Glucose 210 H 335 H 211 H Hemoglobin A1c Lactic Acid Calcium Ferritin Alkaline Phosphatase Lactate Dehydrogenase C-Reactive Protein NT-Pro-B Natriuret Pep Total Protein Albumin Ur Specific [place] Urine WBC (Auto) Coronavirus (PCR) Miscellaneous Test 08/14/19 08/14/19 08/15/19 18:08 23:25 05:09 Hgb Hct RDW Lymph % (Auto) [place] % (Auto) Lymph # Seg Neutrophils % Seg Neutrophils # D-Dimer Carbon Dioxide BUN Creatinine 0.4 L Glucose 222 H POC Glucose 255 H 272 H Hemoglobin A1c Lactic Acid Calcium 8.0 L Ferritin Alkaline Phosphatase 139 H Lactate Dehydrogenase C-Reactive Protein NT-Pro-B Natriuret Pep Total Protein 6.0 L Albumin 3.0 L Ur Specific [place] Urine WBC (Auto) Coronavirus (PCR) Miscellaneous Test 08/15/19 08/15/19 08/15/19 05:09 08:11 12:03 Hgb Hct RDW Lymph % (Auto) 8.1 L [place] % (Auto) 7.6 H Lymph # 0.7 L Seg Neutrophils % 83.9 H Seg Neutrophils # D-Dimer Carbon Dioxide BUN Creatinine Glucose POC Glucose 223 H 358 H Hemoglobin A1c Lactic Acid Calcium Ferritin Alkaline Phosphatase Lactate Dehydrogenase C-Reactive Protein NT-Pro-B Natriuret Pep Total Protein Albumin Ur Specific [place] Urine WBC (Auto) Coronavirus (PCR) Miscellaneous Test 08/15/19 08/15/19 08/16/19 16:43 21:47 04:12 Hgb Hct RDW Lymph % (Auto) [place] % (Auto) Lymph # Seg Neutrophils % Seg Neutrophils # D-Dimer Carbon Dioxide BUN Creatinine 0.4 L Glucose 205 H POC Glucose 285 H 274 H Hemoglobin A1c Lactic Acid Calcium 8.1 L Ferritin Alkaline Phosphatase Lactate Dehydrogenase C-Reactive Protein NT-Pro-B Natriuret Pep Total Protein Albumin Ur Specific [place] Urine WBC (Auto) Coronavirus (PCR) Miscellaneous Test 08/16/19 08/16/19 08/16/19 04:12 08:42 11:56 Hgb Hct 43.7 H RDW 15.7 H Lymph % (Auto) 5.4 L [place] % (Auto) Lymph # 0.6 L Seg Neutrophils % 89.0 H Seg Neutrophils # 9.5 H D-Dimer Carbon Dioxide BUN Creatinine Glucose POC Glucose 216 H 251 H Hemoglobin A1c Lactic Acid Calcium Ferritin Alkaline Phosphatase Lactate Dehydrogenase C-Reactive Protein NT-Pro-B Natriuret Pep Total Protein Albumin Ur Specific [place] Urine WBC (Auto) Coronavirus (PCR) Miscellaneous Test 08/16/19 08/16/19 08/17/19 16:29 21:28 04:46 Hgb Hct RDW Lymph % (Auto) [place] % (Auto) Lymph # Seg Neutrophils % Seg Neutrophils # D-Dimer 831.46 H Carbon Dioxide BUN Creatinine Glucose POC Glucose 245 H 293 H Hemoglobin A1c Lactic Acid Calcium Ferritin Alkaline Phosphatase Lactate Dehydrogenase C-Reactive Protein NT-Pro-B Natriuret Pep Total Protein Albumin Ur Specific [place] Urine WBC (Auto) Coronavirus (PCR) Miscellaneous Test 08/17/19 08/17/19 08/17/19 04:46 04:46 08:13 Hgb Hct RDW Lymph % (Auto) [place] % (Auto) Lymph # Seg Neutrophils % Seg Neutrophils # D-Dimer Carbon Dioxide BUN Creatinine Glucose POC Glucose 201 H Hemoglobin A1c Lactic Acid Calcium Ferritin 775.8 H Alkaline Phosphatase Lactate Dehydrogenase 409 H C-Reactive Protein NT-Pro-B Natriuret Pep Total Protein Albumin Ur Specific [place] Urine WBC (Auto) Coronavirus (PCR) Miscellaneous Test
[2019-08-17] MEDS: INSULIN GLARGINE 100 UNITS/ML SUB-Q SCH (22:36)
[2019-08-18] MEDS: BENZONATATE 100 MG CAP PO SCH ×3 (01:24→16:17)
[2019-08-18] MEDS: methylPREDNISolone Sod Succinate 40 MG/1 ML INJ IV SCH ×3 (05:19→23:08)
--- NOTE | 2019-08-18 09:04 | Progress Note ---
Assessment and Plan Assessment and plan: Severe sepsis. Etiology secondary to COVID-19 pneumonia. COVID pneumonia. Patient with likely cytokine storm, microthrombi and elevated inflammatory markers. Patient is s/p Actemra on 08/06. ARDS. Etiology secondary to above. Acute hypoxemic respiratory failure. Continue O2 and BiPAP as clinically indicated. Etiology secondary to above. Diabetes mellitus type 2. Continue Lantus at bedtime. Patient with Solu- Medrol. 08/12/2019. Pulmonary following and recommending pronating during the day and at night. Continue Solu-Medrol 40 mg every 8 hours for a total of 7 days. Patient s/p Actemra and Remdisiver. Patient currently on HFNC requiring 40 L O2. Increase Lantus to 15 units at bedtime. 08/13/2019. Continue pronating. ID reports patient enrolled in Expanded Access Program for Convalescent Plasma patient [id number]. Continue Remdesivir - 100 mg IV daily x 9 days. Continue solumedrol 40 mg IV q 8 hours. Continue anticoagulation for elevated d-dimer. Follow-up quantiferon and IL6. Continue vitamin C and E. Continue COVID isolation precautions. Patient with high risk mortality 08/14/2019. Patient currently with high flow nasal cannula 40 L/min FiO2 90%. Convalescent plasma per ID. Continue Remdesivir, s/p Actemra, IV Solu-Medrol 40 mg every 8 hour and Lovenox 90 mg subcu every 12 hours. Continue proning paulette ent. Prognosis remains guarded. 08/15/2019. Patient currently with high flow nasal cannula 40 L/min FiO2 80%. Convalescent plasma per ID. Continue Remdesivir, s/p Actemra, IV Solu-Medrol 40 mg every 8 hour and Lovenox 90 mg subcu every 12 hours. Continue proning patient. Prognosis remains guarded. 08/16/2019 patient with Covid-19 pneumonia wit acute resp failure. Less SOB. now on 30 l/min HFNC. Also s/p Remdesivir, s/p Actemra. 08/17/2019 Patient with Covid-19 pneumonia with acute respiratory failure. Patient less shortness of breath. still on high flow Oxygen at 30 l/min 08/18/2019 patient with Covid-19 pneumonia with acute resp failure. She is still on Oxygen by HFNC at 30 l/min. Will discuss with resp Therapist to wean down Fi02 History Interval history: Shortness of breath No more fever Hospitalist Physical - Physical exam Narrative exam: GEN: Not in acute distress, lying in bed HEENT: Normocephalic, atraumatic, Neck: supple, No JVD Lungs: Clear to auscultation bilaterally, heart;S1 and S2 reg, no murmurs, rubs or gallop Abd:soft, non tender, non distended, normal bowel sounds, Ext: No edema, no clubbing, no cyanosis, Neuro: Awake,alert,oriented X3 , no focal signs, - Constitutional Vitals: Temp Pulse Resp BP Pulse Ox 98.3 F 56 L 15 112/63 90 08/18/19 04:00 08/18/19 06:00 08/18/19 06:00 08/18/19 06:00 08/18/19 06:00 General appearance: Present: no acute distress, obese Results - Labs CBC & Chem 7: 08/16/19 04:12 08/16/19 04:12 Labs: Laboratory Last Values WBC 10.6 K/mm3 (4.5-11.0) 08/16/19 04:12 RBC 4.83 M/mm3 (3.65-5.03) 08/16/19 04:12 Hgb 14.3 gm/dl (10.1-14.3) 08/16/19 04:12 Hct 43.7 % (30.3-42.9) H 08/16/19 04:12 MCV 91 fl (79-97) 08/16/19 04:12 MCH 30 pg (28-32) 08/16/19 04:12 MCHC 33 % (30-34) 08/16/19 04:12 RDW 15.7 % (13.2-15.2) H 08/16/19 04:12 Plt Count 163 K/mm3 (140-440) 08/16/19 04:12 Lymph % (Auto) 5.4 % (13.4-35.0) L 08/16/19 04:12 [place] % (Auto) 5.2 % (0.0-7.3) 08/16/19 04:12 Eos % (Auto) 0.0 % (0.0-4.3) 08/16/19 04:12 Baso % (Auto) 0.4 % (0.0-1.8) 08/16/19 04:12 Lymph # 0.6 K/mm3 (1.2-5.4) L 08/16/19 04:12 [place] # 0.6 K/mm3 (0.0-0.8) 08/16/19 04:12 Eos # 0.0 K/mm3 (0.0-0.4) 08/16/19 04:12 Baso # 0.0 K/mm3 (0.0-0.1) 08/16/19 04:12 Add Manual Diff Complete 08/13/19 04:10 Seg Neutrophils % 89.0 % (40.0-70.0) H 08/16/19 04:12 Nucleated RBC % Not Reportable 08/13/19 04:10 Seg Neutrophils # 9.5 K/mm3 (1.8-7.7) H 08/16/19 04:12 WBC Morphology Not Reportable 08/13/19 04:10 Hypersegmented Neuts Not Reportable 08/13/19 04:10 Hyposegmented Neuts Not Reportable 08/13/19 04:10 Hypogranular Neuts Not Reportable 08/13/19 04:10 Smudge Cells Not Reportable 08/13/19 04:10 Toxic Granulation Not Reportable 08/13/19 04:10 Toxic Vacuolation Not Reportable 08/13/19 04:10 Dohle Bodies Not Reportable 08/13/19 04:10 Pelger-Huet Anomaly Not Reportable 08/13/19 04:10 Kaylynn Rods Not Reportable 08/13/19 04:10 Platelet Estimate Not Reportable 08/13/19 04:10 Clumped Platelets Not Reportable 08/13/19 04:10 Plt Clumps, EDTA Not Reportable 08/13/19 04:10 Large Platelets Not Reportable 08/13/19 04:10 Giant Platelets Not Reportable 08/13/19 04:10 Platelet Satelliting Not Reportable 08/13/19 04:10 Plt Morphology Comment Not Reportable 08/13/19 04:10 RBC Morphology Not Reportable 08/13/19 04:10 Dimorphic RBCs Not Reportable 08/13/19 04:10 Polychromasia Not Reportable 08/13/19 04:10 Hypochromasia Not Reportable 08/13/19 04:10 Poikilocytosis Not Reportable 08/13/19 04:10 Anisocytosis Not Reportable 08/13/19 04:10 Microcytosis Not Reportable 08/13/19 04:10 Macrocytosis Not Reportable 08/13/19 04:10 Spherocytes Not Reportable 08/13/19 04:10 Pappenheimer Bodies Not Reportable 08/13/19 04:10 Sickle Cells Not Reportable 08/13/19 04:10 Target Cells Not Reportable 08/13/19 04:10 Tear Drop Cells Not Reportable 08/13/19 04:10 Ovalocytes Not Reportable 08/13/19 04:10 Helmet Cells Not Reportable 08/13/19 04:10 [place] Bodies Not Reportable 08/13/19 04:10 [place] Rings Not Reportable 08/13/19 04:10 Rajiv Cells Not Reportable 08/13/19 04:10 Bite Cells Not Reportable 08/13/19 04:10 Crenated Cell Not Reportable 08/13/19 04:10 Elliptocytes Not Reportable 08/13/19 04:10 Acanthocytes (Spur) Not Reportable 08/13/19 04:10 Rouleaux Not Reportable 08/13/19 04:10 Hemoglobin C Crystals Not Reportable 08/13/19 04:10 Schistocytes Not Reportable 08/13/19 04:10 Malaria parasites Not Reportable 08/13/19 04:10 Humberto Bodies Not Reportable 08/13/19 04:10 Hem Pathologist Commnt Not Reportable 08/13/19 04:10 APTT 26.3 Sec. (24.2-36.6) 08/05/19 14:53 D-Dimer 831.46 ng/mlDDU (0-234) H 08/17/19 04:46 Sodium 140 mmol/L (137-145) 08/16/19 04:12 Potassium 4.5 mmol/L (3.6-5.0) 08/16/19 04:12 Chloride 101.0 mmol/L (98-107) 08/16/19 04:12 Carbon Dioxide 25 mmol/L (22-30) 08/16/19 04:12 Anion Gap 19 mmol/L 08/16/19 04:12 BUN 16 mg/dL (7-17) 08/16/19 04:12 Creatinine 0.4 mg/dL (0.7-1.2) L 08/16/19 04:12 Estimated GFR > 60 ml/min 08/16/19 04:12 BUN/Creatinine Ratio 40 % 08/16/19 04:12 Glucose 205 mg/dL (65-100) H 08/16/19 04:12 POC Glucose 159 (70-105) H 08/18/19 08:07 Hemoglobin A1c 7.6 % (4-6) H 08/06/19 Unknown Lactic Acid 1.90 mmol/L (0.7-2.0) 08/05/19 22:51 Calcium 8.1 mg/dL (8.4-10.2) L 08/16/19 04:12 Ferritin 775.8 ng/mL (13.0-400.0) H 08/17/19 04:46 Total Bilirubin 1.00 mg/dL (0.1-1.2) 08/15/19 05:09 AST 23 units/L (5-40) 08/15/19 05:09 ALT 45 units/L (7-56) 08/15/19 05:09 Alkaline Phosphatase 139 units/L (35-129) H 08/15/19 05:09 Lactate Dehydrogenase 409 units/L (91-180) H 08/17/19 04:46 C-Reactive Protein 0.30 mg/dL (0.00-1.30) 08/17/19 04:46 NT-Pro-B Natriuret Pep 1818 pg/mL (0-900) H 08/05/19 15:07 Total Protein 6.0 g/dL (6.3-8.2) L 08/15/19 05:09 Albumin 3.0 g/dL (3.9-5) L 08/15/19 05:09 Albumin/Globulin Ratio 1.0 % 08/15/19 05:09 Procalcitonin 1.06 ng/mL (<0.15) 08/09/19 12:29 Urine Color [place] (Yellow) 08/05/19 19:54 Urine Turbidity Clear (Clear) 08/05/19 19:54 Urine pH 5.0 (5.0-7.0) 08/05/19 19:54 Ur Specific [place] 1.031 (1.003-1.030) H 08/05/19 19:54 Urine Protein 100 mg/dl mg/dL (Negative) 08/05/19 19:54 Urine Glucose (UA) 50 mg/dL (Negative) 08/05/19 19:54 Urine Ketones Neg mg/dL (Negative) 08/05/19 19:54 Urine Blood Neg (Negative) 08/05/19 19:54 Urine Nitrite Neg (Negative) 08/05/19 19:54 Urine Bilirubin Neg (Negative) 08/05/19 19:54 Urine Urobilinogen < 2.0 mg/dL (<2.0) 08/05/19 19:54 Ur Leukocyte Esterase Neg (Negative) 08/05/19 19:54 Urine WBC (Auto) 8.0 /HPF (0.0-6.0) H 08/05/19 19:54 Urine RBC (Auto) 1.0 /HPF (0.0-6.0) 08/05/19 19:54 U Epithel Cells (Auto) 10.0 /HPF (0-13.0) 08/05/19 19:54 Urine Mucus 1+ /HPF 08/05/19 19:54 Coronavirus (PCR) Positive (Negative) A 08/06/19 09:17 Miscellaneous Test Flexitest 1 H 08/10/19 08:16 Blood Type A POSITIVE 08/11/19 15:00 Antibody Screen Negative 08/11/19 15:00 [place]/IV: Voiding Method Bedside Commode IV Catheter Type [Left Forearm INT / Saline Lock ] IV Catheter Type [Right Wrist] Peripheral IV IV Catheter Type [Right INT / Saline Lock Forearm] IV Catheter Type [Left Hand] Peripheral IV IV Catheter Type [Left Peripheral IV Antecubital] Active Medications - Current Medications Current Medications: Generic Name Dose Route Start Last Admin Trade Name Freq PRN Reason Stop Dose Admin Acetaminophen 650 mg 08/05/19 21:32 08/06/19 20:05 Tylenol PO 650 mg Q4H PRN Administration Pain MILD(1-3)/Fever >100.5/BUTLER Ascorbic Acid 500 mg 08/08/19 10:00 08/17/19 22:36 Vitamin C PO 500 mg BID RAISA Administration Benzonatate 100 mg 08/06/19 01:00 08/18/19 01:24 Tessalon Perles PO Not Given Q8H [facility] Cholecalciferol 5,000 unit 08/08/19 10:00 08/16/19 09:59 Vitamin D3 PO 5,000 unit QDAY [facility] Administration Enoxaparin Sodium 90 mg 08/05/19 22:00 08/17/19 22:35 Enoxaparin SUB-Q 90 mg Q12HR RAISA Administration Famotidine 20 mg 08/05/19 22:00 08/17/19 22:36 Pepcid PO 20 mg BID RAISA Administration Hydromorphone HCl 0.5 mg 08/05/19 21:32 08/06/19 22:28 Dilaudid IV 0.5 mg Q3H PRN Administration Pain , Severe (7-10) Hydrophilic Ointment 1 applic 08/13/19 18:22 08/13/19 18:29 Vaseline Lip Therapy TP 1 applic DIRECT PRN Administration Dry Lips Insulin Glargine 25 units 08/16/19 22:00 08/17/19 22:36 Lantus SUB-Q 25 units QHS RAISA Administration Insulin Human Lispro 0 unit 08/05/19 22:00 08/17/19 22:37 Humalog SUB-Q 4 unit ACHS [facility] Administration Protocol Methylprednisolone Sodium Succinate 20 mg 08/16/19 14:00 08/18/19 05:19 Solu-Medrol IV 20 mg Q8HR RAISA Administration Metoclopramide HCl 10 mg 08/05/19 21:32 Reglan IV Q6H PRN Nausea And Vomiting Ondansetron HCl 4 mg 08/05/19 21:32 Zofran IV Q8H PRN Nausea And Vomiting Oxycodone/Acetaminophen 1 tab 08/05/19 21:32 08/17/19 18:26 Percocet 5/325 PO 1 tab Q6H PRN Administration Pain, Moderate (4-6) Sodium Chloride 10 ml 08/05/19 22:00 08/17/19 22:36 Sodium Chloride Flush Syringe 10 Ml IV 10 ml BID RAISA Administration Sodium Chloride 10 ml 08/05/19 21:32 Sodium Chloride Flush Syringe 10 Ml IV PRN PRN LINE FLUSH Nutrition/Malnutrition Assess - Dietary Evaluation Nutrition/Malnutrition Findings: Nutrition Notes Start: 08/06/19 08:35 Freq: Status: Active Protocol: Document 08/18/19 08:25 LP (Rec: 08/18/19 08:27 LP [id number]) Nutrition Notes Initial or Follow up Reassessment Current Diagnosis Diabetes Other Pertinent Diagnosis ARDS, Suspected COVID-19 Current Diet Cardiac/consistent CHO Labs/Tests BG 159 Pertinent Medications Reviewed Height 5 ft 5 in Weight 92.3 kg [place] Body Weight (kg) 56.81 BMI 33.8 Weight Status Obese Subjective/Other Information Pt continues eating well and consuming most of meals. Percent of energy/protein needs met: 100%/91% Burn Absent Trauma Absent Current % PO Good (75-100%) Minimum of two criteria No physical signs of malnutrition #2 Nutrition Diagnosis Inadequate oral intake As Evidenced by Signs and Symptoms Pt continued to meet 100% of kcal and 91% of protein needs Diagnosis Progress(for reassessment Resolved documentation) Is patient on ventilator? No Is Patient Ambulatory and/or Out of Bed Yes REE-([facility]-ambulatory/OOB) [ 1974.544 [id number]] Kcal/Kg value to use for calculation 17 Approximate Energy Requirements Using 1569 kcal/Kg Calculation Used for Recommendations Kcal/kg Additional Notes Protein needs are 74-92g (0.8- 1g/kg) Fluid needs are 1ml/kcal Nutrition Intervention Change Diet Order: Continue Goal #1 Continue to meet at least 80% of kcal and protein needs Anticipated Discharge Needs: Cardiac/consistent CHO diet Revisit per MD consult or patient Sign Off request:
[2019-08-18] MEDS: FAMOTIDINE 20 MG TAB PO SCH ×2 (09:57→23:07)
[2019-08-18] MEDS: ENOXAPARIN 100 MG/1 ML INJ SUB-Q SCH ×2 (09:57→23:08)
[2019-08-18] MEDS: ASCORBIC ACID 500 MG TAB PO SCH ×2 (09:57→23:08)
[2019-08-18] MEDS: INSULIN LISPRO 100 UNIT/ML SUB-Q SCH ×4 (09:58→23:09)
--- NOTE | 2019-08-18 11:28 | Progress Note ---
Assessment and Plan 54 y/o female with acute respiratory failure secondary to COVID 19 1. Proning during the day and prone sleeping at night. Begged her to continue to do this. 2. Steroid at 20q8 for a total of 7 days. Today is day 3. If oxygen requirement does not improve in the next 12-18 hours, will increase back to 40q8 3. Agree with Actemra, given 4. Agree with Remdisiver, given 5. Convaslescent plasma given on 08/14/2019 6. Continue to wean HFNC as tolerated. Hold on lasix therapy for today again. Subjective Date of service: 08/18/19 Principal diagnosis: Bilateral pneumonia, ARDS Interval history: Oxygen requirement increased to 60 overnight. No explanation as to why. No documentation in the chart. No fever Objective Vital Signs - 12hr 08/18/19 08/18/19 08/18/19 00:00 01:00 02:00 Temperature 98.7 F Pulse Rate 58 L 56 L 59 L Pulse Rate [ 58 L From Monitor] Respiratory 20 16 13 Rate Blood Pressure 123/71 119/76 122/78 O2 Sat by Pulse 96 93 84 Oximetry 08/18/19 08/18/19 08/18/19 03:00 04:00 05:00 Temperature 98.3 F Pulse Rate 57 L 61 58 L Pulse Rate [ 61 From Monitor] Respiratory 21 15 21 Rate Blood Pressure 121/66 115/60 109/56 O2 Sat by Pulse 93 91 91 Oximetry 08/18/19 08/18/19 08/18/19 06:00 08:00 10:03 Temperature 98.4 F Pulse Rate 56 L Pulse Rate [ From Monitor] Respiratory 15 Rate Blood Pressure 112/63 O2 Sat by Pulse 90 93 Oximetry Constitutional: alert, other (critically ill on HFNC) Eyes: non-icteric Effort: mildly labored Ascultation: Bilateral: rales Cardiovascular: regular rate and rhythm (no mrg) Gastrointestinal: normoactive bowel sounds, soft, non-tender, non-distended Integumentary: normal Extremities: no cyanosis, no edema, pink and warm Neurologic: normal mental status, non-focal exam, pupils equal and round, CN II- XII normal Psychiatric: mood appropriate, affect normal CBC and BMP: 08/16/19 04:12 08/16/19 04:12 ABG, PT/INR, D-dimer: PT/INR, D-dimer D-Dimer 831.46 ng/mlDDU (0-234) H 08/17/19 04:46 Abnormal lab findings: Abnormal Labs 08/05/19 08/05/19 08/05/19 14:53 14:53 14:53 Hgb Hct RDW Lymph % (Auto) 13.0 L [place] % (Auto) 10.8 H Lymph # 0.9 L Seg Neutrophils % 74.0 H Seg Neutrophils # D-Dimer > 41845 H Carbon Dioxide 20 L BUN 6 L Creatinine 0.6 L Glucose 255 H POC Glucose Hemoglobin A1c Lactic Acid Calcium Ferritin Alkaline Phosphatase 173 H Lactate Dehydrogenase C-Reactive Protein NT-Pro-B Natriuret Pep Total Protein Albumin 2.9 L Ur Specific [place] Urine WBC (Auto) Coronavirus (PCR) Miscellaneous Test 08/05/19 08/05/19 08/05/19 14:53 14:53 14:53 Hgb Hct RDW Lymph % (Auto) [place] % (Auto) Lymph # Seg Neutrophils % Seg Neutrophils # D-Dimer Carbon Dioxide BUN Creatinine Glucose 256 H POC Glucose Hemoglobin A1c Lactic Acid 3.40 H* Calcium Ferritin 438.9 H Alkaline Phosphatase Lactate Dehydrogenase 702 H C-Reactive Protein 32.90 H NT-Pro-B Natriuret Pep Total Protein Albumin Ur Specific [place] Urine WBC (Auto) Coronavirus (PCR) Miscellaneous Test 08/05/19 08/05/19 08/06/19 15:07 19:54 00:21 Hgb Hct RDW Lymph % (Auto) [place] % (Auto) Lymph # Seg Neutrophils % Seg Neutrophils # D-Dimer Carbon Dioxide BUN Creatinine Glucose POC Glucose 131 H Hemoglobin A1c Lactic Acid Calcium Ferritin Alkaline Phosphatase Lactate Dehydrogenase C-Reactive Protein NT-Pro-B Natriuret Pep 1818 H Total Protein Albumin Ur Specific [place] 1.031 H Urine WBC (Auto) 8.0 H Coronavirus (PCR) Miscellaneous Test 08/06/19 08/06/19 08/06/19 08:29 09:17 11:56 Hgb Hct RDW Lymph % (Auto) [place] % (Auto) Lymph # Seg Neutrophils % Seg Neutrophils # D-Dimer Carbon Dioxide BUN Creatinine Glucose POC Glucose 165 H 190 H Hemoglobin A1c Lactic Acid Calcium Ferritin Alkaline Phosphatase Lactate Dehydrogenase C-Reactive Protein NT-Pro-B Natriuret Pep Total Protein Albumin Ur Specific [place] Urine WBC (Auto) Coronavirus (PCR) Positive A Miscellaneous Test 08/06/19 08/06/19 08/06/19 16:16 22:16 Unknown Hgb Hct RDW Lymph % (Auto) [place] % (Auto) Lymph # Seg Neutrophils % Seg Neutrophils # D-Dimer Carbon Dioxide BUN Creatinine Glucose POC Glucose 170 H 128 H Hemoglobin A1c 7.6 H Lactic Acid Calcium Ferritin Alkaline Phosphatase Lactate Dehydrogenase C-Reactive Protein NT-Pro-B Natriuret Pep Total Protein Albumin Ur Specific [place] Urine WBC (Auto) Coronavirus (PCR) Miscellaneous Test 08/07/19 08/07/19 08/07/19 07:59 11:39 11:56 Hgb Hct RDW Lymph % (Auto) [place] % (Auto) Lymph # Seg Neutrophils % Seg Neutrophils # D-Dimer Carbon Dioxide BUN Creatinine 0.6 L Glucose 194 H POC Glucose 141 H 195 H Hemoglobin A1c Lactic Acid Calcium 8.0 L Ferritin Alkaline Phosphatase 181 H Lactate Dehydrogenase C-Reactive Protein NT-Pro-B Natriuret Pep Total Protein Albumin 2.5 L Ur Specific [place] Urine WBC (Auto) Coronavirus (PCR) Miscellaneous Test 08/07/19 08/07/19 08/07/19 11:56 11:56 11:56 Hgb Hct RDW Lymph % (Auto) [place] % (Auto) Lymph # Seg Neutrophils % Seg Neutrophils # D-Dimer > 54074 H Carbon Dioxide BUN Creatinine Glucose POC Glucose Hemoglobin A1c Lactic Acid Calcium Ferritin 415.7 H Alkaline Phosphatase Lactate Dehydrogenase 745 H C-Reactive Protein NT-Pro-B Natriuret Pep Total Protein Albumin Ur Specific [place] Urine WBC (Auto) Coronavirus (PCR) Miscellaneous Test 08/07/19 08/07/19 08/07/19 11:56 16:35 21:36 Hgb Hct RDW Lymph % (Auto) [place] % (Auto) Lymph # Seg Neutrophils % Seg Neutrophils # D-Dimer Carbon Dioxide BUN Creatinine Glucose POC Glucose 176 H 277 H Hemoglobin A1c Lactic Acid Calcium Ferritin Alkaline Phosphatase Lactate Dehydrogenase C-Reactive Protein 34.20 H NT-Pro-B Natriuret Pep Total Protein Albumin Ur Specific [place] Urine WBC (Auto) Coronavirus (PCR) Miscellaneous Test 08/08/19 08/08/19 08/08/19 07:53 08:54 11:40 Hgb Hct RDW Lymph % (Auto) [place] % (Auto) Lymph # Seg Neutrophils % Seg Neutrophils # D-Dimer Carbon Dioxide BUN Creatinine 0.6 L Glucose 266 H POC Glucose 214 H 340 H Hemoglobin A1c Lactic Acid Calcium 8.3 L Ferritin Alkaline Phosphatase 222 H Lactate Dehydrogenase C-Reactive Protein NT-Pro-B Natriuret Pep Total Protein Albumin 2.5 L Ur Specific [place] Urine WBC (Auto) Coronavirus (PCR) Miscellaneous Test 08/08/19 08/08/19 08/09/19 17:04 21:49 05:22 Hgb Hct RDW Lymph % (Auto) [place] % (Auto) Lymph # Seg Neutrophils % Seg Neutrophils # D-Dimer Carbon Dioxide BUN Creatinine Glucose POC Glucose 278 H 319 H Hemoglobin A1c Lactic Acid Calcium Ferritin Alkaline Phosphatase Lactate Dehydrogenase 866 H C-Reactive Protein 14.70 H NT-Pro-B Natriuret Pep Total Protein Albumin Ur Specific [place] Urine WBC (Auto) Coronavirus (PCR) Miscellaneous Test 08/09/19 08/09/19 08/09/19 05:44 08:12 11:52 Hgb Hct RDW Lymph % (Auto) [place] % (Auto) Lymph # Seg Neutrophils % Seg Neutrophils # D-Dimer Carbon Dioxide BUN 18 H Creatinine 0.6 L Glucose 227 H POC Glucose 232 H 273 H Hemoglobin A1c Lactic Acid Calcium 8.2 L Ferritin Alkaline Phosphatase 230 H Lactate Dehydrogenase C-Reactive Protein NT-Pro-B Natriuret Pep Total Protein Albumin 2.5 L Ur Specific [place] Urine WBC (Auto) Coronavirus (PCR) Miscellaneous Test 08/09/19 08/09/19 08/09/19 12:29 12:29 17:11 Hgb Hct RDW Lymph % (Auto) [place] % (Auto) Lymph # Seg Neutrophils % Seg Neutrophils # D-Dimer 3795.56 H Carbon Dioxide BUN Creatinine Glucose POC Glucose 200 H Hemoglobin A1c Lactic Acid Calcium Ferritin 594.1 H Alkaline Phosphatase Lactate Dehydrogenase C-Reactive Protein NT-Pro-B Natriuret Pep Total Protein Albumin Ur Specific [place] Urine WBC (Auto) Coronavirus (PCR) Miscellaneous Test 08/09/19 08/10/19 08/10/19 21:58 05:07 06:14 Hgb Hct RDW Lymph % (Auto) [place] % (Auto) Lymph # Seg Neutrophils % Seg Neutrophils # D-Dimer Carbon Dioxide BUN 19 H Creatinine Glucose 277 H POC Glucose 226 H 288 H Hemoglobin A1c Lactic Acid Calcium 7.9 L Ferritin Alkaline Phosphatase 231 H Lactate Dehydrogenase C-Reactive Protein NT-Pro-B Natriuret Pep Total Protein Albumin 2.7 L Ur Specific [place] Urine WBC (Auto) Coronavirus (PCR) Miscellaneous Test 08/10/19 08/10/19 08/10/19 08:16 08:31 12:25 Hgb Hct RDW Lymph % (Auto) [place] % (Auto) Lymph # Seg Neutrophils % Seg Neutrophils # D-Dimer Carbon Dioxide BUN Creatinine Glucose POC Glucose 284 H 387 H Hemoglobin A1c Lactic Acid Calcium Ferritin Alkaline Phosphatase Lactate Dehydrogenase C-Reactive Protein NT-Pro-B Natriuret Pep Total Protein Albumin Ur Specific [place] Urine WBC (Auto) Coronavirus (PCR) Miscellaneous Test Flexitest 1 H 08/10/19 08/10/19 08/11/19 18:03 21:10 05:14 Hgb Hct RDW Lymph % (Auto) [place] % (Auto) Lymph # Seg Neutrophils % Seg Neutrophils # D-Dimer Carbon Dioxide BUN 21 H Creatinine Glucose 368 H POC Glucose 297 H 259 H Hemoglobin A1c Lactic Acid Calcium Ferritin Alkaline Phosphatase 223 H Lactate Dehydrogenase C-Reactive Protein NT-Pro-B Natriuret Pep Total Protein Albumin 3.0 L Ur Specific [place] Urine WBC (Auto) Coronavirus (PCR) Miscellaneous Test 08/11/19 08/11/19 08/11/19 08:02 12:08 16:21 Hgb Hct RDW Lymph % (Auto) [place] % (Auto) Lymph # Seg Neutrophils % Seg Neutrophils # D-Dimer Carbon Dioxide BUN Creatinine Glucose POC Glucose 300 H 447 H 295 H Hemoglobin A1c Lactic Acid Calcium Ferritin Alkaline Phosphatase Lactate Dehydrogenase C-Reactive Protein NT-Pro-B Natriuret Pep Total Protein Albumin Ur Specific [place] Urine WBC (Auto) Coronavirus (PCR) Miscellaneous Test 08/11/19 08/12/19 08/12/19 21:42 05:04 07:47 Hgb Hct RDW Lymph % (Auto) [place] % (Auto) Lymph # Seg Neutrophils % Seg Neutrophils # D-Dimer Carbon Dioxide BUN 21 H Creatinine 0.5 L Glucose 276 H POC Glucose 447 H 274 H Hemoglobin A1c Lactic Acid Calcium Ferritin Alkaline Phosphatase 188 H Lactate Dehydrogenase C-Reactive Protein NT-Pro-B Natriuret Pep Total Protein 6.1 L Albumin 2.9 L Ur Specific [place] Urine WBC (Auto) Coronavirus (PCR) Miscellaneous Test 08/12/19 08/12/1908/11/20 11:57 18:10 22:00 Hgb Hct RDW Lymph % (Auto) [place] % (Auto) Lymph # Seg Neutrophils % Seg Neutrophils # D-Dimer Carbon Dioxide BUN Creatinine Glucose POC Glucose 367 H 285 H 239 H Hemoglobin A1c Lactic Acid Calcium Ferritin Alkaline Phosphatase Lactate Dehydrogenase C-Reactive Protein NT-Pro-B Natriuret Pep Total Protein Albumin Ur Specific [place] Urine WBC (Auto) Coronavirus (PCR) Miscellaneous Test 08/13/19 08/13/19 08/13/19 04:10 04:10 04:10 Hgb Hct 44.3 H RDW 15.4 H Lymph % (Auto) 7.6 L [place] % (Auto) Lymph # 0.7 L Seg Neutrophils % 85.3 H Seg Neutrophils # D-Dimer Carbon Dioxide BUN 19 H 20 H Creatinine 0.5 L 0.5 L Glucose 201 H 199 H POC Glucose Hemoglobin A1c Lactic Acid Calcium 8.0 L 8.1 L Ferritin Alkaline Phosphatase 167 H Lactate Dehydrogenase C-Reactive Protein NT-Pro-B Natriuret Pep Total Protein 5.7 L Albumin 3.0 L Ur Specific [place] Urine WBC (Auto) Coronavirus (PCR) Miscellaneous Test 08/13/19 08/13/19 08/13/19 08:35 12:11 16:09 Hgb Hct RDW Lymph % (Auto) [place] % (Auto) Lymph # Seg Neutrophils % Seg Neutrophils # D-Dimer Carbon Dioxide BUN Creatinine Glucose POC Glucose 247 H 351 H 253 H Hemoglobin A1c Lactic Acid Calcium Ferritin Alkaline Phosphatase Lactate Dehydrogenase C-Reactive Protein NT-Pro-B Natriuret Pep Total Protein Albumin Ur Specific [place] Urine WBC (Auto) Coronavirus (PCR) Miscellaneous Test 08/13/19 08/14/19 08/14/19 21:45 04:56 07:28 Hgb 14.5 H Hct 44.2 H RDW 15.3 H Lymph % (Auto) 7.0 L [place] % (Auto) Lymph # 0.6 L Seg Neutrophils % 85.3 H Seg Neutrophils # D-Dimer Carbon Dioxide BUN Creatinine 0.5 L Glucose 228 H POC Glucose 242 H Hemoglobin A1c Lactic Acid Calcium 7.9 L Ferritin Alkaline Phosphatase 150 H Lactate Dehydrogenase C-Reactive Protein NT-Pro-B Natriuret Pep Total Protein 5.6 L Albumin 3.1 L Ur Specific [place] Urine WBC (Auto) Coronavirus (PCR) Miscellaneous Test 08/14/19 08/14/19 08/14/19 08:10 11:53 17:20 Hgb Hct RDW Lymph % (Auto) [place] % (Auto) Lymph # Seg Neutrophils % Seg Neutrophils # D-Dimer Carbon Dioxide BUN Creatinine Glucose POC Glucose 210 H 335 H 211 H Hemoglobin A1c Lactic Acid Calcium Ferritin Alkaline Phosphatase Lactate Dehydrogenase C-Reactive Protein NT-Pro-B Natriuret Pep Total Protein Albumin Ur Specific [place] Urine WBC (Auto) Coronavirus (PCR) Miscellaneous Test 08/14/19 08/14/19 08/15/19 18:08 23:25 05:09 Hgb Hct RDW Lymph % (Auto) [place] % (Auto) Lymph # Seg Neutrophils % Seg Neutrophils # D-Dimer Carbon Dioxide BUN Creatinine 0.4 L Glucose 222 H POC Glucose 255 H 272 H Hemoglobin A1c Lactic Acid Calcium 8.0 L Ferritin Alkaline Phosphatase 139 H Lactate Dehydrogenase C-Reactive Protein NT-Pro-B Natriuret Pep Total Protein 6.0 L Albumin 3.0 L Ur Specific [place] Urine WBC (Auto) Coronavirus (PCR) Miscellaneous Test 08/15/19 08/15/19 08/15/19 05:09 08:11 12:03 Hgb Hct RDW Lymph % (Auto) 8.1 L [place] % (Auto) 7.6 H Lymph # 0.7 L Seg Neutrophils % 83.9 H Seg Neutrophils # D-Dimer Carbon Dioxide BUN Creatinine Glucose POC Glucose 223 H 358 H Hemoglobin A1c Lactic Acid Calcium Ferritin Alkaline Phosphatase Lactate Dehydrogenase C-Reactive Protein NT-Pro-B Natriuret Pep Total Protein Albumin Ur Specific [place] Urine WBC (Auto) Coronavirus (PCR) Miscellaneous Test 08/15/19 08/15/19 08/16/19 16:43 21:47 04:12 Hgb Hct RDW Lymph % (Auto) [place] % (Auto) Lymph # Seg Neutrophils % Seg Neutrophils # D-Dimer Carbon Dioxide BUN Creatinine 0.4 L Glucose 205 H POC Glucose 285 H 274 H Hemoglobin A1c Lactic Acid Calcium 8.1 L Ferritin Alkaline Phosphatase Lactate Dehydrogenase C-Reactive Protein NT-Pro-B Natriuret Pep Total Protein Albumin Ur Specific [place] Urine WBC (Auto) Coronavirus (PCR) Miscellaneous Test 08/16/19 08/16/19 08/16/19 04:12 08:42 11:56 Hgb Hct 43.7 H RDW 15.7 H Lymph % (Auto) 5.4 L [place] % (Auto) Lymph # 0.6 L Seg Neutrophils % 89.0 H Seg Neutrophils # 9.5 H D-Dimer Carbon Dioxide BUN Creatinine Glucose POC Glucose 216 H 251 H Hemoglobin A1c Lactic Acid Calcium Ferritin Alkaline Phosphatase Lactate Dehydrogenase C-Reactive Protein NT-Pro-B Natriuret Pep Total Protein Albumin Ur Specific [place] Urine WBC (Auto) Coronavirus (PCR) Miscellaneous Test 08/16/19 08/16/19 08/17/19 16:29 21:28 04:46 Hgb Hct RDW Lymph % (Auto) [place] % (Auto) Lymph # Seg Neutrophils % Seg Neutrophils # D-Dimer 831.46 H Carbon Dioxide BUN Creatinine Glucose POC Glucose 245 H 293 H Hemoglobin A1c Lactic Acid Calcium Ferritin Alkaline Phosphatase Lactate Dehydrogenase C-Reactive Protein NT-Pro-B Natriuret Pep Total Protein Albumin Ur Specific [place] Urine WBC (Auto) Coronavirus (PCR) Miscellaneous Test 08/17/19 08/17/19 08/17/19 04:46 04:46 08:13 Hgb Hct RDW Lymph % (Auto) [place] % (Auto) Lymph # Seg Neutrophils % Seg Neutrophils # D-Dimer Carbon Dioxide BUN Creatinine Glucose POC Glucose 201 H Hemoglobin A1c Lactic Acid Calcium Ferritin 775.8 H Alkaline Phosphatase Lactate Dehydrogenase 409 H C-Reactive Protein NT-Pro-B Natriuret Pep Total Protein Albumin Ur Specific [place] Urine WBC (Auto) Coronavirus (PCR) Miscellaneous Test 08/17/19 08/17/19 08/17/19 11:54 18:22 20:42 Hgb Hct RDW Lymph % (Auto) [place] % (Auto) Lymph # Seg Neutrophils % Seg Neutrophils # D-Dimer Carbon Dioxide BUN Creatinine Glucose POC Glucose 378 H 309 H 214 H Hemoglobin A1c Lactic Acid Calcium Ferritin Alkaline Phosphatase Lactate Dehydrogenase C-Reactive Protein NT-Pro-B Natriuret Pep Total Protein Albumin Ur Specific [place] Urine WBC (Auto) Coronavirus (PCR) Miscellaneous Test 08/18/19 08:07 Hgb Hct RDW Lymph % (Auto) [place] % (Auto) Lymph # Seg Neutrophils % Seg Neutrophils # D-Dimer Carbon Dioxide BUN Creatinine Glucose POC Glucose 159 H Hemoglobin A1c Lactic Acid Calcium Ferritin Alkaline Phosphatase Lactate Dehydrogenase C-Reactive Protein NT-Pro-B Natriuret Pep Total Protein Albumin Ur Specific [place] Urine WBC (Auto) Coronavirus (PCR) Miscellaneous Test
[2019-08-18] MEDS: CHOLECALCIFEROL (VIT D3) 5,000 UNIT TAB PO SCH ×2 (11:41→11:42)
--- NOTE | 2019-08-18 11:48 | Progress Note ---
Assessment and Plan Cultures: Blood culture 08/05/2019 no growth Assessment: 54 years old female with history of obesity, diabetes, admitted on 08/05/2019 due to 2-week history of dry cough, generalized malaise and progressive shortness of breath: #Severe sepsis: likely due to severe COVID pneumonia. #Severe COVID pneumonia: Inflamatory markers are elevated- D-dimer > 10,000-->10,000--.3795, ferritin 438-->415-->594, LDH 702-->745, CRP 32-->34-. S/p Actemra 4 mg/kg x 1 on 08/06. S/p ceftriaxone/azithro 5 days. S/P Plasma infusion on 08/14/2019. IL-6 level was also high. S/P 10 days of Remdesivir ended 08/16/2019. #Acute hypoxemic respiratory failure: remains on high flow oxygen. #DM: uncontrolled. Monitor sugars alma on steroids. Recommendations: Continue steroid weaning per pulmonary Continue anticoagulation for elevated d-dimer F/u Quantiferon (to eval future risk of TB reactivation due to Actemra, if positive) Anna Rivera MD, FACP [facility] ([facility] C: [phone] O: [phone] F: [phone] Subjective Date of service: 08/18/19 Principal diagnosis: Bilateral pneumonia, ARDS Interval history: No fever. Remains on high flow oxygen. Objective - Exam Narrative Exam: Physical Exam (reviewed in chart due to PPE conservation) Constitutional: limited due to PPE conservation strategy Head, Ears, Nose: limited due to PPE conservation strategy Eyes: limited due to PPE conservation strategy Neck: limited due to PPE conservation strategy Oral: limited due to PPE conservation strategy Cardiovascular: limited due to PPE conservation strategy Respiratory: limited due to PPE conservation strategy GI: limited due to PPE conservation strategy Musculoskeletal: limited due to PPE conservation strategy Skin: limited due to PPE conservation strategy Hem/Lymphatic: limited due to PPE conservation strategy Psych: limited due to PPE conservation strategy Neurological: limited due to PPE conservation strategy - Constitutional Vitals: Vital Signs Temp Pulse Resp BP Pulse Ox 98.4 F 56 L 15 112/63 93 08/18/19 08:00 08/18/19 06:00 08/18/19 06:00 08/18/19 06:00 08/18/19 10:03 Temperature -Last 24 Hours Temperature 98.4 F Temperature 98.3 F Temperature 98.7 F Temperature 97.3 F Temperature 98.5 F Temperature 98.1 F - Labs CBC & Chem 7: 08/16/19 04:12 08/16/19 04:12 Labs: Abnormal lab results 08/17/19 08/17/19 08/17/19 Range/Units 11:54 18:22 20:42 POC Glucose 378 H 309 H 214 H (70-105) 08/18/19 Range/Units 08:07 POC Glucose 159 H (70-105)
[2019-08-18] MEDS: INSULIN GLARGINE 100 UNITS/ML SUB-Q SCH (23:08)
[2019-08-19] MEDS: BENZONATATE 100 MG CAP PO SCH (02:53)
[2019-08-19 05:40] LABS: Hematocrit 44.2 % (30.3-42.9); Hemoglobin 14.4 gm/dl (10.1-14.3); Mean Corpuscular HGB Conc 33 % (30-34); Mean Corpuscular Volume 91 fl (79-97); Platelet Count 158 K/mm3 (140-440); Red Blood Count 4.83 M/mm3 (3.65-5.03); Red Cell Distribution Width 15.9 % (13.2-15.2)
[2019-08-19 06:18] LABS: BUN/Creatinine Ratio 40; Blood Urea Nitrogen 16 mg/dL (7-17); Calcium 8.3 mg/dL (8.4-10.2); Hemolysis Index 43
[2019-08-19] MEDS: methylPREDNISolone Sod Succinate 40 MG/1 ML INJ IV SCH ×3 (06:59→21:20)
--- NOTE | 2019-08-19 08:46 | Progress Note ---
Assessment and Plan Assessment and plan: Severe sepsis. Etiology secondary to COVID-19 pneumonia. COVID pneumonia. Patient with likely cytokine storm, microthrombi and elevated inflammatory markers. Patient is s/p Actemra on 08/06. ARDS. Etiology secondary to above. Acute hypoxemic respiratory failure. Continue O2 and BiPAP as clinically indicated. Etiology secondary to above. Diabetes mellitus type 2. Continue Lantus at bedtime. Patient with Solu- Medrol. 08/12/2019. Pulmonary following and recommending pronating during the day and at night. Continue Solu-Medrol 40 mg every 8 hours for a total of 7 days. Patient s/p Actemra and Remdisiver. Patient currently on HFNC requiring 40 L O2. Increase Lantus to 15 units at bedtime. 08/13/2019. Continue pronating. ID reports patient enrolled in Expanded Access Program for Convalescent Plasma patient [id number]. Continue Remdesivir - 100 mg IV daily x 9 days. Continue solumedrol 40 mg IV q 8 hours. Continue anticoagulation for elevated d-dimer. Follow-up quantiferon and IL6. Continue vitamin C and E. Continue COVID isolation precautions. Patient with high risk mortality 08/14/2019. Patient currently with high flow nasal cannula 40 L/min FiO2 90%. Convalescent plasma per ID. Continue Remdesivir, s/p Actemra, IV Solu-Medrol 40 mg every 8 hour and Lovenox 90 mg subcu every 12 hours. Continue proning paulette ent. Prognosis remains guarded. 08/15/2019. Patient currently with high flow nasal cannula 40 L/min FiO2 80%. Convalescent plasma per ID. Continue Remdesivir, s/p Actemra, IV Solu-Medrol 40 mg every 8 hour and Lovenox 90 mg subcu every 12 hours. Continue proning patient. Prognosis remains guarded. 08/16/2019 patient with Covid-19 pneumonia wit acute resp failure. Less SOB. now on 30 l/min HFNC. Also s/p Remdesivir, s/p Actemra. 08/17/2019 Patient with Covid-19 pneumonia with acute respiratory failure. Patient less shortness of breath. still on high flow Oxygen at 30 l/min 08/18/2019 patient with Covid-19 pneumonia with acute resp failure. She is still on Oxygen by HFNC at 30 l/min. Will discuss with resp Therapist to wean down Fi02 08/19/2019 Patient with Covid-19 pneumonia with acute respiratory failure. She is still on Oxygen by HFNC at 30 l/min. I discussed with Nurse about weaning down Oxygen, but she states patient gets d esaturated on exertion, so will leave the same from now. History Interval history: Shortness of breath No more fever Hospitalist Physical - Physical exam Narrative exam: GEN: Not in acute distress, lying in bed HEENT: Normocephalic, atraumatic, Neck: supple, No JVD Lungs: Clear to auscultation bilaterally, heart;S1 and S2 reg, no murmurs, rubs or gallop Abd:soft, non tender, non distended, normal bowel sounds, Ext: No edema, no clubbing, no cyanosis, Neuro: Awake,alert,oriented X3 , no focal signs, - Constitutional Vitals: Temp Pulse Resp BP Pulse Ox 98.4 F 60 19 117/68 98 08/19/19 03:56 08/19/19 06:00 08/19/19 06:00 08/19/19 06:00 08/19/19 07:21 General appearance: Present: no acute distress, obese Results - Labs CBC & Chem 7: 08/19/19 04:53 08/19/19 04:53 Labs: Laboratory Last Values WBC 9.8 K/mm3 (4.5-11.0) 08/19/19 04:53 RBC 4.83 M/mm3 (3.65-5.03) 08/19/19 04:53 Hgb 14.4 gm/dl (10.1-14.3) H 08/19/19 04:53 Hct 44.2 % (30.3-42.9) H 08/19/19 04:53 MCV 91 fl (79-97) 08/19/19 04:53 MCH 30 pg (28-32) 08/19/19 04:53 MCHC 33 % (30-34) 08/19/19 04:53 RDW 15.9 % (13.2-15.2) H 08/19/19 04:53 Plt Count 158 K/mm3 (140-440) 08/19/19 04:53 Lymph % (Auto) 5.4 % (13.4-35.0) L 08/16/19 04:12 [place] % (Auto) 5.2 % (0.0-7.3) 08/16/19 04:12 Eos % (Auto) 0.0 % (0.0-4.3) 08/16/19 04:12 Baso % (Auto) 0.4 % (0.0-1.8) 08/16/19 04:12 Lymph # 0.6 K/mm3 (1.2-5.4) L 08/16/19 04:12 Ramsey # 0.6 K/mm3 (0.0-0.8) 08/16/19 04:12 Eos # 0.0 K/mm3 (0.0-0.4) 08/16/19 04:12 Baso # 0.0 K/mm3 (0.0-0.1) 08/16/19 04:12 Add Manual Diff Complete 08/13/19 04:10 Seg Neutrophils % 89.0 % (40.0-70.0) H 08/16/19 04:12 Nucleated RBC % Not Reportable 08/13/19 04:10 Seg Neutrophils # 9.5 K/mm3 (1.8-7.7) H 08/16/19 04:12 WBC Morphology Not Reportable 08/13/19 04:10 Hypersegmented Neuts Not Reportable 08/13/19 04:10 Hyposegmented Neuts Not Reportable 08/13/19 04:10 Hypogranular Neuts Not Reportable 08/13/19 04:10 Smudge Cells Not Reportable 08/13/19 04:10 Toxic Granulation Not Reportable 08/13/19 04:10 Toxic Vacuolation Not Reportable 08/13/19 04:10 Dohle Bodies Not Reportable 08/13/19 04:10 Pelger-Huet Anomaly Not Reportable 08/13/19 04:10 Kaylynn Rods Not Reportable 08/13/19 04:10 Platelet Estimate Not Reportable 08/13/19 04:10 Clumped Platelets Not Reportable 08/13/19 04:10 Plt Clumps, EDTA Not Reportable 08/13/19 04:10 Large Platelets Not Reportable 08/13/19 04:10 Giant Platelets Not Reportable 08/13/19 04:10 Platelet Satelliting Not Reportable 08/13/19 04:10 Plt Morphology Comment Not Reportable 08/13/19 04:10 RBC Morphology Not Reportable 08/13/19 04:10 Dimorphic RBCs Not Reportable 08/13/19 04:10 Polychromasia Not Reportable 08/13/19 04:10 Hypochromasia Not Reportable 08/13/19 04:10 Poikilocytosis Not Reportable 08/13/19 04:10 Anisocytosis Not Reportable 08/13/19 04:10 Microcytosis Not Reportable 08/13/19 04:10 Macrocytosis Not Reportable 08/13/19 04:10 Spherocytes Not Reportable 08/13/19 04:10 Pappenheimer Bodies Not Reportable 08/13/19 04:10 Sickle Cells Not Reportable 08/13/19 04:10 Target Cells Not Reportable 08/13/19 04:10 Tear Drop Cells Not Reportable 08/13/19 04:10 Ovalocytes Not Reportable 08/13/19 04:10 Helmet Cells Not Reportable 08/13/19 04:10 [place] Bodies Not Reportable 08/13/19 04:10 [place] Rings Not Reportable 08/13/19 04:10 Rajiv Cells Not Reportable 08/13/19 04:10 Bite Cells Not Reportable 08/13/19 04:10 Crenated Cell Not Reportable 08/13/19 04:10 Elliptocytes Not Reportable 08/13/19 04:10 Acanthocytes (Spur) Not Reportable 08/13/19 04:10 Rouleaux Not Reportable 08/13/19 04:10 Hemoglobin C Crystals Not Reportable 08/13/19 04:10 Schistocytes Not Reportable 08/13/19 04:10 Malaria parasites Not Reportable 08/13/19 04:10 Humberto Bodies Not Reportable 08/13/19 04:10 Hem Pathologist Commnt Not Reportable 08/13/19 04:10 APTT 26.3 Sec. (24.2-36.6) 08/05/19 14:53 D-Dimer 831.46 ng/mlDDU (0-234) H 08/17/19 04:46 Sodium 141 mmol/L (137-145) 08/19/19 04:53 Potassium 4.4 mmol/L (3.6-5.0) 08/19/19 04:53 Chloride 101.7 mmol/L (98-107) 08/19/19 04:53 Carbon Dioxide 27 mmol/L (22-30) 08/19/19 04:53 Anion Gap 17 mmol/L 08/19/19 04:53 BUN 16 mg/dL (7-17) 08/19/19 04:53 Creatinine 0.4 mg/dL (0.7-1.2) L 08/19/19 04:53 Estimated GFR > 60 ml/min 08/19/19 04:53 BUN/Creatinine Ratio 40 % 08/19/19 04:53 Glucose 214 mg/dL (65-100) H 08/19/19 04:53 POC Glucose 171 (70-105) H 08/19/19 08:16 Hemoglobin A1c 7.6 % (4-6) H 08/06/19 Unknown Lactic Acid 1.90 mmol/L (0.7-2.0) 08/05/19 22:51 Calcium 8.3 mg/dL (8.4-10.2) L 08/19/19 04:53 Ferritin 775.8 ng/mL (13.0-400.0) H 08/17/19 04:46 Total Bilirubin 1.00 mg/dL (0.1-1.2) 08/15/19 05:09 AST 23 units/L (5-40) 08/15/19 05:09 ALT 45 units/L (7-56) 08/15/19 05:09 Alkaline Phosphatase 139 units/L (35-129) H 08/15/19 05:09 Lactate Dehydrogenase 409 units/L (91-180) H 08/17/19 04:46 C-Reactive Protein 0.30 mg/dL (0.00-1.30) 08/17/19 04:46 NT-Pro-B Natriuret Pep 1818 pg/mL (0-900) H 08/05/19 15:07 Total Protein 6.0 g/dL (6.3-8.2) L 08/15/19 05:09 Albumin 3.0 g/dL (3.9-5) L 08/15/19 05:09 Albumin/Globulin Ratio 1.0 % 08/15/19 05:09 Procalcitonin 1.06 ng/mL (<0.15) 08/09/19 12:29 Urine Color [place] (Yellow) 08/05/19 19:54 Urine Turbidity Clear (Clear) 08/05/19 19:54 Urine pH 5.0 (5.0-7.0) 08/05/19 19:54 Ur Specific [place] 1.031 (1.003-1.030) H 08/05/19 19:54 Urine Protein 100 mg/dl mg/dL (Negative) 08/05/19 19:54 Urine Glucose (UA) 50 mg/dL (Negative) 08/05/19 19:54 Urine Ketones Neg mg/dL (Negative) 08/05/19 19:54 Urine Blood Neg (Negative) 08/05/19 19:54 Urine Nitrite Neg (Negative) 08/05/19 19:54 Urine Bilirubin Neg (Negative) 08/05/19 19:54 Urine Urobilinogen < 2.0 mg/dL (<2.0) 08/05/19 19:54 Ur Leukocyte Esterase Neg (Negative) 08/05/19 19:54 Urine WBC (Auto) 8.0 /HPF (0.0-6.0) H 08/05/19 19:54 Urine RBC (Auto) 1.0 /HPF (0.0-6.0) 08/05/19 19:54 U Epithel Cells (Auto) 10.0 /HPF (0-13.0) 08/05/19 19:54 Urine Mucus 1+ /HPF 08/05/19 19:54 Coronavirus (PCR) Positive (Negative) A 08/06/19 09:17 Miscellaneous Test Flexitest 1 H 08/10/19 08:16 Blood Type A POSITIVE 08/11/19 15:00 Antibody Screen Negative 08/11/19 15:00 [place]/IV: Voiding Method Bedside Commode IV Catheter Type [Left Forearm INT / Saline Lock ] IV Catheter Type [Right Wrist] Peripheral IV IV Catheter Type [Right INT / Saline Lock Forearm] IV Catheter Type [Left Hand] Peripheral IV IV Catheter Type [Left Peripheral IV Antecubital] Active Medications - Current Medications Current Medications: Generic Name Dose Route Start Last Admin Trade Name Freq PRN Reason Stop Dose Admin Acetaminophen 650 mg 08/05/19 21:32 08/06/19 20:05 Tylenol PO 650 mg Q4H PRN Administration Pain MILD(1-3)/Fever >100.5/BUTLER Ascorbic Acid 500 mg 08/08/19 10:00 08/18/19 23:08 Vitamin C PO 500 mg BID FOR[facility]1983 Administration Benzonatate 100 mg 08/06/19 01:00 08/19/19 02:53 Tessalon Perles PO 100 mg Q8H RAISA Administration Cholecalciferol 5,000 unit 08/08/19 10:00 08/18/19 11:42 Vitamin D3 PO Not Given QDAY RAISA Enoxaparin Sodium 90 mg 08/05/19 22:00 08/18/19 23:08 Enoxaparin SUB-Q 90 mg Q12HR FOR[facility], [facility]–1983 Administration Famotidine 20 mg 08/05/19 22:00 08/18/19 23:07 Pepcid PO 20 mg BID FOR[facility], [facility]–1983 Administration Hydromorphone HCl 0.5 mg 08/05/19 21:32 08/06/19 22:28 Dilaudid IV 0.5 mg Q3H PRN Administration Pain , Severe (7-10) Hydrophilic Ointment 1 applic 08/13/19 18:22 08/13/19 18:29 Vaseline Lip Therapy TP 1 applic DIRECT PRN Administration Dry Lips Insulin Glargine 32 units 08/18/19 22:00 08/18/19 23:08 Lantus SUB-Q 32 units QHS RAISA Administration Insulin Human Lispro 0 unit 08/05/19 22:00 08/18/19 23:09 Humalog SUB-Q 4 unit ACHS [facility]1983 Administration Protocol Methylprednisolone Sodium Succinate 20 mg 08/16/19 14:00 08/19/19 06:59 Solu-Medrol IV 20 mg Q8HR RAISA Administration Metoclopramide HCl 10 mg 08/05/19 21:32 Reglan IV Q6H PRN Nausea And Vomiting Ondansetron HCl 4 mg 08/05/19 21:32 Zofran IV Q8H PRN Nausea And Vomiting Oxycodone/Acetaminophen 1 tab 08/05/19 21:32 08/17/19 18:26 Percocet 5/325 PO 1 tab Q6H PRN Administration Pain, Moderate (4-6) Sodium Chloride 10 ml 08/05/19 22:00 08/18/19 23:08 Sodium Chloride Flush Syringe 10 Ml IV 10 ml BID RAISA Administration Sodium Chloride 10 ml 08/05/19 21:32 Sodium Chloride Flush Syringe 10 Ml IV PRN PRN LINE FLUSH Nutrition/Malnutrition Assess - Dietary Evaluation Nutrition/Malnutrition Findings: Nutrition Notes Start: 08/06/19 08:35 Freq: Status: Active Protocol: Document 08/18/19 08:25 LP (Rec: 08/18/19 08:27 LP [id number]) Nutrition Notes Initial or Follow up Reassessment Current Diagnosis Diabetes Other Pertinent Diagnosis ARDS, Suspected COVID-19 Current Diet Cardiac/consistent CHO Labs/Tests BG 159 Pertinent Medications Reviewed Height 5 ft 5 in Weight 92.3 kg [place] Body Weight (kg) 56.81 BMI 33.8 Weight Status Obese Subjective/Other Information Pt continues eating well and consuming most of meals. Percent of energy/protein needs met: 100%/91% Burn Absent Trauma Absent Current % PO Good (75-100%) Minimum of two criteria No physical signs of malnutrition #2 Nutrition Diagnosis Inadequate oral intake As Evidenced by Signs and Symptoms Pt continued to meet 100% of kcal and 91% of protein needs Diagnosis Progress(for reassessment Resolved documentation) Is patient on ventilator? No Is Patient Ambulatory and/or Out of Bed Yes REE-([facility]-ambulatory/OOB) [ 1974.544 [id number]] Kcal/Kg value to use for calculation 17 Approximate Energy Requirements Using 1569 kcal/Kg Calculation Used for Recommendations Kcal/kg Additional Notes Protein needs are 74-92g (0.8- 1g/kg) Fluid needs are 1ml/kcal Nutrition Intervention Change Diet Order: Continue Goal #1 Continue to meet at least 80% of kcal and protein needs Anticipated Discharge Needs: Cardiac/consistent CHO diet Revisit per MD consult or patient Sign Off request:
[2019-08-19] MEDS: FAMOTIDINE 20 MG TAB PO SCH ×2 (09:50→21:19)
[2019-08-19] MEDS: ENOXAPARIN 100 MG/1 ML INJ SUB-Q SCH ×2 (09:50→21:17)
[2019-08-19] MEDS: ASCORBIC ACID 500 MG TAB PO SCH ×2 (09:50→21:21)
[2019-08-19] MEDS: INSULIN LISPRO 100 UNIT/ML SUB-Q SCH ×4 (09:50→21:18)
--- NOTE | 2019-08-19 12:48 | Progress Note ---
Assessment and Plan 54 y/o female with acute respiratory failure secondary to COVID 19 1. Proning during the day and prone sleeping at night. Begged her to continue to do this. 2. Steroid at 20q8 for a total of 7 days. Today is day 4. Oxygen requirement back down now. No need to increase steroids today. 3. Agree with Actemra, given 4. Agree with Remdisiver, given 5. Convaslescent plasma given on 08/14/2019 6. Continue to wean HFNC as tolerated. Sats >88% are acceptable. Subjective Date of service: 08/19/19 Principal diagnosis: Bilateral pneumonia, ARDS Interval history: Back down now on FiO2 and actually at 40 which is the lowest she has been at in the last week. No distress noted. No fever. Objective Vital Signs - 12hr 08/19/19 08/19/19 08/19/19 01:00 02:00 03:00 Temperature Pulse Rate 65 61 62 Pulse Rate [ From Monitor] Respiratory 18 21 0 L Rate Blood Pressure 114/76 123/68 123/68 O2 Sat by Pulse 97 93 99 Oximetry 08/19/19 08/19/19 08/19/19 03:56 04:00 05:00 Temperature 98.4 F Pulse Rate 58 L 70 Pulse Rate [ 58 L From Monitor] Respiratory 18 14 Rate Blood Pressure 120/71 120/71 O2 Sat by Pulse 99 96 Oximetry 08/19/19 08/19/19 08/19/19 06:00 07:00 07:21 Temperature Pulse Rate 60 63 Pulse Rate [ From Monitor] Respiratory 19 16 Rate Blood Pressure 117/68 117/68 O2 Sat by Pulse 98 95 98 Oximetry 08/19/19 08/19/19 08/19/19 08:00 09:00 10:00 Temperature 98.9 F Pulse Rate 67 67 66 Pulse Rate [ 58 L From Monitor] Respiratory 12 18 20 Rate Blood Pressure 124/82 124/82 110/61 O2 Sat by Pulse 99 95 93 Oximetry 08/19/19 11:00 Temperature Pulse Rate 86 Pulse Rate [ From Monitor] Respiratory 19 Rate Blood Pressure 110/61 O2 Sat by Pulse 95 Oximetry Constitutional: alert, other (critically ill on HFNC) Eyes: non-icteric Effort: mildly labored Ascultation: Bilateral: rales Cardiovascular: regular rate and rhythm (no mrg) Gastrointestinal: normoactive bowel sounds, soft, non-tender, non-distended Integumentary: normal Extremities: no cyanosis, no edema, pink and warm Neurologic: normal mental status, non-focal exam, pupils equal and round, CN II- XII normal Psychiatric: mood appropriate, affect normal CBC and BMP: 08/19/19 04:53 08/19/19 04:53 ABG, PT/INR, D-dimer: PT/INR, D-dimer D-Dimer 831.46 ng/mlDDU (0-234) H 08/17/19 04:46 Abnormal lab findings: Abnormal Labs 08/05/19 08/05/19 08/05/19 14:53 14:53 14:53 Hgb Hct RDW Lymph % (Auto) 13.0 L [place] % (Auto) 10.8 H Lymph # 0.9 L Seg Neutrophils % 74.0 H Seg Neutrophils # D-Dimer > 21612 H Carbon Dioxide 20 L BUN 6 L Creatinine 0.6 L Glucose 255 H POC Glucose Hemoglobin A1c Lactic Acid Calcium Ferritin Alkaline Phosphatase 173 H Lactate Dehydrogenase C-Reactive Protein NT-Pro-B Natriuret Pep Total Protein Albumin 2.9 L Ur Specific [place] Urine WBC (Auto) Coronavirus (PCR) Miscellaneous Test 08/05/19 08/05/19 08/05/19 14:53 14:53 14:53 Hgb Hct RDW Lymph % (Auto) [place] % (Auto) Lymph # Seg Neutrophils % Seg Neutrophils # D-Dimer Carbon Dioxide BUN Creatinine Glucose 256 H POC Glucose Hemoglobin A1c Lactic Acid 3.40 H* Calcium Ferritin 438.9 H Alkaline Phosphatase Lactate Dehydrogenase 702 H C-Reactive Protein 32.90 H NT-Pro-B Natriuret Pep Total Protein Albumin Ur Specific [place] Urine WBC (Auto) Coronavirus (PCR) Miscellaneous Test 08/05/19 08/05/19 08/06/19 15:07 19:54 00:21 Hgb Hct RDW Lymph % (Auto) [place] % (Auto) Lymph # Seg Neutrophils % Seg Neutrophils # D-Dimer Carbon Dioxide BUN Creatinine Glucose POC Glucose 131 H Hemoglobin A1c Lactic Acid Calcium Ferritin Alkaline Phosphatase Lactate Dehydrogenase C-Reactive Protein NT-Pro-B Natriuret Pep 1818 H Total Protein Albumin Ur Specific [place] 1.031 H Urine WBC (Auto) 8.0 H Coronavirus (PCR) Miscellaneous Test 08/06/19 08/06/19 08/06/19 08:29 09:17 11:56 Hgb Hct RDW Lymph % (Auto) [place] % (Auto) Lymph # Seg Neutrophils % Seg Neutrophils # D-Dimer Carbon Dioxide BUN Creatinine Glucose POC Glucose 165 H 190 H Hemoglobin A1c Lactic Acid Calcium Ferritin Alkaline Phosphatase Lactate Dehydrogenase C-Reactive Protein NT-Pro-B Natriuret Pep Total Protein Albumin Ur Specific [place] Urine WBC (Auto) Coronavirus (PCR) Positive A Miscellaneous Test 08/06/19 08/06/19 08/06/19 16:16 22:16 Unknown Hgb Hct RDW Lymph % (Auto) [place] % (Auto) Lymph # Seg Neutrophils % Seg Neutrophils # D-Dimer Carbon Dioxide BUN Creatinine Glucose POC Glucose 170 H 128 H Hemoglobin A1c 7.6 H Lactic Acid Calcium Ferritin Alkaline Phosphatase Lactate Dehydrogenase C-Reactive Protein NT-Pro-B Natriuret Pep Total Protein Albumin Ur Specific [place] Urine WBC (Auto) Coronavirus (PCR) Miscellaneous Test 08/07/19 08/07/19 08/07/19 07:59 11:39 11:56 Hgb Hct RDW Lymph % (Auto) [place] % (Auto) Lymph # Seg Neutrophils % Seg Neutrophils # D-Dimer Carbon Dioxide BUN Creatinine 0.6 L Glucose 194 H POC Glucose 141 H 195 H Hemoglobin A1c Lactic Acid Calcium 8.0 L Ferritin Alkaline Phosphatase 181 H Lactate Dehydrogenase C-Reactive Protein NT-Pro-B Natriuret Pep Total Protein Albumin 2.5 L Ur Specific [place] Urine WBC (Auto) Coronavirus (PCR) Miscellaneous Test 08/07/19 08/07/19 08/07/19 11:56 11:56 11:56 Hgb Hct RDW Lymph % (Auto) [place] % (Auto) Lymph # Seg Neutrophils % Seg Neutrophils # D-Dimer > 84015 H Carbon Dioxide BUN Creatinine Glucose POC Glucose Hemoglobin A1c Lactic Acid Calcium Ferritin 415.7 H Alkaline Phosphatase Lactate Dehydrogenase 745 H C-Reactive Protein NT-Pro-B Natriuret Pep Total Protein Albumin Ur Specific [place] Urine WBC (Auto) Coronavirus (PCR) Miscellaneous Test 08/07/19 08/07/19 08/07/19 11:56 16:35 21:36 Hgb Hct RDW Lymph % (Auto) [place] % (Auto) Lymph # Seg Neutrophils % Seg Neutrophils # D-Dimer Carbon Dioxide BUN Creatinine Glucose POC Glucose 176 H 277 H Hemoglobin A1c Lactic Acid Calcium Ferritin Alkaline Phosphatase Lactate Dehydrogenase C-Reactive Protein 34.20 H NT-Pro-B Natriuret Pep Total Protein Albumin Ur Specific [place] Urine WBC (Auto) Coronavirus (PCR) Miscellaneous Test 08/08/19 08/08/19 08/08/19 07:53 08:54 11:40 Hgb Hct RDW Lymph % (Auto) [place] % (Auto) Lymph # Seg Neutrophils % Seg Neutrophils # D-Dimer Carbon Dioxide BUN Creatinine 0.6 L Glucose 266 H POC Glucose 214 H 340 H Hemoglobin A1c Lactic Acid Calcium 8.3 L Ferritin Alkaline Phosphatase 222 H Lactate Dehydrogenase C-Reactive Protein NT-Pro-B Natriuret Pep Total Protein Albumin 2.5 L Ur Specific [place] Urine WBC (Auto) Coronavirus (PCR) Miscellaneous Test 08/08/19 08/08/19 08/09/19 17:04 21:49 05:22 Hgb Hct RDW Lymph % (Auto) [place] % (Auto) Lymph # Seg Neutrophils % Seg Neutrophils # D-Dimer Carbon Dioxide BUN Creatinine Glucose POC Glucose 278 H 319 H Hemoglobin A1c Lactic Acid Calcium Ferritin Alkaline Phosphatase Lactate Dehydrogenase 866 H C-Reactive Protein 14.70 H NT-Pro-B Natriuret Pep Total Protein Albumin Ur Specific [place] Urine WBC (Auto) Coronavirus (PCR) Miscellaneous Test 08/09/19 08/09/19 08/09/19 05:44 08:12 11:52 Hgb Hct RDW Lymph % (Auto) [place] % (Auto) Lymph # Seg Neutrophils % Seg Neutrophils # D-Dimer Carbon Dioxide BUN 18 H Creatinine 0.6 L Glucose 227 H POC Glucose 232 H 273 H Hemoglobin A1c Lactic Acid Calcium 8.2 L Ferritin Alkaline Phosphatase 230 H Lactate Dehydrogenase C-Reactive Protein NT-Pro-B Natriuret Pep Total Protein Albumin 2.5 L Ur Specific [place] Urine WBC (Auto) Coronavirus (PCR) Miscellaneous Test 08/09/19 08/09/19 08/09/19 12:29 12:29 17:11 Hgb Hct RDW Lymph % (Auto) [place] % (Auto) Lymph # Seg Neutrophils % Seg Neutrophils # D-Dimer 3795.56 H Carbon Dioxide BUN Creatinine Glucose POC Glucose 200 H Hemoglobin A1c Lactic Acid Calcium Ferritin 594.1 H Alkaline Phosphatase Lactate Dehydrogenase C-Reactive Protein NT-Pro-B Natriuret Pep Total Protein Albumin Ur Specific [place] Urine WBC (Auto) Coronavirus (PCR) Miscellaneous Test 08/09/19 08/10/19 08/10/19 21:58 05:07 06:14 Hgb Hct RDW Lymph % (Auto) [place] % (Auto) Lymph # Seg Neutrophils % Seg Neutrophils # D-Dimer Carbon Dioxide BUN 19 H Creatinine Glucose 277 H POC Glucose 226 H 288 H Hemoglobin A1c Lactic Acid Calcium 7.9 L Ferritin Alkaline Phosphatase 231 H Lactate Dehydrogenase C-Reactive Protein NT-Pro-B Natriuret Pep Total Protein Albumin 2.7 L Ur Specific [place] Urine WBC (Auto) Coronavirus (PCR) Miscellaneous Test 08/10/19 08/10/19 08/10/19 08:16 08:31 12:25 Hgb Hct RDW Lymph % (Auto) [place] % (Auto) Lymph # Seg Neutrophils % Seg Neutrophils # D-Dimer Carbon Dioxide BUN Creatinine Glucose POC Glucose 284 H 387 H Hemoglobin A1c Lactic Acid Calcium Ferritin Alkaline Phosphatase Lactate Dehydrogenase C-Reactive Protein NT-Pro-B Natriuret Pep Total Protein Albumin Ur Specific [place] Urine WBC (Auto) Coronavirus (PCR) Miscellaneous Test Flexitest 1 H 08/10/19 08/10/19 08/11/19 18:03 21:10 05:14 Hgb Hct RDW Lymph % (Auto) [place] % (Auto) Lymph # Seg Neutrophils % Seg Neutrophils # D-Dimer Carbon Dioxide BUN 21 H Creatinine Glucose 368 H POC Glucose 297 H 259 H Hemoglobin A1c Lactic Acid Calcium Ferritin Alkaline Phosphatase 223 H Lactate Dehydrogenase C-Reactive Protein NT-Pro-B Natriuret Pep Total Protein Albumin 3.0 L Ur Specific [place] Urine WBC (Auto) Coronavirus (PCR) Miscellaneous Test 08/11/19 08/11/19 08/11/19 08:02 12:08 16:21 Hgb Hct RDW Lymph % (Auto) [place] % (Auto) Lymph # Seg Neutrophils % Seg Neutrophils # D-Dimer Carbon Dioxide BUN Creatinine Glucose POC Glucose 300 H 447 H 295 H Hemoglobin A1c Lactic Acid Calcium Ferritin Alkaline Phosphatase Lactate Dehydrogenase C-Reactive Protein NT-Pro-B Natriuret Pep Total Protein Albumin Ur Specific [place] Urine WBC (Auto) Coronavirus (PCR) Miscellaneous Test 08/11/19 08/12/19 08/12/19 21:42 05:04 07:47 Hgb Hct RDW Lymph % (Auto) [place] % (Auto) Lymph # Seg Neutrophils % Seg Neutrophils # D-Dimer Carbon Dioxide BUN 21 H Creatinine 0.5 L Glucose 276 H POC Glucose 447 H 274 H Hemoglobin A1c Lactic Acid Calcium Ferritin Alkaline Phosphatase 188 H Lactate Dehydrogenase C-Reactive Protein NT-Pro-B Natriuret Pep Total Protein 6.1 L Albumin 2.9 L Ur Specific [place] Urine WBC (Auto) Coronavirus (PCR) Miscellaneous Test 08/12/19 08/12/19 08/12/19 11:57 18:10 22:00 Hgb Hct RDW Lymph % (Auto) [place] % (Auto) Lymph # Seg Neutrophils % Seg Neutrophils # D-Dimer Carbon Dioxide BUN Creatinine Glucose POC Glucose 367 H 285 H 239 H Hemoglobin A1c Lactic Acid Calcium Ferritin Alkaline Phosphatase Lactate Dehydrogenase C-Reactive Protein NT-Pro-B Natriuret Pep Total Protein Albumin Ur Specific [place] Urine WBC (Auto) Coronavirus (PCR) Miscellaneous Test 08/13/19 08/13/19 08/13/19 04:10 04:10 04:10 Hgb Hct 44.3 H RDW 15.4 H Lymph % (Auto) 7.6 L [place] % (Auto) Lymph # 0.7 L Seg Neutrophils % 85.3 H Seg Neutrophils # D-Dimer Carbon Dioxide BUN 19 H 20 H Creatinine 0.5 L 0.5 L Glucose 201 H 199 H POC Glucose Hemoglobin A1c Lactic Acid Calcium 8.0 L 8.1 L Ferritin Alkaline Phosphatase 167 H Lactate Dehydrogenase C-Reactive Protein NT-Pro-B Natriuret Pep Total Protein 5.7 L Albumin 3.0 L Ur Specific [place] Urine WBC (Auto) Coronavirus (PCR) Miscellaneous Test 08/13/19 08/13/19 08/13/19 08:35 12:11 16:09 Hgb Hct RDW Lymph % (Auto) [place] % (Auto) Lymph # Seg Neutrophils % Seg Neutrophils # D-Dimer Carbon Dioxide BUN Creatinine Glucose POC Glucose 247 H 351 H 253 H Hemoglobin A1c Lactic Acid Calcium Ferritin Alkaline Phosphatase Lactate Dehydrogenase C-Reactive Protein NT-Pro-B Natriuret Pep Total Protein Albumin Ur Specific [place] Urine WBC (Auto) Coronavirus (PCR) Miscellaneous Test 08/13/19 08/14/19 08/14/19 21:45 04:56 07:28 Hgb 14.5 H Hct 44.2 H RDW 15.3 H Lymph % (Auto) 7.0 L [place] % (Auto) Lymph # 0.6 L Seg Neutrophils % 85.3 H Seg Neutrophils # D-Dimer Carbon Dioxide BUN Creatinine 0.5 L Glucose 228 H POC Glucose 242 H Hemoglobin A1c Lactic Acid Calcium 7.9 L Ferritin Alkaline Phosphatase 150 H Lactate Dehydrogenase C-Reactive Protein NT-Pro-B Natriuret Pep Total Protein 5.6 L Albumin 3.1 L Ur Specific [place] Urine WBC (Auto) Coronavirus (PCR) Miscellaneous Test 08/14/19 08/14/19 08/14/19 08:10 11:53 17:20 Hgb Hct RDW Lymph % (Auto) [place] % (Auto) Lymph # Seg Neutrophils % Seg Neutrophils # D-Dimer Carbon Dioxide BUN Creatinine Glucose POC Glucose 210 H 335 H 211 H Hemoglobin A1c Lactic Acid Calcium Ferritin Alkaline Phosphatase Lactate Dehydrogenase C-Reactive Protein NT-Pro-B Natriuret Pep Total Protein Albumin Ur Specific [place] Urine WBC (Auto) Coronavirus (PCR) Miscellaneous Test 08/14/19 08/14/19 08/15/19 18:08 23:25 05:09 Hgb Hct RDW Lymph % (Auto) [place] % (Auto) Lymph # Seg Neutrophils % Seg Neutrophils # D-Dimer Carbon Dioxide BUN Creatinine 0.4 L Glucose 222 H POC Glucose 255 H 272 H Hemoglobin A1c Lactic Acid Calcium 8.0 L Ferritin Alkaline Phosphatase 139 H Lactate Dehydrogenase C-Reactive Protein NT-Pro-B Natriuret Pep Total Protein 6.0 L Albumin 3.0 L Ur Specific [place] Urine WBC (Auto) Coronavirus (PCR) Miscellaneous Test 08/15/19 08/15/19 08/15/19 05:09 08:11 12:03 Hgb Hct RDW Lymph % (Auto) 8.1 L [place] % (Auto) 7.6 H Lymph # 0.7 L Seg Neutrophils % 83.9 H Seg Neutrophils # D-Dimer Carbon Dioxide BUN Creatinine Glucose POC Glucose 223 H 358 H Hemoglobin A1c Lactic Acid Calcium Ferritin Alkaline Phosphatase Lactate Dehydrogenase C-Reactive Protein NT-Pro-B Natriuret Pep Total Protein Albumin Ur Specific [place] Urine WBC (Auto) Coronavirus (PCR) Miscellaneous Test 08/15/19 08/15/19 08/16/19 16:43 21:47 04:12 Hgb Hct RDW Lymph % (Auto) [place] % (Auto) Lymph # Seg Neutrophils % Seg Neutrophils # D-Dimer Carbon Dioxide BUN Creatinine 0.4 L Glucose 205 H POC Glucose 285 H 274 H Hemoglobin A1c Lactic Acid Calcium 8.1 L Ferritin Alkaline Phosphatase Lactate Dehydrogenase C-Reactive Protein NT-Pro-B Natriuret Pep Total Protein Albumin Ur Specific [place] Urine WBC (Auto) Coronavirus (PCR) Miscellaneous Test 08/16/19 08/16/19 08/16/19 04:12 08:42 11:56 Hgb Hct 43.7 H RDW 15.7 H Lymph % (Auto) 5.4 L [place] % (Auto) Lymph # 0.6 L Seg Neutrophils % 89.0 H Seg Neutrophils # 9.5 H D-Dimer Carbon Dioxide BUN Creatinine Glucose POC Glucose 216 H 251 H Hemoglobin A1c Lactic Acid Calcium Ferritin Alkaline Phosphatase Lactate Dehydrogenase C-Reactive Protein NT-Pro-B Natriuret Pep Total Protein Albumin Ur Specific [place] Urine WBC (Auto) Coronavirus (PCR) Miscellaneous Test 08/16/19 08/16/19 08/17/19 16:29 21:28 04:46 Hgb Hct RDW Lymph % (Auto) [place] % (Auto) Lymph # Seg Neutrophils % Seg Neutrophils # D-Dimer 831.46 H Carbon Dioxide BUN Creatinine Glucose POC Glucose 245 H 293 H Hemoglobin A1c Lactic Acid Calcium Ferritin Alkaline Phosphatase Lactate Dehydrogenase C-Reactive Protein NT-Pro-B Natriuret Pep Total Protein Albumin Ur Specific [place] Urine WBC (Auto) Coronavirus (PCR) Miscellaneous Test 08/17/19 08/17/19 08/17/19 04:46 04:46 08:13 Hgb Hct RDW Lymph % (Auto) [place] % (Auto) Lymph # Seg Neutrophils % Seg Neutrophils # D-Dimer Carbon Dioxide BUN Creatinine Glucose POC Glucose 201 H Hemoglobin A1c Lactic Acid Calcium Ferritin 775.8 H Alkaline Phosphatase Lactate Dehydrogenase 409 H C-Reactive Protein NT-Pro-B Natriuret Pep Total Protein Albumin Ur Specific [place] Urine WBC (Auto) Coronavirus (PCR) Miscellaneous Test 08/17/19 08/17/19 08/17/19 11:54 18:22 20:42 Hgb Hct RDW Lymph % (Auto) [place] % (Auto) Lymph # Seg Neutrophils % Seg Neutrophils # D-Dimer Carbon Dioxide BUN Creatinine Glucose POC Glucose 378 H 309 H 214 H Hemoglobin A1c Lactic Acid Calcium Ferritin Alkaline Phosphatase Lactate Dehydrogenase C-Reactive Protein NT-Pro-B Natriuret Pep Total Protein Albumin Ur Specific [place] Urine WBC (Auto) Coronavirus (PCR) Miscellaneous Test 08/18/19 08/18/19 08/18/19 08:07 12:00 16:13 Hgb Hct RDW Lymph % (Auto) [place] % (Auto) Lymph # Seg Neutrophils % Seg Neutrophils # D-Dimer Carbon Dioxide BUN Creatinine Glucose POC Glucose 159 H 346 H 200 H Hemoglobin A1c Lactic Acid Calcium Ferritin Alkaline Phosphatase Lactate Dehydrogenase C-Reactive Protein NT-Pro-B Natriuret Pep Total Protein Albumin Ur Specific [place] Urine WBC (Auto) Coronavirus (PCR) Miscellaneous Test 08/18/19 08/19/19 08/19/19 22:57 04:53 04:53 Hgb 14.4 H Hct 44.2 H RDW 15.9 H Lymph % (Auto) [place] % (Auto) Lymph # Seg Neutrophils % Seg Neutrophils # D-Dimer Carbon Dioxide BUN Creatinine 0.4 L Glucose 214 H POC Glucose 224 H Hemoglobin A1c Lactic Acid Calcium 8.3 L Ferritin Alkaline Phosphatase Lactate Dehydrogenase C-Reactive Protein NT-Pro-B Natriuret Pep Total Protein Albumin Ur Specific [place] Urine WBC (Auto) Coronavirus (PCR) Miscellaneous Test 08/19/19 08/19/19 08:16 12:38 Hgb Hct RDW Lymph % (Auto) [place] % (Auto) Lymph # Seg Neutrophils % Seg Neutrophils # D-Dimer Carbon Dioxide BUN Creatinine Glucose POC Glucose 171 H 321 H Hemoglobin A1c Lactic Acid Calcium Ferritin Alkaline Phosphatase Lactate Dehydrogenase C-Reactive Protein NT-Pro-B Natriuret Pep Total Protein Albumin Ur Specific [place] Urine WBC (Auto) Coronavirus (PCR) Miscellaneous Test
--- NOTE | 2019-08-19 13:13 | Progress Note ---
Assessment and Plan Cultures: Blood culture 08/05/2019 no growth Assessment: 54 years old female with history of obesity, diabetes, admitted on 08/05/2019 due to 2-week history of dry cough, generalized malaise and progressive shortness of breath: #Severe sepsis: likely due to severe COVID pneumonia. #Severe COVID pneumonia: Inflamatory markers are elevated- D-dimer > 10,000-->10,000--.3795, ferritin 438-->415-->594, LDH 702-->745, CRP 32-->34-. S/p Actemra 4 mg/kg x 1 on 08/06. S/p ceftriaxone/azithro 5 days. S/P Plasma infusion on 08/14/2019. IL-6 level was also high. S/P 10 days of Remdesivir ended 08/16/2019. #Acute hypoxemic respiratory failure: remains on high flow oxygen. #DM: uncontrolled. Monitor sugars alma on steroids. Recommendations: Continue steroid weaning per pulmonary Continue anticoagulation for elevated d-dimer F/u TB Quantiferon (to eval future risk of TB reactivation due to Actemra, if positive) Anna Rivera MD, FACP [facility] ([facility] C: [phone] O: [phone] F: [phone] Subjective Date of service: 08/19/19 Principal diagnosis: Bilateral pneumonia, ARDS Interval history: No fever. Remains on high flow oxygen but downtrending requirements. Objective - Exam Narrative Exam: Physical Exam (reviewed in chart due to PPE conservation) Constitutional: limited due to PPE conservation strategy Head, Ears, Nose: limited due to PPE conservation strategy Eyes: limited due to PPE conservation strategy Neck: limited due to PPE conservation strategy Oral: limited due to PPE conservation strategy Cardiovascular: limited due to PPE conservation strategy Respiratory: limited due to PPE conservation strategy GI: limited due to PPE conservation strategy Musculoskeletal: limited due to PPE conservation strategy Skin: limited due to PPE conservation strategy Hem/Lymphatic: limited due to PPE conservation strategy Psych: limited due to PPE conservation strategy Neurological: limited due to PPE conservation strategy - Constitutional Vitals: Vital Signs Temp Pulse Resp BP Pulse Ox 98.1 F 86 19 110/61 95 08/19/19 12:00 08/19/19 11:00 08/19/19 11:00 08/19/19 11:00 08/19/19 11:00 Temperature -Last 24 Hours Temperature 98.1 F Temperature 98.9 F Temperature 98.4 F Temperature 98.2 F Temperature 98.2 F Temperature 98.1 F - Labs CBC & Chem 7: 08/19/19 04:53 08/19/19 04:53 Labs: Abnormal lab results 08/18/19 08/18/19 08/19/19 Range/Units 16:13 22:57 04:53 Hgb 14.4 H (10.1-14.3) gm/dl Hct 44.2 H (30.3-42.9) % RDW 15.9 H (13.2-15.2) % Creatinine (0.7-1.2) mg/dL Glucose (65-100) mg/dL POC Glucose 200 H 224 H (70-105) Calcium (8.4-10.2) mg/dL 08/19/19 08/19/19 08/19/19 Range/Units 04:53 08:16 12:38 Hgb (10.1-14.3) gm/dl Hct (30.3-42.9) % RDW (13.2-15.2) % Creatinine 0.4 L (0.7-1.2) mg/dL Glucose 214 H (65-100) mg/dL POC Glucose 171 H 321 H (70-105) Calcium 8.3 L (8.4-10.2) mg/dL
[2019-08-19] MEDS: oxyCODONE /ACETAMINOPHEN 5-325MG TAB PO PRN (18:20)
[2019-08-19] MEDS: INSULIN GLARGINE 100 UNITS/ML SUB-Q SCH (21:18)
[2019-08-20] MEDS: BENZONATATE 100 MG CAP PO SCH ×5 (01:02→17:56)
[2019-08-20] MEDS: methylPREDNISolone Sod Succinate 40 MG/1 ML INJ IV SCH ×3 (05:10→22:41)
[2019-08-20] MEDS: CHOLECALCIFEROL (VIT D3) 5,000 UNIT TAB PO SCH ×2 (07:31→10:20)
--- NOTE | 2019-08-20 08:10 | Progress Note ---
Assessment and Plan Assessment and plan: Severe sepsis. Etiology secondary to COVID-19 pneumonia. COVID pneumonia. Patient with likely cytokine storm, microthrombi and elevated inflammatory markers. Patient is s/p Actemra on 08/06. ARDS. Etiology secondary to above. Acute hypoxemic respiratory failure. Continue O2 and BiPAP as clinically indicated. Etiology secondary to above. Diabetes mellitus type 2. Continue Lantus at bedtime. Patient with Solu- Medrol. 08/12/2019. Pulmonary following and recommending pronating during the day and at night. Continue Solu-Medrol 40 mg every 8 hours for a total of 7 days. Patient s/p Actemra and Remdisiver. Patient currently on HFNC requiring 40 L O2. Increase Lantus to 15 units at bedtime. 08/13/2019. Continue pronating. ID reports patient enrolled in Expanded Access Program for Convalescent Plasma patient [id number]. Continue Remdesivir - 100 mg IV daily x 9 days. Continue solumedrol 40 mg IV q 8 hours. Continue anticoagulation for elevated d-dimer. Follow-up quantiferon and IL6. Continue vitamin C and E. Continue COVID isolation precautions. Patient with high risk mortality 08/14/2019. Patient currently with high flow nasal cannula 40 L/min FiO2 90%. Convalescent plasma per ID. Continue Remdesivir, s/p Actemra, IV Solu-Medrol 40 mg every 8 hour and Lovenox 90 mg subcu every 12 hours. Continue proning paulette ent. Prognosis remains guarded. 08/15/2019. Patient currently with high flow nasal cannula 40 L/min FiO2 80%. Convalescent plasma per ID. Continue Remdesivir, s/p Actemra, IV Solu-Medrol 40 mg every 8 hour and Lovenox 90 mg subcu every 12 hours. Continue proning patient. Prognosis remains guarded. 08/16/2019 patient with Covid-19 pneumonia wit acute resp failure. Less SOB. now on 30 l/min HFNC. Also s/p Remdesivir, s/p Actemra. 08/17/2019 Patient with Covid-19 pneumonia with acute respiratory failure. Patient less shortness of breath. still on high flow Oxygen at 30 l/min 08/18/2019 patient with Covid-19 pneumonia with acute resp failure. She is still on Oxygen by HFNC at 30 l/min. Will discuss with resp Therapist to wean down Fi02 08/19/2019 Patient with Covid-19 pneumonia with acute respiratory failure. She is still on Oxygen by HFNC at 30 l/min. I discussed with Nurse about weaning down Oxygen, but she states patient gets d esaturated on exertion, so will leave the same from now. 08/20/2019 Patient with Covid-19 pneumonia with acute respiratory failure. She is feelin better, now down to Oxygen by HFNC at 10 l/min. I discussed with Nurse. OK to transfer to med floor as per Pulmonology. History Interval history: Shortness of breath No more fever Hospitalist Physical - Physical exam Narrative exam: GEN: Not in acute distress, lying in bed HEENT: Normocephalic, atraumatic, Neck: supple, No JVD Lungs: Clear to auscultation bilaterally, heart;S1 and S2 reg, no murmurs, rubs or gallop Abd:soft, non tender, non distended, normal bowel sounds, Ext: No edema, no clubbing, no cyanosis, Neuro: Awake,alert,oriented X3 , no focal signs, - Constitutional Vitals: Temp Pulse Resp BP Pulse Ox 98.1 F 60 21 128/75 93 08/20/19 04:00 08/20/19 06:00 08/20/19 06:00 08/20/19 06:00 08/20/19 06:00 General appearance: Present: no acute distress, obese Results - Labs CBC & Chem 7: 08/19/19 04:53 08/19/19 04:53 Labs: Laboratory Last Values WBC 9.8 K/mm3 (4.5-11.0) 08/19/19 04:53 RBC 4.83 M/mm3 (3.65-5.03) 08/19/19 04:53 Hgb 14.4 gm/dl (10.1-14.3) H 08/19/19 04:53 Hct 44.2 % (30.3-42.9) H 08/19/19 04:53 MCV 91 fl (79-97) 08/19/19 04:53 MCH 30 pg (28-32) 08/19/19 04:53 MCHC 33 % (30-34) 08/19/19 04:53 RDW 15.9 % (13.2-15.2) H 08/19/19 04:53 Plt Count 158 K/mm3 (140-440) 08/19/19 04:53 Lymph % (Auto) 5.4 % (13.4-35.0) L 08/16/19 04:12 Greer % (Auto) 5.2 % (0.0-7.3) 08/16/19 04:12 Eos % (Auto) 0.0 % (0.0-4.3) 08/16/19 04:12 Baso % (Auto) 0.4 % (0.0-1.8) 08/16/19 04:12 Lymph # 0.6 K/mm3 (1.2-5.4) L 08/16/19 04:12 Greer # 0.6 K/mm3 (0.0-0.8) 08/16/19 04:12 Eos # 0.0 K/mm3 (0.0-0.4) 08/16/19 04:12 Baso # 0.0 K/mm3 (0.0-0.1) 08/16/19 04:12 Add Manual Diff Complete 08/13/19 04:10 Seg Neutrophils % 89.0 % (40.0-70.0) H 08/16/19 04:12 Nucleated RBC % Not Reportable 08/13/19 04:10 Seg Neutrophils # 9.5 K/mm3 (1.8-7.7) H 08/16/19 04:12 WBC Morphology Not Reportable 08/13/19 04:10 Hypersegmented Neuts Not Reportable 08/13/19 04:10 Hyposegmented Neuts Not Reportable 08/13/19 04:10 Hypogranular Neuts Not Reportable 08/13/19 04:10 Smudge Cells Not Reportable 08/13/19 04:10 Toxic Granulation Not Reportable 08/13/19 04:10 Toxic Vacuolation Not Reportable 08/13/19 04:10 Dohle Bodies Not Reportable 08/13/19 04:10 Pelger-Huet Anomaly Not Reportable 08/13/19 04:10 Kaylynn Rods Not Reportable 08/13/19 04:10 Platelet Estimate Not Reportable 08/13/19 04:10 Clumped Platelets Not Reportable 08/13/19 04:10 Plt Clumps, EDTA Not Reportable 08/13/19 04:10 Large Platelets Not Reportable 08/13/19 04:10 Giant Platelets Not Reportable 08/13/19 04:10 Platelet Satelliting Not Reportable 08/13/19 04:10 Plt Morphology Comment Not Reportable 08/13/19 04:10 RBC Morphology Not Reportable 08/13/19 04:10 Dimorphic RBCs Not Reportable 08/13/19 04:10 Polychromasia Not Reportable 08/13/19 04:10 Hypochromasia Not Reportable 08/13/19 04:10 Poikilocytosis Not Reportable 08/13/19 04:10 Anisocytosis Not Reportable 08/13/19 04:10 Microcytosis Not Reportable 08/13/19 04:10 Macrocytosis Not Reportable 08/13/19 04:10 Spherocytes Not Reportable 08/13/19 04:10 Pappenheimer Bodies Not Reportable 08/13/19 04:10 Sickle Cells Not Reportable 08/13/19 04:10 Target Cells Not Reportable 08/13/19 04:10 Tear Drop Cells Not Reportable 08/13/19 04:10 Ovalocytes Not Reportable 08/13/19 04:10 Helmet Cells Not Reportable 08/13/19 04:10 [place] Bodies Not Reportable 08/13/19 04:10 [place] Rings Not Reportable 08/13/19 04:10 [place] Cells Not Reportable 08/13/19 04:10 Bite Cells Not Reportable 08/13/19 04:10 Crenated Cell Not Reportable 08/13/19 04:10 Elliptocytes Not Reportable 08/13/19 04:10 Acanthocytes (Spur) Not Reportable 08/13/19 04:10 Rouleaux Not Reportable 08/13/19 04:10 Hemoglobin C Crystals Not Reportable 08/13/19 04:10 Schistocytes Not Reportable 08/13/19 04:10 Malaria parasites Not Reportable 08/13/19 04:10 Humberto Bodies Not Reportable 08/13/19 04:10 Hem Pathologist Commnt Not Reportable 08/13/19 04:10 APTT 26.3 Sec. (24.2-36.6) 08/05/19 14:53 D-Dimer 831.46 ng/mlDDU (0-234) H 08/17/19 04:46 Sodium 141 mmol/L (137-145) 08/19/19 04:53 Potassium 4.4 mmol/L (3.6-5.0) 08/19/19 04:53 Chloride 101.7 mmol/L (98-107) 08/19/19 04:53 Carbon Dioxide 27 mmol/L (22-30) 08/19/19 04:53 Anion Gap 17 mmol/L 08/19/19 04:53 BUN 16 mg/dL (7-17) 08/19/19 04:53 Creatinine 0.4 mg/dL (0.7-1.2) L 08/19/19 04:53 Estimated GFR > 60 ml/min 08/19/19 04:53 BUN/Creatinine Ratio 40 % 08/19/19 04:53 Glucose 214 mg/dL (65-100) H 08/19/19 04:53 POC Glucose 129 (70-105) H 08/19/19 19:55 Hemoglobin A1c 7.6 % (4-6) H 08/06/19 Unknown Lactic Acid 1.90 mmol/L (0.7-2.0) 08/05/19 22:51 Calcium 8.3 mg/dL (8.4-10.2) L 08/19/19 04:53 Ferritin 775.8 ng/mL (13.0-400.0) H 08/17/19 04:46 Total Bilirubin 1.00 mg/dL (0.1-1.2) 08/15/19 05:09 AST 23 units/L (5-40) 08/15/19 05:09 ALT 45 units/L (7-56) 08/15/19 05:09 Alkaline Phosphatase 139 units/L (35-129) H 08/15/19 05:09 Lactate Dehydrogenase 409 units/L (91-180) H 08/17/19 04:46 C-Reactive Protein 0.30 mg/dL (0.00-1.30) 08/17/19 04:46 NT-Pro-B Natriuret Pep 1818 pg/mL (0-900) H 08/05/19 15:07 Total Protein 6.0 g/dL (6.3-8.2) L 08/15/19 05:09 Albumin 3.0 g/dL (3.9-5) L 08/15/19 05:09 Albumin/Globulin Ratio 1.0 % 08/15/19 05:09 Procalcitonin 1.06 ng/mL (<0.15) 08/09/19 12:29 Urine Color Lyndsay (Yellow) 08/05/19 19:54 Urine Turbidity Clear (Clear) 08/05/19 19:54 Urine pH 5.0 (5.0-7.0) 08/05/19 19:54 Ur Specific Plain 1.031 (1.003-1.030) H 08/05/19 19:54 Urine Protein 100 mg/dl mg/dL (Negative) 08/05/19 19:54 Urine Glucose (UA) 50 mg/dL (Negative) 08/05/19 19:54 Urine Ketones Neg mg/dL (Negative) 08/05/19 19:54 Urine Blood Neg (Negative) 08/05/19 19:54 Urine Nitrite Neg (Negative) 08/05/19 19:54 Urine Bilirubin Neg (Negative) 08/05/19 19:54 Urine Urobilinogen < 2.0 mg/dL (<2.0) 08/05/19 19:54 Ur Leukocyte Esterase Neg (Negative) 08/05/19 19:54 Urine WBC (Auto) 8.0 /HPF (0.0-6.0) H 08/05/19 19:54 Urine RBC (Auto) 1.0 /HPF (0.0-6.0) 08/05/19 19:54 U Epithel Cells (Auto) 10.0 /HPF (0-13.0) 08/05/19 19:54 Urine Mucus 1+ /HPF 08/05/19 19:54 Coronavirus (PCR) Positive (Negative) A 08/06/19 09:17 Miscellaneous Test Flexitest 1 H 08/10/19 08:16 Blood Type A POSITIVE 08/11/19 15:00 Antibody Screen Negative 08/11/19 15:00 [place]/IV: Voiding Method Bedside Commode IV Catheter Type [Left Forearm INT / Saline Lock ] IV Catheter Type [Right Wrist] Peripheral IV IV Catheter Type [Right INT / Saline Lock Forearm] IV Catheter Type [Left Hand] Peripheral IV IV Catheter Type [Left Peripheral IV Antecubital] Active Medications - Current Medications Current Medications: Generic Name Dose Route Start Last Admin Trade Name Freq PRN Reason Stop Dose Admin Acetaminophen 650 mg 08/05/19 21:32 08/06/19 20:05 Tylenol PO 650 mg Q4H PRN Administration Pain MILD(1-3)/Fever >100.5/BUTLER Ascorbic Acid 500 mg 08/08/19 10:00 08/19/19 21:21 Vitamin C PO 500 mg BID [facility] Administration Benzonatate 100 mg 08/06/19 01:00 08/20/19 07:31 Tessalon Perles PO Not Given Q8H [facility] Cholecalciferol 5,000 unit 08/08/19 10:00 08/20/19 07:31 Vitamin D3 PO Not Given QDAY [facility] Enoxaparin Sodium 90 mg 08/05/19 22:00 08/19/19 21:17 Enoxaparin SUB-Q 90 mg Q12HR [facility] Administration Famotidine 20 mg 08/05/19 22:00 08/19/19 21:19 Pepcid PO 20 mg BID [facility] Administration Hydromorphone HCl 0.5 mg 08/05/19 21:32 08/06/19 22:28 Dilaudid IV 0.5 mg Q3H PRN Administration Pain , Severe (7-10) Hydrophilic Ointment 1 applic 08/13/19 18:22 08/13/19 18:29 Vaseline Lip Therapy TP 1 applic DIRECT PRN Administration Dry Lips Insulin Glargine 32 units 08/18/19 22:00 08/19/19 21:18 Lantus SUB-Q 32 units QHS [facility] Administration Insulin Human Lispro 0 unit 08/05/19 22:00 08/19/19 21:18 Humalog SUB-Q Not Given ACHS [facility] Protocol Methylprednisolone Sodium Succinate 20 mg 08/16/19 14:00 08/20/19 05:10 Solu-Medrol IV 20 mg Q8HR [facility] Administration Metoclopramide HCl 10 mg 08/05/19 21:32 Reglan IV Q6H PRN Nausea And Vomiting Ondansetron HCl 4 mg 08/05/19 21:32 Zofran IV Q8H PRN Nausea And Vomiting Oxycodone/Acetaminophen 1 tab 08/05/19 21:32 08/19/19 18:20 Percocet 5/325 PO 1 tab Q6H PRN Administration Pain, Moderate (4-6) Sodium Chloride 10 ml 08/05/19 22:00 08/19/19 21:20 Sodium Chloride Flush Syringe 10 Ml IV 10 ml BID RAISA Administration Sodium Chloride 10 ml 08/05/19 21:32 Sodium Chloride Flush Syringe 10 Ml IV PRN PRN LINE FLUSH Nutrition/Malnutrition Assess - Dietary Evaluation Nutrition/Malnutrition Findings: Nutrition Notes Start: 08/06/19 08:35 Freq: Status: Active Protocol: Document 08/18/19 08:25 LP (Rec: 08/18/19 08:27 LP [id number]) Nutrition Notes Initial or Follow up Reassessment Current Diagnosis Diabetes Other Pertinent Diagnosis ARDS, Suspected COVID-19 Current Diet Cardiac/consistent CHO Labs/Tests BG 159 Pertinent Medications Reviewed Height 5 ft 5 in Weight 92.3 kg [place] Body Weight (kg) 56.81 BMI 33.8 Weight Status Obese Subjective/Other Information Pt continues eating well and consuming most of meals. Percent of energy/protein needs met: 100%/91% Burn Absent Trauma Absent Current % PO Good (75-100%) Minimum of two criteria No physical signs of malnutrition #2 Nutrition Diagnosis Inadequate oral intake As Evidenced by Signs and Symptoms Pt continued to meet 100% of kcal and 91% of protein needs Diagnosis Progress(for reassessment Resolved documentation) Is patient on ventilator? No Is Patient Ambulatory and/or Out of Bed Yes REE-([facility]-ambulatory/OOB) [ 1974.544 [id number]] Kcal/Kg value to use for calculation 17 Approximate Energy Requirements Using 1569 kcal/Kg Calculation Used for Recommendations Kcal/kg Additional Notes Protein needs are 74-92g (0.8- 1g/kg) Fluid needs are 1ml/kcal Nutrition Intervention Change Diet Order: Continue Goal #1 Continue to meet at least 80% of kcal and protein needs Anticipated Discharge Needs: Cardiac/consistent CHO diet Revisit per MD consult or patient Sign Off request:
[2019-08-20] MEDS: INSULIN LISPRO 100 UNIT/ML SUB-Q SCH ×4 (08:13→22:40)
--- NOTE | 2019-08-20 08:35 | Progress Note ---
Assessment and Plan 54 y/o female with acute respiratory failure secondary to COVID 19 1. Proning during the day and prone sleeping at night. This should continue even though oxygen requirement is improving. 2. Steroid at 20q8 for a total of 7 days. Today is day 5. At the end of 7 days change to prednisone 40 daily for 3 days, then 20 daily for 3 days, then 10 daily for 3 days, then stop. 3. Agree with Actemra, given 4. Agree with Remdisiver, given 5. Convaslescent plasma given on 08/14/2019 6. Continue to wean HFNC as tolerated. Sats >88% are acceptable. 7. Stable for transfer to [facility] floor. Subjective Date of service: 08/20/19 Principal diagnosis: Bilateral pneumonia, ARDS Interval history: Down to 10 liters flow and 40%. Sats are good. Objective Vital Signs - 12hr 08/19/19 08/19/19 08/19/19 21:00 22:00 23:01 Temperature Pulse Rate 76 74 Pulse Rate [ From Monitor] Respiratory 16 20 27 H Rate Blood Pressure 109/70 106/61 O2 Sat by Pulse 94 90 93 Oximetry 08/19/19 08/20/19 08/20/19 23:28 00:00 01:01 Temperature 98.3 F Pulse Rate 73 75 66 Pulse Rate [ 72 From Monitor] Respiratory 21 21 21 Rate Blood Pressure 106/61 102/64 102/64 O2 Sat by Pulse 92 93 96 Oximetry 08/20/19 08/20/19 08/20/19 02:00 02:01 03:01 Temperature Pulse Rate 64 63 Pulse Rate [ From Monitor] Respiratory 20 18 Rate Blood Pressure 128/82 128/82 O2 Sat by Pulse 94 94 93 Oximetry 08/20/19 08/20/19 08/20/19 04:00 05:01 06:00 Temperature 98.1 F Pulse Rate 62 65 60 Pulse Rate [ 66 From Monitor] Respiratory 25 H 17 21 Rate Blood Pressure 116/70 116/70 128/75 O2 Sat by Pulse 92 93 93 Oximetry Constitutional: alert, other (critically ill on HFNC) Eyes: non-icteric Effort: mildly labored Ascultation: Bilateral: rales Cardiovascular: regular rate and rhythm (no mrg) Gastrointestinal: normoactive bowel sounds, soft, non-tender, non-distended Integumentary: normal Extremities: no cyanosis, no edema, pink and warm Neurologic: normal mental status, non-focal exam, pupils equal and round, CN II- XII normal Psychiatric: mood appropriate, affect normal CBC and BMP: 08/19/19 04:53 08/19/19 04:53 ABG, PT/INR, D-dimer: PT/INR, D-dimer D-Dimer 831.46 ng/mlDDU (0-234) H 08/17/19 04:46 Abnormal lab findings: Abnormal Labs 08/05/19 08/05/19 08/05/19 14:53 14:53 14:53 Hgb Hct RDW Lymph % (Auto) 13.0 L [place] % (Auto) 10.8 H Lymph # 0.9 L Seg Neutrophils % 74.0 H Seg Neutrophils # D-Dimer > 49696 H Carbon Dioxide 20 L BUN 6 L Creatinine 0.6 L Glucose 255 H POC Glucose Hemoglobin A1c Lactic Acid Calcium Ferritin Alkaline Phosphatase 173 H Lactate Dehydrogenase C-Reactive Protein NT-Pro-B Natriuret Pep Total Protein Albumin 2.9 L Ur Specific [place] Urine WBC (Auto) Coronavirus (PCR) Miscellaneous Test 08/05/19 08/05/19 08/05/19 14:53 14:53 14:53 Hgb Hct RDW Lymph % (Auto) [place] % (Auto) Lymph # Seg Neutrophils % Seg Neutrophils # D-Dimer Carbon Dioxide BUN Creatinine Glucose 256 H POC Glucose Hemoglobin A1c Lactic Acid 3.40 H* Calcium Ferritin 438.9 H Alkaline Phosphatase Lactate Dehydrogenase 702 H C-Reactive Protein 32.90 H NT-Pro-B Natriuret Pep Total Protein Albumin Ur Specific [place] Urine WBC (Auto) Coronavirus (PCR) Miscellaneous Test 08/05/19 08/05/19 08/06/19 15:07 19:54 00:21 Hgb Hct RDW Lymph % (Auto) [place] % (Auto) Lymph # Seg Neutrophils % Seg Neutrophils # D-Dimer Carbon Dioxide BUN Creatinine Glucose POC Glucose 131 H Hemoglobin A1c Lactic Acid Calcium Ferritin Alkaline Phosphatase Lactate Dehydrogenase C-Reactive Protein NT-Pro-B Natriuret Pep 1818 H Total Protein Albumin Ur Specific [place] 1.031 H Urine WBC (Auto) 8.0 H Coronavirus (PCR) Miscellaneous Test 08/06/19 08/06/19 08/06/19 08:29 09:17 11:56 Hgb Hct RDW Lymph % (Auto) [place] % (Auto) Lymph # Seg Neutrophils % Seg Neutrophils # D-Dimer Carbon Dioxide BUN Creatinine Glucose POC Glucose 165 H 190 H Hemoglobin A1c Lactic Acid Calcium Ferritin Alkaline Phosphatase Lactate Dehydrogenase C-Reactive Protein NT-Pro-B Natriuret Pep Total Protein Albumin Ur Specific [place] Urine WBC (Auto) Coronavirus (PCR) Positive A Miscellaneous Test 08/06/19 08/06/19 08/06/19 16:16 22:16 Unknown Hgb Hct RDW Lymph % (Auto) [place] % (Auto) Lymph # Seg Neutrophils % Seg Neutrophils # D-Dimer Carbon Dioxide BUN Creatinine Glucose POC Glucose 170 H 128 H Hemoglobin A1c 7.6 H Lactic Acid Calcium Ferritin Alkaline Phosphatase Lactate Dehydrogenase C-Reactive Protein NT-Pro-B Natriuret Pep Total Protein Albumin Ur Specific [place] Urine WBC (Auto) Coronavirus (PCR) Miscellaneous Test 08/07/19 08/07/19 08/07/19 07:59 11:39 11:56 Hgb Hct RDW Lymph % (Auto) [place] % (Auto) Lymph # Seg Neutrophils % Seg Neutrophils # D-Dimer Carbon Dioxide BUN Creatinine 0.6 L Glucose 194 H POC Glucose 141 H 195 H Hemoglobin A1c Lactic Acid Calcium 8.0 L Ferritin Alkaline Phosphatase 181 H Lactate Dehydrogenase C-Reactive Protein NT-Pro-B Natriuret Pep Total Protein Albumin 2.5 L Ur Specific [place] Urine WBC (Auto) Coronavirus (PCR) Miscellaneous Test 08/07/19 08/07/19 08/07/19 11:56 11:56 11:56 Hgb Hct RDW Lymph % (Auto) [place] % (Auto) Lymph # Seg Neutrophils % Seg Neutrophils # D-Dimer > 99653 H Carbon Dioxide BUN Creatinine Glucose POC Glucose Hemoglobin A1c Lactic Acid Calcium Ferritin 415.7 H Alkaline Phosphatase Lactate Dehydrogenase 745 H C-Reactive Protein NT-Pro-B Natriuret Pep Total Protein Albumin Ur Specific [place] Urine WBC (Auto) Coronavirus (PCR) Miscellaneous Test 08/07/19 08/07/19 08/07/19 11:56 16:35 21:36 Hgb Hct RDW Lymph % (Auto) [place] % (Auto) Lymph # Seg Neutrophils % Seg Neutrophils # D-Dimer Carbon Dioxide BUN Creatinine Glucose POC Glucose 176 H 277 H Hemoglobin A1c Lactic Acid Calcium Ferritin Alkaline Phosphatase Lactate Dehydrogenase C-Reactive Protein 34.20 H NT-Pro-B Natriuret Pep Total Protein Albumin Ur Specific [place] Urine WBC (Auto) Coronavirus (PCR) Miscellaneous Test 08/08/19 08/08/19 08/08/19 07:53 08:54 11:40 Hgb Hct RDW Lymph % (Auto) [place] % (Auto) Lymph # Seg Neutrophils % Seg Neutrophils # D-Dimer Carbon Dioxide BUN Creatinine 0.6 L Glucose 266 H POC Glucose 214 H 340 H Hemoglobin A1c Lactic Acid Calcium 8.3 L Ferritin Alkaline Phosphatase 222 H Lactate Dehydrogenase C-Reactive Protein NT-Pro-B Natriuret Pep Total Protein Albumin 2.5 L Ur Specific [place] Urine WBC (Auto) Coronavirus (PCR) Miscellaneous Test 08/08/19 08/08/19 08/09/19 17:04 21:49 05:22 Hgb Hct RDW Lymph % (Auto) [place] % (Auto) Lymph # Seg Neutrophils % Seg Neutrophils # D-Dimer Carbon Dioxide BUN Creatinine Glucose POC Glucose 278 H 319 H Hemoglobin A1c Lactic Acid Calcium Ferritin Alkaline Phosphatase Lactate Dehydrogenase 866 H C-Reactive Protein 14.70 H NT-Pro-B Natriuret Pep Total Protein Albumin Ur Specific [place] Urine WBC (Auto) Coronavirus (PCR) Miscellaneous Test 08/09/19 08/09/19 08/09/19 05:44 08:12 11:52 Hgb Hct RDW Lymph % (Auto) [place] % (Auto) Lymph # Seg Neutrophils % Seg Neutrophils # D-Dimer Carbon Dioxide BUN 18 H Creatinine 0.6 L Glucose 227 H POC Glucose 232 H 273 H Hemoglobin A1c Lactic Acid Calcium 8.2 L Ferritin Alkaline Phosphatase 230 H Lactate Dehydrogenase C-Reactive Protein NT-Pro-B Natriuret Pep Total Protein Albumin 2.5 L Ur Specific [place] Urine WBC (Auto) Coronavirus (PCR) Miscellaneous Test 08/09/19 08/09/19 08/09/19 12:29 12:29 17:11 Hgb Hct RDW Lymph % (Auto) [place] % (Auto) Lymph # Seg Neutrophils % Seg Neutrophils # D-Dimer 3795.56 H Carbon Dioxide BUN Creatinine Glucose POC Glucose 200 H Hemoglobin A1c Lactic Acid Calcium Ferritin 594.1 H Alkaline Phosphatase Lactate Dehydrogenase C-Reactive Protein NT-Pro-B Natriuret Pep Total Protein Albumin Ur Specific [place] Urine WBC (Auto) Coronavirus (PCR) Miscellaneous Test 08/09/19 08/10/1908/09/20 21:58 05:07 06:14 Hgb Hct RDW Lymph % (Auto) [place] % (Auto) Lymph # Seg Neutrophils % Seg Neutrophils # D-Dimer Carbon Dioxide BUN 19 H Creatinine Glucose 277 H POC Glucose 226 H 288 H Hemoglobin A1c Lactic Acid Calcium 7.9 L Ferritin Alkaline Phosphatase 231 H Lactate Dehydrogenase C-Reactive Protein NT-Pro-B Natriuret Pep Total Protein Albumin 2.7 L Ur Specific [place] Urine WBC (Auto) Coronavirus (PCR) Miscellaneous Test 08/10/19 08/10/19 08/10/19 08:16 08:31 12:25 Hgb Hct RDW Lymph % (Auto) [place] % (Auto) Lymph # Seg Neutrophils % Seg Neutrophils # D-Dimer Carbon Dioxide BUN Creatinine Glucose POC Glucose 284 H 387 H Hemoglobin A1c Lactic Acid Calcium Ferritin Alkaline Phosphatase Lactate Dehydrogenase C-Reactive Protein NT-Pro-B Natriuret Pep Total Protein Albumin Ur Specific [place] Urine WBC (Auto) Coronavirus (PCR) Miscellaneous Test Flexitest 1 H 08/10/19 08/10/19 08/11/19 18:03 21:10 05:14 Hgb Hct RDW Lymph % (Auto) [place] % (Auto) Lymph # Seg Neutrophils % Seg Neutrophils # D-Dimer Carbon Dioxide BUN 21 H Creatinine Glucose 368 H POC Glucose 297 H 259 H Hemoglobin A1c Lactic Acid Calcium Ferritin Alkaline Phosphatase 223 H Lactate Dehydrogenase C-Reactive Protein NT-Pro-B Natriuret Pep Total Protein Albumin 3.0 L Ur Specific [place] Urine WBC (Auto) Coronavirus (PCR) Miscellaneous Test 08/11/19 08/11/19 08/11/19 08:02 12:08 16:21 Hgb Hct RDW Lymph % (Auto) [place] % (Auto) Lymph # Seg Neutrophils % Seg Neutrophils # D-Dimer Carbon Dioxide BUN Creatinine Glucose POC Glucose 300 H 447 H 295 H Hemoglobin A1c Lactic Acid Calcium Ferritin Alkaline Phosphatase Lactate Dehydrogenase C-Reactive Protein NT-Pro-B Natriuret Pep Total Protein Albumin Ur Specific [place] Urine WBC (Auto) Coronavirus (PCR) Miscellaneous Test 08/11/19 08/12/19 08/12/19 21:42 05:04 07:47 Hgb Hct RDW Lymph % (Auto) [place] % (Auto) Lymph # Seg Neutrophils % Seg Neutrophils # D-Dimer Carbon Dioxide BUN 21 H Creatinine 0.5 L Glucose 276 H POC Glucose 447 H 274 H Hemoglobin A1c Lactic Acid Calcium Ferritin Alkaline Phosphatase 188 H Lactate Dehydrogenase C-Reactive Protein NT-Pro-B Natriuret Pep Total Protein 6.1 L Albumin 2.9 L Ur Specific [place] Urine WBC (Auto) Coronavirus (PCR) Miscellaneous Test 08/12/19 08/12/19 08/12/19 11:57 18:10 22:00 Hgb Hct RDW Lymph % (Auto) [place] % (Auto) Lymph # Seg Neutrophils % Seg Neutrophils # D-Dimer Carbon Dioxide BUN Creatinine Glucose POC Glucose 367 H 285 H 239 H Hemoglobin A1c Lactic Acid Calcium Ferritin Alkaline Phosphatase Lactate Dehydrogenase C-Reactive Protein NT-Pro-B Natriuret Pep Total Protein Albumin Ur Specific [place] Urine WBC (Auto) Coronavirus (PCR) Miscellaneous Test 08/13/19 08/13/19 08/13/19 04:10 04:10 04:10 Hgb Hct 44.3 H RDW 15.4 H Lymph % (Auto) 7.6 L [place] % (Auto) Lymph # 0.7 L Seg Neutrophils % 85.3 H Seg Neutrophils # D-Dimer Carbon Dioxide BUN 19 H 20 H Creatinine 0.5 L 0.5 L Glucose 201 H 199 H POC Glucose Hemoglobin A1c Lactic Acid Calcium 8.0 L 8.1 L Ferritin Alkaline Phosphatase 167 H Lactate Dehydrogenase C-Reactive Protein NT-Pro-B Natriuret Pep Total Protein 5.7 L Albumin 3.0 L Ur Specific [place] Urine WBC (Auto) Coronavirus (PCR) Miscellaneous Test 08/13/19 08/13/19 08/13/19 08:35 12:11 16:09 Hgb Hct RDW Lymph % (Auto) [place] % (Auto) Lymph # Seg Neutrophils % Seg Neutrophils # D-Dimer Carbon Dioxide BUN Creatinine Glucose POC Glucose 247 H 351 H 253 H Hemoglobin A1c Lactic Acid Calcium Ferritin Alkaline Phosphatase Lactate Dehydrogenase C-Reactive Protein NT-Pro-B Natriuret Pep Total Protein Albumin Ur Specific [place] Urine WBC (Auto) Coronavirus (PCR) Miscellaneous Test 08/13/19 08/14/19 08/14/19 21:45 04:56 07:28 Hgb 14.5 H Hct 44.2 H RDW 15.3 H Lymph % (Auto) 7.0 L [place] % (Auto) Lymph # 0.6 L Seg Neutrophils % 85.3 H Seg Neutrophils # D-Dimer Carbon Dioxide BUN Creatinine 0.5 L Glucose 228 H POC Glucose 242 H Hemoglobin A1c Lactic Acid Calcium 7.9 L Ferritin Alkaline Phosphatase 150 H Lactate Dehydrogenase C-Reactive Protein NT-Pro-B Natriuret Pep Total Protein 5.6 L Albumin 3.1 L Ur Specific [place] Urine WBC (Auto) Coronavirus (PCR) Miscellaneous Test 08/14/19 08/14/19 08/14/19 08:10 11:53 17:20 Hgb Hct RDW Lymph % (Auto) [place] % (Auto) Lymph # Seg Neutrophils % Seg Neutrophils # D-Dimer Carbon Dioxide BUN Creatinine Glucose POC Glucose 210 H 335 H 211 H Hemoglobin A1c Lactic Acid Calcium Ferritin Alkaline Phosphatase Lactate Dehydrogenase C-Reactive Protein NT-Pro-B Natriuret Pep Total Protein Albumin Ur Specific [place] Urine WBC (Auto) Coronavirus (PCR) Miscellaneous Test 08/14/19 08/14/19 08/15/19 18:08 23:25 05:09 Hgb Hct RDW Lymph % (Auto) [place] % (Auto) Lymph # Seg Neutrophils % Seg Neutrophils # D-Dimer Carbon Dioxide BUN Creatinine 0.4 L Glucose 222 H POC Glucose 255 H 272 H Hemoglobin A1c Lactic Acid Calcium 8.0 L Ferritin Alkaline Phosphatase 139 H Lactate Dehydrogenase C-Reactive Protein NT-Pro-B Natriuret Pep Total Protein 6.0 L Albumin 3.0 L Ur Specific [place] Urine WBC (Auto) Coronavirus (PCR) Miscellaneous Test 08/15/19 08/15/19 08/15/19 05:09 08:11 12:03 Hgb Hct RDW Lymph % (Auto) 8.1 L [place] % (Auto) 7.6 H Lymph # 0.7 L Seg Neutrophils % 83.9 H Seg Neutrophils # D-Dimer Carbon Dioxide BUN Creatinine Glucose POC Glucose 223 H 358 H Hemoglobin A1c Lactic Acid Calcium Ferritin Alkaline Phosphatase Lactate Dehydrogenase C-Reactive Protein NT-Pro-B Natriuret Pep Total Protein Albumin Ur Specific [place] Urine WBC (Auto) Coronavirus (PCR) Miscellaneous Test 08/15/19 08/15/19 08/16/19 16:43 21:47 04:12 Hgb Hct RDW Lymph % (Auto) [place] % (Auto) Lymph # Seg Neutrophils % Seg Neutrophils # D-Dimer Carbon Dioxide BUN Creatinine 0.4 L Glucose 205 H POC Glucose 285 H 274 H Hemoglobin A1c Lactic Acid Calcium 8.1 L Ferritin Alkaline Phosphatase Lactate Dehydrogenase C-Reactive Protein NT-Pro-B Natriuret Pep Total Protein Albumin Ur Specific [place] Urine WBC (Auto) Coronavirus (PCR) Miscellaneous Test 08/16/19 08/16/19 08/16/19 04:12 08:42 11:56 Hgb Hct 43.7 H RDW 15.7 H Lymph % (Auto) 5.4 L [place] % (Auto) Lymph # 0.6 L Seg Neutrophils % 89.0 H Seg Neutrophils # 9.5 H D-Dimer Carbon Dioxide BUN Creatinine Glucose POC Glucose 216 H 251 H Hemoglobin A1c Lactic Acid Calcium Ferritin Alkaline Phosphatase Lactate Dehydrogenase C-Reactive Protein NT-Pro-B Natriuret Pep Total Protein Albumin Ur Specific [place] Urine WBC (Auto) Coronavirus (PCR) Miscellaneous Test 08/16/19 08/16/19 08/17/19 16:29 21:28 04:46 Hgb Hct RDW Lymph % (Auto) [place] % (Auto) Lymph # Seg Neutrophils % Seg Neutrophils # D-Dimer 831.46 H Carbon Dioxide BUN Creatinine Glucose POC Glucose 245 H 293 H Hemoglobin A1c Lactic Acid Calcium Ferritin Alkaline Phosphatase Lactate Dehydrogenase C-Reactive Protein NT-Pro-B Natriuret Pep Total Protein Albumin Ur Specific [place] Urine WBC (Auto) Coronavirus (PCR) Miscellaneous Test 08/17/19 08/17/19 08/17/19 04:46 04:46 08:13 Hgb Hct RDW Lymph % (Auto) [place] % (Auto) Lymph # Seg Neutrophils % Seg Neutrophils # D-Dimer Carbon Dioxide BUN Creatinine Glucose POC Glucose 201 H Hemoglobin A1c Lactic Acid Calcium Ferritin 775.8 H Alkaline Phosphatase Lactate Dehydrogenase 409 H C-Reactive Protein NT-Pro-B Natriuret Pep Total Protein Albumin Ur Specific [place] Urine WBC (Auto) Coronavirus (PCR) Miscellaneous Test 08/17/19 08/17/19 08/17/19 11:54 18:22 20:42 Hgb Hct RDW Lymph % (Auto) [place] % (Auto) Lymph # Seg Neutrophils % Seg Neutrophils # D-Dimer Carbon Dioxide BUN Creatinine Glucose POC Glucose 378 H 309 H 214 H Hemoglobin A1c Lactic Acid Calcium Ferritin Alkaline Phosphatase Lactate Dehydrogenase C-Reactive Protein NT-Pro-B Natriuret Pep Total Protein Albumin Ur Specific [place] Urine WBC (Auto) Coronavirus (PCR) Miscellaneous Test 08/18/19 08/18/19 08/18/19 08:07 12:00 16:13 Hgb Hct RDW Lymph % (Auto) [place] % (Auto) Lymph # Seg Neutrophils % Seg Neutrophils # D-Dimer Carbon Dioxide BUN Creatinine Glucose POC Glucose 159 H 346 H 200 H Hemoglobin A1c Lactic Acid Calcium Ferritin Alkaline Phosphatase Lactate Dehydrogenase C-Reactive Protein NT-Pro-B Natriuret Pep Total Protein Albumin Ur Specific [place] Urine WBC (Auto) Coronavirus (PCR) Miscellaneous Test 08/18/19 08/19/19 08/19/19 22:57 04:53 04:53 Hgb 14.4 H Hct 44.2 H RDW 15.9 H Lymph % (Auto) [place] % (Auto) Lymph # Seg Neutrophils % Seg Neutrophils # D-Dimer Carbon Dioxide BUN Creatinine 0.4 L Glucose 214 H POC Glucose 224 H Hemoglobin A1c Lactic Acid Calcium 8.3 L Ferritin Alkaline Phosphatase Lactate Dehydrogenase C-Reactive Protein NT-Pro-B Natriuret Pep Total Protein Albumin Ur Specific [place] Urine WBC (Auto) Coronavirus (PCR) Miscellaneous Test 08/19/19 08/19/19 08/19/19 08:16 12:38 17:46 Hgb Hct RDW Lymph % (Auto) [place] % (Auto) Lymph # Seg Neutrophils % Seg Neutrophils # D-Dimer Carbon Dioxide BUN Creatinine Glucose POC Glucose 171 H 321 H 193 H Hemoglobin A1c Lactic Acid Calcium Ferritin Alkaline Phosphatase Lactate Dehydrogenase C-Reactive Protein NT-Pro-B Natriuret Pep Total Protein Albumin Ur Specific [place] Urine WBC (Auto) Coronavirus (PCR) Miscellaneous Test 08/19/19 19:55 Hgb Hct RDW Lymph % (Auto) [place] % (Auto) Lymph # Seg Neutrophils % Seg Neutrophils # D-Dimer Carbon Dioxide BUN Creatinine Glucose POC Glucose 129 H Hemoglobin A1c Lactic Acid Calcium Ferritin Alkaline Phosphatase Lactate Dehydrogenase C-Reactive Protein NT-Pro-B Natriuret Pep Total Protein Albumin Ur Specific [place] Urine WBC (Auto) Coronavirus (PCR) Miscellaneous Test
[2019-08-20] MEDS: ENOXAPARIN 100 MG/1 ML INJ SUB-Q SCH ×2 (10:20→22:40)
[2019-08-20] MEDS: FAMOTIDINE 20 MG TAB PO SCH ×2 (10:20→22:41)
[2019-08-20] MEDS: ASCORBIC ACID 500 MG TAB PO SCH ×2 (10:20→22:41)
[2019-08-20] MEDS: oxyCODONE /ACETAMINOPHEN 5-325MG TAB PO PRN (13:12)
[2019-08-20] MEDS: MAGIC MOUTHWASH 30ML PO SCH ×2 (15:35→20:30)
[2019-08-20] MEDS: HYDROmorphone 1 MG/1 ML INJ IV PRN (17:56)
[2019-08-20] MEDS: INSULIN GLARGINE 100 UNITS/ML SUB-Q SCH (22:57)
[2019-08-21] MEDS: BENZONATATE 100 MG CAP PO SCH ×3 (01:42→17:44)
[2019-08-21] MEDS: methylPREDNISolone Sod Succinate 40 MG/1 ML INJ IV SCH ×3 (05:55→22:27)
[2019-08-21] MEDS: INSULIN LISPRO 100 UNIT/ML SUB-Q SCH ×4 (09:21→22:26)
[2019-08-21] MEDS: FAMOTIDINE 20 MG TAB PO SCH ×2 (09:22→22:27)
[2019-08-21] MEDS: MAGIC MOUTHWASH 30ML PO SCH ×3 (09:22→20:26)
[2019-08-21] MEDS: ENOXAPARIN 100 MG/1 ML INJ SUB-Q SCH ×2 (09:22→22:27)
[2019-08-21] MEDS: ASCORBIC ACID 500 MG TAB PO SCH ×2 (09:22→22:28)
[2019-08-21] MEDS: CHOLECALCIFEROL (VIT D3) 5,000 UNIT TAB PO SCH (09:23)
--- NOTE | 2019-08-21 10:12 | Progress Note ---
Assessment and Plan 54 y/o female with acute respiratory failure secondary to COVID 19 1. Proning during the day and prone sleeping at night. This should continue even though oxygen requirement is improving. 2. Steroid at 20q8 for a total of 7 days. Today is day 6. At the end of 7 days change to prednisone 40 daily for 3 days, then 20 daily for 3 days, then 10 daily for 3 days, then stop. 3. Agree with Actemra, given 4. Agree with Remdisiver, given 5. Convaslescent plasma given on 08/14/2019 6. Continue to wean HFNC as tolerated. Sats >88% are acceptable. 7. Will continue to follow. Subjective Date of service: 08/21/19 Principal diagnosis: Bilateral pneumonia, ARDS Interval history: Transferred to COVID floor. Down to 35% and 10 liters. Objective Vital Signs - 12hr 08/21/19 08/21/19 08/21/19 00:00 02:00 04:00 Temperature Pulse Rate 73 73 Respiratory Rate Blood Pressure O2 Sat by Pulse 95 Oximetry 08/21/19 08/21/19 08/21/19 04:45 04:56 10:08 Temperature 98.5 F Pulse Rate 68 Respiratory 18 Rate Blood Pressure 94/52 O2 Sat by Pulse 98 92 96 Oximetry Constitutional: alert, other (critically ill on HFNC) Eyes: non-icteric Effort: mildly labored Ascultation: Bilateral: rales Cardiovascular: regular rate and rhythm (no mrg) Gastrointestinal: normoactive bowel sounds, soft, non-tender, non-distended Integumentary: normal Extremities: no cyanosis, no edema, pink and warm Neurologic: normal mental status, non-focal exam, pupils equal and round, CN II- XII normal Psychiatric: mood appropriate, affect normal CBC and BMP: 08/19/19 04:53 08/19/19 04:53 ABG, PT/INR, D-dimer: PT/INR, D-dimer D-Dimer 831.46 ng/mlDDU (0-234) H 08/17/19 04:46 Abnormal lab findings: Abnormal Labs 08/05/19 08/05/19 08/05/19 14:53 14:53 14:53 Hgb Hct RDW Lymph % (Auto) 13.0 L Gilli[place] % (Auto) 10.8 H Lymph # 0.9 L Seg Neutrophils % 74.0 H Seg Neutrophils # D-Dimer > 77230 H Carbon Dioxide 20 L BUN 6 L Creatinine 0.6 L Glucose 255 H POC Glucose Hemoglobin A1c Lactic Acid Calcium Ferritin Alkaline Phosphatase 173 H Lactate Dehydrogenase C-Reactive Protein NT-Pro-B Natriuret Pep Total Protein Albumin 2.9 L Ur Specific [place] Urine WBC (Auto) Coronavirus (PCR) Miscellaneous Test 08/05/19 08/05/19 08/05/19 14:53 14:53 14:53 Hgb Hct RDW Lymph % (Auto) Gilliam % (Auto) Lymph # Seg Neutrophils % Seg Neutrophils # D-Dimer Carbon Dioxide BUN Creatinine Glucose 256 H POC Glucose Hemoglobin A1c Lactic Acid 3.40 H* Calcium Ferritin 438.9 H Alkaline Phosphatase Lactate Dehydrogenase 702 H C-Reactive Protein 32.90 H NT-Pro-B Natriuret Pep Total Protein Albumin Ur Specific [place] Urine WBC (Auto) Coronavirus (PCR) Miscellaneous Test 08/05/19 08/05/19 08/06/19 15:07 19:54 00:21 Hgb Hct RDW Lymph % (Auto) Gilli[place] % (Auto) Lymph # Seg Neutrophils % Seg Neutrophils # D-Dimer Carbon Dioxide BUN Creatinine Glucose POC Glucose 131 H Hemoglobin A1c Lactic Acid Calcium Ferritin Alkaline Phosphatase Lactate Dehydrogenase C-Reactive Protein NT-Pro-B Natriuret Pep 1818 H Total Protein Albumin Ur Specific [place] 1.031 H Urine WBC (Auto) 8.0 H Coronavirus (PCR) Miscellaneous Test 08/06/19 08/06/19 08/06/19 08:29 09:17 11:56 Hgb Hct RDW Lymph % (Auto) [place] % (Auto) Lymph # Seg Neutrophils % Seg Neutrophils # D-Dimer Carbon Dioxide BUN Creatinine Glucose POC Glucose 165 H 190 H Hemoglobin A1c Lactic Acid Calcium Ferritin Alkaline Phosphatase Lactate Dehydrogenase C-Reactive Protein NT-Pro-B Natriuret Pep Total Protein Albumin Ur Specific [place] Urine WBC (Auto) Coronavirus (PCR) Positive A Miscellaneous Test 08/06/19 08/06/19 08/06/19 16:16 22:16 Unknown Hgb Hct RDW Lymph % (Auto) [place] % (Auto) Lymph # Seg Neutrophils % Seg Neutrophils # D-Dimer Carbon Dioxide BUN Creatinine Glucose POC Glucose 170 H 128 H Hemoglobin A1c 7.6 H Lactic Acid Calcium Ferritin Alkaline Phosphatase Lactate Dehydrogenase C-Reactive Protein NT-Pro-B Natriuret Pep Total Protein Albumin Ur Specific [place] Urine WBC (Auto) Coronavirus (PCR) Miscellaneous Test 08/07/19 08/07/19 08/07/19 07:59 11:39 11:56 Hgb Hct RDW Lymph % (Auto) [place] % (Auto) Lymph # Seg Neutrophils % Seg Neutrophils # D-Dimer Carbon Dioxide BUN Creatinine 0.6 L Glucose 194 H POC Glucose 141 H 195 H Hemoglobin A1c Lactic Acid Calcium 8.0 L Ferritin Alkaline Phosphatase 181 H Lactate Dehydrogenase C-Reactive Protein NT-Pro-B Natriuret Pep Total Protein Albumin 2.5 L Ur Specific [place] Urine WBC (Auto) Coronavirus (PCR) Miscellaneous Test 08/07/19 08/07/19 08/07/19 11:56 11:56 11:56 Hgb Hct RDW Lymph % (Auto) [place] % (Auto) Lymph # Seg Neutrophils % Seg Neutrophils # D-Dimer > 47522 H Carbon Dioxide BUN Creatinine Glucose POC Glucose Hemoglobin A1c Lactic Acid Calcium Ferritin 415.7 H Alkaline Phosphatase Lactate Dehydrogenase 745 H C-Reactive Protein NT-Pro-B Natriuret Pep Total Protein Albumin Ur Specific [place] Urine WBC (Auto) Coronavirus (PCR) Miscellaneous Test 08/07/19 08/07/19 08/07/19 11:56 16:35 21:36 Hgb Hct RDW Lymph % (Auto) [place] % (Auto) Lymph # Seg Neutrophils % Seg Neutrophils # D-Dimer Carbon Dioxide BUN Creatinine Glucose POC Glucose 176 H 277 H Hemoglobin A1c Lactic Acid Calcium Ferritin Alkaline Phosphatase Lactate Dehydrogenase C-Reactive Protein 34.20 H NT-Pro-B Natriuret Pep Total Protein Albumin Ur Specific [place] Urine WBC (Auto) Coronavirus (PCR) Miscellaneous Test 08/08/19 08/08/19 08/08/19 07:53 08:54 11:40 Hgb Hct RDW Lymph % (Auto) [place] % (Auto) Lymph # Seg Neutrophils % Seg Neutrophils # D-Dimer Carbon Dioxide BUN Creatinine 0.6 L Glucose 266 H POC Glucose 214 H 340 H Hemoglobin A1c Lactic Acid Calcium 8.3 L Ferritin Alkaline Phosphatase 222 H Lactate Dehydrogenase C-Reactive Protein NT-Pro-B Natriuret Pep Total Protein Albumin 2.5 L Ur Specific [place] Urine WBC (Auto) Coronavirus (PCR) Miscellaneous Test 08/08/19 08/08/19 08/09/19 17:04 21:49 05:22 Hgb Hct RDW Lymph % (Auto) [place] % (Auto) Lymph # Seg Neutrophils % Seg Neutrophils # D-Dimer Carbon Dioxide BUN Creatinine Glucose POC Glucose 278 H 319 H Hemoglobin A1c Lactic Acid Calcium Ferritin Alkaline Phosphatase Lactate Dehydrogenase 866 H C-Reactive Protein 14.70 H NT-Pro-B Natriuret Pep Total Protein Albumin Ur Specific [place] Urine WBC (Auto) Coronavirus (PCR) Miscellaneous Test 08/09/19 08/09/19 08/09/19 05:44 08:12 11:52 Hgb Hct RDW Lymph % (Auto) [place] % (Auto) Lymph # Seg Neutrophils % Seg Neutrophils # D-Dimer Carbon Dioxide BUN 18 H Creatinine 0.6 L Glucose 227 H POC Glucose 232 H 273 H Hemoglobin A1c Lactic Acid Calcium 8.2 L Ferritin Alkaline Phosphatase 230 H Lactate Dehydrogenase C-Reactive Protein NT-Pro-B Natriuret Pep Total Protein Albumin 2.5 L Ur Specific [place] Urine WBC (Auto) Coronavirus (PCR) Miscellaneous Test 08/09/19 08/09/19 08/09/19 12:29 12:29 17:11 Hgb Hct RDW Lymph % (Auto) [place] % (Auto) Lymph # Seg Neutrophils % Seg Neutrophils # D-Dimer 3795.56 H Carbon Dioxide BUN Creatinine Glucose POC Glucose 200 H Hemoglobin A1c Lactic Acid Calcium Ferritin 594.1 H Alkaline Phosphatase Lactate Dehydrogenase C-Reactive Protein NT-Pro-B Natriuret Pep Total Protein Albumin Ur Specific [place] Urine WBC (Auto) Coronavirus (PCR) Miscellaneous Test 08/09/19 08/10/19 08/10/19 21:58 05:07 06:14 Hgb Hct RDW Lymph % (Auto) [place] % (Auto) Lymph # Seg Neutrophils % Seg Neutrophils # D-Dimer Carbon Dioxide BUN 19 H Creatinine Glucose 277 H POC Glucose 226 H 288 H Hemoglobin A1c Lactic Acid Calcium 7.9 L Ferritin Alkaline Phosphatase 231 H Lactate Dehydrogenase C-Reactive Protein NT-Pro-B Natriuret Pep Total Protein Albumin 2.7 L Ur Specific [place] Urine WBC (Auto) Coronavirus (PCR) Miscellaneous Test 08/10/19 08/10/19 08/10/19 08:16 08:31 12:25 Hgb Hct RDW Lymph % (Auto) [place] % (Auto) Lymph # Seg Neutrophils % Seg Neutrophils # D-Dimer Carbon Dioxide BUN Creatinine Glucose POC Glucose 284 H 387 H Hemoglobin A1c Lactic Acid Calcium Ferritin Alkaline Phosphatase Lactate Dehydrogenase C-Reactive Protein NT-Pro-B Natriuret Pep Total Protein Albumin Ur Specific [place] Urine WBC (Auto) Coronavirus (PCR) Miscellaneous Test Flexitest 1 H 08/10/19 08/10/19 08/11/19 18:03 21:10 05:14 Hgb Hct RDW Lymph % (Auto) [place] % (Auto) Lymph # Seg Neutrophils % Seg Neutrophils # D-Dimer Carbon Dioxide BUN 21 H Creatinine Glucose 368 H POC Glucose 297 H 259 H Hemoglobin A1c Lactic Acid Calcium Ferritin Alkaline Phosphatase 223 H Lactate Dehydrogenase C-Reactive Protein NT-Pro-B Natriuret Pep Total Protein Albumin 3.0 L Ur Specific [place] Urine WBC (Auto) Coronavirus (PCR) Miscellaneous Test 08/11/19 08/11/19 08/11/19 08:02 12:08 16:21 Hgb Hct RDW Lymph % (Auto) [place] % (Auto) Lymph # Seg Neutrophils % Seg Neutrophils # D-Dimer Carbon Dioxide BUN Creatinine Glucose POC Glucose 300 H 447 H 295 H Hemoglobin A1c Lactic Acid Calcium Ferritin Alkaline Phosphatase Lactate Dehydrogenase C-Reactive Protein NT-Pro-B Natriuret Pep Total Protein Albumin Ur Specific [place] Urine WBC (Auto) Coronavirus (PCR) Miscellaneous Test 08/11/19 08/12/19 08/12/19 21:42 05:04 07:47 Hgb Hct RDW Lymph % (Auto) [place] % (Auto) Lymph # Seg Neutrophils % Seg Neutrophils # D-Dimer Carbon Dioxide BUN 21 H Creatinine 0.5 L Glucose 276 H POC Glucose 447 H 274 H Hemoglobin A1c Lactic Acid Calcium Ferritin Alkaline Phosphatase 188 H Lactate Dehydrogenase C-Reactive Protein NT-Pro-B Natriuret Pep Total Protein 6.1 L Albumin 2.9 L Ur Specific [place] Urine WBC (Auto) Coronavirus (PCR) Miscellaneous Test 08/12/19 08/12/19 08/12/19 11:57 18:10 22:00 Hgb Hct RDW Lymph % (Auto) [place] % (Auto) Lymph # Seg Neutrophils % Seg Neutrophils # D-Dimer Carbon Dioxide BUN Creatinine Glucose POC Glucose 367 H 285 H 239 H Hemoglobin A1c Lactic Acid Calcium Ferritin Alkaline Phosphatase Lactate Dehydrogenase C-Reactive Protein NT-Pro-B Natriuret Pep Total Protein Albumin Ur Specific [place] Urine WBC (Auto) Coronavirus (PCR) Miscellaneous Test 08/13/19 08/13/19 08/13/19 04:10 04:10 04:10 Hgb Hct 44.3 H RDW 15.4 H Lymph % (Auto) 7.6 L [place] % (Auto) Lymph # 0.7 L Seg Neutrophils % 85.3 H Seg Neutrophils # D-Dimer Carbon Dioxide BUN 19 H 20 H Creatinine 0.5 L 0.5 L Glucose 201 H 199 H POC Glucose Hemoglobin A1c Lactic Acid Calcium 8.0 L 8.1 L Ferritin Alkaline Phosphatase 167 H Lactate Dehydrogenase C-Reactive Protein NT-Pro-B Natriuret Pep Total Protein 5.7 L Albumin 3.0 L Ur Specific [place] Urine WBC (Auto) Coronavirus (PCR) Miscellaneous Test 08/13/19 08/13/19 08/13/19 08:35 12:11 16:09 Hgb Hct RDW Lymph % (Auto) [place] % (Auto) Lymph # Seg Neutrophils % Seg Neutrophils # D-Dimer Carbon Dioxide BUN Creatinine Glucose POC Glucose 247 H 351 H 253 H Hemoglobin A1c Lactic Acid Calcium Ferritin Alkaline Phosphatase Lactate Dehydrogenase C-Reactive Protein NT-Pro-B Natriuret Pep Total Protein Albumin Ur Specific [place] Urine WBC (Auto) Coronavirus (PCR) Miscellaneous Test 08/13/19 08/14/19 08/14/19 21:45 04:56 07:28 Hgb 14.5 H Hct 44.2 H RDW 15.3 H Lymph % (Auto) 7.0 L [place] % (Auto) Lymph # 0.6 L Seg Neutrophils % 85.3 H Seg Neutrophils # D-Dimer Carbon Dioxide BUN Creatinine 0.5 L Glucose 228 H POC Glucose 242 H Hemoglobin A1c Lactic Acid Calcium 7.9 L Ferritin Alkaline Phosphatase 150 H Lactate Dehydrogenase C-Reactive Protein NT-Pro-B Natriuret Pep Total Protein 5.6 L Albumin 3.1 L Ur Specific [place] Urine WBC (Auto) Coronavirus (PCR) Miscellaneous Test 08/14/19 08/14/19 08/14/19 08:10 11:53 17:20 Hgb Hct RDW Lymph % (Auto) [place] % (Auto) Lymph # Seg Neutrophils % Seg Neutrophils # D-Dimer Carbon Dioxide BUN Creatinine Glucose POC Glucose 210 H 335 H 211 H Hemoglobin A1c Lactic Acid Calcium Ferritin Alkaline Phosphatase Lactate Dehydrogenase C-Reactive Protein NT-Pro-B Natriuret Pep Total Protein Albumin Ur Specific [place] Urine WBC (Auto) Coronavirus (PCR) Miscellaneous Test 08/14/19 08/14/19 08/15/19 18:08 23:25 05:09 Hgb Hct RDW Lymph % (Auto) [place] % (Auto) Lymph # Seg Neutrophils % Seg Neutrophils # D-Dimer Carbon Dioxide BUN Creatinine 0.4 L Glucose 222 H POC Glucose 255 H 272 H Hemoglobin A1c Lactic Acid Calcium 8.0 L Ferritin Alkaline Phosphatase 139 H Lactate Dehydrogenase C-Reactive Protein NT-Pro-B Natriuret Pep Total Protein 6.0 L Albumin 3.0 L Ur Specific [place] Urine WBC (Auto) Coronavirus (PCR) Miscellaneous Test 08/15/19 08/15/19 08/15/19 05:09 08:11 12:03 Hgb Hct RDW Lymph % (Auto) 8.1 L [place] % (Auto) 7.6 H Lymph # 0.7 L Seg Neutrophils % 83.9 H Seg Neutrophils # D-Dimer Carbon Dioxide BUN Creatinine Glucose POC Glucose 223 H 358 H Hemoglobin A1c Lactic Acid Calcium Ferritin Alkaline Phosphatase Lactate Dehydrogenase C-Reactive Protein NT-Pro-B Natriuret Pep Total Protein Albumin Ur Specific [place] Urine WBC (Auto) Coronavirus (PCR) Miscellaneous Test 08/15/19 08/15/19 08/16/19 16:43 21:47 04:12 Hgb Hct RDW Lymph % (Auto) [place] % (Auto) Lymph # Seg Neutrophils % Seg Neutrophils # D-Dimer Carbon Dioxide BUN Creatinine 0.4 L Glucose 205 H POC Glucose 285 H 274 H Hemoglobin A1c Lactic Acid Calcium 8.1 L Ferritin Alkaline Phosphatase Lactate Dehydrogenase C-Reactive Protein NT-Pro-B Natriuret Pep Total Protein Albumin Ur Specific [place] Urine WBC (Auto) Coronavirus (PCR) Miscellaneous Test 08/16/19 08/16/19 08/16/19 04:12 08:42 11:56 Hgb Hct 43.7 H RDW 15.7 H Lymph % (Auto) 5.4 L [place] % (Auto) Lymph # 0.6 L Seg Neutrophils % 89.0 H Seg Neutrophils # 9.5 H D-Dimer Carbon Dioxide BUN Creatinine Glucose POC Glucose 216 H 251 H Hemoglobin A1c Lactic Acid Calcium Ferritin Alkaline Phosphatase Lactate Dehydrogenase C-Reactive Protein NT-Pro-B Natriuret Pep Total Protein Albumin Ur Specific [place] Urine WBC (Auto) Coronavirus (PCR) Miscellaneous Test 08/16/19 08/16/19 08/17/19 16:29 21:28 04:46 Hgb Hct RDW Lymph % (Auto) [place] % (Auto) Lymph # Seg Neutrophils % Seg Neutrophils # D-Dimer 831.46 H Carbon Dioxide BUN Creatinine Glucose POC Glucose 245 H 293 H Hemoglobin A1c Lactic Acid Calcium Ferritin Alkaline Phosphatase Lactate Dehydrogenase C-Reactive Protein NT-Pro-B Natriuret Pep Total Protein Albumin Ur Specific [place] Urine WBC (Auto) Coronavirus (PCR) Miscellaneous Test 08/17/19 08/17/19 08/17/19 04:46 04:46 08:13 Hgb Hct RDW Lymph % (Auto) [place] % (Auto) Lymph # Seg Neutrophils % Seg Neutrophils # D-Dimer Carbon Dioxide BUN Creatinine Glucose POC Glucose 201 H Hemoglobin A1c Lactic Acid Calcium Ferritin 775.8 H Alkaline Phosphatase Lactate Dehydrogenase 409 H C-Reactive Protein NT-Pro-B Natriuret Pep Total Protein Albumin Ur Specific [place] Urine WBC (Auto) Coronavirus (PCR) Miscellaneous Test 08/17/19 08/17/19 08/17/19 11:54 18:22 20:42 Hgb Hct RDW Lymph % (Auto) [place] % (Auto) Lymph # Seg Neutrophils % Seg Neutrophils # D-Dimer Carbon Dioxide BUN Creatinine Glucose POC Glucose 378 H 309 H 214 H Hemoglobin A1c Lactic Acid Calcium Ferritin Alkaline Phosphatase Lactate Dehydrogenase C-Reactive Protein NT-Pro-B Natriuret Pep Total Protein Albumin Ur Specific [place] Urine WBC (Auto) Coronavirus (PCR) Miscellaneous Test 08/18/19 08/18/19 08/18/19 08:07 12:00 16:13 Hgb Hct RDW Lymph % (Auto) [place] % (Auto) Lymph # Seg Neutrophils % Seg Neutrophils # D-Dimer Carbon Dioxide BUN Creatinine Glucose POC Glucose 159 H 346 H 200 H Hemoglobin A1c Lactic Acid Calcium Ferritin Alkaline Phosphatase Lactate Dehydrogenase C-Reactive Protein NT-Pro-B Natriuret Pep Total Protein Albumin Ur Specific [place] Urine WBC (Auto) Coronavirus (PCR) Miscellaneous Test 08/18/19 08/19/19 08/19/19 22:57 04:53 04:53 Hgb 14.4 H Hct 44.2 H RDW 15.9 H Lymph % (Auto) [place] % (Auto) Lymph # Seg Neutrophils % Seg Neutrophils # D-Dimer Carbon Dioxide BUN Creatinine 0.4 L Glucose 214 H POC Glucose 224 H Hemoglobin A1c Lactic Acid Calcium 8.3 L Ferritin Alkaline Phosphatase Lactate Dehydrogenase C-Reactive Protein NT-Pro-B Natriuret Pep Total Protein Albumin Ur Specific [place] Urine WBC (Auto) Coronavirus (PCR) Miscellaneous Test 08/19/19 08/19/19 08/19/19 08:16 12:38 17:46 Hgb Hct RDW Lymph % (Auto) [place] % (Auto) Lymph # Seg Neutrophils % Seg Neutrophils # D-Dimer Carbon Dioxide BUN Creatinine Glucose POC Glucose 171 H 321 H 193 H Hemoglobin A1c Lactic Acid Calcium Ferritin Alkaline Phosphatase Lactate Dehydrogenase C-Reactive Protein NT-Pro-B Natriuret Pep Total Protein Albumin Ur Specific [place] Urine WBC (Auto) Coronavirus (PCR) Miscellaneous Test 08/19/19 08/20/19 08/20/19 19:55 08:06 17:52 Hgb Hct RDW Lymph % (Auto) [place] % (Auto) Lymph # Seg Neutrophils % Seg Neutrophils # D-Dimer Carbon Dioxide BUN Creatinine Glucose POC Glucose 129 H 183 H 337 H Hemoglobin A1c Lactic Acid Calcium Ferritin Alkaline Phosphatase Lactate Dehydrogenase C-Reactive Protein NT-Pro-B Natriuret Pep Total Protein Albumin Ur Specific [place] Urine WBC (Auto) Coronavirus (PCR) Miscellaneous Test 08/20/19 08/21/19 21:14 08:00 Hgb Hct RDW Lymph % (Auto) [place] % (Auto) Lymph # Seg Neutrophils % Seg Neutrophils # D-Dimer Carbon Dioxide BUN Creatinine Glucose POC Glucose 235 H 183 H Hemoglobin A1c Lactic Acid Calcium Ferritin Alkaline Phosphatase Lactate Dehydrogenase C-Reactive Protein NT-Pro-B Natriuret Pep Total Protein Albumin Ur Specific [place] Urine WBC (Auto) Coronavirus (PCR) Miscellaneous Test
--- NOTE | 2019-08-21 11:13 | Progress Note ---
Assessment and Plan Assessment and plan: Severe sepsis. Etiology secondary to COVID-19 pneumonia. COVID pneumonia. Patient with likely cytokine storm, microthrombi and elevated inflammatory markers. Patient is s/p Actemra on 08/06. ARDS. Etiology secondary to above. Acute hypoxemic respiratory failure. Continue O2 and BiPAP as clinically indicated. Etiology secondary to above. Diabetes mellitus type 2. Continue Lantus at bedtime. Patient with Solu- Medrol. 08/12/2019. Pulmonary following and recommending pronating during the day and at night. Continue Solu-Medrol 40 mg every 8 hours for a total of 7 days. Patient s/p Actemra and Remdisiver. Patient currently on HFNC requiring 40 L O2. Increase Lantus to 15 units at bedtime. 08/13/2019. Continue pronating. ID reports patient enrolled in Expanded Access Program for Convalescent Plasma patient [id number]. Continue Remdesivir - 100 mg IV daily x 9 days. Continue solumedrol 40 mg IV q 8 hours. Continue anticoagulation for elevated d-dimer. Follow-up quantiferon and IL6. Continue vitamin C and E. Continue COVID isolation precautions. Patient with high risk mortality 08/14/2019. Patient currently with high flow nasal cannula 40 L/min FiO2 90%. Convalescent plasma per ID. Continue Remdesivir, s/p Actemra, IV Solu-Medrol 40 mg every 8 hour and Lovenox 90 mg subcu every 12 hours. Continue proning paulette ent. Prognosis remains guarded. 08/15/2019. Patient currently with high flow nasal cannula 40 L/min FiO2 80%. Convalescent plasma per ID. Continue Remdesivir, s/p Actemra, IV Solu-Medrol 40 mg every 8 hour and Lovenox 90 mg subcu every 12 hours. Continue proning patient. Prognosis remains guarded. 08/16/2019 patient with Covid-19 pneumonia wit acute resp failure. Less SOB. now on 30 l/min HFNC. Also s/p Remdesivir, s/p Actemra. 08/17/2019 Patient with Covid-19 pneumonia with acute respiratory failure. Patient less shortness of breath. still on high flow Oxygen at 30 l/min 08/18/2019 patient with Covid-19 pneumonia with acute resp failure. She is still on Oxygen by HFNC at 30 l/min. Will discuss with resp Therapist to wean down Fi02 08/19/2019 Patient with Covid-19 pneumonia with acute respiratory failure. She is still on Oxygen by HFNC at 30 l/min. I discussed with Nurse about weaning down Oxygen, but she states patient gets d esaturated on exertion, so will leave the same from now. 08/20/2019 Patient with Covid-19 pneumonia with acute respiratory failure. She is feelin better, now down to Oxygen by HFNC at 10 l/min. I discussed with Nurse. OK to transfer to med floor as per Pulmonology. 08/21/2019 Patient with Covid-19 pneumonia with acute respiratory failure. She is feeling better, now down to Oxygen by HFNC at 10 l/min. Transferred to med/surg floor from [facility] testerday 08/20/19. Magic mouthwash ordered for oral ulcers History Interval history: Shortness of breath No more fever Oral sores Hospitalist Physical - Physical exam Narrative exam: GEN: Not in acute distress, lying in bed HEENT: Normocephalic, atraumatic, oral ulcers Neck: supple, No JVD Lungs: Clear to auscultation bilaterally, heart;S1 and S2 reg, no murmurs, rubs or gallop Abd:soft, non tender, non distended, normal bowel sounds, Ext: No edema, no clubbing, no cyanosis, Neuro: Awake,alert,oriented X3 , no focal signs, - Constitutional Vitals: Temp Pulse Resp BP Pulse Ox 98.5 F 68 18 94/52 96 08/21/19 04:56 08/21/19 04:56 08/21/19 04:56 08/21/19 04:56 08/21/19 10:08 General appearance: Present: no acute distress, obese Results - Labs CBC & Chem 7: 08/19/19 04:53 08/19/19 04:53 Labs: Laboratory Last Values WBC 9.8 K/mm3 (4.5-11.0) 08/19/19 04:53 RBC 4.83 M/mm3 (3.65-5.03) 08/19/19 04:53 Hgb 14.4 gm/dl (10.1-14.3) H 08/19/19 04:53 Hct 44.2 % (30.3-42.9) H 08/19/19 04:53 MCV 91 fl (79-97) 08/19/19 04:53 MCH 30 pg (28-32) 08/19/19 04:53 MCHC 33 % (30-34) 08/19/19 04:53 RDW 15.9 % (13.2-15.2) H 08/19/19 04:53 Plt Count 158 K/mm3 (140-440) 08/19/19 04:53 Lymph % (Auto) 5.4 % (13.4-35.0) L 08/16/19 04:12 [place] % (Auto) 5.2 % (0.0-7.3) 08/16/19 04:12 Eos % (Auto) 0.0 % (0.0-4.3) 08/16/19 04:12 Baso % (Auto) 0.4 % (0.0-1.8) 08/16/19 04:12 Lymph # 0.6 K/mm3 (1.2-5.4) L 08/16/19 04:12 [place] # 0.6 K/mm3 (0.0-0.8) 08/16/19 04:12 Eos # 0.0 K/mm3 (0.0-0.4) 08/16/19 04:12 Baso # 0.0 K/mm3 (0.0-0.1) 08/16/19 04:12 Add Manual Diff Complete 08/13/19 04:10 Seg Neutrophils % 89.0 % (40.0-70.0) H 08/16/19 04:12 Nucleated RBC % Not Reportable 08/13/19 04:10 Seg Neutrophils # 9.5 K/mm3 (1.8-7.7) H 08/16/19 04:12 WBC Morphology Not Reportable 08/13/19 04:10 Hypersegmented Neuts Not Reportable 08/13/19 04:10 Hyposegmented Neuts Not Reportable 08/13/19 04:10 Hypogranular Neuts Not Reportable 08/13/19 04:10 Smudge Cells Not Reportable 08/13/19 04:10 Toxic Granulation Not Reportable 08/13/19 04:10 Toxic Vacuolation Not Reportable 08/13/19 04:10 Dohle Bodies Not Reportable 08/13/19 04:10 Pelger-Huet Anomaly Not Reportable 08/13/19 04:10 Kaylynn Rods Not Reportable 08/13/19 04:10 Platelet Estimate Not Reportable 08/13/19 04:10 Clumped Platelets Not Reportable 08/13/19 04:10 Plt Clumps, EDTA Not Reportable 08/13/19 04:10 Large Platelets Not Reportable 08/13/19 04:10 Giant Platelets Not Reportable 08/13/19 04:10 Platelet Satelliting Not Reportable 08/13/19 04:10 Plt Morphology Comment Not Reportable 08/13/19 04:10 RBC Morphology Not Reportable 08/13/19 04:10 Dimorphic RBCs Not Reportable 08/13/19 04:10 Polychromasia Not Reportable 08/13/19 04:10 Hypochromasia Not Reportable 08/13/19 04:10 Poikilocytosis Not Reportable 08/13/19 04:10 Anisocytosis Not Reportable 08/13/19 04:10 Microcytosis Not Reportable 08/13/19 04:10 Macrocytosis Not Reportable 08/13/19 04:10 Spherocytes Not Reportable 08/13/19 04:10 Pappenheimer Bodies Not Reportable 08/13/19 04:10 Sickle Cells Not Reportable 08/13/19 04:10 Target Cells Not Reportable 08/13/19 04:10 Tear Drop Cells Not Reportable 08/13/19 04:10 Ovalocytes Not Reportable 08/13/19 04:10 Helmet Cells Not Reportable 08/13/19 04:10 Rader-Sorgho Bodies Not Reportable 08/13/19 04:10 [place] Rings Not Reportable 08/13/19 04:10 [place] Cells Not Reportable 08/13/19 04:10 Bite Cells Not Reportable 08/13/19 04:10 Crenated Cell Not Reportable 08/13/19 04:10 Elliptocytes Not Reportable 08/13/19 04:10 Acanthocytes (Spur) Not Reportable 08/13/19 04:10 Rouleaux Not Reportable 08/13/19 04:10 Hemoglobin C Crystals Not Reportable 08/13/19 04:10 Schistocytes Not Reportable 08/13/19 04:10 Malaria parasites Not Reportable 08/13/19 04:10 Humberto Bodies Not Reportable 08/13/19 04:10 Hem Pathologist Commnt Not Reportable 08/13/19 04:10 APTT 26.3 Sec. (24.2-36.6) 08/05/19 14:53 D-Dimer 831.46 ng/mlDDU (0-234) H 08/17/19 04:46 Sodium 141 mmol/L (137-145) 08/19/19 04:53 Potassium 4.4 mmol/L (3.6-5.0) 08/19/19 04:53 Chloride 101.7 mmol/L (98-107) 08/19/19 04:53 Carbon Dioxide 27 mmol/L (22-30) 08/19/19 04:53 Anion Gap 17 mmol/L 08/19/19 04:53 BUN 16 mg/dL (7-17) 08/19/19 04:53 Creatinine 0.4 mg/dL (0.7-1.2) L 08/19/19 04:53 Estimated GFR > 60 ml/min 08/19/19 04:53 BUN/Creatinine Ratio 40 % 08/19/19 04:53 Glucose 214 mg/dL (65-100) H 08/19/19 04:53 POC Glucose 183 (70-105) H 08/21/19 08:00 Hemoglobin A1c 7.6 % (4-6) H 08/06/19 Unknown Lactic Acid 1.90 mmol/L (0.7-2.0) 08/05/19 22:51 Calcium 8.3 mg/dL (8.4-10.2) L 08/19/19 04:53 Ferritin 775.8 ng/mL (13.0-400.0) H 08/17/19 04:46 Total Bilirubin 1.00 mg/dL (0.1-1.2) 08/15/19 05:09 AST 23 units/L (5-40) 08/15/19 05:09 ALT 45 units/L (7-56) 08/15/19 05:09 Alkaline Phosphatase 139 units/L (35-129) H 08/15/19 05:09 Lactate Dehydrogenase 409 units/L (91-180) H 08/17/19 04:46 C-Reactive Protein 0.30 mg/dL (0.00-1.30) 08/17/19 04:46 NT-Pro-B Natriuret Pep 1818 pg/mL (0-900) H 08/05/19 15:07 Total Protein 6.0 g/dL (6.3-8.2) L 08/15/19 05:09 Albumin 3.0 g/dL (3.9-5) L 08/15/19 05:09 Albumin/Globulin Ratio 1.0 % 08/15/19 05:09 Procalcitonin 1.06 ng/mL (<0.15) 08/09/19 12:29 Urine Color [place] (Yellow) 08/05/19 19:54 Urine Turbidity Clear (Clear) 08/05/19 19:54 Urine pH 5.0 (5.0-7.0) 08/05/19 19:54 Ur Specific [place] 1.031 (1.003-1.030) H 08/05/19 19:54 Urine Protein 100 mg/dl mg/dL (Negative) 08/05/19 19:54 Urine Glucose (UA) 50 mg/dL (Negative) 08/05/19 19:54 Urine Ketones Neg mg/dL (Negative) 08/05/19 19:54 Urine Blood Neg (Negative) 08/05/19 19:54 Urine Nitrite Neg (Negative) 08/05/19 19:54 Urine Bilirubin Neg (Negative) 08/05/19 19:54 Urine Urobilinogen < 2.0 mg/dL (<2.0) 08/05/19 19:54 Ur Leukocyte Esterase Neg (Negative) 08/05/19 19:54 Urine WBC (Auto) 8.0 /HPF (0.0-6.0) H 08/05/19 19:54 Urine RBC (Auto) 1.0 /HPF (0.0-6.0) 08/05/19 19:54 U Epithel Cells (Auto) 10.0 /HPF (0-13.0) 08/05/19 19:54 Urine Mucus 1+ /HPF 08/05/19 19:54 Coronavirus (PCR) Positive (Negative) A 08/06/19 09:17 Miscellaneous Test Flexitest 1 H 08/10/19 08:16 Blood Type A POSITIVE 08/11/19 15:00 Antibody Screen Negative 08/11/19 15:00 [place]/IV: Voiding Method Toilet IV Catheter Type [Left Forearm INT / Saline Lock ] IV Catheter Type [Right Wrist] Peripheral IV IV Catheter Type [Right INT / Saline Lock Forearm] IV Catheter Type [Left Hand] Peripheral IV IV Catheter Type [Left Peripheral IV Antecubital] Active Medications - Current Medications Current Medications: Generic Name Dose Route Start Last Admin Trade Name Freq PRN Reason Stop Dose Admin Acetaminophen 650 mg 08/05/19 21:32 08/06/19 20:05 Tylenol PO 650 mg Q4H PRN Administration Pain MILD(1-3)/Fever >100.5/BUTLER Ascorbic Acid 500 mg 08/08/19 10:00 08/21/19 09:22 Vitamin C PO 500 mg BID RAISA Administration Benzonatate 100 mg 08/06/19 01:00 08/21/19 09:26 Tessalon Perles PO 100 mg Q8H RAISA Administration Cholecalciferol 5,000 unit 08/08/19 10:00 08/21/19 09:23 Vitamin D3 PO Not Given QDAY RAISA Enoxaparin Sodium 90 mg 08/05/19 22:00 08/21/19 09:22 Enoxaparin SUB-Q 90 mg Q12HR RAISA Administration Famotidine 20 mg 08/05/19 22:00 08/21/19 09:22 Pepcid PO 20 mg BID RAISA Administration Hydromorphone HCl 0.5 mg 08/05/19 21:32 08/20/19 17:56 Dilaudid IV 0.5 mg Q3H PRN Administration Pain , Severe (7-10) Hydrophilic Ointment 1 applic 08/13/19 18:22 08/13/19 18:29 Vaseline Lip Therapy TP 1 applic DIRECT PRN Administration Dry Lips Insulin Glargine 32 units 08/18/19 22:00 08/20/19 22:57 Lantus SUB-Q 32 units QHS RAISA Administration Insulin Human Lispro 0 unit 08/05/19 22:00 08/21/19 09:21 Humalog SUB-Q 3 unit ACHS RAISA Administration Protocol Lidocaine HCl 15 ml 08/20/19 16:00 08/21/19 09:22 Magic Mouthwash PO 15 ml TID RAISA Administration Methylprednisolone Sodium Succinate 20 mg 08/16/19 14:00 08/21/19 05:55 Solu-Medrol IV 20 mg Q8HR RAISA Administration Metoclopramide HCl 10 mg 08/05/19 21:32 Reglan IV Q6H PRN Nausea And Vomiting Ondansetron HCl 4 mg 08/05/19 21:32 Zofran IV Q8H PRN Nausea And Vomiting Oxycodone/Acetaminophen 1 tab 08/05/19 21:32 08/20/19 13:12 Percocet 5/325 PO 1 tab Q6H PRN Administration Pain, Moderate (4-6) Sodium Chloride 10 ml 08/05/19 22:00 08/21/19 09:23 Sodium Chloride Flush Syringe 10 Ml IV 10 ml BID RAISA Administration Sodium Chloride 10 ml 08/05/19 21:32 Sodium Chloride Flush Syringe 10 Ml IV PRN PRN LINE FLUSH Nutrition/Malnutrition Assess - Dietary Evaluation Nutrition/Malnutrition Findings: Nutrition Notes Start: 08/06/19 08:35 Freq: Status: Active Protocol: Document 08/18/19 08:25 LP (Rec: 08/18/19 08:27 LP [id number]) Nutrition Notes Initial or Follow up Reassessment Current Diagnosis Diabetes Other Pertinent Diagnosis ARDS, Suspected COVID-19 Current Diet Cardiac/consistent CHO Labs/Tests BG 159 Pertinent Medications Reviewed Height 5 ft 5 in Weight 92.3 kg [place] Body Weight (kg) 56.81 BMI 33.8 Weight Status Obese Subjective/Other Information Pt continues eating well and consuming most of meals. Percent of energy/protein needs met: 100%/91% Burn Absent Trauma Absent Current % PO Good (75-100%) Minimum of two criteria No physical signs of malnutrition #2 Nutrition Diagnosis Inadequate oral intake As Evidenced by Signs and Symptoms Pt continued to meet 100% of kcal and 91% of protein needs Diagnosis Progress(for reassessment Resolved documentation) Is patient on ventilator? No Is Patient Ambulatory and/or Out of Bed Yes REE-(Deaf Smith-St. Jeor-ambulatory/OOB) [ 1974.544 [id number]] Kcal/Kg value to use for calculation 17 Approximate Energy Requirements Using 1569 kcal/Kg Calculation Used for Recommendations Kcal/kg Additional Notes Protein needs are 74-92g (0.8- 1g/kg) Fluid needs are 1ml/kcal Nutrition Intervention Change Diet Order: Continue Goal #1 Continue to meet at least 80% of kcal and protein needs Anticipated Discharge Needs: Cardiac/consistent CHO diet Revisit per MD consult or patient Sign Off request:
[2019-08-21] MEDS ORDERED: INSULIN GLARGINE 100 UNITS/ML SUB-Q SCH (22:00)
[2019-08-22] MEDS: BENZONATATE 100 MG CAP PO SCH ×3 (00:29→17:21)
[2019-08-22] MEDS: methylPREDNISolone Sod Succinate 40 MG/1 ML INJ IV SCH ×3 (05:59→23:29)
[2019-08-22] MEDS: MAGIC MOUTHWASH 30ML PO SCH ×3 (08:15→23:29)
[2019-08-22] MEDS: CHOLECALCIFEROL (VIT D3) 5,000 UNIT TAB PO SCH (09:24)
[2019-08-22] MEDS: FAMOTIDINE 20 MG TAB PO SCH ×2 (09:24→23:30)
[2019-08-22] MEDS: ASCORBIC ACID 500 MG TAB PO SCH ×2 (09:24→23:31)
[2019-08-22] MEDS: ENOXAPARIN 100 MG/1 ML INJ SUB-Q SCH ×2 (09:24→23:30)
[2019-08-22] MEDS: INSULIN LISPRO 100 UNIT/ML SUB-Q SCH ×4 (09:25→23:32)
--- NOTE | 2019-08-22 12:08 | Progress Note ---
Assessment and Plan 54 y/o female with acute respiratory failure secondary to COVID 19 1. Proning during the day and prone sleeping at night. This should continue even though oxygen requirement is improving. 2. Steroid at 20q8 for a total of 7 days. Today is day 7. At the end of 7 days (tomorrow) change to prednisone 40 daily for 3 days, then 20 daily for 3 days, then 10 daily for 3 days, then stop. 3. Agree with Actemra, given 4. Agree with Remdisiver, given 5. Convaslescent plasma given on 08/14/2019 6. Continue to wean HFNC as tolerated. Sats >88% are acceptable. 7. Will continue to follow. Subjective Date of service: 08/22/19 Principal diagnosis: Bilateral pneumonia, ARDS Interval history: Down to 5 liters with good sats. Objective Vital Signs - 12hr 08/22/19 08/22/19 08/22/19 02:00 04:20 08:00 Temperature 98.1 F Pulse Rate 69 Respiratory 20 Rate Blood Pressure 111/75 O2 Sat by Pulse 95 92 94 Oximetry Constitutional: alert, other (critically ill on HFNC) Eyes: non-icteric Effort: mildly labored Ascultation: Bilateral: rales Cardiovascular: regular rate and rhythm (no mrg) Gastrointestinal: normoactive bowel sounds, soft, non-tender, non-distended Integumentary: normal Extremities: no cyanosis, no edema, pink and warm Neurologic: normal mental status, non-focal exam, pupils equal and round, CN II- XII normal Psychiatric: mood appropriate, affect normal CBC and BMP: 08/19/19 04:53 08/19/19 04:53 ABG, PT/INR, D-dimer: PT/INR, D-dimer D-Dimer 831.46 ng/mlDDU (0-234) H 08/17/19 04:46 Abnormal lab findings: Abnormal Labs 08/05/19 08/05/19 08/05/19 14:53 14:53 14:53 Hgb Hct RDW Lymph % (Auto) 13.0 L [place] % (Auto) 10.8 H Lymph # 0.9 L Seg Neutrophils % 74.0 H Seg Neutrophils # D-Dimer > 61524 H Carbon Dioxide 20 L BUN 6 L Creatinine 0.6 L Glucose 255 H POC Glucose Hemoglobin A1c Lactic Acid Calcium Ferritin Alkaline Phosphatase 173 H Lactate Dehydrogenase C-Reactive Protein NT-Pro-B Natriuret Pep Total Protein Albumin 2.9 L Ur Specific [place] Urine WBC (Auto) Coronavirus (PCR) Miscellaneous Test 08/05/19 08/05/19 08/05/19 14:53 14:53 14:53 Hgb Hct RDW Lymph % (Auto) [place] % (Auto) Lymph # Seg Neutrophils % Seg Neutrophils # D-Dimer Carbon Dioxide BUN Creatinine Glucose 256 H POC Glucose Hemoglobin A1c Lactic Acid 3.40 H* Calcium Ferritin 438.9 H Alkaline Phosphatase Lactate Dehydrogenase 702 H C-Reactive Protein 32.90 H NT-Pro-B Natriuret Pep Total Protein Albumin Ur Specific [place] Urine WBC (Auto) Coronavirus (PCR) Miscellaneous Test 08/05/19 08/05/19 08/06/19 15:07 19:54 00:21 Hgb Hct RDW Lymph % (Auto) [place] % (Auto) Lymph # Seg Neutrophils % Seg Neutrophils # D-Dimer Carbon Dioxide BUN Creatinine Glucose POC Glucose 131 H Hemoglobin A1c Lactic Acid Calcium Ferritin Alkaline Phosphatase Lactate Dehydrogenase C-Reactive Protein NT-Pro-B Natriuret Pep 1818 H Total Protein Albumin Ur Specific [place] 1.031 H Urine WBC (Auto) 8.0 H Coronavirus (PCR) Miscellaneous Test 08/06/19 08/06/19 08/06/19 08:29 09:17 11:56 Hgb Hct RDW Lymph % (Auto) [place] % (Auto) Lymph # Seg Neutrophils % Seg Neutrophils # D-Dimer Carbon Dioxide BUN Creatinine Glucose POC Glucose 165 H 190 H Hemoglobin A1c Lactic Acid Calcium Ferritin Alkaline Phosphatase Lactate Dehydrogenase C-Reactive Protein NT-Pro-B Natriuret Pep Total Protein Albumin Ur Specific [place] Urine WBC (Auto) Coronavirus (PCR) Positive A Miscellaneous Test 08/06/19 08/06/19 08/06/19 16:16 22:16 Unknown Hgb Hct RDW Lymph % (Auto) [place] % (Auto) Lymph # Seg Neutrophils % Seg Neutrophils # D-Dimer Carbon Dioxide BUN Creatinine Glucose POC Glucose 170 H 128 H Hemoglobin A1c 7.6 H Lactic Acid Calcium Ferritin Alkaline Phosphatase Lactate Dehydrogenase C-Reactive Protein NT-Pro-B Natriuret Pep Total Protein Albumin Ur Specific [place] Urine WBC (Auto) Coronavirus (PCR) Miscellaneous Test 08/07/19 08/07/19 08/07/19 07:59 11:39 11:56 Hgb Hct RDW Lymph % (Auto) [place] % (Auto) Lymph # Seg Neutrophils % Seg Neutrophils # D-Dimer Carbon Dioxide BUN Creatinine 0.6 L Glucose 194 H POC Glucose 141 H 195 H Hemoglobin A1c Lactic Acid Calcium 8.0 L Ferritin Alkaline Phosphatase 181 H Lactate Dehydrogenase C-Reactive Protein NT-Pro-B Natriuret Pep Total Protein Albumin 2.5 L Ur Specific [place] Urine WBC (Auto) Coronavirus (PCR) Miscellaneous Test 08/07/19 08/07/19 08/07/19 11:56 11:56 11:56 Hgb Hct RDW Lymph % (Auto) [place] % (Auto) Lymph # Seg Neutrophils % Seg Neutrophils # D-Dimer > 24338 H Carbon Dioxide BUN Creatinine Glucose POC Glucose Hemoglobin A1c Lactic Acid Calcium Ferritin 415.7 H Alkaline Phosphatase Lactate Dehydrogenase 745 H C-Reactive Protein NT-Pro-B Natriuret Pep Total Protein Albumin Ur Specific [place] Urine WBC (Auto) Coronavirus (PCR) Miscellaneous Test 08/07/19 08/07/19 08/07/19 11:56 16:35 21:36 Hgb Hct RDW Lymph % (Auto) [place] % (Auto) Lymph # Seg Neutrophils % Seg Neutrophils # D-Dimer Carbon Dioxide BUN Creatinine Glucose POC Glucose 176 H 277 H Hemoglobin A1c Lactic Acid Calcium Ferritin Alkaline Phosphatase Lactate Dehydrogenase C-Reactive Protein 34.20 H NT-Pro-B Natriuret Pep Total Protein Albumin Ur Specific [place] Urine WBC (Auto) Coronavirus (PCR) Miscellaneous Test 08/08/19 08/08/19 08/08/19 07:53 08:54 11:40 Hgb Hct RDW Lymph % (Auto) [place] % (Auto) Lymph # Seg Neutrophils % Seg Neutrophils # D-Dimer Carbon Dioxide BUN Creatinine 0.6 L Glucose 266 H POC Glucose 214 H 340 H Hemoglobin A1c Lactic Acid Calcium 8.3 L Ferritin Alkaline Phosphatase 222 H Lactate Dehydrogenase C-Reactive Protein NT-Pro-B Natriuret Pep Total Protein Albumin 2.5 L Ur Specific [place] Urine WBC (Auto) Coronavirus (PCR) Miscellaneous Test 08/08/19 08/08/19 08/09/19 17:04 21:49 05:22 Hgb Hct RDW Lymph % (Auto) [place] % (Auto) Lymph # Seg Neutrophils % Seg Neutrophils # D-Dimer Carbon Dioxide BUN Creatinine Glucose POC Glucose 278 H 319 H Hemoglobin A1c Lactic Acid Calcium Ferritin Alkaline Phosphatase Lactate Dehydrogenase 866 H C-Reactive Protein 14.70 H NT-Pro-B Natriuret Pep Total Protein Albumin Ur Specific [place] Urine WBC (Auto) Coronavirus (PCR) Miscellaneous Test 08/09/19 08/09/19 08/09/19 05:44 08:12 11:52 Hgb Hct RDW Lymph % (Auto) [place] % (Auto) Lymph # Seg Neutrophils % Seg Neutrophils # D-Dimer Carbon Dioxide BUN 18 H Creatinine 0.6 L Glucose 227 H POC Glucose 232 H 273 H Hemoglobin A1c Lactic Acid Calcium 8.2 L Ferritin Alkaline Phosphatase 230 H Lactate Dehydrogenase C-Reactive Protein NT-Pro-B Natriuret Pep Total Protein Albumin 2.5 L Ur Specific [place] Urine WBC (Auto) Coronavirus (PCR) Miscellaneous Test 08/09/19 08/09/19 08/09/19 12:29 12:29 17:11 Hgb Hct RDW Lymph % (Auto) [place] % (Auto) Lymph # Seg Neutrophils % Seg Neutrophils # D-Dimer 3795.56 H Carbon Dioxide BUN Creatinine Glucose POC Glucose 200 H Hemoglobin A1c Lactic Acid Calcium Ferritin 594.1 H Alkaline Phosphatase Lactate Dehydrogenase C-Reactive Protein NT-Pro-B Natriuret Pep Total Protein Albumin Ur Specific [place] Urine WBC (Auto) Coronavirus (PCR) Miscellaneous Test 08/09/19 08/10/19 08/10/19 21:58 05:07 06:14 Hgb Hct RDW Lymph % (Auto) [place] % (Auto) Lymph # Seg Neutrophils % Seg Neutrophils # D-Dimer Carbon Dioxide BUN 19 H Creatinine Glucose 277 H POC Glucose 226 H 288 H Hemoglobin A1c Lactic Acid Calcium 7.9 L Ferritin Alkaline Phosphatase 231 H Lactate Dehydrogenase C-Reactive Protein NT-Pro-B Natriuret Pep Total Protein Albumin 2.7 L Ur Specific [place] Urine WBC (Auto) Coronavirus (PCR) Miscellaneous Test 08/10/19 08/10/19 08/10/19 08:16 08:31 12:25 Hgb Hct RDW Lymph % (Auto) [place] % (Auto) Lymph # Seg Neutrophils % Seg Neutrophils # D-Dimer Carbon Dioxide BUN Creatinine Glucose POC Glucose 284 H 387 H Hemoglobin A1c Lactic Acid Calcium Ferritin Alkaline Phosphatase Lactate Dehydrogenase C-Reactive Protein NT-Pro-B Natriuret Pep Total Protein Albumin Ur Specific [place] Urine WBC (Auto) Coronavirus (PCR) Miscellaneous Test Flexitest 1 H 08/10/19 08/10/19 08/11/19 18:03 21:10 05:14 Hgb Hct RDW Lymph % (Auto) [place] % (Auto) Lymph # Seg Neutrophils % Seg Neutrophils # D-Dimer Carbon Dioxide BUN 21 H Creatinine Glucose 368 H POC Glucose 297 H 259 H Hemoglobin A1c Lactic Acid Calcium Ferritin Alkaline Phosphatase 223 H Lactate Dehydrogenase C-Reactive Protein NT-Pro-B Natriuret Pep Total Protein Albumin 3.0 L Ur Specific [place] Urine WBC (Auto) Coronavirus (PCR) Miscellaneous Test 08/11/19 08/11/19 08/11/19 08:02 12:08 16:21 Hgb Hct RDW Lymph % (Auto) [place] % (Auto) Lymph # Seg Neutrophils % Seg Neutrophils # D-Dimer Carbon Dioxide BUN Creatinine Glucose POC Glucose 300 H 447 H 295 H Hemoglobin A1c Lactic Acid Calcium Ferritin Alkaline Phosphatase Lactate Dehydrogenase C-Reactive Protein NT-Pro-B Natriuret Pep Total Protein Albumin Ur Specific [place] Urine WBC (Auto) Coronavirus (PCR) Miscellaneous Test 08/11/19 08/12/19 08/12/19 21:42 05:04 07:47 Hgb Hct RDW Lymph % (Auto) [place] % (Auto) Lymph # Seg Neutrophils % Seg Neutrophils # D-Dimer Carbon Dioxide BUN 21 H Creatinine 0.5 L Glucose 276 H POC Glucose 447 H 274 H Hemoglobin A1c Lactic Acid Calcium Ferritin Alkaline Phosphatase 188 H Lactate Dehydrogenase C-Reactive Protein NT-Pro-B Natriuret Pep Total Protein 6.1 L Albumin 2.9 L Ur Specific [place] Urine WBC (Auto) Coronavirus (PCR) Miscellaneous Test 08/12/19 08/12/19 08/12/19 11:57 18:10 22:00 Hgb Hct RDW Lymph % (Auto) [place] % (Auto) Lymph # Seg Neutrophils % Seg Neutrophils # D-Dimer Carbon Dioxide BUN Creatinine Glucose POC Glucose 367 H 285 H 239 H Hemoglobin A1c Lactic Acid Calcium Ferritin Alkaline Phosphatase Lactate Dehydrogenase C-Reactive Protein NT-Pro-B Natriuret Pep Total Protein Albumin Ur Specific [place] Urine WBC (Auto) Coronavirus (PCR) Miscellaneous Test 08/13/19 08/13/19 08/13/19 04:10 04:10 04:10 Hgb Hct 44.3 H RDW 15.4 H Lymph % (Auto) 7.6 L [place] % (Auto) Lymph # 0.7 L Seg Neutrophils % 85.3 H Seg Neutrophils # D-Dimer Carbon Dioxide BUN 19 H 20 H Creatinine 0.5 L 0.5 L Glucose 201 H 199 H POC Glucose Hemoglobin A1c Lactic Acid Calcium 8.0 L 8.1 L Ferritin Alkaline Phosphatase 167 H Lactate Dehydrogenase C-Reactive Protein NT-Pro-B Natriuret Pep Total Protein 5.7 L Albumin 3.0 L Ur Specific [place] Urine WBC (Auto) Coronavirus (PCR) Miscellaneous Test 08/13/19 08/13/19 08/13/19 08:35 12:11 16:09 Hgb Hct RDW Lymph % (Auto) [place] % (Auto) Lymph # Seg Neutrophils % Seg Neutrophils # D-Dimer Carbon Dioxide BUN Creatinine Glucose POC Glucose 247 H 351 H 253 H Hemoglobin A1c Lactic Acid Calcium Ferritin Alkaline Phosphatase Lactate Dehydrogenase C-Reactive Protein NT-Pro-B Natriuret Pep Total Protein Albumin Ur Specific [place] Urine WBC (Auto) Coronavirus (PCR) Miscellaneous Test 08/13/19 08/14/19 08/14/19 21:45 04:56 07:28 Hgb 14.5 H Hct 44.2 H RDW 15.3 H Lymph % (Auto) 7.0 L [place] % (Auto) Lymph # 0.6 L Seg Neutrophils % 85.3 H Seg Neutrophils # D-Dimer Carbon Dioxide BUN Creatinine 0.5 L Glucose 228 H POC Glucose 242 H Hemoglobin A1c Lactic Acid Calcium 7.9 L Ferritin Alkaline Phosphatase 150 H Lactate Dehydrogenase C-Reactive Protein NT-Pro-B Natriuret Pep Total Protein 5.6 L Albumin 3.1 L Ur Specific [place] Urine WBC (Auto) Coronavirus (PCR) Miscellaneous Test 08/14/19 08/14/19 08/14/19 08:10 11:53 17:20 Hgb Hct RDW Lymph % (Auto) [place] % (Auto) Lymph # Seg Neutrophils % Seg Neutrophils # D-Dimer Carbon Dioxide BUN Creatinine Glucose POC Glucose 210 H 335 H 211 H Hemoglobin A1c Lactic Acid Calcium Ferritin Alkaline Phosphatase Lactate Dehydrogenase C-Reactive Protein NT-Pro-B Natriuret Pep Total Protein Albumin Ur Specific [place] Urine WBC (Auto) Coronavirus (PCR) Miscellaneous Test 08/14/19 08/14/19 08/15/19 18:08 23:25 05:09 Hgb Hct RDW Lymph % (Auto) [place] % (Auto) Lymph # Seg Neutrophils % Seg Neutrophils # D-Dimer Carbon Dioxide BUN Creatinine 0.4 L Glucose 222 H POC Glucose 255 H 272 H Hemoglobin A1c Lactic Acid Calcium 8.0 L Ferritin Alkaline Phosphatase 139 H Lactate Dehydrogenase C-Reactive Protein NT-Pro-B Natriuret Pep Total Protein 6.0 L Albumin 3.0 L Ur Specific [place] Urine WBC (Auto) Coronavirus (PCR) Miscellaneous Test 08/15/19 08/15/19 08/15/19 05:09 08:11 12:03 Hgb Hct RDW Lymph % (Auto) 8.1 L [place] % (Auto) 7.6 H Lymph # 0.7 L Seg Neutrophils % 83.9 H Seg Neutrophils # D-Dimer Carbon Dioxide BUN Creatinine Glucose POC Glucose 223 H 358 H Hemoglobin A1c Lactic Acid Calcium Ferritin Alkaline Phosphatase Lactate Dehydrogenase C-Reactive Protein NT-Pro-B Natriuret Pep Total Protein Albumin Ur Specific [place] Urine WBC (Auto) Coronavirus (PCR) Miscellaneous Test 08/15/19 08/15/19 08/16/19 16:43 21:47 04:12 Hgb Hct RDW Lymph % (Auto) [place] % (Auto) Lymph # Seg Neutrophils % Seg Neutrophils # D-Dimer Carbon Dioxide BUN Creatinine 0.4 L Glucose 205 H POC Glucose 285 H 274 H Hemoglobin A1c Lactic Acid Calcium 8.1 L Ferritin Alkaline Phosphatase Lactate Dehydrogenase C-Reactive Protein NT-Pro-B Natriuret Pep Total Protein Albumin Ur Specific [place] Urine WBC (Auto) Coronavirus (PCR) Miscellaneous Test 08/16/19 08/16/19 08/16/19 04:12 08:42 11:56 Hgb Hct 43.7 H RDW 15.7 H Lymph % (Auto) 5.4 L [place] % (Auto) Lymph # 0.6 L Seg Neutrophils % 89.0 H Seg Neutrophils # 9.5 H D-Dimer Carbon Dioxide BUN Creatinine Glucose POC Glucose 216 H 251 H Hemoglobin A1c Lactic Acid Calcium Ferritin Alkaline Phosphatase Lactate Dehydrogenase C-Reactive Protein NT-Pro-B Natriuret Pep Total Protein Albumin Ur Specific [place] Urine WBC (Auto) Coronavirus (PCR) Miscellaneous Test 08/16/19 08/16/19 08/17/19 16:29 21:28 04:46 Hgb Hct RDW Lymph % (Auto) [place] % (Auto) Lymph # Seg Neutrophils % Seg Neutrophils # D-Dimer 831.46 H Carbon Dioxide BUN Creatinine Glucose POC Glucose 245 H 293 H Hemoglobin A1c Lactic Acid Calcium Ferritin Alkaline Phosphatase Lactate Dehydrogenase C-Reactive Protein NT-Pro-B Natriuret Pep Total Protein Albumin Ur Specific [place] Urine WBC (Auto) Coronavirus (PCR) Miscellaneous Test 08/17/19 08/17/19 08/17/19 04:46 04:46 08:13 Hgb Hct RDW Lymph % (Auto) [place] % (Auto) Lymph # Seg Neutrophils % Seg Neutrophils # D-Dimer Carbon Dioxide BUN Creatinine Glucose POC Glucose 201 H Hemoglobin A1c Lactic Acid Calcium Ferritin 775.8 H Alkaline Phosphatase Lactate Dehydrogenase 409 H C-Reactive Protein NT-Pro-B Natriuret Pep Total Protein Albumin Ur Specific [place] Urine WBC (Auto) Coronavirus (PCR) Miscellaneous Test 08/17/19 08/17/19 08/17/19 11:54 18:22 20:42 Hgb Hct RDW Lymph % (Auto) [place] % (Auto) Lymph # Seg Neutrophils % Seg Neutrophils # D-Dimer Carbon Dioxide BUN Creatinine Glucose POC Glucose 378 H 309 H 214 H Hemoglobin A1c Lactic Acid Calcium Ferritin Alkaline Phosphatase Lactate Dehydrogenase C-Reactive Protein NT-Pro-B Natriuret Pep Total Protein Albumin Ur Specific [place] Urine WBC (Auto) Coronavirus (PCR) Miscellaneous Test 08/18/19 08/18/19 08/18/19 08:07 12:00 16:13 Hgb Hct RDW Lymph % (Auto) [place] % (Auto) Lymph # Seg Neutrophils % Seg Neutrophils # D-Dimer Carbon Dioxide BUN Creatinine Glucose POC Glucose 159 H 346 H 200 H Hemoglobin A1c Lactic Acid Calcium Ferritin Alkaline Phosphatase Lactate Dehydrogenase C-Reactive Protein NT-Pro-B Natriuret Pep Total Protein Albumin Ur Specific [place] Urine WBC (Auto) Coronavirus (PCR) Miscellaneous Test 08/18/19 08/19/19 08/19/19 22:57 04:53 04:53 Hgb 14.4 H Hct 44.2 H RDW 15.9 H Lymph % (Auto) [place] % (Auto) Lymph # Seg Neutrophils % Seg Neutrophils # D-Dimer Carbon Dioxide BUN Creatinine 0.4 L Glucose 214 H POC Glucose 224 H Hemoglobin A1c Lactic Acid Calcium 8.3 L Ferritin Alkaline Phosphatase Lactate Dehydrogenase C-Reactive Protein NT-Pro-B Natriuret Pep Total Protein Albumin Ur Specific [place] Urine WBC (Auto) Coronavirus (PCR) Miscellaneous Test 08/19/19 08/19/19 08/19/19 08:16 12:38 17:46 Hgb Hct RDW Lymph % (Auto) [place] % (Auto) Lymph # Seg Neutrophils % Seg Neutrophils # D-Dimer Carbon Dioxide BUN Creatinine Glucose POC Glucose 171 H 321 H 193 H Hemoglobin A1c Lactic Acid Calcium Ferritin Alkaline Phosphatase Lactate Dehydrogenase C-Reactive Protein NT-Pro-B Natriuret Pep Total Protein Albumin Ur Specific [place] Urine WBC (Auto) Coronavirus (PCR) Miscellaneous Test 08/19/19 08/20/19 08/20/19 19:55 08:06 17:52 Hgb Hct RDW Lymph % (Auto) [place] % (Auto) Lymph # Seg Neutrophils % Seg Neutrophils # D-Dimer Carbon Dioxide BUN Creatinine Glucose POC Glucose 129 H 183 H 337 H Hemoglobin A1c Lactic Acid Calcium Ferritin Alkaline Phosphatase Lactate Dehydrogenase C-Reactive Protein NT-Pro-B Natriuret Pep Total Protein Albumin Ur Specific [place] Urine WBC (Auto) Coronavirus (PCR) Miscellaneous Test 08/20/19 08/21/19 08/21/19 21:14 08:00 11:26 Hgb Hct RDW Lymph % (Auto) [place] % (Auto) Lymph # Seg Neutrophils % Seg Neutrophils # D-Dimer Carbon Dioxide BUN Creatinine Glucose POC Glucose 235 H 183 H 294 H Hemoglobin A1c Lactic Acid Calcium Ferritin Alkaline Phosphatase Lactate Dehydrogenase C-Reactive Protein NT-Pro-B Natriuret Pep Total Protein Albumin Ur Specific [place] Urine WBC (Auto) Coronavirus (PCR) Miscellaneous Test 08/21/19 08/21/19 08/22/19 16:22 21:37 07:29 Hgb Hct RDW Lymph % (Auto) [place] % (Auto) Lymph # Seg Neutrophils % Seg Neutrophils # D-Dimer Carbon Dioxide BUN Creatinine Glucose POC Glucose 174 H 258 H 166 H Hemoglobin A1c Lactic Acid Calcium Ferritin Alkaline Phosphatase Lactate Dehydrogenase C-Reactive Protein NT-Pro-B Natriuret Pep Total Protein Albumin Ur Specific [place] Urine WBC (Auto) Coronavirus (PCR) Miscellaneous Test 08/22/19 11:51 Hgb Hct RDW Lymph % (Auto) [place] % (Auto) Lymph # Seg Neutrophils % Seg Neutrophils # D-Dimer Carbon Dioxide BUN Creatinine Glucose POC Glucose 268 H Hemoglobin A1c Lactic Acid Calcium Ferritin Alkaline Phosphatase Lactate Dehydrogenase C-Reactive Protein NT-Pro-B Natriuret Pep Total Protein Albumin Ur Specific [place] Urine WBC (Auto) Coronavirus (PCR) Miscellaneous Test
[2019-08-22] MEDS: HYDROmorphone 1 MG/1 ML INJ IV PRN (14:23)
--- NOTE | 2019-08-22 14:59 | Progress Note ---
Assessment and Plan Cultures: Blood culture 08/05/2019 no growth Assessment: 54 years old female with history of obesity, diabetes, admitted on 08/05/2019 due to 2-week history of dry cough, generalized malaise and progressive shortness of breath: #Severe sepsis: likely due to severe COVID pneumonia. #Severe COVID pneumonia: Inflamatory markers are elevated- D-dimer > 10,000-->10,000--.3795, ferritin 438-->415-->594, LDH 702-->745, CRP 32-->34-. S/p Actemra 4 mg/kg x 1 on 08/06. S/p ceftriaxone/azithro 5 days. S/P Plasma infusion on 08/14/2019. IL-6 level was also high. S/P 10 days of Remdesivir ended 08/16/2019. #Acute hypoxemic respiratory failure: remains on high flow oxygen. #DM: uncontrolled. Monitor sugars alma on steroids. Recommendations: Continue steroid weaning per pulmonary Continue anticoagulation for elevated d-dimer F/u TB Quantiferon (to eval future risk of TB reactivation due to Actemra, if positive) Tricia Ferris MD [facility] ([facility] M: [phone] O: [phone] F: [phone] Subjective Date of service: 08/22/19 Principal diagnosis: Bilateral pneumonia, ARDS Interval history: Afebrile, no new issues. Objective - Exam Narrative Exam: Narrative Exam: Physical Exam (reviewed in chart due to PPE conservation) Constitutional: limited due to PPE conservation strategy Head, Ears, Nose: limited due to PPE conservation strategy Eyes: limited due to PPE conservation strategy Neck: limited due to PPE conservation strategy Oral: limited due to PPE conservation strategy Cardiovascular: limited due to PPE conservation strategy Respiratory: limited due to PPE conservation strategy GI: limited due to PPE conservation strategy Musculoskeletal: limited due to PPE conservation strategy Skin: limited due to PPE conservation strategy Hem/Lymphatic: limited due to PPE conservation strategy Psych: limited due to PPE conservation strategy Neurological: limited due to PPE conservation strategy - Constitutional Vitals: Vital Signs Temp Pulse Resp BP Pulse Ox 98.6 F 75 20 115/78 95 08/22/19 11:39 08/22/19 11:39 08/22/19 11:39 08/22/19 11:39 08/22/19 11:39 Temperature -Last 24 Hours Temperature 98.6 F Temperature 98.1 F Temperature 98.6 F Temperature 98.7 F - Labs CBC & Chem 7: 08/19/19 04:53 08/19/19 04:53 Labs: Abnormal lab results 08/21/19 08/21/19 08/22/19 Range/Units 16:22 21:37 07:29 POC Glucose 174 H 258 H 166 H (70-105) 08/22/19 Range/Units 11:51 POC Glucose 268 H (70-105)
[2019-08-22] MEDS: INSULIN GLARGINE 100 UNITS/ML SUB-Q SCH (23:34)
[2019-08-22] MEDS: METOCLOPRAMIDE 10 MG/2 ML INJ IV PRN (23:48)
[2019-08-23] MEDS: BENZONATATE 100 MG CAP PO SCH ×3 (01:11→16:52)
[2019-08-23] MEDS: MAGIC MOUTHWASH 30ML PO SCH ×3 (08:20→22:57)
[2019-08-23] MEDS: INSULIN LISPRO 100 UNIT/ML SUB-Q SCH ×4 (08:20→22:58)
--- NOTE | 2019-08-23 09:18 | Progress Note ---
Assessment and Plan 54 y/o female with acute respiratory failure secondary to COVID 19 1. Proning during the day and prone sleeping at night. This should continue even though oxygen requirement is improving. 2. Steroids changed to prednisone 40 and taper ordered by pharmacy under me. 3. Agree with Actemra, given 4. Agree with Remdisiver, given 5. Convaslescent plasma given on 08/14/2019 6. Wean oxygen to off as patient does not have funding. 7. Will continue to follow. Subjective Date of service: 08/23/19 Principal diagnosis: Bilateral pneumonia, ARDS Interval history: Down to 4 liters nasal cannula. Objective Vital Signs - 12hr 08/22/19 08/23/19 08/23/19 22:29 00:34 05:50 Temperature 97.6 F 99.0 F Pulse Rate 61 63 Respiratory 18 16 Rate Blood Pressure 120/81 101/65 O2 Sat by Pulse 93 98 99 Oximetry 08/23/19 08:00 Temperature Pulse Rate Respiratory Rate Blood Pressure O2 Sat by Pulse 97 Oximetry Constitutional: alert, other (critically ill on HFNC) Eyes: non-icteric Effort: mildly labored Ascultation: Bilateral: rales Cardiovascular: regular rate and rhythm (no mrg) Gastrointestinal: normoactive bowel sounds, soft, non-tender, non-distended Integumentary: normal Extremities: no cyanosis, no edema, pink and warm Neurologic: normal mental status, non-focal exam, pupils equal and round, CN II- XII normal Psychiatric: mood appropriate, affect normal CBC and BMP: 08/19/19 04:53 08/19/19 04:53 ABG, PT/INR, D-dimer: PT/INR, D-dimer D-Dimer 831.46 ng/mlDDU (0-234) H 08/17/19 04:46 Abnormal lab findings: Abnormal Labs 08/05/19 08/05/19 08/05/19 14:53 14:53 14:53 Hgb Hct RDW Lymph % (Auto) 13.0 L [place] % (Auto) 10.8 H Lymph # 0.9 L Seg Neutrophils % 74.0 H Seg Neutrophils # D-Dimer > 84960 H Carbon Dioxide 20 L BUN 6 L Creatinine 0.6 L Glucose 255 H POC Glucose Hemoglobin A1c Lactic Acid Calcium Ferritin Alkaline Phosphatase 173 H Lactate Dehydrogenase C-Reactive Protein NT-Pro-B Natriuret Pep Total Protein Albumin 2.9 L Ur Specific [place] Urine WBC (Auto) Coronavirus (PCR) Miscellaneous Test 08/05/19 08/05/19 08/05/19 14:53 14:53 14:53 Hgb Hct RDW Lymph % (Auto) [place] % (Auto) Lymph # Seg Neutrophils % Seg Neutrophils # D-Dimer Carbon Dioxide BUN Creatinine Glucose 256 H POC Glucose Hemoglobin A1c Lactic Acid 3.40 H* Calcium Ferritin 438.9 H Alkaline Phosphatase Lactate Dehydrogenase 702 H C-Reactive Protein 32.90 H NT-Pro-B Natriuret Pep Total Protein Albumin Ur Specific [place] Urine WBC (Auto) Coronavirus (PCR) Miscellaneous Test 08/05/19 08/05/19 08/06/19 15:07 19:54 00:21 Hgb Hct RDW Lymph % (Auto) [place] % (Auto) Lymph # Seg Neutrophils % Seg Neutrophils # D-Dimer Carbon Dioxide BUN Creatinine Glucose POC Glucose 131 H Hemoglobin A1c Lactic Acid Calcium Ferritin Alkaline Phosphatase Lactate Dehydrogenase C-Reactive Protein NT-Pro-B Natriuret Pep 1818 H Total Protein Albumin Ur Specific [place] 1.031 H Urine WBC (Auto) 8.0 H Coronavirus (PCR) Miscellaneous Test 08/06/19 08/06/19 08/06/19 08:29 09:17 11:56 Hgb Hct RDW Lymph % (Auto) [place] % (Auto) Lymph # Seg Neutrophils % Seg Neutrophils # D-Dimer Carbon Dioxide BUN Creatinine Glucose POC Glucose 165 H 190 H Hemoglobin A1c Lactic Acid Calcium Ferritin Alkaline Phosphatase Lactate Dehydrogenase C-Reactive Protein NT-Pro-B Natriuret Pep Total Protein Albumin Ur Specific [place] Urine WBC (Auto) Coronavirus (PCR) Positive A Miscellaneous Test 08/06/19 08/06/19 08/06/19 16:16 22:16 Unknown Hgb Hct RDW Lymph % (Auto) [place] % (Auto) Lymph # Seg Neutrophils % Seg Neutrophils # D-Dimer Carbon Dioxide BUN Creatinine Glucose POC Glucose 170 H 128 H Hemoglobin A1c 7.6 H Lactic Acid Calcium Ferritin Alkaline Phosphatase Lactate Dehydrogenase C-Reactive Protein NT-Pro-B Natriuret Pep Total Protein Albumin Ur Specific [place] Urine WBC (Auto) Coronavirus (PCR) Miscellaneous Test 08/07/19 08/07/19 08/07/19 07:59 11:39 11:56 Hgb Hct RDW Lymph % (Auto) [place] % (Auto) Lymph # Seg Neutrophils % Seg Neutrophils # D-Dimer Carbon Dioxide BUN Creatinine 0.6 L Glucose 194 H POC Glucose 141 H 195 H Hemoglobin A1c Lactic Acid Calcium 8.0 L Ferritin Alkaline Phosphatase 181 H Lactate Dehydrogenase C-Reactive Protein NT-Pro-B Natriuret Pep Total Protein Albumin 2.5 L Ur Specific [place] Urine WBC (Auto) Coronavirus (PCR) Miscellaneous Test 08/07/19 08/07/19 08/07/19 11:56 11:56 11:56 Hgb Hct RDW Lymph % (Auto) [place] % (Auto) Lymph # Seg Neutrophils % Seg Neutrophils # D-Dimer > 52339 H Carbon Dioxide BUN Creatinine Glucose POC Glucose Hemoglobin A1c Lactic Acid Calcium Ferritin 415.7 H Alkaline Phosphatase Lactate Dehydrogenase 745 H C-Reactive Protein NT-Pro-B Natriuret Pep Total Protein Albumin Ur Specific [place] Urine WBC (Auto) Coronavirus (PCR) Miscellaneous Test 08/07/19 08/07/19 08/07/19 11:56 16:35 21:36 Hgb Hct RDW Lymph % (Auto) [place] % (Auto) Lymph # Seg Neutrophils % Seg Neutrophils # D-Dimer Carbon Dioxide BUN Creatinine Glucose POC Glucose 176 H 277 H Hemoglobin A1c Lactic Acid Calcium Ferritin Alkaline Phosphatase Lactate Dehydrogenase C-Reactive Protein 34.20 H NT-Pro-B Natriuret Pep Total Protein Albumin Ur Specific [place] Urine WBC (Auto) Coronavirus (PCR) Miscellaneous Test 08/08/19 08/08/19 08/08/19 07:53 08:54 11:40 Hgb Hct RDW Lymph % (Auto) [place] % (Auto) Lymph # Seg Neutrophils % Seg Neutrophils # D-Dimer Carbon Dioxide BUN Creatinine 0.6 L Glucose 266 H POC Glucose 214 H 340 H Hemoglobin A1c Lactic Acid Calcium 8.3 L Ferritin Alkaline Phosphatase 222 H Lactate Dehydrogenase C-Reactive Protein NT-Pro-B Natriuret Pep Total Protein Albumin 2.5 L Ur Specific [place] Urine WBC (Auto) Coronavirus (PCR) Miscellaneous Test 08/08/19 08/08/19 08/09/19 17:04 21:49 05:22 Hgb Hct RDW Lymph % (Auto) [place] % (Auto) Lymph # Seg Neutrophils % Seg Neutrophils # D-Dimer Carbon Dioxide BUN Creatinine Glucose POC Glucose 278 H 319 H Hemoglobin A1c Lactic Acid Calcium Ferritin Alkaline Phosphatase Lactate Dehydrogenase 866 H C-Reactive Protein 14.70 H NT-Pro-B Natriuret Pep Total Protein Albumin Ur Specific [place] Urine WBC (Auto) Coronavirus (PCR) Miscellaneous Test 08/09/19 08/09/19 08/09/19 05:44 08:12 11:52 Hgb Hct RDW Lymph % (Auto) [place] % (Auto) Lymph # Seg Neutrophils % Seg Neutrophils # D-Dimer Carbon Dioxide BUN 18 H Creatinine 0.6 L Glucose 227 H POC Glucose 232 H 273 H Hemoglobin A1c Lactic Acid Calcium 8.2 L Ferritin Alkaline Phosphatase 230 H Lactate Dehydrogenase C-Reactive Protein NT-Pro-B Natriuret Pep Total Protein Albumin 2.5 L Ur Specific [place] Urine WBC (Auto) Coronavirus (PCR) Miscellaneous Test 08/09/19 08/09/19 08/09/19 12:29 12:29 17:11 Hgb Hct RDW Lymph % (Auto) [place] % (Auto) Lymph # Seg Neutrophils % Seg Neutrophils # D-Dimer 3795.56 H Carbon Dioxide BUN Creatinine Glucose POC Glucose 200 H Hemoglobin A1c Lactic Acid Calcium Ferritin 594.1 H Alkaline Phosphatase Lactate Dehydrogenase C-Reactive Protein NT-Pro-B Natriuret Pep Total Protein Albumin Ur Specific [place] Urine WBC (Auto) Coronavirus (PCR) Miscellaneous Test 08/09/19 08/10/19 08/10/19 21:58 05:07 06:14 Hgb Hct RDW Lymph % (Auto) [place] % (Auto) Lymph # Seg Neutrophils % Seg Neutrophils # D-Dimer Carbon Dioxide BUN 19 H Creatinine Glucose 277 H POC Glucose 226 H 288 H Hemoglobin A1c Lactic Acid Calcium 7.9 L Ferritin Alkaline Phosphatase 231 H Lactate Dehydrogenase C-Reactive Protein NT-Pro-B Natriuret Pep Total Protein Albumin 2.7 L Ur Specific [place] Urine WBC (Auto) Coronavirus (PCR) Miscellaneous Test 08/10/19 08/10/19 08/10/19 08:16 08:31 12:25 Hgb Hct RDW Lymph % (Auto) [place] % (Auto) Lymph # Seg Neutrophils % Seg Neutrophils # D-Dimer Carbon Dioxide BUN Creatinine Glucose POC Glucose 284 H 387 H Hemoglobin A1c Lactic Acid Calcium Ferritin Alkaline Phosphatase Lactate Dehydrogenase C-Reactive Protein NT-Pro-B Natriuret Pep Total Protein Albumin Ur Specific [place] Urine WBC (Auto) Coronavirus (PCR) Miscellaneous Test Flexitest 1 H 08/10/19 08/10/19 08/11/19 18:03 21:10 05:14 Hgb Hct RDW Lymph % (Auto) [place] % (Auto) Lymph # Seg Neutrophils % Seg Neutrophils # D-Dimer Carbon Dioxide BUN 21 H Creatinine Glucose 368 H POC Glucose 297 H 259 H Hemoglobin A1c Lactic Acid Calcium Ferritin Alkaline Phosphatase 223 H Lactate Dehydrogenase C-Reactive Protein NT-Pro-B Natriuret Pep Total Protein Albumin 3.0 L Ur Specific [place] Urine WBC (Auto) Coronavirus (PCR) Miscellaneous Test 08/11/19 08/11/19 08/11/19 08:02 12:08 16:21 Hgb Hct RDW Lymph % (Auto) [place] % (Auto) Lymph # Seg Neutrophils % Seg Neutrophils # D-Dimer Carbon Dioxide BUN Creatinine Glucose POC Glucose 300 H 447 H 295 H Hemoglobin A1c Lactic Acid Calcium Ferritin Alkaline Phosphatase Lactate Dehydrogenase C-Reactive Protein NT-Pro-B Natriuret Pep Total Protein Albumin Ur Specific [place] Urine WBC (Auto) Coronavirus (PCR) Miscellaneous Test 08/11/19 08/12/19 08/12/19 21:42 05:04 07:47 Hgb Hct RDW Lymph % (Auto) [place] % (Auto) Lymph # Seg Neutrophils % Seg Neutrophils # D-Dimer Carbon Dioxide BUN 21 H Creatinine 0.5 L Glucose 276 H POC Glucose 447 H 274 H Hemoglobin A1c Lactic Acid Calcium Ferritin Alkaline Phosphatase 188 H Lactate Dehydrogenase C-Reactive Protein NT-Pro-B Natriuret Pep Total Protein 6.1 L Albumin 2.9 L Ur Specific [place] Urine WBC (Auto) Coronavirus (PCR) Miscellaneous Test 08/12/19 08/12/19 08/12/19 11:57 18:10 22:00 Hgb Hct RDW Lymph % (Auto) [place] % (Auto) Lymph # Seg Neutrophils % Seg Neutrophils # D-Dimer Carbon Dioxide BUN Creatinine Glucose POC Glucose 367 H 285 H 239 H Hemoglobin A1c Lactic Acid Calcium Ferritin Alkaline Phosphatase Lactate Dehydrogenase C-Reactive Protein NT-Pro-B Natriuret Pep Total Protein Albumin Ur Specific [place] Urine WBC (Auto) Coronavirus (PCR) Miscellaneous Test 08/13/19 08/13/19 08/13/19 04:10 04:10 04:10 Hgb Hct 44.3 H RDW 15.4 H Lymph % (Auto) 7.6 L [place] % (Auto) Lymph # 0.7 L Seg Neutrophils % 85.3 H Seg Neutrophils # D-Dimer Carbon Dioxide BUN 19 H 20 H Creatinine 0.5 L 0.5 L Glucose 201 H 199 H POC Glucose Hemoglobin A1c Lactic Acid Calcium 8.0 L 8.1 L Ferritin Alkaline Phosphatase 167 H Lactate Dehydrogenase C-Reactive Protein NT-Pro-B Natriuret Pep Total Protein 5.7 L Albumin 3.0 L Ur Specific [place] Urine WBC (Auto) Coronavirus (PCR) Miscellaneous Test 08/13/19 08/13/19 08/13/19 08:35 12:11 16:09 Hgb Hct RDW Lymph % (Auto) [place] % (Auto) Lymph # Seg Neutrophils % Seg Neutrophils # D-Dimer Carbon Dioxide BUN Creatinine Glucose POC Glucose 247 H 351 H 253 H Hemoglobin A1c Lactic Acid Calcium Ferritin Alkaline Phosphatase Lactate Dehydrogenase C-Reactive Protein NT-Pro-B Natriuret Pep Total Protein Albumin Ur Specific [place] Urine WBC (Auto) Coronavirus (PCR) Miscellaneous Test 08/13/19 08/14/19 08/14/19 21:45 04:56 07:28 Hgb 14.5 H Hct 44.2 H RDW 15.3 H Lymph % (Auto) 7.0 L [place] % (Auto) Lymph # 0.6 L Seg Neutrophils % 85.3 H Seg Neutrophils # D-Dimer Carbon Dioxide BUN Creatinine 0.5 L Glucose 228 H POC Glucose 242 H Hemoglobin A1c Lactic Acid Calcium 7.9 L Ferritin Alkaline Phosphatase 150 H Lactate Dehydrogenase C-Reactive Protein NT-Pro-B Natriuret Pep Total Protein 5.6 L Albumin 3.1 L Ur Specific [place] Urine WBC (Auto) Coronavirus (PCR) Miscellaneous Test 08/14/19 08/14/19 08/14/19 08:10 11:53 17:20 Hgb Hct RDW Lymph % (Auto) [place] % (Auto) Lymph # Seg Neutrophils % Seg Neutrophils # D-Dimer Carbon Dioxide BUN Creatinine Glucose POC Glucose 210 H 335 H 211 H Hemoglobin A1c Lactic Acid Calcium Ferritin Alkaline Phosphatase Lactate Dehydrogenase C-Reactive Protein NT-Pro-B Natriuret Pep Total Protein Albumin Ur Specific [place] Urine WBC (Auto) Coronavirus (PCR) Miscellaneous Test 08/14/19 08/14/19 08/15/19 18:08 23:25 05:09 Hgb Hct RDW Lymph % (Auto) [place] % (Auto) Lymph # Seg Neutrophils % Seg Neutrophils # D-Dimer Carbon Dioxide BUN Creatinine 0.4 L Glucose 222 H POC Glucose 255 H 272 H Hemoglobin A1c Lactic Acid Calcium 8.0 L Ferritin Alkaline Phosphatase 139 H Lactate Dehydrogenase C-Reactive Protein NT-Pro-B Natriuret Pep Total Protein 6.0 L Albumin 3.0 L Ur Specific [place] Urine WBC (Auto) Coronavirus (PCR) Miscellaneous Test 08/15/19 08/15/19 08/15/19 05:09 08:11 12:03 Hgb Hct RDW Lymph % (Auto) 8.1 L [place] % (Auto) 7.6 H Lymph # 0.7 L Seg Neutrophils % 83.9 H Seg Neutrophils # D-Dimer Carbon Dioxide BUN Creatinine Glucose POC Glucose 223 H 358 H Hemoglobin A1c Lactic Acid Calcium Ferritin Alkaline Phosphatase Lactate Dehydrogenase C-Reactive Protein NT-Pro-B Natriuret Pep Total Protein Albumin Ur Specific [place] Urine WBC (Auto) Coronavirus (PCR) Miscellaneous Test 08/15/19 08/15/19 08/16/19 16:43 21:47 04:12 Hgb Hct RDW Lymph % (Auto) [place] % (Auto) Lymph # Seg Neutrophils % Seg Neutrophils # D-Dimer Carbon Dioxide BUN Creatinine 0.4 L Glucose 205 H POC Glucose 285 H 274 H Hemoglobin A1c Lactic Acid Calcium 8.1 L Ferritin Alkaline Phosphatase Lactate Dehydrogenase C-Reactive Protein NT-Pro-B Natriuret Pep Total Protein Albumin Ur Specific [place] Urine WBC (Auto) Coronavirus (PCR) Miscellaneous Test 08/16/19 08/16/19 08/16/19 04:12 08:42 11:56 Hgb Hct 43.7 H RDW 15.7 H Lymph % (Auto) 5.4 L [place] % (Auto) Lymph # 0.6 L Seg Neutrophils % 89.0 H Seg Neutrophils # 9.5 H D-Dimer Carbon Dioxide BUN Creatinine Glucose POC Glucose 216 H 251 H Hemoglobin A1c Lactic Acid Calcium Ferritin Alkaline Phosphatase Lactate Dehydrogenase C-Reactive Protein NT-Pro-B Natriuret Pep Total Protein Albumin Ur Specific [place] Urine WBC (Auto) Coronavirus (PCR) Miscellaneous Test 08/16/19 08/16/19 08/17/19 16:29 21:28 04:46 Hgb Hct RDW Lymph % (Auto) [place] % (Auto) Lymph # Seg Neutrophils % Seg Neutrophils # D-Dimer 831.46 H Carbon Dioxide BUN Creatinine Glucose POC Glucose 245 H 293 H Hemoglobin A1c Lactic Acid Calcium Ferritin Alkaline Phosphatase Lactate Dehydrogenase C-Reactive Protein NT-Pro-B Natriuret Pep Total Protein Albumin Ur Specific [place] Urine WBC (Auto) Coronavirus (PCR) Miscellaneous Test 08/17/19 08/17/19 08/17/19 04:46 04:46 08:13 Hgb Hct RDW Lymph % (Auto) [place] % (Auto) Lymph # Seg Neutrophils % Seg Neutrophils # D-Dimer Carbon Dioxide BUN Creatinine Glucose POC Glucose 201 H Hemoglobin A1c Lactic Acid Calcium Ferritin 775.8 H Alkaline Phosphatase Lactate Dehydrogenase 409 H C-Reactive Protein NT-Pro-B Natriuret Pep Total Protein Albumin Ur Specific [place] Urine WBC (Auto) Coronavirus (PCR) Miscellaneous Test 08/17/19 08/17/19 08/17/19 11:54 18:22 20:42 Hgb Hct RDW Lymph % (Auto) [place] % (Auto) Lymph # Seg Neutrophils % Seg Neutrophils # D-Dimer Carbon Dioxide BUN Creatinine Glucose POC Glucose 378 H 309 H 214 H Hemoglobin A1c Lactic Acid Calcium Ferritin Alkaline Phosphatase Lactate Dehydrogenase C-Reactive Protein NT-Pro-B Natriuret Pep Total Protein Albumin Ur Specific [place] Urine WBC (Auto) Coronavirus (PCR) Miscellaneous Test 08/18/19 08/18/19 08/18/19 08:07 12:00 16:13 Hgb Hct RDW Lymph % (Auto) [place] % (Auto) Lymph # Seg Neutrophils % Seg Neutrophils # D-Dimer Carbon Dioxide BUN Creatinine Glucose POC Glucose 159 H 346 H 200 H Hemoglobin A1c Lactic Acid Calcium Ferritin Alkaline Phosphatase Lactate Dehydrogenase C-Reactive Protein NT-Pro-B Natriuret Pep Total Protein Albumin Ur Specific [place] Urine WBC (Auto) Coronavirus (PCR) Miscellaneous Test 08/18/19 08/19/19 08/19/19 22:57 04:53 04:53 Hgb 14.4 H Hct 44.2 H RDW 15.9 H Lymph % (Auto) [place] % (Auto) Lymph # Seg Neutrophils % Seg Neutrophils # D-Dimer Carbon Dioxide BUN Creatinine 0.4 L Glucose 214 H POC Glucose 224 H Hemoglobin A1c Lactic Acid Calcium 8.3 L Ferritin Alkaline Phosphatase Lactate Dehydrogenase C-Reactive Protein NT-Pro-B Natriuret Pep Total Protein Albumin Ur Specific [place] Urine WBC (Auto) Coronavirus (PCR) Miscellaneous Test 08/19/19 08/19/19 08/19/19 08:16 12:38 17:46 Hgb Hct RDW Lymph % (Auto) [place] % (Auto) Lymph # Seg Neutrophils % Seg Neutrophils # D-Dimer Carbon Dioxide BUN Creatinine Glucose POC Glucose 171 H 321 H 193 H Hemoglobin A1c Lactic Acid Calcium Ferritin Alkaline Phosphatase Lactate Dehydrogenase C-Reactive Protein NT-Pro-B Natriuret Pep Total Protein Albumin Ur Specific [place] Urine WBC (Auto) Coronavirus (PCR) Miscellaneous Test 08/19/19 08/20/19 08/20/19 19:55 08:06 17:52 Hgb Hct RDW Lymph % (Auto) [place] % (Auto) Lymph # Seg Neutrophils % Seg Neutrophils # D-Dimer Carbon Dioxide BUN Creatinine Glucose POC Glucose 129 H 183 H 337 H Hemoglobin A1c Lactic Acid Calcium Ferritin Alkaline Phosphatase Lactate Dehydrogenase C-Reactive Protein NT-Pro-B Natriuret Pep Total Protein Albumin Ur Specific [place] Urine WBC (Auto) Coronavirus (PCR) Miscellaneous Test 08/20/19 08/21/19 08/21/19 21:14 08:00 11:26 Hgb Hct RDW Lymph % (Auto) [place] % (Auto) Lymph # Seg Neutrophils % Seg Neutrophils # D-Dimer Carbon Dioxide BUN Creatinine Glucose POC Glucose 235 H 183 H 294 H Hemoglobin A1c Lactic Acid Calcium Ferritin Alkaline Phosphatase Lactate Dehydrogenase C-Reactive Protein NT-Pro-B Natriuret Pep Total Protein Albumin Ur Specific [place] Urine WBC (Auto) Coronavirus (PCR) Miscellaneous Test 08/21/19 08/21/19 08/22/19 16:22 21:37 07:29 Hgb Hct RDW Lymph % (Auto) [place] % (Auto) Lymph # Seg Neutrophils % Seg Neutrophils # D-Dimer Carbon Dioxide BUN Creatinine Glucose POC Glucose 174 H 258 H 166 H Hemoglobin A1c Lactic Acid Calcium Ferritin Alkaline Phosphatase Lactate Dehydrogenase C-Reactive Protein NT-Pro-B Natriuret Pep Total Protein Albumin Ur Specific [place] Urine WBC (Auto) Coronavirus (PCR) Miscellaneous Test 08/22/19 08/22/19 08/22/19 11:51 16:25 21:30 Hgb Hct RDW Lymph % (Auto) [place] % (Auto) Lymph # Seg Neutrophils % Seg Neutrophils # D-Dimer Carbon Dioxide BUN Creatinine Glucose POC Glucose 268 H 198 H 349 H Hemoglobin A1c Lactic Acid Calcium Ferritin Alkaline Phosphatase Lactate Dehydrogenase C-Reactive Protein NT-Pro-B Natriuret Pep Total Protein Albumin Ur Specific [place] Urine WBC (Auto) Coronavirus (PCR) Miscellaneous Test 08/23/19 08:16 Hgb Hct RDW Lymph % (Auto) [place] % (Auto) Lymph # Seg Neutrophils % Seg Neutrophils # D-Dimer Carbon Dioxide BUN Creatinine Glucose POC Glucose 165 H Hemoglobin A1c Lactic Acid Calcium Ferritin Alkaline Phosphatase Lactate Dehydrogenase C-Reactive Protein NT-Pro-B Natriuret Pep Total Protein Albumin Ur Specific [place] Urine WBC (Auto) Coronavirus (PCR) Miscellaneous Test
[2019-08-23] MEDS: predniSONE 20 MG TAB PO SCH (09:28)
[2019-08-23] MEDS: ASCORBIC ACID 500 MG TAB PO SCH ×2 (09:28→22:57)
[2019-08-23] MEDS: ENOXAPARIN 100 MG/1 ML INJ SUB-Q SCH ×2 (09:28→23:11)
[2019-08-23] MEDS: CHOLECALCIFEROL (VIT D3) 5,000 UNIT TAB PO SCH (09:28)
[2019-08-23] MEDS: FAMOTIDINE 20 MG TAB PO SCH ×2 (09:28→22:59)
--- NOTE | 2019-08-23 13:07 | Progress Note ---
Assessment and Plan Assessment and plan: Severe sepsis. Etiology secondary to COVID-19 pneumonia. COVID pneumonia. Patient with likely cytokine storm, microthrombi and elevated inflammatory markers. Patient is s/p Actemra on 08/06. ARDS. Etiology secondary to above. Acute hypoxemic respiratory failure. Continue O2 and BiPAP as clinically indicated. Etiology secondary to above. Diabetes mellitus type 2. Continue Lantus at bedtime. Patient with Solu- Medrol. 08/12/2019. Pulmonary following and recommending pronating during the day and at night. Continue Solu-Medrol 40 mg every 8 hours for a total of 7 days. Patient s/p Actemra and Remdisiver. Patient currently on HFNC requiring 40 L O2. Increase Lantus to 15 units at bedtime. 08/13/2019. Continue pronating. ID reports patient enrolled in Expanded Access Program for Convalescent Plasma patient [id number]. Continue Remdesivir - 100 mg IV daily x 9 days. Continue solumedrol 40 mg IV q 8 hours. Continue anticoagulation for elevated d-dimer. Follow-up quantiferon and IL6. Continue vitamin C and E. Continue COVID isolation precautions. Patient with high risk mortality 08/14/2019. Patient currently with high flow nasal cannula 40 L/min FiO2 90%. Convalescent plasma per ID. Continue Remdesivir, s/p Actemra, IV Solu-Medrol 40 mg every 8 hour and Lovenox 90 mg subcu every 12 hours. Continue proning paulette ent. Prognosis remains guarded. 08/15/2019. Patient currently with high flow nasal cannula 40 L/min FiO2 80%. Convalescent plasma per ID. Continue Remdesivir, s/p Actemra, IV Solu-Medrol 40 mg every 8 hour and Lovenox 90 mg subcu every 12 hours. Continue proning patient. Prognosis remains guarded. 08/16/2019 patient with Covid-19 pneumonia wit acute resp failure. Less SOB. now on 30 l/min HFNC. Also s/p Remdesivir, s/p Actemra. 08/17/2019 Patient with Covid-19 pneumonia with acute respiratory failure. Patient less shortness of breath. still on high flow Oxygen at 30 l/min 08/18/2019 patient with Covid-19 pneumonia with acute resp failure. She is still on Oxygen by HFNC at 30 l/min. Will discuss with resp Therapist to wean down Fi02 08/19/2019 Patient with Covid-19 pneumonia with acute respiratory failure. She is still on Oxygen by HFNC at 30 l/min. I discussed with Nurse about weaning down Oxygen, but she states patient gets d esaturated on exertion, so will leave the same from now. 08/20/2019 Patient with Covid-19 pneumonia with acute respiratory failure. She is feelin better, now down to Oxygen by HFNC at 10 l/min. I discussed with Nurse. OK to transfer to med floor as per Pulmonology. 08/21/2019 Patient with Covid-19 pneumonia with acute respiratory failure. She is feeling better, now down to Oxygen by HFNC at 10 l/min. Transferred to med/surg floor from [facility] testerday 08/20/19. Magic mouthwash ordered for oral ulcers 08/23/19. Patient with Covid-19 pneumonia with acute respiratory failure. Continue steroid weaning per pulmonary. Continue anticoagulation for elevated d-dimer F/u TB Quantiferon History Interval history: No new issues overnight. Patient still requiring HFNC with 40 L of oxygen. Hospitalist Physical - Constitutional Vitals: Temp Pulse Resp BP Pulse Ox 97.5 F L 77 18 107/73 95 08/23/19 11:28 08/23/19 11:29 08/23/19 11:28 08/23/19 11:28 08/23/19 11:29 General appearance: Present: no acute distress, obese - EENT Eyes: Present: PERRL, EOM intact ENT: hearing intact, clear oral mucosa, dentition normal - Neck Neck: Present: supple, normal ROM - Respiratory Respiratory effort: normal Respiratory: bilateral: CTA - Cardiovascular Rhythm: regular Heart Sounds: Present: S1 & S2. Absent: gallop, rub - Extremities Extremities: no ischemia, No edema, Full ROM - Abdominal General gastrointestinal: soft, non-tender, non-distended, normal bowel sounds - Integumentary Integumentary: Present: clear, warm, dry - Neurologic Neurologic: CNII-XII intact, moves all extremities Results - Labs CBC & Chem 7: 08/19/19 04:53 08/19/19 04:53 Labs: Laboratory Last Values WBC 9.8 K/mm3 (4.5-11.0) 08/19/19 04:53 RBC 4.83 M/mm3 (3.65-5.03) 08/19/19 04:53 Hgb 14.4 gm/dl (10.1-14.3) H 08/19/19 04:53 Hct 44.2 % (30.3-42.9) H 08/19/19 04:53 MCV 91 fl (79-97) 08/19/19 04:53 MCH 30 pg (28-32) 08/19/19 04:53 MCHC 33 % (30-34) 08/19/19 04:53 RDW 15.9 % (13.2-15.2) H 08/19/19 04:53 Plt Count 158 K/mm3 (140-440) 08/19/19 04:53 Lymph % (Auto) 5.4 % (13.4-35.0) L 08/16/19 04:12 [place] % (Auto) 5.2 % (0.0-7.3) 08/16/19 04:12 Eos % (Auto) 0.0 % (0.0-4.3) 08/16/19 04:12 Baso % (Auto) 0.4 % (0.0-1.8) 08/16/19 04:12 Lymph # 0.6 K/mm3 (1.2-5.4) L 08/16/19 04:12 [place] # 0.6 K/mm3 (0.0-0.8) 08/16/19 04:12 Eos # 0.0 K/mm3 (0.0-0.4) 08/16/19 04:12 Baso # 0.0 K/mm3 (0.0-0.1) 08/16/19 04:12 Add Manual Diff Complete 08/13/19 04:10 Seg Neutrophils % 89.0 % (40.0-70.0) H 08/16/19 04:12 Nucleated RBC % Not Reportable 08/13/19 04:10 Seg Neutrophils # 9.5 K/mm3 (1.8-7.7) H 08/16/19 04:12 WBC Morphology Not Reportable 08/13/19 04:10 Hypersegmented Neuts Not Reportable 08/13/19 04:10 Hyposegmented Neuts Not Reportable 08/13/19 04:10 Hypogranular Neuts Not Reportable 08/13/19 04:10 Smudge Cells Not Reportable 08/13/19 04:10 Toxic Granulation Not Reportable 08/13/19 04:10 Toxic Vacuolation Not Reportable 08/13/19 04:10 Dohle Bodies Not Reportable 08/13/19 04:10 Pelger-Huet Anomaly Not Reportable 08/13/19 04:10 Kaylynn Rods Not Reportable 08/13/19 04:10 Platelet Estimate Not Reportable 08/13/19 04:10 Clumped Platelets Not Reportable 08/13/19 04:10 Plt Clumps, EDTA Not Reportable 08/13/19 04:10 Large Platelets Not Reportable 08/13/19 04:10 Giant Platelets Not Reportable 08/13/19 04:10 Platelet Satelliting Not Reportable 08/13/19 04:10 Plt Morphology Comment Not Reportable 08/13/19 04:10 RBC Morphology Not Reportable 08/13/19 04:10 Dimorphic RBCs Not Reportable 08/13/19 04:10 Polychromasia Not Reportable 08/13/19 04:10 Hypochromasia Not Reportable 08/13/19 04:10 Poikilocytosis Not Reportable 08/13/19 04:10 Anisocytosis Not Reportable 08/13/19 04:10 Microcytosis Not Reportable 08/13/19 04:10 Macrocytosis Not Reportable 08/13/19 04:10 Spherocytes Not Reportable 08/13/19 04:10 Pappenheimer Bodies Not Reportable 08/13/19 04:10 Sickle Cells Not Reportable 08/13/19 04:10 Target Cells Not Reportable 08/13/19 04:10 Tear Drop Cells Not Reportable 08/13/19 04:10 Ovalocytes Not Reportable 08/13/19 04:10 Helmet Cells Not Reportable 08/13/19 04:10 [employer] Bodies Not Reportable 08/13/19 04:10 [place] Rings Not Reportable 08/13/19 04:10 Rajiv Cells Not Reportable 08/13/19 04:10 Bite Cells Not Reportable 08/13/19 04:10 Crenated Cell Not Reportable 08/13/19 04:10 Elliptocytes Not Reportable 08/13/19 04:10 Acanthocytes (Spur) Not Reportable 08/13/19 04:10 Rouleaux Not Reportable 08/13/19 04:10 Hemoglobin C Crystals Not Reportable 08/13/19 04:10 Schistocytes Not Reportable 08/13/19 04:10 Malaria parasites Not Reportable 08/13/19 04:10 Humberto Bodies Not Reportable 08/13/19 04:10 Hem Pathologist Commnt Not Reportable 08/13/19 04:10 APTT 26.3 Sec. (24.2-36.6) 08/05/19 14:53 D-Dimer 831.46 ng/mlDDU (0-234) H 08/17/19 04:46 Sodium 141 mmol/L (137-145) 08/19/19 04:53 Potassium 4.4 mmol/L (3.6-5.0) 08/19/19 04:53 Chloride 101.7 mmol/L (98-107) 08/19/19 04:53 Carbon Dioxide 27 mmol/L (22-30) 08/19/19 04:53 Anion Gap 17 mmol/L 08/19/19 04:53 BUN 16 mg/dL (7-17) 08/19/19 04:53 Creatinine 0.4 mg/dL (0.7-1.2) L 08/19/19 04:53 Estimated GFR > 60 ml/min 08/19/19 04:53 BUN/Creatinine Ratio 40 % 08/19/19 04:53 Glucose 214 mg/dL (65-100) H 08/19/19 04:53 POC Glucose 223 (70-105) H 08/23/19 11:40 Hemoglobin A1c 7.6 % (4-6) H 08/06/19 Unknown Lactic Acid 1.90 mmol/L (0.7-2.0) 08/05/19 22:51 Calcium 8.3 mg/dL (8.4-10.2) L 08/19/19 04:53 Ferritin 775.8 ng/mL (13.0-400.0) H 08/17/19 04:46 Total Bilirubin 1.00 mg/dL (0.1-1.2) 08/15/19 05:09 AST 23 units/L (5-40) 08/15/19 05:09 ALT 45 units/L (7-56) 08/15/19 05:09 Alkaline Phosphatase 139 units/L (35-129) H 08/15/19 05:09 Lactate Dehydrogenase 409 units/L (91-180) H 08/17/19 04:46 C-Reactive Protein 0.30 mg/dL (0.00-1.30) 08/17/19 04:46 NT-Pro-B Natriuret Pep 1818 pg/mL (0-900) H 08/05/19 15:07 Total Protein 6.0 g/dL (6.3-8.2) L 08/15/19 05:09 Albumin 3.0 g/dL (3.9-5) L 08/15/19 05:09 Albumin/Globulin Ratio 1.0 % 08/15/19 05:09 Procalcitonin 1.06 ng/mL (<0.15) 08/09/19 12:29 Urine Color [place] (Yellow) 08/05/19 19:54 Urine Turbidity Clear (Clear) 08/05/19 19:54 Urine pH 5.0 (5.0-7.0) 08/05/19 19:54 Ur Specific [place] 1.031 (1.003-1.030) H 08/05/19 19:54 Urine Protein 100 mg/dl mg/dL (Negative) 08/05/19 19:54 Urine Glucose (UA) 50 mg/dL (Negative) 08/05/19 19:54 Urine Ketones Neg mg/dL (Negative) 08/05/19 19:54 Urine Blood Neg (Negative) 08/05/19 19:54 Urine Nitrite Neg (Negative) 08/05/19 19:54 Urine Bilirubin Neg (Negative) 08/05/19 19:54 Urine Urobilinogen < 2.0 mg/dL (<2.0) 08/05/19 19:54 Ur Leukocyte Esterase Neg (Negative) 08/05/19 19:54 Urine WBC (Auto) 8.0 /HPF (0.0-6.0) H 08/05/19 19:54 Urine RBC (Auto) 1.0 /HPF (0.0-6.0) 08/05/19 19:54 U Epithel Cells (Auto) 10.0 /HPF (0-13.0) 08/05/19 19:54 Urine Mucus 1+ /HPF 08/05/19 19:54 Coronavirus (PCR) Positive (Negative) A 08/06/19 09:17 Miscellaneous Test Flexitest 1 H 08/10/19 08:16 Blood Type A POSITIVE 08/11/19 15:00 Antibody Screen Negative 08/11/19 15:00 [place]/IV: Voiding Method Toilet IV Catheter Type [Left Forearm INT / Saline Lock ] IV Catheter Type [Right Wrist] Peripheral IV IV Catheter Type [Right INT / Saline Lock Forearm] IV Catheter Type [Left Hand] Peripheral IV IV Catheter Type [Left Peripheral IV Antecubital] Active Medications - Current Medications Current Medications: Generic Name Dose Route Start Last Admin Trade Name Freq PRN Reason Stop Dose Admin Acetaminophen 650 mg 08/05/19 21:32 08/06/19 20:05 Tylenol PO 650 mg Q4H PRN Administration Pain MILD(1-3)/Fever >100.5/BUTLER Ascorbic Acid 500 mg 08/08/19 10:00 08/23/19 09:28 Vitamin C PO 500 mg BID RAISA Administration Benzonatate 100 mg 08/06/19 01:00 08/23/19 08:20 Tessalon Perles PO 100 mg Q8H RAISA Administration Cholecalciferol 5,000 unit 08/08/19 10:00 08/23/19 09:28 Vitamin D3 PO 5,000 unit QDAY RAISA Administration Enoxaparin Sodium 90 mg 08/05/19 22:00 08/23/19 09:28 Enoxaparin SUB-Q 90 mg Q12HR RAISA Administration Famotidine 20 mg 08/05/19 22:00 08/23/19 09:28 Pepcid PO 20 mg BID RAISA Administration Hydromorphone HCl 0.5 mg 08/05/19 21:32 08/22/19 14:23 Dilaudid IV 0.5 mg Q3H PRN Administration Pain , Severe (7-10) Hydrophilic Ointment 1 applic 08/13/19 18:22 08/13/19 18:29 Vaseline Lip Therapy TP 1 applic DIRECT PRN Administration Dry Lips Insulin Glargine 40 units 08/22/19 22:00 08/22/19 23:34 Lantus SUB-Q 40 units QHS RAISA Administration Insulin Human Lispro 0 unit 08/05/19 22:00 08/23/19 12:55 Humalog SUB-Q 4 unit ACHS RAISA Administration Protocol Lidocaine HCl 15 ml 08/20/19 16:00 08/23/19 12:59 Magic Mouthwash PO 15 ml TID RAISA Administration Metoclopramide HCl 10 mg 08/05/19 21:32 08/22/19 23:48 Reglan IV 10 mg Q6H PRN Administration Nausea And Vomiting Ondansetron HCl 4 mg 08/05/19 21:32 08/22/19 23:48 Zofran IV 4 mg Q8H PRN Administration Nausea And Vomiting Oxycodone/Acetaminophen 1 tab 08/05/19 21:32 08/20/19 13:12 Percocet 5/325 PO 1 tab Q6H PRN Administration Pain, Moderate (4-6) Prednisone 40 mg 08/23/19 10:00 08/23/19 09:28 Deltasone PO 08/25/19 10:01 40 mg QDAY RAISA Administration Prednisone 20 mg 08/26/19 10:00 Deltasone PO 08/28/19 10:01 QDAY RAISA Prednisone 10 mg 08/29/19 10:00 Deltasone PO 08/31/19 10:01 QDAY RAISA Sodium Chloride 10 ml 08/05/19 22:00 08/23/19 09:29 Sodium Chloride Flush Syringe 10 Ml IV 10 ml BID RAISA Administration Sodium Chloride 10 ml 08/05/19 21:32 Sodium Chloride Flush Syringe 10 Ml IV PRN PRN LINE FLUSH Nutrition/Malnutrition Assess - Dietary Evaluation Nutrition/Malnutrition Findings: Nutrition Notes Start: 08/06/19 08:35 Freq: Status: Active Protocol: Document 08/18/19 08:25 LP (Rec: 08/18/19 08:27 LP [id number]) Nutrition Notes Initial or Follow up Reassessment Current Diagnosis Diabetes Other Pertinent Diagnosis ARDS, Suspected COVID-19 Current Diet Cardiac/consistent CHO Labs/Tests BG 159 Pertinent Medications Reviewed Height 5 ft 5 in Weight 92.3 kg [place] Body Weight (kg) 56.81 BMI 33.8 Weight Status Obese Subjective/Other Information Pt continues eating well and consuming most of meals. Percent of energy/protein needs met: 100%/91% Burn Absent Trauma Absent Current % PO Good (75-100%) Minimum of two criteria No physical signs of malnutrition #2 Nutrition Diagnosis Inadequate oral intake As Evidenced by Signs and Symptoms Pt continued to meet 100% of kcal and 91% of protein needs Diagnosis Progress(for reassessment Resolved documentation) Is patient on ventilator? No Is Patient Ambulatory and/or Out of Bed Yes REE-([place]-ambulatory/OOB) [ 1974.544 [id number]] Kcal/Kg value to use for calculation 17 Approximate Energy Requirements Using 1569 kcal/Kg Calculation Used for Recommendations Kcal/kg Additional Notes Protein needs are 74-92g (0.8- 1g/kg) Fluid needs are 1ml/kcal Nutrition Intervention Change Diet Order: Continue Goal #1 Continue to meet at least 80% of kcal and protein needs Anticipated Discharge Needs: Cardiac/consistent CHO diet Revisit per MD consult or patient Sign Off request:
--- NOTE | 2019-08-23 14:57 | Progress Note ---
Assessment and Plan Cultures: Blood culture 08/05/2019 no growth Assessment: 54 years old female with history of obesity, diabetes, admitted on 08/05/2019 due to 2-week history of dry cough, generalized malaise and progressive shortness of breath: #Severe sepsis: likely due to severe COVID pneumonia. #Severe COVID pneumonia: Inflamatory markers are elevated- D-dimer > 10,000-->10,000--.3795, ferritin 438-->415-->594, LDH 702-->745, CRP 32-->34-. S/p Actemra 4 mg/kg x 1 on 08/06. S/p ceftriaxone/azithro 5 days. S/P Plasma infusion on 08/14/2019. IL-6 level was also high. #Acute hypoxemic respiratory failure: remains on high flow oxygen. #DM: uncontrolled. Monitor sugars alma on steroids. Recommendations: Continue steroid weaning per pulmonary Continue anticoagulation for elevated d-dimer F/u TB Quantiferon (to eval future risk of TB reactivation due to Actemra, if positive) Improving oxygen requirements Tricia Ferris MD [facility] M: [phone] O: [phone] F: [phone] Subjective Date of service: 08/23/19 Principal diagnosis: Bilateral pneumonia, ARDS Interval history: Patient afebrile, with improving oxygen requirements now on 4 L nasal cannula. Objective - Exam Narrative Exam: Narrative Exam: Physical Exam (reviewed in chart due to PPE conservation) Constitutional: limited due to PPE conservation strategy Head, Ears, Nose: limited due to PPE conservation strategy Eyes: limited due to PPE conservation strategy Neck: limited due to PPE conservation strategy Oral: limited due to PPE conservation strategy Cardiovascular: limited due to PPE conservation strategy Respiratory: limited due to PPE conservation strategy GI: limited due to PPE conservation strategy Musculoskeletal: limited due to PPE conservation strategy Skin: limited due to PPE conservation strategy Hem/Lymphatic: limited due to PPE conservation strategy Psych: limited due to PPE conservation strategy Neurological: limited due to PPE conservation strategy - Constitutional Vitals: Vital Signs Temp Pulse Resp BP Pulse Ox 97.5 F L 77 18 107/73 95 08/23/19 11:28 08/23/19 11:29 08/23/19 11:28 08/23/19 11:28 08/23/19 11:29 Temperature -Last 24 Hours Temperature 97.5 F Temperature 99.0 F Temperature 97.6 F Temperature 98.1 F - Labs CBC & Chem 7: 08/19/19 04:53 08/19/19 04:53 Labs: Abnormal lab results 08/22/19 08/22/19 08/23/19 Range/Units 16:25 21:30 08:16 POC Glucose 198 H 349 H 165 H (70-105) 08/23/19 Range/Units 11:40 POC Glucose 223 H (70-105)
[2019-08-23] MEDS: INSULIN GLARGINE 100 UNITS/ML SUB-Q SCH (22:58)
[2019-08-24] MEDS: BENZONATATE 100 MG CAP PO SCH ×3 (01:00→16:47)
[2019-08-24] MEDS: METOCLOPRAMIDE 10 MG/2 ML INJ IV PRN (01:00)
[2019-08-24] MEDS: INSULIN LISPRO 100 UNIT/ML SUB-Q SCH ×4 (09:36→21:35)
--- NOTE | 2019-08-24 09:40 | Progress Note ---
Assessment and Plan 54 y/o female with acute respiratory failure secondary to COVID 19 1. Proning during the day and prone sleeping at night. This should continue even though oxygen requirement is improving. 2. Steroids changed to prednisone 40 and taper ordered by pharmacy under me. 3. Agree with Actemra, given 4. Agree with Remdisiver, given 5. Convaslescent plasma given on 08/14/2019 6. Wean oxygen to off as patient does not have funding. Please be aggressive in this. 7. Will continue to follow. Hopeful discharge in the next 1-2 days. Subjective Date of service: 08/24/19 Principal diagnosis: Bilateral pneumonia, ARDS Interval history: Last documented sat was last night on 4 liters, 100%. None documented today. No distress. Objective Vital Signs - 12hr 08/24/19 05:09 Temperature 98.2 F Pulse Rate 60 Respiratory 18 Rate Blood Pressure 84/47 O2 Sat by Pulse 98 Oximetry Constitutional: alert, other (critically ill on HFNC) Eyes: non-icteric Effort: mildly labored Ascultation: Bilateral: rales Cardiovascular: regular rate and rhythm (no mrg) Gastrointestinal: normoactive bowel sounds, soft, non-tender, non-distended Integumentary: normal Extremities: no cyanosis, no edema, pink and warm Neurologic: normal mental status, non-focal exam, pupils equal and round, CN II- XII normal Psychiatric: mood appropriate, affect normal CBC and BMP: 08/19/19 04:53 08/19/19 04:53 ABG, PT/INR, D-dimer: PT/INR, D-dimer D-Dimer 831.46 ng/mlDDU (0-234) H 08/17/19 04:46 Abnormal lab findings: Abnormal Labs 08/05/19 08/05/19 08/05/19 14:53 14:53 14:53 Hgb Hct RDW Lymph % (Auto) 13.0 L [place] % (Auto) 10.8 H Lymph # 0.9 L Seg Neutrophils % 74.0 H Seg Neutrophils # D-Dimer > 30643 H Carbon Dioxide 20 L BUN 6 L Creatinine 0.6 L Glucose 255 H POC Glucose Hemoglobin A1c Lactic Acid Calcium Ferritin Alkaline Phosphatase 173 H Lactate Dehydrogenase C-Reactive Protein NT-Pro-B Natriuret Pep Total Protein Albumin 2.9 L Ur Specific [place] Urine WBC (Auto) Coronavirus (PCR) Miscellaneous Test 08/05/19 08/05/19 08/05/19 14:53 14:53 14:53 Hgb Hct RDW Lymph % (Auto) [place] % (Auto) Lymph # Seg Neutrophils % Seg Neutrophils # D-Dimer Carbon Dioxide BUN Creatinine Glucose 256 H POC Glucose Hemoglobin A1c Lactic Acid 3.40 H* Calcium Ferritin 438.9 H Alkaline Phosphatase Lactate Dehydrogenase 702 H C-Reactive Protein 32.90 H NT-Pro-B Natriuret Pep Total Protein Albumin Ur Specific [place] Urine WBC (Auto) Coronavirus (PCR) Miscellaneous Test 08/05/19 08/05/19 08/06/19 15:07 19:54 00:21 Hgb Hct RDW Lymph % (Auto) [place] % (Auto) Lymph # Seg Neutrophils % Seg Neutrophils # D-Dimer Carbon Dioxide BUN Creatinine Glucose POC Glucose 131 H Hemoglobin A1c Lactic Acid Calcium Ferritin Alkaline Phosphatase Lactate Dehydrogenase C-Reactive Protein NT-Pro-B Natriuret Pep 1818 H Total Protein Albumin Ur Specific [place] 1.031 H Urine WBC (Auto) 8.0 H Coronavirus (PCR) Miscellaneous Test 08/06/19 08/06/19 08/06/19 08:29 09:17 11:56 Hgb Hct RDW Lymph % (Auto) [place] % (Auto) Lymph # Seg Neutrophils % Seg Neutrophils # D-Dimer Carbon Dioxide BUN Creatinine Glucose POC Glucose 165 H 190 H Hemoglobin A1c Lactic Acid Calcium Ferritin Alkaline Phosphatase Lactate Dehydrogenase C-Reactive Protein NT-Pro-B Natriuret Pep Total Protein Albumin Ur Specific [place] Urine WBC (Auto) Coronavirus (PCR) Positive A Miscellaneous Test 08/06/19 08/06/19 08/06/19 16:16 22:16 Unknown Hgb Hct RDW Lymph % (Auto) [place] % (Auto) Lymph # Seg Neutrophils % Seg Neutrophils # D-Dimer Carbon Dioxide BUN Creatinine Glucose POC Glucose 170 H 128 H Hemoglobin A1c 7.6 H Lactic Acid Calcium Ferritin Alkaline Phosphatase Lactate Dehydrogenase C-Reactive Protein NT-Pro-B Natriuret Pep Total Protein Albumin Ur Specific [place] Urine WBC (Auto) Coronavirus (PCR) Miscellaneous Test 08/07/19 08/07/19 08/07/19 07:59 11:39 11:56 Hgb Hct RDW Lymph % (Auto) [place] % (Auto) Lymph # Seg Neutrophils % Seg Neutrophils # D-Dimer Carbon Dioxide BUN Creatinine 0.6 L Glucose 194 H POC Glucose 141 H 195 H Hemoglobin A1c Lactic Acid Calcium 8.0 L Ferritin Alkaline Phosphatase 181 H Lactate Dehydrogenase C-Reactive Protein NT-Pro-B Natriuret Pep Total Protein Albumin 2.5 L Ur Specific [place] Urine WBC (Auto) Coronavirus (PCR) Miscellaneous Test 08/07/19 08/07/19 08/07/19 11:56 11:56 11:56 Hgb Hct RDW Lymph % (Auto) [place] % (Auto) Lymph # Seg Neutrophils % Seg Neutrophils # D-Dimer > 91932 H Carbon Dioxide BUN Creatinine Glucose POC Glucose Hemoglobin A1c Lactic Acid Calcium Ferritin 415.7 H Alkaline Phosphatase Lactate Dehydrogenase 745 H C-Reactive Protein NT-Pro-B Natriuret Pep Total Protein Albumin Ur Specific [place] Urine WBC (Auto) Coronavirus (PCR) Miscellaneous Test 08/07/19 08/07/19 08/07/19 11:56 16:35 21:36 Hgb Hct RDW Lymph % (Auto) [place] % (Auto) Lymph # Seg Neutrophils % Seg Neutrophils # D-Dimer Carbon Dioxide BUN Creatinine Glucose POC Glucose 176 H 277 H Hemoglobin A1c Lactic Acid Calcium Ferritin Alkaline Phosphatase Lactate Dehydrogenase C-Reactive Protein 34.20 H NT-Pro-B Natriuret Pep Total Protein Albumin Ur Specific [place] Urine WBC (Auto) Coronavirus (PCR) Miscellaneous Test 08/08/19 08/08/19 08/08/19 07:53 08:54 11:40 Hgb Hct RDW Lymph % (Auto) [place] % (Auto) Lymph # Seg Neutrophils % Seg Neutrophils # D-Dimer Carbon Dioxide BUN Creatinine 0.6 L Glucose 266 H POC Glucose 214 H 340 H Hemoglobin A1c Lactic Acid Calcium 8.3 L Ferritin Alkaline Phosphatase 222 H Lactate Dehydrogenase C-Reactive Protein NT-Pro-B Natriuret Pep Total Protein Albumin 2.5 L Ur Specific [place] Urine WBC (Auto) Coronavirus (PCR) Miscellaneous Test 08/08/19 08/08/19 08/09/19 17:04 21:49 05:22 Hgb Hct RDW Lymph % (Auto) [place] % (Auto) Lymph # Seg Neutrophils % Seg Neutrophils # D-Dimer Carbon Dioxide BUN Creatinine Glucose POC Glucose 278 H 319 H Hemoglobin A1c Lactic Acid Calcium Ferritin Alkaline Phosphatase Lactate Dehydrogenase 866 H C-Reactive Protein 14.70 H NT-Pro-B Natriuret Pep Total Protein Albumin Ur Specific [place] Urine WBC (Auto) Coronavirus (PCR) Miscellaneous Test 08/09/19 08/09/19 08/09/19 05:44 08:12 11:52 Hgb Hct RDW Lymph % (Auto) [place] % (Auto) Lymph # Seg Neutrophils % Seg Neutrophils # D-Dimer Carbon Dioxide BUN 18 H Creatinine 0.6 L Glucose 227 H POC Glucose 232 H 273 H Hemoglobin A1c Lactic Acid Calcium 8.2 L Ferritin Alkaline Phosphatase 230 H Lactate Dehydrogenase C-Reactive Protein NT-Pro-B Natriuret Pep Total Protein Albumin 2.5 L Ur Specific [place] Urine WBC (Auto) Coronavirus (PCR) Miscellaneous Test 08/09/19 08/09/19 08/09/19 12:29 12:29 17:11 Hgb Hct RDW Lymph % (Auto) [place] % (Auto) Lymph # Seg Neutrophils % Seg Neutrophils # D-Dimer 3795.56 H Carbon Dioxide BUN Creatinine Glucose POC Glucose 200 H Hemoglobin A1c Lactic Acid Calcium Ferritin 594.1 H Alkaline Phosphatase Lactate Dehydrogenase C-Reactive Protein NT-Pro-B Natriuret Pep Total Protein Albumin Ur Specific [place] Urine WBC (Auto) Coronavirus (PCR) Miscellaneous Test 08/09/19 08/10/19 08/10/19 21:58 05:07 06:14 Hgb Hct RDW Lymph % (Auto) [place] % (Auto) Lymph # Seg Neutrophils % Seg Neutrophils # D-Dimer Carbon Dioxide BUN 19 H Creatinine Glucose 277 H POC Glucose 226 H 288 H Hemoglobin A1c Lactic Acid Calcium 7.9 L Ferritin Alkaline Phosphatase 231 H Lactate Dehydrogenase C-Reactive Protein NT-Pro-B Natriuret Pep Total Protein Albumin 2.7 L Ur Specific [place] Urine WBC (Auto) Coronavirus (PCR) Miscellaneous Test 08/10/19 08/10/19 08/10/19 08:16 08:31 12:25 Hgb Hct RDW Lymph % (Auto) [place] % (Auto) Lymph # Seg Neutrophils % Seg Neutrophils # D-Dimer Carbon Dioxide BUN Creatinine Glucose POC Glucose 284 H 387 H Hemoglobin A1c Lactic Acid Calcium Ferritin Alkaline Phosphatase Lactate Dehydrogenase C-Reactive Protein NT-Pro-B Natriuret Pep Total Protein Albumin Ur Specific [place] Urine WBC (Auto) Coronavirus (PCR) Miscellaneous Test Flexitest 1 H 08/10/19 08/10/19 08/11/19 18:03 21:10 05:14 Hgb Hct RDW Lymph % (Auto) [place] % (Auto) Lymph # Seg Neutrophils % Seg Neutrophils # D-Dimer Carbon Dioxide BUN 21 H Creatinine Glucose 368 H POC Glucose 297 H 259 H Hemoglobin A1c Lactic Acid Calcium Ferritin Alkaline Phosphatase 223 H Lactate Dehydrogenase C-Reactive Protein NT-Pro-B Natriuret Pep Total Protein Albumin 3.0 L Ur Specific [place] Urine WBC (Auto) Coronavirus (PCR) Miscellaneous Test 08/11/19 08/11/19 08/11/19 08:02 12:08 16:21 Hgb Hct RDW Lymph % (Auto) [place] % (Auto) Lymph # Seg Neutrophils % Seg Neutrophils # D-Dimer Carbon Dioxide BUN Creatinine Glucose POC Glucose 300 H 447 H 295 H Hemoglobin A1c Lactic Acid Calcium Ferritin Alkaline Phosphatase Lactate Dehydrogenase C-Reactive Protein NT-Pro-B Natriuret Pep Total Protein Albumin Ur Specific [place] Urine WBC (Auto) Coronavirus (PCR) Miscellaneous Test 08/11/19 08/12/19 08/12/19 21:42 05:04 07:47 Hgb Hct RDW Lymph % (Auto) [place] % (Auto) Lymph # Seg Neutrophils % Seg Neutrophils # D-Dimer Carbon Dioxide BUN 21 H Creatinine 0.5 L Glucose 276 H POC Glucose 447 H 274 H Hemoglobin A1c Lactic Acid Calcium Ferritin Alkaline Phosphatase 188 H Lactate Dehydrogenase C-Reactive Protein NT-Pro-B Natriuret Pep Total Protein 6.1 L Albumin 2.9 L Ur Specific [place] Urine WBC (Auto) Coronavirus (PCR) Miscellaneous Test 08/12/19 08/12/19 08/12/19 11:57 18:10 22:00 Hgb Hct RDW Lymph % (Auto) [place] % (Auto) Lymph # Seg Neutrophils % Seg Neutrophils # D-Dimer Carbon Dioxide BUN Creatinine Glucose POC Glucose 367 H 285 H 239 H Hemoglobin A1c Lactic Acid Calcium Ferritin Alkaline Phosphatase Lactate Dehydrogenase C-Reactive Protein NT-Pro-B Natriuret Pep Total Protein Albumin Ur Specific [place] Urine WBC (Auto) Coronavirus (PCR) Miscellaneous Test 08/13/19 08/13/19 08/13/19 04:10 04:10 04:10 Hgb Hct 44.3 H RDW 15.4 H Lymph % (Auto) 7.6 L [place] % (Auto) Lymph # 0.7 L Seg Neutrophils % 85.3 H Seg Neutrophils # D-Dimer Carbon Dioxide BUN 19 H 20 H Creatinine 0.5 L 0.5 L Glucose 201 H 199 H POC Glucose Hemoglobin A1c Lactic Acid Calcium 8.0 L 8.1 L Ferritin Alkaline Phosphatase 167 H Lactate Dehydrogenase C-Reactive Protein NT-Pro-B Natriuret Pep Total Protein 5.7 L Albumin 3.0 L Ur Specific [place] Urine WBC (Auto) Coronavirus (PCR) Miscellaneous Test 08/13/19 08/13/19 08/13/19 08:35 12:11 16:09 Hgb Hct RDW Lymph % (Auto) [place] % (Auto) Lymph # Seg Neutrophils % Seg Neutrophils # D-Dimer Carbon Dioxide BUN Creatinine Glucose POC Glucose 247 H 351 H 253 H Hemoglobin A1c Lactic Acid Calcium Ferritin Alkaline Phosphatase Lactate Dehydrogenase C-Reactive Protein NT-Pro-B Natriuret Pep Total Protein Albumin Ur Specific [place] Urine WBC (Auto) Coronavirus (PCR) Miscellaneous Test 08/13/19 08/14/19 08/14/19 21:45 04:56 07:28 Hgb 14.5 H Hct 44.2 H RDW 15.3 H Lymph % (Auto) 7.0 L [place] % (Auto) Lymph # 0.6 L Seg Neutrophils % 85.3 H Seg Neutrophils # D-Dimer Carbon Dioxide BUN Creatinine 0.5 L Glucose 228 H POC Glucose 242 H Hemoglobin A1c Lactic Acid Calcium 7.9 L Ferritin Alkaline Phosphatase 150 H Lactate Dehydrogenase C-Reactive Protein NT-Pro-B Natriuret Pep Total Protein 5.6 L Albumin 3.1 L Ur Specific [place] Urine WBC (Auto) Coronavirus (PCR) Miscellaneous Test 08/14/19 08/14/19 08/14/19 08:10 11:53 17:20 Hgb Hct RDW Lymph % (Auto) [place] % (Auto) Lymph # Seg Neutrophils % Seg Neutrophils # D-Dimer Carbon Dioxide BUN Creatinine Glucose POC Glucose 210 H 335 H 211 H Hemoglobin A1c Lactic Acid Calcium Ferritin Alkaline Phosphatase Lactate Dehydrogenase C-Reactive Protein NT-Pro-B Natriuret Pep Total Protein Albumin Ur Specific [place] Urine WBC (Auto) Coronavirus (PCR) Miscellaneous Test 08/14/19 08/14/19 08/15/19 18:08 23:25 05:09 Hgb Hct RDW Lymph % (Auto) [place] % (Auto) Lymph # Seg Neutrophils % Seg Neutrophils # D-Dimer Carbon Dioxide BUN Creatinine 0.4 L Glucose 222 H POC Glucose 255 H 272 H Hemoglobin A1c Lactic Acid Calcium 8.0 L Ferritin Alkaline Phosphatase 139 H Lactate Dehydrogenase C-Reactive Protein NT-Pro-B Natriuret Pep Total Protein 6.0 L Albumin 3.0 L Ur Specific [place] Urine WBC (Auto) Coronavirus (PCR) Miscellaneous Test 08/15/19 08/15/19 08/15/19 05:09 08:11 12:03 Hgb Hct RDW Lymph % (Auto) 8.1 L [place] % (Auto) 7.6 H Lymph # 0.7 L Seg Neutrophils % 83.9 H Seg Neutrophils # D-Dimer Carbon Dioxide BUN Creatinine Glucose POC Glucose 223 H 358 H Hemoglobin A1c Lactic Acid Calcium Ferritin Alkaline Phosphatase Lactate Dehydrogenase C-Reactive Protein NT-Pro-B Natriuret Pep Total Protein Albumin Ur Specific [place] Urine WBC (Auto) Coronavirus (PCR) Miscellaneous Test 08/15/19 08/15/19 08/16/19 16:43 21:47 04:12 Hgb Hct RDW Lymph % (Auto) [place] % (Auto) Lymph # Seg Neutrophils % Seg Neutrophils # D-Dimer Carbon Dioxide BUN Creatinine 0.4 L Glucose 205 H POC Glucose 285 H 274 H Hemoglobin A1c Lactic Acid Calcium 8.1 L Ferritin Alkaline Phosphatase Lactate Dehydrogenase C-Reactive Protein NT-Pro-B Natriuret Pep Total Protein Albumin Ur Specific [place] Urine WBC (Auto) Coronavirus (PCR) Miscellaneous Test 08/16/19 08/16/19 08/16/19 04:12 08:42 11:56 Hgb Hct 43.7 H RDW 15.7 H Lymph % (Auto) 5.4 L [place] % (Auto) Lymph # 0.6 L Seg Neutrophils % 89.0 H Seg Neutrophils # 9.5 H D-Dimer Carbon Dioxide BUN Creatinine Glucose POC Glucose 216 H 251 H Hemoglobin A1c Lactic Acid Calcium Ferritin Alkaline Phosphatase Lactate Dehydrogenase C-Reactive Protein NT-Pro-B Natriuret Pep Total Protein Albumin Ur Specific [place] Urine WBC (Auto) Coronavirus (PCR) Miscellaneous Test 08/16/19 08/16/19 08/17/19 16:29 21:28 04:46 Hgb Hct RDW Lymph % (Auto) [place] % (Auto) Lymph # Seg Neutrophils % Seg Neutrophils # D-Dimer 831.46 H Carbon Dioxide BUN Creatinine Glucose POC Glucose 245 H 293 H Hemoglobin A1c Lactic Acid Calcium Ferritin Alkaline Phosphatase Lactate Dehydrogenase C-Reactive Protein NT-Pro-B Natriuret Pep Total Protein Albumin Ur Specific [place] Urine WBC (Auto) Coronavirus (PCR) Miscellaneous Test 08/17/19 08/17/19 08/17/19 04:46 04:46 08:13 Hgb Hct RDW Lymph % (Auto) [place] % (Auto) Lymph # Seg Neutrophils % Seg Neutrophils # D-Dimer Carbon Dioxide BUN Creatinine Glucose POC Glucose 201 H Hemoglobin A1c Lactic Acid Calcium Ferritin 775.8 H Alkaline Phosphatase Lactate Dehydrogenase 409 H C-Reactive Protein NT-Pro-B Natriuret Pep Total Protein Albumin Ur Specific [place] Urine WBC (Auto) Coronavirus (PCR) Miscellaneous Test 08/17/19 08/17/19 08/17/19 11:54 18:22 20:42 Hgb Hct RDW Lymph % (Auto) [place] % (Auto) Lymph # Seg Neutrophils % Seg Neutrophils # D-Dimer Carbon Dioxide BUN Creatinine Glucose POC Glucose 378 H 309 H 214 H Hemoglobin A1c Lactic Acid Calcium Ferritin Alkaline Phosphatase Lactate Dehydrogenase C-Reactive Protein NT-Pro-B Natriuret Pep Total Protein Albumin Ur Specific [place] Urine WBC (Auto) Coronavirus (PCR) Miscellaneous Test 08/18/19 08/18/19 08/18/19 08:07 12:00 16:13 Hgb Hct RDW Lymph % (Auto) [place] % (Auto) Lymph # Seg Neutrophils % Seg Neutrophils # D-Dimer Carbon Dioxide BUN Creatinine Glucose POC Glucose 159 H 346 H 200 H Hemoglobin A1c Lactic Acid Calcium Ferritin Alkaline Phosphatase Lactate Dehydrogenase C-Reactive Protein NT-Pro-B Natriuret Pep Total Protein Albumin Ur Specific [place] Urine WBC (Auto) Coronavirus (PCR) Miscellaneous Test 08/18/19 08/19/19 08/19/19 22:57 04:53 04:53 Hgb 14.4 H Hct 44.2 H RDW 15.9 H Lymph % (Auto) [place] % (Auto) Lymph # Seg Neutrophils % Seg Neutrophils # D-Dimer Carbon Dioxide BUN Creatinine 0.4 L Glucose 214 H POC Glucose 224 H Hemoglobin A1c Lactic Acid Calcium 8.3 L Ferritin Alkaline Phosphatase Lactate Dehydrogenase C-Reactive Protein NT-Pro-B Natriuret Pep Total Protein Albumin Ur Specific [place] Urine WBC (Auto) Coronavirus (PCR) Miscellaneous Test 08/19/19 08/19/19 08/19/19 08:16 12:38 17:46 Hgb Hct RDW Lymph % (Auto) [place] % (Auto) Lymph # Seg Neutrophils % Seg Neutrophils # D-Dimer Carbon Dioxide BUN Creatinine Glucose POC Glucose 171 H 321 H 193 H Hemoglobin A1c Lactic Acid Calcium Ferritin Alkaline Phosphatase Lactate Dehydrogenase C-Reactive Protein NT-Pro-B Natriuret Pep Total Protein Albumin Ur Specific [place] Urine WBC (Auto) Coronavirus (PCR) Miscellaneous Test 08/19/19 08/20/19 08/20/19 19:55 08:06 17:52 Hgb Hct RDW Lymph % (Auto) [place] % (Auto) Lymph # Seg Neutrophils % Seg Neutrophils # D-Dimer Carbon Dioxide BUN Creatinine Glucose POC Glucose 129 H 183 H 337 H Hemoglobin A1c Lactic Acid Calcium Ferritin Alkaline Phosphatase Lactate Dehydrogenase C-Reactive Protein NT-Pro-B Natriuret Pep Total Protein Albumin Ur Specific [place] Urine WBC (Auto) Coronavirus (PCR) Miscellaneous Test 08/20/19 08/21/19 08/21/19 21:14 08:00 11:26 Hgb Hct RDW Lymph % (Auto) [place] % (Auto) Lymph # Seg Neutrophils % Seg Neutrophils # D-Dimer Carbon Dioxide BUN Creatinine Glucose POC Glucose 235 H 183 H 294 H Hemoglobin A1c Lactic Acid Calcium Ferritin Alkaline Phosphatase Lactate Dehydrogenase C-Reactive Protein NT-Pro-B Natriuret Pep Total Protein Albumin Ur Specific [place] Urine WBC (Auto) Coronavirus (PCR) Miscellaneous Test 08/21/19 08/21/19 08/22/19 16:22 21:37 07:29 Hgb Hct RDW Lymph % (Auto) [place] % (Auto) Lymph # Seg Neutrophils % Seg Neutrophils # D-Dimer Carbon Dioxide BUN Creatinine Glucose POC Glucose 174 H 258 H 166 H Hemoglobin A1c Lactic Acid Calcium Ferritin Alkaline Phosphatase Lactate Dehydrogenase C-Reactive Protein NT-Pro-B Natriuret Pep Total Protein Albumin Ur Specific [place] Urine WBC (Auto) Coronavirus (PCR) Miscellaneous Test 08/22/19 08/22/19 08/22/19 11:51 16:25 21:30 Hgb Hct RDW Lymph % (Auto) [place] % (Auto) Lymph # Seg Neutrophils % Seg Neutrophils # D-Dimer Carbon Dioxide BUN Creatinine Glucose POC Glucose 268 H 198 H 349 H Hemoglobin A1c Lactic Acid Calcium Ferritin Alkaline Phosphatase Lactate Dehydrogenase C-Reactive Protein NT-Pro-B Natriuret Pep Total Protein Albumin Ur Specific [place] Urine WBC (Auto) Coronavirus (PCR) Miscellaneous Test 08/23/19 08/23/19 08/23/19 08:16 11:40 17:05 Hgb Hct RDW Lymph % (Auto) [place] % (Auto) Lymph # Seg Neutrophils % Seg Neutrophils # D-Dimer Carbon Dioxide BUN Creatinine Glucose POC Glucose 165 H 223 H 212 H Hemoglobin A1c Lactic Acid Calcium Ferritin Alkaline Phosphatase Lactate Dehydrogenase C-Reactive Protein NT-Pro-B Natriuret Pep Total Protein Albumin Ur Specific [place] Urine WBC (Auto) Coronavirus (PCR) Miscellaneous Test 08/23/19 08/24/19 21:41 08:19 Hgb Hct RDW Lymph % (Auto) [place] % (Auto) Lymph # Seg Neutrophils % Seg Neutrophils # D-Dimer Carbon Dioxide BUN Creatinine Glucose POC Glucose 244 H 62 L Hemoglobin A1c Lactic Acid Calcium Ferritin Alkaline Phosphatase Lactate Dehydrogenase C-Reactive Protein NT-Pro-B Natriuret Pep Total Protein Albumin Ur Specific [place] Urine WBC (Auto) Coronavirus (PCR) Miscellaneous Test
[2019-08-24] MEDS: MAGIC MOUTHWASH 30ML PO SCH ×3 (10:05→21:34)
[2019-08-24] MEDS: FAMOTIDINE 20 MG TAB PO SCH ×2 (10:06→21:34)
[2019-08-24] MEDS: ASCORBIC ACID 500 MG TAB PO SCH ×2 (10:06→21:35)
[2019-08-24] MEDS: ENOXAPARIN 100 MG/1 ML INJ SUB-Q SCH ×2 (10:06→21:34)
[2019-08-24] MEDS: predniSONE 20 MG TAB PO SCH (10:07)
--- NOTE | 2019-08-24 13:38 | Progress Note ---
Assessment and Plan Assessment and plan: Severe sepsis. Etiology secondary to COVID-19 pneumonia. COVID pneumonia. Patient with likely cytokine storm, microthrombi and elevated inflammatory markers. Patient is s/p Actemra on 08/06. ARDS. Etiology secondary to above. Acute hypoxemic respiratory failure. Continue O2 and BiPAP as clinically indicated. Etiology secondary to above. Diabetes mellitus type 2. Continue Lantus at bedtime. Patient with Solu- Medrol. 08/12/2019. Pulmonary following and recommending pronating during the day and at night. Continue Solu-Medrol 40 mg every 8 hours for a total of 7 days. Patient s/p Actemra and Remdisiver. Patient currently on HFNC requiring 40 L O2. Increase Lantus to 15 units at bedtime. 08/13/2019. Continue pronating. ID reports patient enrolled in Expanded Access Program for Convalescent Plasma patient [id number]. Continue Remdesivir - 100 mg IV daily x 9 days. Continue solumedrol 40 mg IV q 8 hours. Continue anticoagulation for elevated d-dimer. Follow-up quantiferon and IL6. Continue vitamin C and E. Continue COVID isolation precautions. Patient with high risk mortality 08/14/2019. Patient currently with high flow nasal cannula 40 L/min FiO2 90%. Convalescent plasma per ID. Continue Remdesivir, s/p Actemra, IV Solu-Medrol 40 mg every 8 hour and Lovenox 90 mg subcu every 12 hours. Continue proning pauletet ent. Prognosis remains guarded. 08/15/2019. Patient currently with high flow nasal cannula 40 L/min FiO2 80%. Convalescent plasma per ID. Continue Remdesivir, s/p Actemra, IV Solu-Medrol 40 mg every 8 hour and Lovenox 90 mg subcu every 12 hours. Continue proning patient. Prognosis remains guarded. 08/16/2019 patient with Covid-19 pneumonia wit acute resp failure. Less SOB. now on 30 l/min HFNC. Also s/p Remdesivir, s/p Actemra. 08/17/2019 Patient with Covid-19 pneumonia with acute respiratory failure. Patient less shortness of breath. still on high flow Oxygen at 30 l/min 08/18/2019 patient with Covid-19 pneumonia with acute resp failure. She is still on Oxygen by HFNC at 30 l/min. Will discuss with resp Therapist to wean down Fi02 08/19/2019 Patient with Covid-19 pneumonia with acute respiratory failure. She is still on Oxygen by HFNC at 30 l/min. I discussed with Nurse about weaning down Oxygen, but she states patient gets d esaturated on exertion, so will leave the same from now. 08/20/2019 Patient with Covid-19 pneumonia with acute respiratory failure. She is feelin better, now down to Oxygen by HFNC at 10 l/min. I discussed with Nurse. OK to transfer to med floor as per Pulmonology. 08/21/2019 Patient with Covid-19 pneumonia with acute respiratory failure. She is feeling better, now down to Oxygen by HFNC at 10 l/min. Transferred to med/surg floor from [facility] testerday 08/20/19. Magic mouthwash ordered for oral ulcers 08/23/19. Patient with Covid-19 pneumonia with acute respiratory failure. Continue steroid weaning per pulmonary. Continue anticoagulation for elevated d-dimer F/u TB Quantiferon 08/24/19. Patient with Covid-19 pneumonia with acute respiratory failure. Continue steroid weaning per pulmonary. Continue anticoagulation for elevated d-dimer F/u TB Quantiferon. Case management to make arrangements regarding Home O2 History Interval history: No new issues overnight. Patient still requiring HFNC with 40 L of oxygen. Hospitalist Physical - Constitutional Vitals: Temp Pulse Resp BP Pulse Ox 98.4 F 69 20 89/63 93 08/24/19 11:35 08/24/19 11:35 08/24/19 11:35 08/24/19 11:35 08/24/19 11:35 General appearance: Present: no acute distress, obese - EENT Eyes: Present: PERRL, EOM intact ENT: hearing intact, clear oral mucosa, dentition normal - Neck Neck: Present: supple, normal ROM - Respiratory Respiratory effort: normal Respiratory: bilateral: CTA - Cardiovascular Rhythm: regular Heart Sounds: Present: S1 & S2. Absent: gallop, rub - Extremities Extremities: no ischemia, No edema, Full ROM - Abdominal General gastrointestinal: soft, non-tender, non-distended, normal bowel sounds - Integumentary Integumentary: Present: clear, warm, dry - Neurologic Neurologic: CNII-XII intact, moves all extremities Results - Labs CBC & Chem 7: 08/19/19 04:53 08/19/19 04:53 Labs: Laboratory Last Values WBC 9.8 K/mm3 (4.5-11.0) 08/19/19 04:53 RBC 4.83 M/mm3 (3.65-5.03) 08/19/19 04:53 Hgb 14.4 gm/dl (10.1-14.3) H 08/19/19 04:53 Hct 44.2 % (30.3-42.9) H 08/19/19 04:53 MCV 91 fl (79-97) 08/19/19 04:53 MCH 30 pg (28-32) 08/19/19 04:53 MCHC 33 % (30-34) 08/19/19 04:53 RDW 15.9 % (13.2-15.2) H 08/19/19 04:53 Plt Count 158 K/mm3 (140-440) 08/19/19 04:53 Lymph % (Auto) 5.4 % (13.4-35.0) L 08/16/19 04:12 [place] % (Auto) 5.2 % (0.0-7.3) 08/16/19 04:12 Eos % (Auto) 0.0 % (0.0-4.3) 08/16/19 04:12 Baso % (Auto) 0.4 % (0.0-1.8) 08/16/19 04:12 Lymph # 0.6 K/mm3 (1.2-5.4) L 08/16/19 04:12 [place] # 0.6 K/mm3 (0.0-0.8) 08/16/19 04:12 Eos # 0.0 K/mm3 (0.0-0.4) 08/16/19 04:12 Baso # 0.0 K/mm3 (0.0-0.1) 08/16/19 04:12 Add Manual Diff Complete 08/13/19 04:10 Seg Neutrophils % 89.0 % (40.0-70.0) H 08/16/19 04:12 Nucleated RBC % Not Reportable 08/13/19 04:10 Seg Neutrophils # 9.5 K/mm3 (1.8-7.7) H 08/16/19 04:12 WBC Morphology Not Reportable 08/13/19 04:10 Hypersegmented Neuts Not Reportable 08/13/19 04:10 Hyposegmented Neuts Not Reportable 08/13/19 04:10 Hypogranular Neuts Not Reportable 08/13/19 04:10 Smudge Cells Not Reportable 08/13/19 04:10 Toxic Granulation Not Reportable 08/13/19 04:10 Toxic Vacuolation Not Reportable 08/13/19 04:10 Dohle Bodies Not Reportable 08/13/19 04:10 Pelger-Huet Anomaly Not Reportable 08/13/19 04:10 Kaylynn Rods Not Reportable 08/13/19 04:10 Platelet Estimate Not Reportable 08/13/19 04:10 Clumped Platelets Not Reportable 08/13/19 04:10 Plt Clumps, EDTA Not Reportable 08/13/19 04:10 Large Platelets Not Reportable 08/13/19 04:10 Giant Platelets Not Reportable 08/13/19 04:10 Platelet Satelliting Not Reportable 08/13/19 04:10 Plt Morphology Comment Not Reportable 08/13/19 04:10 RBC Morphology Not Reportable 08/13/19 04:10 Dimorphic RBCs Not Reportable 08/13/19 04:10 Polychromasia Not Reportable 08/13/19 04:10 Hypochromasia Not Reportable 08/13/19 04:10 Poikilocytosis Not Reportable 08/13/19 04:10 Anisocytosis Not Reportable 08/13/19 04:10 Microcytosis Not Reportable 08/13/19 04:10 Macrocytosis Not Reportable 08/13/19 04:10 Spherocytes Not Reportable 08/13/19 04:10 Pappenheimer Bodies Not Reportable 08/13/19 04:10 Sickle Cells Not Reportable 08/13/19 04:10 Target Cells Not Reportable 08/13/19 04:10 Tear Drop Cells Not Reportable 08/13/19 04:10 Ovalocytes Not Reportable 08/13/19 04:10 Helmet Cells Not Reportable 08/13/19 04:10 Rader-Andres Bodies Not Reportable 08/13/19 04:10 [place] Rings Not Reportable 08/13/19 04:10 [place] Cells Not Reportable 08/13/19 04:10 Bite Cells Not Reportable 08/13/19 04:10 Crenated Cell Not Reportable 08/13/19 04:10 Elliptocytes Not Reportable 08/13/19 04:10 Acanthocytes (Spur) Not Reportable 08/13/19 04:10 Rouleaux Not Reportable 08/13/19 04:10 Hemoglobin C Crystals Not Reportable 08/13/19 04:10 Schistocytes Not Reportable 08/13/19 04:10 Malaria parasites Not Reportable 08/13/19 04:10 Humberto Bodies Not Reportable 08/13/19 04:10 Hem Pathologist Commnt Not Reportable 08/13/19 04:10 APTT 26.3 Sec. (24.2-36.6) 08/05/19 14:53 D-Dimer 831.46 ng/mlDDU (0-234) H 08/17/19 04:46 Sodium 141 mmol/L (137-145) 08/19/19 04:53 Potassium 4.4 mmol/L (3.6-5.0) 08/19/19 04:53 Chloride 101.7 mmol/L (98-107) 08/19/19 04:53 Carbon Dioxide 27 mmol/L (22-30) 08/19/19 04:53 Anion Gap 17 mmol/L 08/19/19 04:53 BUN 16 mg/dL (7-17) 08/19/19 04:53 Creatinine 0.4 mg/dL (0.7-1.2) L 08/19/19 04:53 Estimated GFR > 60 ml/min 08/19/19 04:53 BUN/Creatinine Ratio 40 % 08/19/19 04:53 Glucose 214 mg/dL (65-100) H 08/19/19 04:53 POC Glucose 137 (70-105) H 08/24/19 11:45 Hemoglobin A1c 7.6 % (4-6) H 08/06/19 Unknown Lactic Acid 1.90 mmol/L (0.7-2.0) 08/05/19 22:51 Calcium 8.3 mg/dL (8.4-10.2) L 08/19/19 04:53 Ferritin 775.8 ng/mL (13.0-400.0) H 08/17/19 04:46 Total Bilirubin 1.00 mg/dL (0.1-1.2) 08/15/19 05:09 AST 23 units/L (5-40) 08/15/19 05:09 ALT 45 units/L (7-56) 08/15/19 05:09 Alkaline Phosphatase 139 units/L (35-129) H 08/15/19 05:09 Lactate Dehydrogenase 409 units/L (91-180) H 08/17/19 04:46 C-Reactive Protein 0.30 mg/dL (0.00-1.30) 08/17/19 04:46 NT-Pro-B Natriuret Pep 1818 pg/mL (0-900) H 08/05/19 15:07 Total Protein 6.0 g/dL (6.3-8.2) L 08/15/19 05:09 Albumin 3.0 g/dL (3.9-5) L 08/15/19 05:09 Albumin/Globulin Ratio 1.0 % 08/15/19 05:09 Procalcitonin 1.06 ng/mL (<0.15) 08/09/19 12:29 Urine Color [place] (Yellow) 08/05/19 19:54 Urine Turbidity Clear (Clear) 08/05/19 19:54 Urine pH 5.0 (5.0-7.0) 08/05/19 19:54 Ur Specific [place] 1.031 (1.003-1.030) H 08/05/19 19:54 Urine Protein 100 mg/dl mg/dL (Negative) 08/05/19 19:54 Urine Glucose (UA) 50 mg/dL (Negative) 08/05/19 19:54 Urine Ketones Neg mg/dL (Negative) 08/05/19 19:54 Urine Blood Neg (Negative) 08/05/19 19:54 Urine Nitrite Neg (Negative) 08/05/19 19:54 Urine Bilirubin Neg (Negative) 08/05/19 19:54 Urine Urobilinogen < 2.0 mg/dL (<2.0) 08/05/19 19:54 Ur Leukocyte Esterase Neg (Negative) 08/05/19 19:54 Urine WBC (Auto) 8.0 /HPF (0.0-6.0) H 08/05/19 19:54 Urine RBC (Auto) 1.0 /HPF (0.0-6.0) 08/05/19 19:54 U Epithel Cells (Auto) 10.0 /HPF (0-13.0) 08/05/19 19:54 Urine Mucus 1+ /HPF 08/05/19 19:54 Coronavirus (PCR) Positive (Negative) A 08/06/19 09:17 Miscellaneous Test Flexitest 1 H 08/10/19 08:16 Blood Type A POSITIVE 08/11/19 15:00 Antibody Screen Negative 08/11/19 15:00 [place]/IV: Voiding Method Toilet IV Catheter Type [Left Forearm INT / Saline Lock ] IV Catheter Type [Right Wrist] Peripheral IV IV Catheter Type [Right INT / Saline Lock Forearm] IV Catheter Type [Left Hand] Peripheral IV IV Catheter Type [Left Peripheral IV Antecubital] Active Medications - Current Medications Current Medications: Generic Name Dose Route Start Last Admin Trade Name Freq PRN Reason Stop Dose Admin Acetaminophen 650 mg 08/05/19 21:32 08/06/19 20:05 Tylenol PO 650 mg Q4H PRN Administration Pain MILD(1-3)/Fever >100.5/BUTLER Ascorbic Acid 500 mg 08/08/19 10:00 08/24/19 10:06 Vitamin C PO 500 mg BID RAISA Administration Benzonatate 100 mg 08/06/19 01:00 08/24/19 10:07 Tessalon Perles PO 100 mg Q8H RAISA Administration Cholecalciferol 5,000 unit 08/08/19 10:00 08/23/19 09:28 Vitamin D3 PO 5,000 unit QDAY RAISA Administration Enoxaparin Sodium 90 mg 08/05/19 22:00 08/24/19 10:06 Enoxaparin SUB-Q 90 mg Q12HR RAISA Administration Famotidine 20 mg 08/05/19 22:00 08/24/19 10:06 Pepcid PO 20 mg BID RAISA Administration Hydromorphone HCl 0.5 mg 08/05/19 21:32 08/22/19 14:23 Dilaudid IV 0.5 mg Q3H PRN Administration Pain , Severe (7-10) Hydrophilic Ointment 1 applic 08/13/19 18:22 08/13/19 18:29 Vaseline Lip Therapy TP 1 applic DIRECT PRN Administration Dry Lips Insulin Glargine 40 units 08/22/19 22:00 08/23/19 22:58 Lantus SUB-Q 40 units QHS RAISA Administration Insulin Human Lispro 0 unit 08/05/19 22:00 08/24/19 12:11 Humalog SUB-Q Not Given ACHS [facility] Protocol Lidocaine HCl 15 ml 08/20/19 16:00 08/24/19 10:05 Magic Mouthwash PO 15 ml TID RAISA Administration Metoclopramide HCl 10 mg 08/05/19 21:32 08/24/19 01:00 Reglan IV 10 mg Q6H PRN Administration Nausea And Vomiting Ondansetron HCl 4 mg 08/05/19 21:32 08/22/19 23:48 Zofran IV 4 mg Q8H PRN Administration Nausea And Vomiting Oxycodone/Acetaminophen 1 tab 08/05/19 21:32 08/20/19 13:12 Percocet 5/325 PO 1 tab Q6H PRN Administration Pain, Moderate (4-6) Prednisone 40 mg 08/23/19 10:00 08/24/19 10:07 Deltasone PO 08/25/19 10:01 40 mg QDAY RAISA Administration Prednisone 20 mg 08/26/19 10:00 Deltasone PO 08/28/19 10:01 QDAY RAISA Prednisone 10 mg 08/29/19 10:00 Deltasone PO 08/31/19 10:01 QDAY RAISA Sodium Chloride 10 ml 08/05/19 22:00 08/24/19 10:08 Sodium Chloride Flush Syringe 10 Ml IV 10 ml BID RAISA Administration Sodium Chloride 10 ml 08/05/19 21:32 Sodium Chloride Flush Syringe 10 Ml IV PRN PRN LINE FLUSH Nutrition/Malnutrition Assess - Dietary Evaluation Nutrition/Malnutrition Findings: Nutrition Notes Start: 08/06/19 08:35 Freq: Status: Active Protocol: Document 08/18/19 08:25 LP (Rec: 08/18/19 08:27 LP [id number]) Nutrition Notes Initial or Follow up Reassessment Current Diagnosis Diabetes Other Pertinent Diagnosis ARDS, Suspected COVID-19 Current Diet Cardiac/consistent CHO Labs/Tests BG 159 Pertinent Medications Reviewed Height 5 ft 5 in Weight 92.3 kg [place] Body Weight (kg) 56.81 BMI 33.8 Weight Status Obese Subjective/Other Information Pt continues eating well and consuming most of meals. Percent of energy/protein needs met: 100%/91% Burn Absent Trauma Absent Current % PO Good (75-100%) Minimum of two criteria No physical signs of malnutrition #2 Nutrition Diagnosis Inadequate oral intake As Evidenced by Signs and Symptoms Pt continued to meet 100% of kcal and 91% of protein needs Diagnosis Progress(for reassessment Resolved documentation) Is patient on ventilator? No Is Patient Ambulatory and/or Out of Bed Yes REE-([place]-ambulatory/OOB) [ 1974.544 [id number]] Kcal/Kg value to use for calculation 17 Approximate Energy Requirements Using 1569 kcal/Kg Calculation Used for Recommendations Kcal/kg Additional Notes Protein needs are 74-92g (0.8- 1g/kg) Fluid needs are 1ml/kcal Nutrition Intervention Change Diet Order: Continue Goal #1 Continue to meet at least 80% of kcal and protein needs Anticipated Discharge Needs: Cardiac/consistent CHO diet Revisit per MD consult or patient Sign Off request:
[2019-08-24] MEDS: CHOLECALCIFEROL (VIT D3) 5,000 UNIT TAB PO SCH (14:08)
--- NOTE | 2019-08-24 14:17 | Progress Note ---
Assessment and Plan Cultures: Blood culture 08/05/2019 no growth Assessment: 54 years old female with history of obesity, diabetes, admitted on 08/05/2019 due to 2-week history of dry cough, generalized malaise and progressive shortness of breath: #Severe sepsis: likely due to severe COVID pneumonia. #Severe COVID pneumonia: Inflamatory markers are elevated- D-dimer > 10,000-->10,000--.3795, ferritin 438-->415-->594, LDH 702-->745, CRP 32-->34-. S/p Actemra 4 mg/kg x 1 on 08/06. S/p ceftriaxone/azithro 5 days. S/P Plasma infusion on 08/14/2019. IL-6 level was also high. #Acute hypoxemic respiratory failure: remains on high flow oxygen. #DM: uncontrolled. Monitor sugars alma on steroids. Recommendations: Continue steroid weaning per pulmonary Continue anticoagulation for elevated d-dimer F/u TB Quantiferon (to eval future risk of TB reactivation due to Actemra, if positive) Improving oxygen requirements Okay for discharge from infectious disease perspective when stable from a respiratory standpoint. Tricia Ferris MD [facility], [place], [facility] M: [phone] O: [phone] F: [phone] Subjective Date of service: 08/24/19 Principal diagnosis: Bilateral pneumonia, ARDS Interval history: Afebrile, stable oxygen requirements. Objective - Exam Narrative Exam: Narrative Exam: Physical Exam (reviewed in chart due to PPE conservation) Constitutional: limited due to PPE conservation strategy Head, Ears, Nose: limited due to PPE conservation strategy Eyes: limited due to PPE conservation strategy Neck: limited due to PPE conservation strategy Oral: limited due to PPE conservation strategy Cardiovascular: limited due to PPE conservation strategy Respiratory: limited due to PPE conservation strategy GI: limited due to PPE conservation strategy Musculoskeletal: limited due to PPE conservation strategy Skin: limited due to PPE conservation strategy Hem/Lymphatic: limited due to PPE conservation strategy Psych: limited due to PPE conservation strategy Neurological: limited due to PPE conservation strategy - Constitutional Vitals: Vital Signs Temp Pulse Resp BP Pulse Ox 98.4 F 69 20 89/63 93 08/24/19 11:35 08/24/19 11:35 08/24/19 11:35 08/24/19 11:35 08/24/19 11:35 Temperature -Last 24 Hours Temperature 98.4 F Temperature 98.2 F Temperature 98.1 F Temperature 98.4 F - Labs CBC & Chem 7: 08/19/19 04:53 08/19/19 04:53 Labs: Abnormal lab results 08/23/19 08/23/19 08/24/19 Range/Units 17:05 21:41 08:19 POC Glucose 212 H 244 H 62 L (70-105) 08/24/19 Range/Units 11:45 POC Glucose 137 H (70-105)
[2019-08-24] MEDS: INSULIN GLARGINE 100 UNITS/ML SUB-Q SCH (21:33)
[2019-08-25] MEDS: BENZONATATE 100 MG CAP PO SCH ×2 (04:30→09:57)
[2019-08-25] MEDS: INSULIN LISPRO 100 UNIT/ML SUB-Q SCH ×2 (07:30→11:30)
--- NOTE | 2019-08-25 08:24 | Discharge Summary ---
Providers - Providers Date of Admission: 08/05/19 15:47 Date of discharge: 08/25/19 Attending physician: PAIGE LEE 08/06/19 20:51 Consult to Physician [CONS] Routine Comment: Consulting Provider: JINNY GONZALEZ Physician Instructions: Reason For Exam: Bilateral pneumonia, coronavirus positive Consult to Physician [CONS] Routine Comment: Consulting Provider: HUGH NICE Physician Instructions: Reason For Exam: ARDS, bilateral pneumonia Primary care physician: MANAGER METAL Hospitalization Reason for admission: sepsis, COVID PNA resp failure Condition: Stable Hospital course: 54 years old female with history of obesity, diabetes, admitted on 08/05/2019 due to 2-week history of dry cough, generalized malaise and progressive shortness of breath. The patient was admitted with diagnosis of severe sepsis secondary to COVID pneumonia, acute hypoxemic respiratory failure and diabetes mellitus type 2. The patient was seen by pulmonary and infectious disease in consultation. Patient received IV steroids and anticoagulation for elevated d- dimer. Patient also received Actemra and plasma infusion on 08/14/2019.. The patient slowly over the course of the hospitalization stabilized and was felt to have received maximal hospital benefit for discharge. Pulmonary recommended home oxygen as the patient still requiring 4 L satting at 95%. Dedicated discharge time 35 minutes. 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: unspecified correction insulin use status Core Measure Documentation - Palliative Care Palliative Care/ Comfort Measures: Not Applicable - Core Measures Any of the following diagnoses?: none Exam - Constitutional Vitals: Temp Pulse Resp BP Pulse Ox 98.2 F 65 20 95/56 97 08/25/19 04:40 08/25/19 04:40 08/25/19 04:40 08/25/19 04:40 08/25/19 04:40 General appearance: Present: no acute distress, well-nourished - EENT Eyes: Present: PERRL ENT: hearing intact, clear oral mucosa - Neck Neck: Present: supple, normal ROM - Respiratory Respiratory effort: normal Respiratory: bilateral: CTA - Cardiovascular Heart Sounds: Present: S1 & S2. Absent: rub, click - Extremities Extremities: pulses symmetrical, No edema Peripheral Pulses: within normal limits - Abdominal General gastrointestinal: Present: soft, non-tender, non-distended, normal bowel sounds Female genitourinary: Present: normal - Integumentary Integumentary: Present: clear, warm, dry - Musculoskeletal Musculoskeletal: gait normal, strength equal bilaterally - Psychiatric Psychiatric: appropriate mood/affect, intact judgment & insight - Neurologic Neurologic: CNII-XII intact, moves all extremities Plan Activity: advance as tolerated Weight Bearing Status: Full Weight Bearing Diet: diabetic Durable Medical Equipment Needed Upon Discharge: Oxygen (case management to arrange) Follow up with: PRIMARY CARE, [Primary Care Provider] - 7 Days BROOKS EDUARDO MD [Staff Physician] - 7 Days Prescriptions: predniSONE [Deltasone] 10 mg PO QDAY 3 Days #3 tablet predniSONE [Deltasone] 40 mg PO QDAY 2 Days #2 tablet predniSONE [Deltasone] 20 mg PO QDAY 3 Days #3 tablet Insulin Glargine [Lantus VIAL] 40 units SUB-Q QHS 30 Days units oxyCODONE /ACETAMINOPHEN [Percocet 5/325 mg] 1 tab PO Q6H PRN #12 tablet PRN Reason: Pain, Moderate (4-6)
[2019-08-25] MEDS: MAGIC MOUTHWASH 30ML PO SCH (09:55)
[2019-08-25] MEDS: ASCORBIC ACID 500 MG TAB PO SCH (09:56)
[2019-08-25] MEDS: ENOXAPARIN 100 MG/1 ML INJ SUB-Q SCH (09:56)
[2019-08-25] MEDS: FAMOTIDINE 20 MG TAB PO SCH (09:57)
[2019-08-25] MEDS: predniSONE 20 MG TAB PO SCH (09:57)
[2019-08-25] MEDS: CHOLECALCIFEROL (VIT D3) 5,000 UNIT TAB PO SCH (09:58)
[2019-08-25 13:01] VITALS: BP 101/44
[2019-08-26] MEDS ORDERED: predniSONE 20 MG TAB PO SCH (10:00)
[2019-08-29] MEDS ORDERED: predniSONE 10 MG TAB PO SCH (10:00)
== END 2019-08-25 14:30 | disposition home or self-care (01) | DRG 871 ==
LOC: ED 14:05 → IMCU 15:47 → 3A 08-20 12:10
PROVIDERS: ADMIT Internal Medicine; ATTEND Hospitalist
DX: A41.89 Other specified sepsis (principal); U07.1 COVID-19; J96.01 Acute respiratory failure with hypoxia; J12.89 Other viral pneumonia; E87.2 Acidosis; R65.20 Severe sepsis without septic shock; E11.65 Type 2 diabetes mellitus with hyperglycemia; Z90.710 Acquired absence of both cervix and uterus
CPT/HCPCS: 36415; 71045; 80048; 80053; 81001; 82140; 82164; 82728; 82947; 82962; 83036; 83615; 83880; 84145; 85007; 85025; 85027; 85379; 85730; 86140; 86850; 86900; 86901; 87040; 94760; G0378; J0456; J0696; J1170; J1650; J1815; J1940; J2405; J2765; J2920; J3480; J7040; J7050; J7512; U0003-CS